=== PATIENT | female | born 1945 | race Caucasian/White ===

== ENCOUNTER → 2024-05-13 | Day surgery (SDC) | payer MEDICARE, BC ==
[~2024-05-13] MED LIST: ALPRAZolam 0.25 MG TAB PO PRN; ALPRAZolam 0.5 MG TAB PO PRN; ATORVASTATIN 80 MG TAB PO ONE; HEPARIN SODIUM,PORCINE (1 ML) 2,500 UNIT in SODIUM CHLORIDE 0.9% 250 ML IRRIGATION PRN; HEPARIN SODIUM,PORCINE 10,000 UNIT in SODIUM CHLORIDE 0.9% 1,000 ML IRRIGATION PRN; NITROGLYCERIN SL TABS 0.4 MG TAB SUBLINGUAL PRN; RX INFO: IV CONTRAST WAS GIVEN 1 EACH MISC MISCELLANE PRN; SODIUM CHLORIDE 0.9% 1,000 ML IV SCH
[2024-05-13] MEDS: IV FLUID CONTINUATION 1,000 ML IV ONE ×2 (08:30)
[2024-05-13] MEDS: SODIUM CHLORIDE 0.9% 1,000 ML in EMPTY BAG 1 BAG IV SCH (08:30)
[2024-05-13 08:50] LABS: Basophils % (A) 0 %; Eosinophils % (A) 0 %; HCT 40.9 % (34.0-46.0); HGB 13.7 gm/dL (11.4-16.0); Lymphocytes # (A) 0.7 k/uL (1.0-4.8); Lymphocytes % (A) 22 %; MCH 33.9 pg (25.0-35.0); MCHC 33.5 g/dL (31.0-37.0); MCV 101.1 fL (80.0-100.0); Mean Platelet Volume 7.2; Monocytes # (A) 0.1 k/uL (0-1.0); Monocytes % (A) 4 %; Neutrophils # (A) 2.2 k/uL (1.3-7.7); Neutrophils % (A) 70 %; Platelet Count 220 k/uL (150-450); RBC 4.05 m/uL (3.80-5.40); RDW 12.8 % (11.5-15.5); WBC 3.1 k/uL (3.8-10.6)
[2024-05-13 09:22] LABS: African American GFR (CKD) 89 (>60 ml/min/1.73 sqM); Anion Gap 9 mmol/L; Blood Urea Nitrogen 18 mg/dL (7-17); Calcium 9.6 mg/dL (8.4-10.2); Carbon Dioxide 29 mmol/L (22-30); Chloride 95 mmol/L (98-107); Glucose 125 mg/dL (74-99); Non-African American GFR(CKD) 77 (>60 ml/min/1.73 sqM); Potassium 3.3 mmol/L (3.5-5.1); Sodium 133 mmol/L (137-145)
[2024-05-13 09:39] VITALS: TEMP 97.1
[2024-05-13] MEDS: HEPARIN SODIUM,PORCINE (1 ML) 2,500 UNIT in SODIUM CHLORIDE 0.9% 250 ML IRRIGATION ONE ×2 (09:55→09:56)
[2024-05-13] MEDS: fentaNYL (PF) 50 MCG/ML 2 ML AMP IVP ONE (09:59)
[2024-05-13] MEDS: BENZOCAINE SPRAY 1 CAN TOPICAL ONE (09:59)
[2024-05-13] MEDS: MIDAZOLAM 2 MG/2 ML VIAL IVP ONE ×2 (09:59→10:00)
[2024-05-13] MEDS: HEPARIN SODIUM 1,000 UN/ML (10ML VL) IVP ONE (10:30)
[2024-05-13] MEDS: IOPAMIDOL-370 100ML BTL INJ ONE (10:48)
--- NOTE | 2024-05-13 11:09 | P.PCN ---
Date of Procedure: 05/13/24 Operative Findings: TRANSESOPHAGEAL ECHOCARDIOGRAM ENROLLMENT SERVICES DEAN: SHYAM GIBBS MD, RPVI INDICATION: Valvular heart disease and patent earl ovale SEDATION: Conscious sedation COMPLICATION: None LEVEL OF SEDATION Moderate with sedation length of 18 minutes PROCEDURE DESCRIPTION: After obtaining an informed consent, the patient was brought to transesophageal echocardiogram room. Pulse oximetry and heart monitors were attached to the patient. The patient throat was sprayed using lidocaine. The patient was turned into left lateral position. After that a bite guard was placed. After an appropriate conscious sedation was initiated, the transesophageal echocardiogram was advanced through a bite guard into the mid esophagus. A 2-D echocardiogram images, color Doppler images, continuous wave images, pulse-wave images, of various cardiac structure were performed. After that the transesophageal echocardiogram probe was advanced into the stomach and fixed to obtain transgastric view was. The probe was brought into the mid esophagus. Inter-atrial septum was interrogated using 2D images, color Doppler images, and then contrast study. After that transesophageal echocardiogram was withdrawn out and upon withdrawing the descending thoracic aorta all the way up to the arch was evaluated. CONCLUSION: 1. Normal LV systolic function with EF between 50 to 55% 2. Severe biatrial enlargement 3. Intact left atrial appendage 4. Patent earl ovale with a purely [id number] shunt was identified 5. Prolapsing anterior mitral leaflet with evidence of moderate to severe mitral regurgitation with PISA radius of 0.6 cm at aliasing velocity of 55 cm/s 6. Torrential tricuspid regurgitation was identified 7. Trileaflet aortic valve with moderate aortic insufficiency
--- NOTE | 2024-05-13 11:13 | P.PCN ---
Date of Procedure: 05/13/24 Operative Findings: CARDIAC CATHETERIZATION PERFORMING PHYSICIAN: Antwan Cardenas MD, RPVI PROCEDURE PERFORMED: 1. Selective right and left coronary angiogram and left heart catheterization 2. Right heart catheterization 3. Ultrasound-guided access of the right radial artery INDICATION: Symptomatic 78-year-old female patient with valvular heart disease known mitral and tricuspid regurgitation and also patent foramen ovale COMPLICATION: None APPROACH: Right radial artery LEVEL OF SEDATION: Moderate with a sedation length of 40 minutes PROCEDURE DESCRIPTION: After obtaining an informed consent, the patient was brought to cardiac mobile lab technician. Local anesthesia was performed using lidocaine subcutaneously. The right radial artery was cannulated using Seldinger technique, the guidewire passed easily, following that we advanced a 5-Slovenian sheath dilator assembly, the wire and dilator were removed and sheath was flushed. The patient came back with a venous sheath was placed in the right arm which was exchanged over an 018 wire into a 6 [place]ian sheath. Following that, 2 mg of verapamil along with 5000 unit heparin were given. Selective right and left coronary angiogram using a 6-[place]ovenian JR4 and JL 3.5 catheters. Following that we did left heart catheterization using 6-Slovenian pigtail c atheter. Right heart catheterization was performed using a 6 Slovenian Maddock catheter. The procedure was completed there was no complication. SELECTIVE CORONARY ANGIOGRAM: The right coronary artery: Large-caliber vessel and a dominant vessel appears to be angiographically normal and distally bifurcates into PDA and PLV branches Left main: Is angiographically normal The left circumflex: Large-caliber vessel nondominant vessel with no evidence of high-grade stenosis The left anterior descending artery: The proximal to mid LAD has mild to moderate disease appears to be in the range of 30% HEMODYNAMICS: The pulmonary capillary wedge pressure was 12 mmHg PA pressures were as follows systolic of 32 and diastolic of 18 and mean of 24 mmHg RV pressures were as follows systolic of 31 and end-diastolic of 8 mmHg Right atrial pressure was 8 mmHg Transpulmonary gradient was 12 mmHg Cardiac output was 4.07 L/min with a cardiac index of 2.72 L/min/m Pulmonary vascular resistance was 2.9 Wood units CONCLUSION: 1. Mild pulmonary hypertension 2. Normal biventricular filling pressures 3. Mild to moderate nonobstructive coronary artery disease POSTPROCEDURE MANAGEMENT: Evaluate the patient for mitral valve repair and tricuspid valve repair
[2024-05-13 19:04] VITALS: BP 138/82; PULSE 60; RESP 16
== END ==
LOC: CATHCVL 07:37
PROVIDERS: ATTEND Internal Medicine Interventional Cardiology
DX: I08.3 Combined rheumatic disorders of mitral, aortic and tricuspid valves (principal); I25.10 Atherosclerotic heart disease of native coronary artery without angina pectoris; I27.20 Pulmonary hypertension, unspecified; I48.0 Paroxysmal atrial fibrillation; Q21.12 Patent foramen ovale; Z88.2 Allergy status to sulfonamides; Z88.0 Allergy status to penicillin; Z88.5 Allergy status to narcotic agent; Z88.8 Allergy status to other drugs, medicaments and biological substances; Z88.6 Allergy status to analgesic agent; Z88.1 Allergy status to other antibiotic agents; Z79.01 Long term (current) use of anticoagulants; Z79.899 Other long term (current) drug therapy
CPT/HCPCS: 93312; 93320; 93325; 93460; 86900; 86901; 86902; 80048; 85025; 86850; 86870; 86880; 99152; 99153; J2250; J1644 ×2; J3010; Q9967

== ENCOUNTER 2024-07-15 08:00 | Inpatient (IN) | payer MEDICARE, BC ==
[2024-07-30] MEDS: METOPROLOL TARTRATE 12.5 MG TAB PO ONE (06:37)
[2024-07-30] MEDS: ATORVASTATIN 10 MG TAB PO ONE (06:37)
[2024-07-30] MEDS: ASPIRIN 81 MG PO ONE (06:37)
[2024-07-30] MEDS: LACTATED RINGERS 1,000 ML IV ONE (06:38)
[2024-07-30] MEDS: LIDOCAINE 1% (10MG/ML) FOR IV START INTRADERMA STA (06:38)
[2024-07-30] MEDS: IV FLUID CONTINUATION 1,000 ML IV ONE (06:40)
[2024-07-30 06:59] LABS: Glucose,Whole Blood 90 mg/dL (70-110)
[2024-07-30] MEDS ORDERED: PROPOFOL 10 MG/ML 20 ML VIAL IV ONE (07:45)
[2024-07-30] MEDS ORDERED: fentaNYL (PF) 50 MCG/ML 50 ML VIAL ONE (07:45)
[2024-07-30] MEDS ORDERED: HEPARIN SODIUM,PORCINE 5,000 UNIT/ML 1 ML VIAL ONE (07:45)
[2024-07-30] MEDS ORDERED: HEPARIN SODIUM,PORCINE 10,000 UNIT/ML 1 ML VIAL ONE (07:45)
[2024-07-30] MEDS ORDERED: ALBUMIN HUMAN 5% (25gm) 500 ML VIAL IVPB ONE (07:45)
[2024-07-30] MEDS ORDERED: CALCIUM CHLORIDE 100 MG/ML 10 ML SYRINGE ONE (07:45)
[2024-07-30] MEDS ORDERED: MIDAZOLAM HCL 10 MG/10 ML VIAL ONE (07:45)
[2024-07-30] MEDS ORDERED: TRANEXAMIC 1,000 MG/100ML-NACL PREMIX BAG ONE (07:45)
[2024-07-30] MEDS ORDERED: VECURONIUM 10 MG VIAL IV ONE (07:45)
[2024-07-30 08:33] LABS: ABG Base Excess 3.6 mmol/L; ABG Glucose Whole Blood 92 mg/dL (75-99); ABG HCO3 27 mmol/L (21-25); ABG Hematocrit 34 % (34.0-46.0); ABG Ionized Calcium 4.6 mg/dL (4.5-5.3); ABG Lactic Acid Whole Blood 0.7 mmol/L (0.5-1.6); ABG Oxygen Saturation >99.4 % (94-97); ABG PCO2 36 mmHg (35-45); ABG PH 7.49 (7.35-7.45); ABG Sodium Whole Blood 140 mmol/L (135-146)
[2024-07-30] MEDS: ceFAZolin 1,000 MG in SODIUM CHLORIDE 0.9% 1,000 ML IRRIGATION ONE (09:18)
[2024-07-30] MEDS: SODIUM CHLORIDE 0.9% 500 ML 500 ML with HEPARIN SODIUM,PORCINE (1 ML) 5,000 UNIT IV ONE (09:18)
[2024-07-30 09:20] LABS: ABG Base Excess 1.6 mmol/L; ABG Glucose Whole Blood 94 mg/dL (75-99); ABG HCO3 26 mmol/L (21-25); ABG Hematocrit 30 % (34.0-46.0); ABG Ionized Calcium 4.4 mg/dL (4.5-5.3); ABG Lactic Acid Whole Blood 0.7 mmol/L (0.5-1.6); ABG Oxygen Saturation 99.4 % (94-97); ABG PCO2 41 mmHg (35-45); ABG PH 7.42 (7.35-7.45); ABG PO2 310 mmHg (83-108); ABG Potassium Whole Blood 3.6 mmol/L (3.4-4.5); ABG Sodium Whole Blood 139 mmol/L (135-146); ABG TCO2 25 mmol/L (19-24)
[2024-07-30 09:48] LABS: ABG Base Excess -0.8 mmol/L; ABG Glucose Whole Blood 98 mg/dL (75-99); ABG HCO3 25 mmol/L (21-25); ABG Ionized Calcium 3.9 mg/dL (4.5-5.3); ABG Lactic Acid Whole Blood 0.8 mmol/L (0.5-1.6); ABG Oxygen Saturation 99.4 % (94-97); ABG PCO2 43 mmHg (35-45); ABG PH 7.37 (7.35-7.45); ABG Potassium Whole Blood 3.6 mmol/L (3.4-4.5); ABG Sodium Whole Blood 135 mmol/L (135-146); ABG TCO2 24 mmol/L (19-24)
[2024-07-30 10:22] LABS: ABG Base Excess -1.6 mmol/L; ABG Glucose Whole Blood 93 mg/dL (75-99); ABG HCO3 27 mmol/L (21-25); ABG Ionized Calcium 4.5 mg/dL (4.5-5.3); ABG Lactic Acid Whole Blood 0.6 mmol/L (0.5-1.6); ABG Oxygen Saturation 99.1 % (94-97); ABG PCO2 66 mmHg (35-45); ABG PH 7.21 (7.35-7.45); ABG PO2 335 mmHg (83-108); ABG Potassium Whole Blood 4.1 mmol/L (3.4-4.5); ABG Sodium Whole Blood 139 mmol/L (135-146); ABG TCO2 26 mmol/L (19-24)
[2024-07-30 11:01] LABS: ABG Base Excess -2.4 mmol/L; ABG Glucose Whole Blood 102 mg/dL (75-99); ABG HCO3 26 mmol/L (21-25); ABG Ionized Calcium 4.4 mg/dL (4.5-5.3); ABG Lactic Acid Whole Blood 0.6 mmol/L (0.5-1.6); ABG Oxygen Saturation 99.2 % (94-97); ABG PCO2 66 mmHg (35-45); ABG PO2 301 mmHg (83-108); ABG Potassium Whole Blood 4.3 mmol/L (3.4-4.5); ABG Sodium Whole Blood 135 mmol/L (135-146); ABG TCO2 26 mmol/L (19-24)
[2024-07-30 11:06] LABS: ABG PO2 >420 mmHg (83-108); ABG Potassium Whole Blood 2.9 mmol/L (3.4-4.5)
[2024-07-30 11:08] LABS: ABG Hematocrit 23 % (34.0-46.0); ABG PO2 >420 mmHg (83-108)
[2024-07-30 11:09] LABS: ABG Hematocrit 23 % (34.0-46.0)
[2024-07-30 11:10] LABS: ABG Hematocrit 23 % (34.0-46.0)
[2024-07-30 11:29] LABS: ABG Base Excess -1.6 mmol/L; ABG Glucose Whole Blood 124 mg/dL (75-99); ABG HCO3 23 mmol/L (21-25); ABG Ionized Calcium 4.1 mg/dL (4.5-5.3); ABG Lactic Acid Whole Blood 1.1 mmol/L (0.5-1.6); ABG Oxygen Saturation >99.4 % (94-97); ABG PCO2 38 mmHg (35-45); ABG PH 7.39 (7.35-7.45); ABG PO2 320 mmHg (83-108); ABG Potassium Whole Blood 4.3 mmol/L (3.4-4.5); ABG Sodium Whole Blood 137 mmol/L (135-146)
[2024-07-30 12:16] LABS: ABG Hematocrit 22 % (34.0-46.0); Allen Test Performed? n
[2024-07-30 12:20] LABS: ABG Base Excess -1.5 mmol/L; ABG Glucose Whole Blood 95 mg/dL (75-99); ABG HCO3 24 mmol/L (21-25); ABG Ionized Calcium 4.1 mg/dL (4.5-5.3); ABG Lactic Acid Whole Blood 1.2 mmol/L (0.5-1.6); ABG Oxygen Saturation >99.4 % (94-97); ABG PCO2 42 mmHg (35-45); ABG PH 7.36 (7.35-7.45); ABG Potassium Whole Blood 3.6 mmol/L (3.4-4.5); ABG Sodium Whole Blood 138 mmol/L (135-146)
[2024-07-30 13:09] LABS: ABG Base Excess -3.8 mmol/L; ABG Glucose Whole Blood 89 mg/dL (75-99); ABG HCO3 22 mmol/L (21-25); ABG Hematocrit 27 % (34.0-46.0); ABG Ionized Calcium 3.7 mg/dL (4.5-5.3); ABG PCO2 43 mmHg (35-45); ABG PH 7.32 (7.35-7.45); ABG PO2 278 mmHg (83-108); ABG Potassium Whole Blood 3.5 mmol/L (3.4-4.5); ABG Sodium Whole Blood 140 mmol/L (135-146); ABG TCO2 21 mmol/L (19-24)
[2024-07-30 13:10] LABS: ABG Hematocrit 24 % (34.0-46.0); ABG PO2 >420 mmHg (83-108)
[2024-07-30] MEDS ORDERED: DEXTROSE 50% SYRINGE 50 ML IVP PRN (13:43)
[2024-07-30] MEDS ORDERED: ARTIFICIAL TEARS-HYPROMELLOSE DROPS 15 ML BTL BOTH EYES PRN (13:43)
[2024-07-30] MEDS ORDERED: DEXMEDETOMIDINE/0.9% NACL(PMX) 400 MCG in EMPTY BAG 1 BAG IV SCH (13:43)
[2024-07-30] MEDS ORDERED: AMIODARONE 450 MG in DEXTROSE 5% IN WATER 250 ML IV PRN (13:43)
[2024-07-30] MEDS ORDERED: IPRATROPIUM-ALBUTEROL 3 ML NEB INHALATION PRN (13:43)
[2024-07-30] MEDS ORDERED: Potassium Replacement Protocol 1 EACH MISC MISCELLANE PRN (13:43)
[2024-07-30] MEDS ORDERED: BENZOCAINE/MENTHOL LOZENG 1 EACH LOZENGE MUCOUS MEM PRN (13:43)
[2024-07-30] MEDS ORDERED: AMIODARONE 360 MG in DEXTROSE 5% IN WATER 200 ML IV PRN (13:43)
[2024-07-30] MEDS ORDERED: CALCIUM GLUCONATE IN NACL 2 GM in SALINE 1 100ML.BAG IVPB PRN (13:43)
[2024-07-30] MEDS ORDERED: DEXTROSE 5% IN WATER 100 ML with AMIODARONE 150 MG IV PRN (13:43)
[2024-07-30] MEDS ORDERED: Magnesium Replacement Protocol 1 EACH MISC MISCELLANE PRN (13:43)
--- NOTE | 2024-07-30 14:01 | P.OP ---
Date of Procedure: 07/30/24 Preoperative Diagnosis: Mitral regurgitation, tricuspid regurgitation, aortic valvular insufficiency, chronic atrial fibrillation, patent foramen ovale Postoperative Diagnosis: Same Procedure(s) Performed: Mitral valve annuloplasty with 28 mm physio 2 ring, tricuspid valve annuloplasty with 28 mm MC 3 band, closure of patent foramen ovale, modified Ayala-Maze procedure with complete left and right sided lesion sets and suture ligation of the base of the left atrial appendage. Implants: Physio 2 mitral ring, MC 3 tricuspid band Anesthesia: GETA Surgeon: Jose Alfredo Bey Stage Setting Painter Apprentice #1: Alfa Olmedo Stage Setting Painter Apprentice #2: Anna Morgan Estimated Blood Loss (ml): 1,000 Pathology: none sent Condition: critical Disposition: ICU Indications for Procedure: 78-year-old female presents with worsening shortness of breath and fatigue. She has noted to have preserved ventricular function. She is noted to have mild aortic valvular insufficiency. She has noted to have moderate mitral regurgitation with multiple jets. She is noted to have severe tricuspid regurgitation. She has longstanding chronic atrial fibrillation with marked biatrial dilatation. She was offered either MitraClip of both the mitral and tr icuspid valves versus surgical repair with Ayala-Maze. She opted for the latter. Operative Findings: HAYLEE findings at the beginning of the case were consistent with the preoperative findings. Aorta was mildly dilated and very friable. Mitral valve demonstrated significant regurgitation without evidence of structural deformity beyond annular enlargement. Tricuspid valve similarly demonstrated no structural abnormality with marked annular dilatation. Completion HAYLEE demonstrated only mild aortic insufficiency with no evidence of mitral regurgitation and no evidence of tricuspid regurgitation. The beginning of the case the patient was in A-fib with a relatively rapid ventricular response in the 80s to 90s. At the completion of the case the patient was in a slow ventricular escape rhythm in the 40s with atrial standstill. AV pacing was initiated. The atria did pace but did not move very much. There did not appear to be any conduction from the atrium to the ventricle and patient did require V pacing. Description of Procedure: Patient was brought to the operating room and placed supine on the operating table. General anesthesia was induced. Right IJ [place]-Patricia catheter and been placed in the preop holding area. HAYLEE probe was placed with findings as noted above. The anterior torso and bilateral lower extremities were sterilely prepped and draped. Right femoral arterial line was placed and secured with 0 silk suture. Midline sternotomy was performed. The left pleural space was opened widely the right pleural space was opened minimally. The pericardium was opened in the midline of the heart was exposed with pericardial sutures. Patient was systemically heparinized. Patient was cannulated for cardiopulmonary bypass with a 6 mm soft flow cannula in the distal ascending aorta, 32 [place] straight cannula through the right atrial appendage into the inferior vena cava and a 28 right angle cannula in the superior vena cava. Antegrade and retrograde cardioplegia lines were placed in standard fashion. Patient was placed on cardiopulmonary bypass and stabilized. Caval tapes were passed. We encircled the right pulmonary veins and ablated the left atrium at the insertion of the right pulmonary veins with 3 parallel rows of RF ablation using the AtriCure clamp. Following the right sided pulmonary vein ablation, we then similarly ablated the left atrium at the entrance to the left pulmonary veins with 3 parallel RF ablations using the RF clamp. The aorta was crossclamped and the heart was arrested with cold crystalloid antegrade cardioplegia followed by retrograde cardioplegia. The interatrial groove was developed and the left atrium entered through the interatrial groove. Patent foramen ovale was identified and ligated with a 4-0 Prolene suture. Left atrium was exposed with the Red retractor. RF ablation lines of the H left atrial floor and roof were performed with 3 parallel lines using the AtriCure clamp. A line extending from here onto the mitral annulus was performed with the AtriCure cryo probe. Epicardial lesion extending from the left atriotomy onto the coronary sinus was also performed with the AtriCure cryo probe clear. Left atrial appendage was oversewn with a 4-0 Prolene suture in 2 layers. Mitral valve was exposed and examined. Findings as noted above. Circumferential rings sutures of 2-0 Tycron were placed around the entire annulus of the mitral valve. The anterior leaflet was sized and a 26 mm physio 2 ring was chosen. Annuloplasty sutures were passed through the sewing ring of the valve ring and it was seated and the sutures tied. The valve was tested and noted to be competent. Left atrium was irrigated and then atrium closed with a single layer closure of 3-0 Prolene suture. Atrium was de-aired prior to tying the suture. Next caval tapes were tightened and the right atrium was opened with a small vertical atriotomy. RF ablation lines were extended from the base of the atriotomy to the superior vena cava and inferior vena cava with 2 parallel lines each. 2 further parallel lines were placed up into the right atrial appendage. The cryoprobe was then used to extend from the top of the atriotomy across the anterior annulus of the tricuspid valve. Next the tricuspid valve was exposed and annuloplasty sutures were placed circumferentially sparing the region of the AV conduction position. 28 MC 3 band was chosen and the valve sutures were passed through the sewing ring of the MC3 band. It was seated and sutures were tied and cut. The valve was tested and noted to be competent. Patient was placed in Trendelenburg and the removed. Right atriotomy was closed with single layer running closure of 4-0 Prolene suture. The heart returned to a spontaneous rhythm. It was of slow ventricular escape rhythm. Atrial and ventricular pacing wires were placed and the patient was paced. Retrograde cardioplegia line was removed and the pursestring suture tied. Inferior vena caval venous cannula was pulled back into the right atrium and the superior vena cava caval cannula was removed and the pursestring suture tied. HAYLEE was used to confirm adequate de-airing and good ventricular and valvular function. Patient was weaned from cardiopulmonary bypass without the use of inotropic support. Patient was decannulated in standard fashion. The aortic cannulation site was reinforced with several sutures. Heparin was reversed with protamine. There was diffuse oozing present and the patient was given platelets and fresh frozen with resultant good hemostasis. Once good hemostasis had been assured throughout, left pleural space was drained with a 32 Slovak chest tube. The mediastinum was drained with 236 Slovak chest tubes. Mediastinum was irrigated with antibiotic solution. Sternum was closed with 6 Mersilene bands. Fascia was closed with 0 Ethibond. Subcutaneous and subcuticular layers were closed with layers of Vicryl suture. Dry sterile dressings were applied and the patient was transferred to the ICU in stable condition on no inotropic support. Patient did receive 1 unit of packed red blood cells following separation from cardiopulmonary bypass for needed volume support with relatively low hematocrit.
[2024-07-30 14:21] LABS: Glucose,Whole Blood 67 mg/dL (70-110)
[2024-07-30 14:35] LABS: Glucose,Whole Blood 108 mg/dL (70-110)
[2024-07-30] MEDS: SODIUM CHLORIDE 0.9% 1,000 ML IV SCH (14:36)
[2024-07-30] MEDS: CLEVIDIPINE BUTYRATE 25 MG in EMPTY BAG 1 BAG IV SCH (14:36)
[2024-07-30] MEDS: IPRATROPIUM-ALBUTEROL 3 ML NEB INHALATION SCH ×2 (14:37→21:32)
[2024-07-30 14:45] LABS: ABG HCO3 25 mmol/L (21-25); ABG Oxygen Saturation >100.0 % (94-97); ABG PCO2 42 mmHg (35-45); ABG PH 7.39 (7.35-7.45); ABG TCO2 26 mmol/L (19-24)
[2024-07-30 14:46] LABS: Ionized Calcium 4.5 mg/dL (4.5-5.3)
[2024-07-30 14:47] LABS: ABG PO2 >420 mmHg (83-108); Allen Test Performed? no
[2024-07-30 14:47] LABS: INR 1.3 (<1.2); Prothrombin Time 13.7 sec (10.0-12.5)
[2024-07-30 14:48] LABS: Basophils % (A) 0 %; Eosinophils % (A) 1 %; HCT 25.3 % (34.0-46.0); HGB 8.6 gm/dL (11.4-16.0); Lymphocytes # (A) 0.8 k/uL (1.0-4.8); Lymphocytes % (A) 18 %; MCH 33.3 pg (25.0-35.0); Monocytes # (A) 0.2 k/uL (0-1.0); Monocytes % (A) 3 %; Neutrophils # (A) 3.5 k/uL (1.3-7.7); Neutrophils % (A) 78 %; RBC 2.58 m/uL (3.80-5.40); RDW 14.1 % (11.5-15.5); WBC 4.6 k/uL (3.8-10.6)
[2024-07-30 15:00] LABS: ALT 15 U/L (4-34); AST 80 U/L (14-36); African American GFR (CKD) >90 (>60 ml/min/1.73 sqM); Albumin 2.9 g/dL (3.5-5.0); Alkaline Phosphatase 41 U/L (38-126); Anion Gap 7 mmol/L; Blood Urea Nitrogen 11 mg/dL (7-17); Calcium 8.8 mg/dL (8.4-10.2); Carbon Dioxide 25 mmol/L (22-30); Chloride 106 mmol/L (98-107); Glucose 91 mg/dL (74-99); Non-African American GFR(CKD) >90 (>60 ml/min/1.73 sqM); Sodium 138 mmol/L (137-145); Total Bilirubin 1.4 mg/dL (0.2-1.3); Total Protein 4.8 g/dL (6.3-8.2)
--- NOTE | 2024-07-30 15:02 | XR ---
EXAMINATION TYPE: XR chest 1V portable DATE OF EXAM: 07/30/2024 2:56 PM COMPARISON: None. CLINICAL INDICATION: Female, 78 years old with history of Post Operative Cardiac Surgery, difficulty breathing TECHNIQUE: XR chest 1V portable view(s) obtained. FINDINGS: The heart size is mildly prominent. Postsurgical cardiac valve changes are evident at the cardial le ads appear to be present. The pulmonary vasculature is normal. Mild linear opacities within the left midlung. Correlate for atelectasis. Mediastinal tube is present. Left-sided chest tube is present. No pneumothorax is evident. Endotrache al tube is present with the tip 3.1 cm above the promise. IMPRESSION: 1. Scattered atelectatic changes left mid lung 2. Multiple lines and catheters discussed above [facility], , 07/30/2024 3:00 PM
[2024-07-30] MEDS: ALBUMIN HUMAN 5% 250 ML in EMPTY BAG 1 BAG IVPB PRN (15:03)
[2024-07-30 15:18] LABS: Glucose,Whole Blood 132 mg/dL (70-110)
[2024-07-30] MEDS: INSULIN REGULAR 100 UNIT in SODIUM CHLORIDE 0.9% 100 ML IV SCH (15:25)
[2024-07-30 15:45] LABS: Platelet Count 70 k/uL (150-450)
[2024-07-30] MEDS: HEPARIN SODIUM,PORCINE 5,000 UNIT/ML 1 ML VIAL SQ SCH (16:01)
[2024-07-30] MEDS: ACETAMINOPHEN IV (For NPO) 1,000 MG in EMPTY BAG 1 BAG IVPB SCH (16:04)
[2024-07-30] MEDS: prednisoLONE ACETATE 1% OPHTH DROPS 5 ML BTL BOTH EYES SCH (16:06)
[2024-07-30 16:11] LABS: Glucose,Whole Blood 134 mg/dL (70-110)
--- NOTE | 2024-07-30 16:52 | P.ANPRN ---
Procedure Note - Anesthesia - Invasive Line Right [place] Patricia Time Out Performed: Yes Date of Procedure: 07/30/24 Time of Procedure: 07:44 Location of Patient: PreOp Preparation: Sterile Prep, Sterile Dressing Central Line Location: Internal Jugular Ultrasound Used: No Purpose - Visualization and Identification of Vasculature: No Image Stored and Saved: No Narrative: Invasive line placement per sterile protocol utilized.
--- NOTE | 2024-07-30 16:52 | P.ANPRN ---
Procedure Note - Anesthesia - Invasive Line Right Central Line Time Out Performed: Yes Date of Procedure: 07/30/24 Time of Procedure: 07:38 Location of Patient: PreOp Preparation: Sterile Prep, Sterile Dressing Central Line Location: Internal Jugular Ultrasound Used: No Purpose - Visualization and Identification of Vasculature: No Image Stored and Saved: No Narrative: Invasive line placement per sterile protocol utilized.
--- NOTE | 2024-07-30 16:59 | P.CNPUL ---
History of Present Illness Consult date: 07/30/24 Chief complaint: Postthoracotomy, cardiac surgery. History of present illness: This is a 78-year-old female patient is being seen in the intensive care unit following cardiac surgery. The patient underwent mitral valve annuloplasty and tricuspid valve annuloplasty and closure of the PFO and modified Ayala-Maze procedure. Following that, the patient was brought in intubated on mechanical ventilator and the patient is currently in the intensive care unit. I saw the patient in the ICU. The patient is on propofol which is running at 20 mcg/k g/min and the patient is calm and comfortable. The patient is on assist-control mode of mechanical ventilation at rate of 12, tidal volume of 400, FiO2 at 100% with a PEEP of 5. Initial blood gas showed a pH of 7.38 with a pCO2 of 42 and pO2 of 429. FiO2 has been dropped down to 50%. The patient is calm and comfortable. Current cardiac rhythm is AV paced at a rate of 80. No pressors for now. The patient received a total of 1 unit of packed RBC, 1 unit of platelets and 2 units of fresh frozen plasma in the operating room. She has 2 mediastinal chest tube and 1 pleural chest tube and the outputs are minimal at this point in time. The chest x-ray that was done postop showed adequate ex pansion of both lungs. Chest tubes are all in place. The patient does not have any Seneca-Patricia catheter. The blood work shows a white cell count of 4.6, hemoglobin 8.6 and a platelet count of 70. The sodium is at 138, potassium is 4, bicarb is 25, elevated BUN is 11 with a creatinine of 0.5. LFTs are normal. The patient has adequate urine output. Hemodynamically stable. The patient is also afebrile. No other significant events since arrival to the intensive care unit. Review of Systems ROS unobtainable: due to endotracheal tube 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 states she passed out 04/30/24 after eye examination and long day of travel - estimates LOC 2 minutes, fatigue, weakness, SOB w/exertion, surgery was rescheduled History of Any Multi-Drug Resistant Organisms: None Reported Past Surgical History: Heart Catheterization, Hysterectomy Additional Past Surgical History / Comment(s): Bilat. corneal transplants, rectocele repair Past Anesthesia/Blood Transfusion Reactions: No Reported Reaction Additional Past Anesthesia/Blood Transfusion Reaction / Comment(s): no hx. of transfusion reactions Smoking Status: Never smoker - Past Family History Father Family Medical History: Coronary Artery Disease (CAD) Additional Family Medical History / Comment(s): CABG 3 times during lifetime, bypass and valve repairs Mother Family Medical History: Hypertension Medications and Allergies Home Medications Medication Instructions Recorded Confirmed Type Apixaban [Eliquis] 2.5 mg PO BID 05/06/24 07/28/24 History Artificial Tears-Hypromellose 2 drops BOTH EYES DIRECTED 05/06/24 07/28/24 History [Artificial Tear Drops] Ascorbic Acid [Vitamin C] 500 mg PO DAILY 05/06/24 07/28/24 History Cholecalciferol [Vitamin D3 (25 25 mcg PO DAILY 05/06/24 07/28/24 History Mcg = 1000 Iu)] Collagen/Biotin/Ascorbic Acid 1 each PO DAILY 05/06/24 07/28/24 History [Collagen 1500 Plus C Capsule] Furosemide [Lasix] 20 mg PO DAILY 05/06/24 07/28/24 History Losartan [Cozaar] 100 mg PO DAILY 05/06/24 07/28/24 History Potassium Chloride ER [K-Dur 10] 10 meq PO DAILY 05/06/24 07/28/24 History Sodium Chloride 5% Ophth Oint 1 dose BOTH EYES BID 05/06/24 07/28/24 History [Ayleen 128] Super 8 Greens 1 dose PO DAILY 05/06/24 07/28/24 History Timolol [Betimol 0.5% Ophth Soln] 1 drop RIGHT EYE HS 05/06/24 07/28/24 History amLODIPine BESYLATE 10 mg PO DAILY 05/06/24 07/28/24 History atenoloL [Tenormin] 25 mg PO BID 05/06/24 07/28/24 History prednisoLONE acetate [Pred Mild] 1 drop BOTH EYES TID 05/06/24 07/28/24 History valACYclovir HCL [Valtrex] 500 mg PO DAILY 05/06/24 07/28/24 History Cetirizine HCl [Zyrtec] 10 mg PO HS 07/14/24 07/28/24 History Famotidine [Pepcid] 40 mg PO DAILY 07/14/24 07/28/24 History diphenhydrAMINE [Benadryl] 25 mg PO BID PRN 07/14/24 07/28/24 History Allergies Allergy/AdvReac Type Severity Reaction Status Date / Time Beef Containing Products Allergy Nausea & Verified 07/30/24 06:16 [Beef] Vomiting codeine Allergy Nausea & Verified 07/30/24 06:16 Vomiting erythromycin base Allergy Rash/Hives Verified 07/30/24 06:16 gluten Allergy GI upset Verified 07/30/24 06:16 hydrocodone [From Vicodin] Allergy Nausea & Verified 07/30/24 06:16 Vomiting ibuprofen Allergy Rash/Hives Verified 07/30/24 06:16 meperidine [From Demerol] Allergy Unknown Verified 07/30/24 06:16 Penicillins Allergy Rash/Hives Verified 07/30/24 06:16 Pork/Porcine Containing Allergy Nausea & Verified 07/30/24 06:16 Products Vomiting [Pork] Sulfa (Sulfonamide Allergy Rash/Hives Verified 07/30/24 06:16 Antibiotics) tramadol [From Ultram] Allergy Rash/Hives Verified 07/30/24 06:16 aspirin AdvReac Unknown Verified 07/30/24 06:16 corn AdvReac doesn't Verified 07/30/24 06:16 eat due to diverticular disease peanut AdvReac doesn't Verified 07/30/24 06:16 eat due to diverticular disease tomato AdvReac doesn't Verified 07/30/24 06:16 eat due to diverticular disease 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 Rash/Hives Uncoded 07/30/24 06:16 Physical Exam Vitals: Vital Signs Temp Pulse Pulse Resp BP BP BP 07/30/24 16:15 80 14 07/30/24 16:09 96 07/30/24 16:00 80 14 07/30/24 15:59 80 07/30/24 15:45 80 14 07/30/24 15:30 80 14 07/30/24 15:15 80 14 07/30/24 15:00 82 14 101/78 07/30/24 14:51 07/30/24 14:45 80 14 07/30/24 14:30 88 14 115/82 07/30/24 14:20 79 14 107/69 07/30/24 14:17 97 F L 79 14 07/30/24 14:14 07/30/24 06:40 97.8 F 76 16 152/85 162/93 Pulse Ox FiO2 07/30/24 16:15 91 L 40 07/30/24 16:09 07/30/24 16:00 96 40 07/30/24 15:59 07/30/24 15:45 95 40 07/30/24 15:30 100 40 07/30/24 15:15 100 40 07/30/24 15:00 100 40 07/30/24 14:51 40 07/30/24 14:45 100 40 07/30/24 14:30 100 100 07/30/24 14:20 100 100 07/30/24 14:17 100 100 07/30/24 14:14 100 07/30/24 06:40 100 Intake and Output 07/30/24 07/30/24 07/30/24 06:59 14:59 22:59 Intake Total 100 1208 379.431 Output Total 660 Balance 100 1208 -280.569 Intake: IV 100 2 12 pressure bag 12 Intake, IV Titration 367.431 Amount Albumin Human 5% 250 ml 250 In Empty Bag 1 bag @ 250 mls/hr IVPB Q1HR PRN Rx#: [id number] Sodium Chloride 0.9% 1, 100 000 ml @ 50 mls/hr IV . Q20H [facility] Rx#:[id number] propofoL 1,000 mg In 17.431 Empty Bag 1 bag @ Titrate IV .Q0M [facility] Rx#: [id number] Blood Product 1206 Ffp 24 Cpd Unit 336 [id number] Ffp 24 Cpd Unit 283 [id number] Platelet Pheresis Pas 277 Psoralen Unit [id number] Rc As-1 Unit 310 [id number] Output: Chest Tube Drainage 185 Chest Tube Mediastinal 170 Pleural Catheter Left 15 Urine 475 Other: Voiding Method Indwelling Catheter Weight 55.6 kg ABP, PAP, CO, CI - Last 8 Hours Arterial Blood Pressure 113/67 Arterial Blood Pressure 111/70 Arterial Blood Pressure 115/73 Arterial Blood Pressure 107/68 Arterial Blood Pressure 108/71 Arterial Blood Pressure 102/69 Arterial Blood Pressure 103/68 Arterial Blood Pressure 100/66 Arterial Blood Pressure 110/68 Arterial Blood Pressure 113/70 The patient appeared well nourished and normally developed. Vital signs as documented. The patient is stable, comfortable on propofol. Orogastric and orotracheal tube are both in place. Head exam is unremarkable. No scleral icterus or corneal arcus noted. Neck is without jugular venous distension, thyromegaly, or carotid bruits. Carotid upstrokes are brisk bilaterally. Lungs are clear to auscultation and percussion. Thoracotomy scar is dry clean and intact in the patient mediastinal chest tube in the left pleural chest tube. No evidence of any air leak and output is minimal at this point in time. Cardiac exam reveals the PMI to be normally sized and situated. Rhythm is regular. First and second heart sounds normal. No murmurs, rubs or gallops. The patient has AV pacing at a rate of 80. Abdominal exam reveals normal bowel sounds, no masses, no organomegaly and no aortic enlargement. Extremities are nonedematous and both femoral and pedal pulses are normal. Examination of the skin revealed no evidence of significant rashes, suspicious appearing nevi or other concerning lesions. Neurologically, the patient is sedated on propofol and the patient is calm and comfortable and synchronous with mechanical ventilator. Results - Laboratory Findings CBC and BMP: 07/30/24 14:25 07/30/24 14:25 ABG ABG pH 7.39 (7.35-7.45) 07/30/24 14:43 ABG pCO2 42 mmHg (35-45) 07/30/24 14:43 ABG pO2 >420 mmHg (83-108) H 07/30/24 14:43 ABG O2 Saturation >100.0 % (94-97) H 07/30/24 14:43 PT/INR, D-dimer PT 13.7 sec (10.0-12.5) H 07/30/24 14:25 INR 1.3 (<1.2) H 07/30/24 14:25 Abnormal lab findings: Abnormal Labs 07/28/24 07/30/24 07/30/24 08:14 08:35 09:23 RBC Hgb Hct Plt Count Lymphocytes # PT INR APTT ABG pH 7.49 H ABG pCO2 ABG pO2 >420 H 310 H ABG HCO3 27 H 26 H ABG Total CO2 25 H ABG O2 Saturation >99.4 H 99.4 H ABG Hematocrit 30 L ABG Potassium 2.9 L* ABG Ionized Calcium 4.4 L ABG Glucose Hemoglobin 11.2 L 9.7 L POC Glucose (mg/dL) Magnesium Total Bilirubin AST Total Protein Albumin Arterial Blood Potassium 2.9 L* Arterial Blood Glucose Crossmatch See Detail Blood Bank Comment Sent to [facility] A Reference Lab Result See [facility] REF Reports A 07/30/24 07/30/24 07/30/24 09:51 10:24 11:03 RBC Hgb Hct Plt Count Lymphocytes # PT INR APTT ABG pH 7.21 L 7.20 L ABG pCO2 66 H 66 H ABG pO2 >420 H 335 H 301 H ABG HCO3 27 H 26 H ABG Total CO2 26 H 26 H ABG O2 Saturation 99.4 H 99.1 H 99.2 H ABG Hematocrit 23 L 23 L 23 L ABG Potassium ABG Ionized Calcium 3.9 L 4.4 L ABG Glucose 102 H Hemoglobin 7.4 L 7.5 L 7.4 L POC Glucose (mg/dL) Magnesium Total Bilirubin AST Total Protein Albumin Arterial Blood Potassium Arterial Blood Glucose 102 H Crossmatch Blood Bank Comment Reference Lab Result 07/30/24 07/30/24 07/30/24 11:31 12:22 13:11 RBC Hgb Hct Plt Count Lymphocytes # PT INR APTT ABG pH 7.32 L ABG pCO2 ABG pO2 320 H >420 H 278 H ABG HCO3 ABG Total CO2 ABG O2 Saturation >99.4 H >99.4 H 99.0 H ABG Hematocrit 22 L 24 L 27 L ABG Potassium ABG Ionized Calcium 4.1 L 4.1 L 3.7 L ABG Glucose 124 H Hemoglobin 7.1 L 7.8 L 8.7 L POC Glucose (mg/dL) Magnesium Total Bilirubin AST Total Protein Albumin Arterial Blood Potassium Arterial Blood Glucose 124 H Crossmatch Blood Bank Comment Reference Lab Result 07/30/24 07/30/24 07/30/24 14:19 14:25 14:25 RBC 2.58 L Hgb 8.6 L Hct 25.3 L Plt Count 70 L Lymphocytes # 0.8 L PT 13.7 H INR 1.3 H APTT 36.0 H ABG pH ABG pCO2 ABG pO2 ABG HCO3 ABG Total CO2 ABG O2 Saturation ABG Hematocrit ABG Potassium ABG Ionized Calcium ABG Glucose Hemoglobin POC Glucose (mg/dL) 67 L Magnesium Total Bilirubin AST Total Protein Albumin Arterial Blood Potassium Arterial Blood Glucose Crossmatch Blood Bank Comment Reference Lab Result 07/30/24 07/30/24 07/30/24 14:25 14:43 15:16 RBC Hgb Hct Plt Count Lymphocytes # PT INR APTT ABG pH ABG pCO2 ABG pO2 >420 H ABG HCO3 ABG Total CO2 26 H ABG O2 Saturation >100.0 H ABG Hematocrit ABG Potassium ABG Ionized Calcium ABG Glucose Hemoglobin 8.8 L POC Glucose (mg/dL) 132 H Magnesium 3.0 H Total Bilirubin 1.4 H AST 80 H Total Protein 4.8 L Albumin 2.9 L Arterial Blood Potassium Arterial Blood Glucose Crossmatch Blood Bank Comment Reference Lab Result 07/30/24 16:10 RBC Hgb Hct Plt Count Lymphocytes # PT INR APTT ABG pH ABG pCO2 ABG pO2 ABG HCO3 ABG Total CO2 ABG O2 Saturation ABG Hematocrit ABG Potassium ABG Ionized Calcium ABG Glucose Hemoglobin POC Glucose (mg/dL) 134 H Magnesium Total Bilirubin AST Total Protein Albumin Arterial Blood Potassium Arterial Blood Glucose Crossmatch Blood Bank Comment Reference Lab Result - Diagnostic Findings Chest x-ray: image reviewed Assessment and Plan Plan: 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 The patient has also undergone closure of PFO and qualifies Ayala-Maze procedure. Patient is AV paced at a rate of 80 Postthoracotomy for cardiac surgery. Patient remains intubated on mechanical ventilator. Chest x-ray was noted and shows routine postop changes. Blood gases were noted and the patient is adequate oxygenation and ventilation. Chest tube output is minimal and the patient has no evidence of any air leak. Postoperative anemia expected outcome of surgery, received a unit of packed RBC in the operating room Postoperative thrombocytopenia, received a unit of platelets in the operating room History of CVA History of atrial fibrillation, currently AV paced at a rate of 80 Sjogren's disease Plan Continue ventilator support Wean FiO2 as tolerated to maintain saturation above 90% Chest x-ray was noted Hemodynamically stable Monitor output from the chest tubes Keep the patient AV paced at a rate of 80 Wean off propofol Check weaning parameters once the patient is ready and anticipate extubation within the next few hours. Will continue to follow This is a critical care evaluation that was done in the ICU and 34 minutes. Time with Patient: Greater than 30
[2024-07-30 17:28] LABS: Glucose,Whole Blood 127 mg/dL (70-110)
[2024-07-30 17:35] LABS: Basophils % (A) 0 %; Eosinophils % (A) 0 %; HCT 25.9 % (34.0-46.0); Lymphocytes % (A) 13 %; MCH 34.5 pg (25.0-35.0); MCHC 34.7 g/dL (31.0-37.0); MCV 99.3 fL (80.0-100.0); Mean Platelet Volume 7.7; Monocytes # (A) 0.4 k/uL (0-1.0); Monocytes % (A) 5 %; Neutrophils # (A) 6.3 k/uL (1.3-7.7); Neutrophils % (A) 81 %; RBC 2.61 m/uL (3.80-5.40); RDW 13.9 % (11.5-15.5); WBC 7.7 k/uL (3.8-10.6)
[2024-07-30 18:06] LABS: Glucose,Whole Blood 121 mg/dL (70-110)
[2024-07-30 18:07] LABS: ABG Base Excess 0.6 mmol/L; ABG HCO3 26 mmol/L (21-25); ABG Oxygen Saturation 98.5 % (94-97); ABG PCO2 42 mmHg (35-45); ABG PH 7.39 (7.35-7.45); ABG PO2 103 mmHg (83-108); ABG TCO2 27 mmol/L (19-24)
[2024-07-30 18:09] LABS: Allen Test Performed? no
[2024-07-30 18:12] LABS: Platelet Count 85 k/uL (150-450)
[2024-07-30] MEDS: ONDANSETRON 4 MG/2 ML VIAL IVP PRN (18:46)
[2024-07-30 19:10] LABS: Glucose,Whole Blood 116 mg/dL (70-110)
[2024-07-30 20:03] LABS: Glucose,Whole Blood 118 mg/dL (70-110)
[2024-07-30 20:20] LABS: Basophils % (A) 0 %; Eosinophils % (A) 0 %; HCT 25.5 % (34.0-46.0); HGB 8.4 gm/dL (11.4-16.0); Lymphocytes # (A) 0.7 k/uL (1.0-4.8); Lymphocytes % (A) 8 %; MCH 32.5 pg (25.0-35.0); MCHC 33.2 g/dL (31.0-37.0); MCV 98.2 fL (80.0-100.0); Mean Platelet Volume 9.6; Monocytes # (A) 0.4 k/uL (0-1.0); Monocytes % (A) 4 %; Neutrophils # (A) 7.4 k/uL (1.3-7.7); Neutrophils % (A) 87 %; RBC 2.59 m/uL (3.80-5.40); RDW 14.4 % (11.5-15.5); WBC 8.5 k/uL (3.8-10.6)
[2024-07-30 20:26] LABS: Platelet Count 85 k/uL (150-450)
[2024-07-30] MEDS: METOCLOPRAMIDE 5 MG/ML 2 ML VIAL IVP PRN (20:34)
[2024-07-30] MEDS: SENNOSIDES-DOCUSATE SODIUM 1 EACH TAB PO SCH (21:59)
[2024-07-30] MEDS: TIMOLOL 0.5% OPHTH DROPS 5 ML BTL RIGHT EYE SCH (22:00)
[2024-07-30] MEDS: SODIUM CHLORIDE 5% OPHTH OINT 3.5 GM TUBE BOTH EYES SCH (22:00)
[2024-07-30 22:12] LABS: Glucose,Whole Blood 129 mg/dL (70-110)
[2024-07-31 00:01] LABS: Glucose,Whole Blood 108 mg/dL (70-110)
[2024-07-31 01:09] LABS: Glucose,Whole Blood 125 mg/dL (70-110)
[2024-07-31 03:14] LABS: Glucose,Whole Blood 120 mg/dL (70-110)
[2024-07-31 05:19] LABS: Basophils % (A) 0 %; Eosinophils % (A) 0 %; HCT 22.7 % (34.0-46.0); HGB 7.8 gm/dL (11.4-16.0); Lymphocytes # (A) 0.8 k/uL (1.0-4.8); Lymphocytes % (A) 9 %; MCH 34.2 pg (25.0-35.0); MCHC 34.3 g/dL (31.0-37.0); MCV 99.9 fL (80.0-100.0); Macrocytosis Slight; Mean Platelet Volume 9.7; Monocytes # (A) 0.4 k/uL (0-1.0); Monocytes % (A) 5 %; Neutrophils # (A) 7.5 k/uL (1.3-7.7); Neutrophils % (A) 86 %; RBC 2.28 m/uL (3.80-5.40); RDW 14.2 % (11.5-15.5); WBC 8.8 k/uL (3.8-10.6)
[2024-07-31 05:24] LABS: Ionized Calcium 4.5 mg/dL (4.5-5.3); Platelet Count 79 k/uL (150-450)
[2024-07-31 05:38] LABS: ALT 14 U/L (4-34); AST 94 U/L (14-36); African American GFR (CKD) 78 (>60 ml/min/1.73 sqM); Albumin 3.7 g/dL (3.5-5.0); Alkaline Phosphatase 48 U/L (38-126); Anion Gap 9 mmol/L; Blood Urea Nitrogen 14 mg/dL (7-17); Calcium 8.5 mg/dL (8.4-10.2); Carbon Dioxide 25 mmol/L (22-30); Chloride 104 mmol/L (98-107); Glucose 111 mg/dL (74-99); Magnesium 2.5 mg/dL (1.6-2.3); Non-African American GFR(CKD) 68 (>60 ml/min/1.73 sqM); Potassium 3.8 mmol/L (3.5-5.1); Sodium 138 mmol/L (137-145); Total Protein 5.7 g/dL (6.3-8.2)
[2024-07-31] MEDS: hydrALAZINE HCL 20 MG/ML 1 ML VIAL IVP PRN (07:07)
--- NOTE | 2024-07-31 07:07 | XR ---
EXAMINATION TYPE: XR chest 1V portable DATE OF EXAM: 07/31/2024 5:01 AM COMPARISON: 07/30/2024 CLINICAL INDICATION: Female, 78 years old with history of Post Operative Cardiac Surgery, TECHNIQUE: XR chest 1V portable view(s) obtained. FINDINGS: The heart size is enlarged. The pulmonary vasculature is prominent. Mild scattered areas of infiltrate are present. Correlate for volume overload and pulmonary edema. Mediastinal tube is present. Left-sided chest tube is present. Cardiomegaly is present IMPRESSION: 1. Clinical correlation recommended for volume overload and pulmonary edema. [facility], , 07/31/2024 7:05 AM
[2024-07-31 07:26] LABS: Glucose,Whole Blood 118 mg/dL (70-110)
[2024-07-31 08:10] LABS: Glucose,Whole Blood 87 mg/dL (70-110)
[2024-07-31] MEDS: ASPIRIN 81 MG PO SCH (08:35)
[2024-07-31] MEDS: METOPROLOL TARTRATE 12.5 MG TAB PO SCH (08:35)
[2024-07-31] MEDS: PANTOPRAZOLE 40 MG/10 ML VIAL IVP SCH (08:35)
[2024-07-31] MEDS: ATORVASTATIN 40 MG TAB PO SCH (08:36)
[2024-07-31] MEDS: CHOLECALCIFEROL 25 MCG (1000 IU) TABLET PO SCH (08:36)
[2024-07-31] MEDS: ASCORBIC ACID 500 MG TAB PO SCH (08:36)
[2024-07-31 08:58] LABS: Glucose,Whole Blood 126 mg/dL (70-110)
[2024-07-31] MEDS ORDERED: MAGNESIUM HYDROXIDE 2,400 MG/30 ML CUP PO PRN (09:00)
[2024-07-31] MEDS ORDERED: bisacodyL 10 MG SUPP RECTAL PRN (09:00)
[2024-07-31 10:16] LABS: Glucose,Whole Blood 130 mg/dL (70-110)
[2024-07-31 10:55] LABS: Glucose,Whole Blood 92 mg/dL (70-110)
[2024-07-31 11:11] LABS: Glucose,Whole Blood 132 mg/dL (70-110)
[2024-07-31] MEDS: LOSARTAN 25 MG TAB PO SCH (11:23)
[2024-07-31 12:17] LABS: Glucose,Whole Blood 130 mg/dL (70-110)
--- NOTE | 2024-07-31 13:49 | P.CRDCN ---
History of Present Illness Consult date: 07/31/24 History of present illness: History of Present Illness: The patient is a 78-year-old female, followed by Dr. Cardenas who had significant mitral and tricuspid regurgitation. She underwent mitral valve repair with size 28 physio 2 ring and tricuspid valve annuloplasty size 28 with closure of patent foramen ovale and modified Ayala-Maze procedure. Patient has history of atrial fibrillation. She is extubated, sitting up in the chair, appears to be weak but denies any chest discomfort except incisional pain. She has no history of CAD by cardiac catheterization. She is on no vasopressors and she has good urinary output. She has a prior history of TIA. Her left ventricular systolic function was preserved in the past. She is paced 100% at this time Medications: Prior to admission amlodipine 10 mg daily, losartan 100 mg daily, Lasix, Zyrtec, Eliquis 2.5 mg twice a day, atenolol 25 mg twice a day Review of Systems: Respiratory: She has dyspnea on exertion and history of pulmonary hypertension GI: No nausea or vomiting . No history of peptic ulcer disease. No recent GI bleed. : No hematuria or dysuria. Nervous System: No seizure. Physical Examination: 78-year-old female, alert oriented, weak,Blood pressure 137/60, Heart rate 80 Head: Normocephalic. Eyes: Sclerae nonicteric. Neck: Good carotid upstroke, no bruit, no jugular venous distention. [place]ricia catheter in place Lungs: Clear to auscultation with mild decreased in the bases. Heart: Regular rate and rhythm, S1-S2, no S3, no rub. Systolic murmur. Abdomen: Soft nontender, positive bowel sounds no organomegaly. Extremities: No edema, intact distal pulses. Labs: Hemoglobin 7.8, BUN 14, creatinine 0.84, potassium 3.8 Impression: 1. Status post mitral and tricuspid valve repair with closure of the left atrial appendage and maze procedure 2. Pulmonary hypertension preoperatively 3. History of hypertension 4. Atrial fibrillation Plan: 1. Continue pacemaker backup at this time, if she has persistent slow ventricular response then I would recommend permanent pacemaker implantation 2. Follow blood pressure and reinitiate ARB as tolerated 3. Incentive spirometry and increase physical activity 4. Follow renal functions 5. Depending on her progress further recommendations will be made, thank you for this consult we will follow with you. 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 pupil dilated, "hole in back of hear t", CVA 03/2015 - no residual effects, liver hemangioma, hiatal hernia, Sjogren's syndrome,-very dry eyes-need to be kept moist, diverticulitis, pt. states she passed out 04/30/24 after eye examination and long day of travel - estimates LOC 2 minutes, fatigue, weakness, SOB w/exertion, surgery was r escheduled History of Any Multi-Drug Resistant Organisms: None Reported Past Surgical History: Heart Catheterization, Hysterectomy Additional Past Surgical History / Comment(s): Bilat. corneal transplants, rectocele repair Past Anesthesia/Blood Transfusion Reactions: No Reported Reaction Additional Past Anesthesia/Blood Transfusion Reaction / Comment(s): no hx. of transfusion reactions Smoking Status: Never smoker - Past Family History Father Family Medical History: Coronary Artery Disease (CAD) Additional Family Medical History / Comment(s): CABG 3 times during lifetime, bypass and valve repairs Mother Family Medical History: Hypertension Medications and Allergies Home Medications Medication Instructions Recorded Confirmed Type Apixaban [Eliquis] 2.5 mg PO BID 05/06/24 07/28/24 History Artificial Tears-Hypromellose 2 drops BOTH EYES DIRECTED 05/06/24 07/28/24 History [Artificial Tear Drops] Ascorbic Acid [Vitamin C] 500 mg PO DAILY 05/06/24 07/28/24 History Cholecalciferol [Vitamin D3 (25 25 mcg PO DAILY 05/06/24 07/28/24 History Mcg = 1000 Iu)] Collagen/Biotin/Ascorbic Acid 1 each PO DAILY 05/06/24 07/28/24 History [Collagen 1500 Plus C Capsule] Furosemide [Lasix] 20 mg PO DAILY 05/06/24 07/28/24 History Losartan [Cozaar] 100 mg PO DAILY 05/06/24 07/28/24 History Potassium Chloride ER [K-Dur 10] 10 meq PO DAILY 05/06/24 07/28/24 History Sodium Chloride 5% Ophth Oint 1 dose BOTH EYES BID 05/06/24 07/28/24 History [Ayleen 128] Super 8 Greens 1 dose PO DAILY 05/06/24 07/28/24 History Timolol [Betimol 0.5% Ophth Soln] 1 drop RIGHT EYE HS 05/06/24 07/28/24 History amLODIPine BESYLATE 10 mg PO DAILY 05/06/24 07/28/24 History atenoloL [Tenormin] 25 mg PO BID 05/06/24 07/28/24 History prednisoLONE acetate [Pred Mild] 1 drop BOTH EYES TID 05/06/24 07/28/24 History valACYclovir HCL [Valtrex] 500 mg PO DAILY 05/06/24 07/28/24 History Cetirizine HCl [Zyrtec] 10 mg PO HS 07/14/24 07/28/24 History Famotidine [Pepcid] 40 mg PO DAILY 07/14/24 07/28/24 History diphenhydrAMINE [Benadryl] 25 mg PO BID PRN 07/14/24 07/28/24 History Allergies Allergy/AdvReac Type Severity Reaction Status Date / Time Beef Containing Products Allergy Nausea & Verified 07/30/24 06:16 [Beef] Vomiting codeine Allergy Nausea & Verified 07/30/24 06:16 Vomiting erythromycin base Allergy Rash/Hives Verified 07/30/24 06:16 gluten Allergy GI upset Verified 07/30/24 06:16 hydrocodone [From Vicodin] Allergy Nausea & Verified 07/30/24 06:16 Vomiting ibuprofen Allergy Rash/Hives Verified 07/30/24 06:16 meperidine [From Demerol] Allergy Unknown Verified 07/30/24 06:16 Penicillins Allergy Rash/Hives Verified 07/30/24 06:16 Pork/Porcine Containing Allergy Nausea & Verified 07/30/24 06:16 Products Vomiting [Pork] Sulfa (Sulfonamide Allergy Rash/Hives Verified 07/30/24 06:16 Antibiotics) tramadol [From Ultram] Allergy Rash/Hives Verified 07/30/24 06:16 aspirin AdvReac Unknown Verified 07/30/24 06:16 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 Rash/Hives Uncoded 07/30/24 06:16 Physical Exam Vitals: Vital Signs Temp Pulse Resp BP Pulse Ox FiO2 07/31/24 11:43 81 07/31/24 11:34 80 07/31/24 11:30 80 17 96 07/31/24 11:00 80 20 135/78 94 L 07/31/24 10:30 80 20 96 07/31/24 10:00 80 19 132/77 97 07/31/24 09:30 80 17 97 07/31/24 09:00 80 8 L 142/85 94 L 07/31/24 08:40 80 07/31/24 08:33 80 97 07/31/24 08:30 80 15 98 07/31/24 08:00 98.1 F 80 12 154/85 96 07/31/24 07:30 73 18 98 07/31/24 07:00 95 18 100 07/31/24 06:30 80 17 98 07/31/24 06:00 80 98 07/31/24 05:30 80 22 96 07/31/24 05:00 79 20 96 07/31/24 04:30 30 H 88 L 07/31/24 04:00 97.8 F 32 H 96 07/31/24 03:30 80 20 95 07/31/24 03:00 86 18 96 07/31/24 02:30 80 18 94 L 07/31/24 02:00 80 20 144/82 96 07/31/24 01:30 80 19 144/82 95 07/31/24 01:00 80 20 144/82 97 07/31/24 00:30 89 19 144/82 98 07/31/24 00:00 98.1 F 83 19 137/84 98 07/30/24 23:30 80 16 107/72 93 L 07/30/24 23:00 80 17 107/72 99 07/30/24 22:30 80 21 107/72 98 07/30/24 22:26 82 15 107/72 97 07/30/24 22:15 80 16 98 07/30/24 22:00 80 16 91 L 07/30/24 21:45 80 13 95 07/30/24 21:34 80 07/30/24 21:30 80 14 98 07/30/24 21:15 80 15 108/77 98 07/30/24 21:00 80 19 108/77 100 07/30/24 20:45 82 19 121/79 100 07/30/24 20:30 80 20 100 07/30/24 20:15 97.8 F 80 20 121/79 100 07/30/24 20:00 80 19 100 07/30/24 19:45 80 13 97 07/30/24 19:30 80 15 100 07/30/24 19:15 82 10 L 100 07/30/24 19:00 80 22 100 07/30/24 18:45 80 18 100 07/30/24 18:30 80 16 100 07/30/24 18:15 80 15 94 L 40 07/30/24 18:00 80 15 96/75 95 40 07/30/24 17:45 80 16 93 L 40 07/30/24 17:30 86 15 81/59 92 L 40 07/30/24 17:15 82 17 101/78 94 L 40 07/30/24 17:00 97.4 F L 80 18 93 L 40 07/30/24 16:45 80 16 96 40 07/30/24 16:30 80 16 93 L 40 07/30/24 16:15 80 14 91 L 40 07/30/24 16:09 96 07/30/24 16:00 80 14 96 40 07/30/24 15:59 80 07/30/24 15:45 80 14 95 40 07/30/24 15:30 80 14 100 40 07/30/24 15:15 80 14 100 40 07/30/24 15:00 82 14 101/78 100 40 07/30/24 14:51 40 07/30/24 14:45 80 14 100 40 07/30/24 14:30 88 14 115/82 100 100 07/30/24 14:20 79 14 107/69 100 100 07/30/24 14:17 97 F L 79 14 100 100 07/30/24 14:14 100 Intake and Output 07/30/24 07/31/24 07/31/24 22:59 06:59 14:59 Intake Total 941.120 782.877 3186.498 Output Total 1595 730 331 Balance -653.880 -259.559 996.498 Intake: IV 268 468 326 ACETAMINOPHEN IV (For NPO 100 ) 1,000 mg In Empty Bag 1 bag @ 400 mls/hr IVPB Q6H [facility] Rx#:[id number] Sodium Chloride 0.9% 1, 120 320 240 000 ml @ 50 mls/hr IV . Q20H [facility] Rx#:[id number] ceFAZolin 2 gm In Sodium 100 50 Chloride 0.9% 50 ml @ 100 mls/hr IVPB Q8HR [facility] Rx# :[id number] pressure bag 48 48 36 Intake, IV Titration 673.120 2.441 1.498 Amount ACETAMINOPHEN IV (For NPO 100 ) 1,000 mg In Empty Bag 1 bag @ 400 mls/hr IVPB Q6H [facility] Rx#:[id number] Albumin Human 5% 250 ml 250 In Empty Bag 1 bag @ 250 mls/hr IVPB Q1HR PRN Rx#: [id number] Insulin Regular 100 unit 5.689 2.441 1.498 In Sodium Chloride 0.9% 100 ml @ Per Protocol IV .Q0M [facility] Rx#:[id number] Sodium Chloride 0.9% 1, 250 000 ml @ 50 mls/hr IV . Q20H [facility] Rx#:[id number] ceFAZolin 2 gm In Sodium 50 Chloride 0.9% 50 ml @ 100 mls/hr IVPB Q8HR [facility] Rx# :[id number] propofoL 1,000 mg In 17.431 Empty Bag 1 bag @ Titrate IV .Q0M [facility] Rx#: [id number] Oral 1000 Output: Chest Tube Drainage 590 490 166 Chest Tube Mediastinal 470 420 150 Pleural Catheter Left 120 70 16 Urine 1005 240 165 Other: Voiding Method Indwelling Catheter Indwelling Catheter Indwelling Catheter Weight 54.7 kg 54.7 kg ABP, PAP, CO, CI - Last 8 Hours Arterial Blood Pressure 137/64 Arterial Blood Pressure 134/62 Arterial Blood Pressure 129/61 Arterial Blood Pressure 129/62 Arterial Blood Pressure 120/54 Arterial Blood Pressure 118/55 Arterial Blood Pressure 132/58 Arterial Blood Pressure 130/58 Arterial Blood Pressure 110/49 Arterial Blood Pressure 145/79 Arterial Blood Pressure 150/72 Arterial Blood Pressure 144/65 Results 07/31/24 05:00 07/31/24 05:00 Cardiac Enzymes 07/30/24 07/31/24 Range/Units 14:25 05:00 AST 80 H 94 H (14-36) U/L Coagulation 07/30/24 Range/Units 14:25 PT 13.7 H (10.0-12.5) sec APTT 36.0 H (22.0-30.0) sec CBC 07/30/24 07/30/24 07/30/24 Range/Units 14:25 17:28 19:58 WBC 4.6 7.7 8.5 (3.8-10.6) k/uL RBC 2.58 L 2.61 L 2.59 L (3.80-5.40) m/uL Hgb 8.6 L 9.0 L 8.4 L (11.4-16.0) gm/dL Hct 25.3 L 25.9 L 25.5 L (34.0-46.0) % Plt Count 70 L 85 L 85 L (150-450) k/uL 07/31/24 Range/Units 05:00 WBC 8.8 (3.8-10.6) k/uL RBC 2.28 L (3.80-5.40) m/uL Hgb 7.8 L (11.4-16.0) gm/dL Hct 22.7 L (34.0-46.0) % Plt Count 79 L (150-450) k/uL Comprehensive Metabolic Panel 07/30/24 07/31/24 Range/Units 14:25 05:00 Sodium 138 138 (137-145) mmol/L Potassium 4.0 3.8 (3.5-5.1) mmol/L Chloride 106 104 (98-107) mmol/L Carbon Dioxide 25 25 (22-30) mmol/L BUN 11 14 (7-17) mg/dL Creatinine 0.56 0.84 (0.52-1.04) mg/dL Glucose 91 111 H (74-99) mg/dL Calcium 8.8 8.5 (8.4-10.2) mg/dL AST 80 H 94 H (14-36) U/L ALT 15 14 (4-34) U/L Alkaline Phosphatase 41 48 (38-126) U/L Total Protein 4.8 L 5.7 L (6.3-8.2) g/dL Albumin 2.9 L 3.7 (3.5-5.0) g/dL Current Medications Generic Name Dose Route Start Last Admin Trade Name Freq PRN Reason Stop Dose Admin Acetaminophen 1,000 mg 07/31/24 00:04 Acetaminophen Tab 500 Mg Tab PO Q6HR PRN Fever And/ Or Mild Pain (1-3) Albuterol/Ipratropium 3 ml 07/30/24 13:43 Ipratropium-Albuterol 3 Ml Neb INHALATION RT-Q2H PRN Shortness Of Breath Or Wheezing Albuterol/Ipratropium 3 ml 07/30/24 20:00 07/31/24 11:32 Ipratropium-Albuterol 3 Ml Neb INHALATION 3 ml RT-QID [facility] Administration Artificial Tears 2 drops 07/30/24 13:43 Artificial Tears-Hypromellose Drops 15 Ml Btl BOTH EYES Q4H PRN DRY EYES Ascorbic Acid 500 mg 07/31/24 09:00 07/31/24 08:36 Ascorbic Acid 500 Mg Tab PO 500 mg DAILY [facility] Administration Aspirin 81 mg 07/31/24 09:00 07/31/24 08:35 Aspirin 81 Mg PO 81 mg DAILY [facility] Administration Atorvastatin Calcium 40 mg 07/31/24 09:00 07/31/24 08:36 Atorvastatin 40 Mg Tab PO 40 mg DAILY [facility] Administration Benzocaine/Menthol 1 each 07/30/24 13:43 Benzocaine/Menthol Lozeng 1 Each Lozenge MUCOUS MEM Q2H PRN Sore Throat Bisacodyl 10 mg 07/31/24 09:00 Bisacodyl 10 Mg Supp RECTAL DAILY PRN Constipation Cholecalciferol 25 mcg 07/31/24 09:00 07/31/24 08:36 Cholecalciferol 25 Mcg (1000 Iu) Tablet PO 25 mcg DAILY [facility] Administration Dextrose/Water 25 ml 07/30/24 13:43 Dextrose 50% Syringe 50 Ml IVP PER PROTOCOL PRN Hypoglycemia Protocol Dextrose/Water 50 ml 07/30/24 13:43 Dextrose 50% Syringe 50 Ml IVP PER PROTOCOL PRN Hypoglycemia Protocol Hydralazine HCl 10 mg 07/30/24 13:43 07/31/24 07:07 Hydralazine Hcl 20 Mg/Ml 1 Ml Vial IVP 10 mg Q1H PRN Administration Blood Pressure - High Albumin Human 250 ml/ IV 250 mls @ 250 mls/hr 07/30/24 13:43 07/31/24 06:45 Solution IVPB 08/01/24 13:42 250 mls/hr Q1HR PRN Administration For Volume Protocol Calcium Gluconate/Sodium 100 mls @ 100 mls/hr 07/30/24 13:43 Chloride 2 gm/ IV Solution IVPB 08/06/24 13:42 ONCE PRN Ionized Calcium less than 4.4 Insulin Human Regular 100 unit 101 mls @ 0 mls/hr 07/30/24 13:43 07/31/24 11:12 / Sodium Chloride IV 0 unit/hr .Q0M [facility] 0 mls/hr Titration Protocol Per Protocol Sodium Chloride 1,000 mls @ 50 mls/hr 07/30/24 13:43 07/31/24 11:24 Saline 0.9% IV 50 mls/hr .Q20H [facility] Administration Loratadine 10 mg 07/31/24 21:00 Loratadine 10 Mg Tab PO HS [facility] Losartan Potassium 25 mg 07/31/24 10:45 07/31/24 11:23 Losartan 25 Mg Tab PO 25 mg DAILY [facility] Administration Magnesium Hydroxide 2,400 mg 07/31/24 09:00 Magnesium Hydroxide 2,400 Mg/30 Ml Cup PO BID PRN Constipation Metoclopramide HCl 10 mg 07/30/24 13:43 07/30/24 20:34 Metoclopramide 5 Mg/Ml 2 Ml Vial IVP 10 mg Q4H PRN Administration Nausea And Vomiting Miscellaneous Information 1 each 07/30/24 13:43 Magnesium Replacement Protocol 1 Each Misc MISCELLANE DAILY PRN Per Protocol Protocol Miscellaneous Information 1 each 07/30/24 13:43 Potassium Replacement Protocol 1 Each Misc MISCELLANE DAILY PRN Per Protocol Protocol Ondansetron HCl 4 mg 07/30/24 13:43 07/30/24 18:46 Ondansetron 4 Mg/2 Ml Vial IVP 4 mg Q6HR PRN Administration Nausea And Vomiting Prednisolone Acetate 1 drops 07/30/24 16:00 07/31/24 08:36 Prednisolone Acetate 1% Ophth Drops 5 Ml Btl BOTH EYES 1 drops TID [facility] Administration Senna/Docusate Sodium 2 each 07/30/24 21:00 07/30/24 21:59 Sennosides-Docusate Sodium 1 Each Tab PO 2 each HS [facility] Administration Sodium Chloride 1 applic 07/30/24 21:00 07/31/24 08:37 Sodium Chloride 5% Ophth Oint 3.5 Gm Tube BOTH EYES 1 applic BID [facility] Administration Sodium Chloride 10 ml 07/30/24 21:00 07/31/24 08:36 Sodium Chloride 0.9% Flush 10 Ml Syringe IV 10 ml BID [facility] Administration Timolol Maleate 1 drops 07/30/24 21:00 07/30/24 22:00 Timolol 0.5% Ophth Drops 5 Ml Btl RIGHT EYE 1 drops HS [facility] Administration Intake and Output 07/30/24 07/31/24 07/31/24 22:59 06:59 14:59 Intake Total 941.120 790.233 9344.498 Output Total 1595 730 331 Balance -653.880 -259.559 996.498 Intake: IV 268 468 326 ACETAMINOPHEN IV (For NPO 100 ) 1,000 mg In Empty Bag 1 bag @ 400 mls/hr IVPB Q6H [facility] Rx#:[id number] Sodium Chloride 0.9% 1, 120 320 240 000 ml @ 50 mls/hr IV . Q20H [facility] Rx#:[id number] ceFAZolin 2 gm In Sodium 100 50 Chloride 0.9% 50 ml @ 100 mls/hr IVPB Q8HR [facility] Rx# :[id number] pressure bag 48 48 36 Intake, IV Titration 673.120 2.441 1.498 Amount ACETAMINOPHEN IV (For NPO 100 ) 1,000 mg In Empty Bag 1 bag @ 400 mls/hr IVPB Q6H [facility] Rx#:[id number] Albumin Human 5% 250 ml 250 In Empty Bag 1 bag @ 250 mls/hr IVPB Q1HR PRN Rx#: [id number] Insulin Regular 100 unit 5.689 2.441 1.498 In Sodium Chloride 0.9% 100 ml @ Per Protocol IV .Q0M [facility] Rx#:[id number] Sodium Chloride 0.9% 1, 250 000 ml @ 50 mls/hr IV . Q20H [facility] Rx#:[id number] ceFAZolin 2 gm In Sodium 50 Chloride 0.9% 50 ml @ 100 mls/hr IVPB Q8HR [facility] Rx# :[id number] propofoL 1,000 mg In 17.431 Empty Bag 1 bag @ Titrate IV .Q0M [facility] Rx#: [id number] Oral 1000 Output: Chest Tube Drainage 590 490 166 Chest Tube Mediastinal 470 420 150 Pleural Catheter Left 120 70 16 Urine 1005 240 165 Other: Voiding Method Indwelling Catheter Indwelling Catheter Indwelling Catheter Weight 54.7 kg 54.7 kg Patient Weight 08/01/24 06:59 Weight 54.7 kg 07/31/24 05:00 07/31/24 05:00
[2024-07-31 13:58] LABS: Glucose,Whole Blood 185 mg/dL (70-110)
[2024-07-31] MEDS: ACETAMINOPHEN TAB 500 MG TAB PO PRN (14:00)
--- NOTE | 2024-07-31 14:17 | P.PN ---
Subjective Progress Note Date: 07/31/24 Principal diagnosis: Moderate mitral regurgitation, severe tricuspid regurgitation, mild aortic valvular insufficiency, chronic atrial fibrillation with marked biatrial dilation, patent foramen ovale. Past medical history significant for hypertension, Rheumatoid Arthritis (RA), Syncope, CVA/TIA in 2015 with no residual deficits, Sjogren's disease, eye disorder, legally blind s/p corneal transplants, lupus, and is a lifetime non-smoker. POD #1 Mitral valve annuloplasty with 26 mm physio 2 ring, tricuspid valve annuloplasty with 26 mm MC 3 band, closure of patent foramen ovale, modified Ayala-Maze procedure with complete left and right sided lesion sets and suture ligation of the base of the left atrial appendage. Postoperative acute blood loss anemia, secondary to cardiopulmonary bypass, hemodilution and her history of anemia. The patient was seen and examined today July 31, 2024 at her bedside in the intensive care unit. She was successfully extubated at 6:18 PM last evening, is currently sitting up to the bedside chair, opens her eyes with verbal stimuli, answers some questions appropriately, although oriented x 1. She is moving all 4 extremities with equal strength bilateral, denies any complaints of pain at this time or shortness of breath. Oxygen saturations are 98% on 2 L nasal cannula and she is achieving 1000 mL on her incentive spirometry with much encouragement. Bedside telemetry is showing a DDD paced rhythm with a heart rate of 80 bpm. Underlying rhythm, patient has a heart rate below 40 bpm showing atrial fibrillation/flutter. Right IJ cordis remains in place with continuous CVP monitoring, current CVP pressure 12 mmHg. Mediastinal and left pleural chest tubes remain in place to low continuous wall suction -20 cm H2O. No airleak is present. Draining thin serosanguineous drainage with mediastinal chest tubes draining 420 mL output in the last 8 hours and 850 mL output in the last 24 hours. Left pleural chest tube drained 70 mL output in the last 8 hours and 180 mL output since surgery. Patient has been afebrile in the last 24 hours. Patient remains hemodynamically stable and is currently on no inotropic or pressor support. Lab results reviewed this morning, hemoglobin 7.8 and platelets are 79. Subcu heparin has been discontinued and an HIT panel has been sent. Chest x-ray results also reviewed. Objective - Vital Signs Vital signs: Vital Signs Temp 97.8 F 07/31/24 04:00 Pulse 80 07/31/24 08:33 Resp 18 07/31/24 07:00 BP 144/82 07/31/24 02:00 Pulse Ox 97 07/31/24 08:33 FiO2 40 07/30/24 18:15 Intake & Output 07/30/24 07/31/24 07/31/24 18:59 06:59 18:59 Intake Total 1849.431 770.130 47.498 Output Total 1100 1225 50 Balance 749.431 -454.870 -2.502 Weight 54.7 kg Intake: IV 26 712 46 ACETAMINOPHEN IV (For NPO 100 ) 1,000 mg In Empty Bag 1 bag @ 400 mls/hr IVPB Q6H SHEIL[facility] Rx#:[id number] Sodium Chloride 0.9% 1, 440 40 000 ml @ 50 mls/hr IV . Q20H SHEILA Rx#:[id number] ceFAZolin 2 gm In Sodium 100 Chloride 0.9% 50 ml @ 100 mls/hr IVPB Q8HR SHEILA Rx# :[id number] pressure bag 24 72 6 Intake, IV Titration 617.431 58.130 1.498 Amount ACETAMINOPHEN IV (For NPO 100 ) 1,000 mg In Empty Bag 1 bag @ 400 mls/hr IVPB Q6H SHEIL[facility] Rx#:[id number] Albumin Human 5% 250 ml 250 In Empty Bag 1 bag @ 250 mls/hr IVPB Q1HR PRN Rx#: [id number] Insulin Regular 100 unit 8.130 1.498 In Sodium Chloride 0.9% 100 ml @ Per Protocol IV .Q0M SHEILA Rx#:[id number] Sodium Chloride 0.9% 1, 200 50 000 ml @ 50 mls/hr IV . Q20H [facility]ILA Rx#:[id number] ceFAZolin 2 gm In Sodium 50 Chloride 0.9% 50 ml @ 100 mls/hr IVPB Q8HR [facility] Rx# :[id number] propofoL 1,000 mg In 17.431 Empty Bag 1 bag @ Titrate IV .Q0M SHEILA Rx#: [id number] Blood Product 1206 Ffp 24 Cpd Unit 336 [id number] Ffp 24 Cpd Unit 283 [id number] Platelet Pheresis Pas 277 Psoralen Unit [id number] Rc As-1 Unit 310 [id number] Output: Chest Tube Drainage 340 740 20 Chest Tube Mediastinal 290 600 10 Pleural Catheter Left 50 140 10 Urine 760 485 30 Other: Voiding Method Indwelling Catheter Indwelling Catheter ABP, PAP, CO, CI - Last Documented Arterial Blood Pressure 145/79 - Exam CONSTITUTIONAL: Sitting up to the bedside chair in the intensive care unit, appears comfortable, cooperative, no apparent acute distress. HEENT: Neck is supple, no JVD, no lymphadenopathy. Right IJ Cordis in place and functioning. RESPIRATORY: Lungs sounds essentially clear throughout, diminished to his bilateral bases. Respirations are symmetrical and nonlabored. Currently on 2 L nasal cannula with oxygen saturations 98%. Able to achieve 1000 mL on her incentive spirometry. Strong cough. CARDIOVASCULAR: Regular rhythm and rate. S1 and S2 present, negative for S3, gallop or murmur. Sternum is stable. Palpable peripheral pulses bilaterally. No calf pain or tenderness noted. Heart hugger in place with patient demonstrating appropriate use. Knee-high ABAD hose and sequential compression devices in place to his bilateral lower extremities. GASTROINTESTINAL: Abdomen soft, nontender, nondistended. Hypoactive bowel sounds present 4 quadrants. Tolerating clear liquid diet. Denies passing flatus. No guarding or rigidity. GENITOURINARY: Finch present draining clear, yellow urine. Urine output 240 mL in the last 8 hours. INTEGUMENTARY: Skin is warm and dry with no evidence of clubbing or cyanosis. Midline sternal incision clean dry and well approximated, covered with dry intact dressing, some scattered ecchymosis. NEUROLOGIC: Cranial nerves II through XII intact. No focal deficits. MUSKULOSKELETAL: Able to move all extremities, strength equal bilaterally, generalized weakness. PSYCHIATRIC: Alert and oriented to person. Flat affect. INVASIVE LINES AND TUBES: Mediastinal/left pleural chest tubes present and connected to low continuous wall suction, no air leaks present. Mediastinal tube with 420 mL of thin serosanguineous drainage overnight, 850 mL output in the last 24 hours. Left pleural chest tube with 70 mL of thin serosanguineous drainage overnight, 180 mL output in the last 24 hours. Atrial and ventricular epicardial pacemaker wires present, connected to generator, DDD backup rate 80 bpm. Right internal jugular Cordis, right radial arterial line present. Current CVP 12 mmHg. - Allied health notes Allied health notes reviewed: nursing - Labs CBC & Chem 7: 07/31/24 05:00 07/31/24 05:00 Labs: Abnormal Lab Results - Last 24 Hours (Table) 07/28/24 07/30/24 07/30/24 Range/Units 08:14 08:35 09:23 RBC (3.80-5.40) m/uL Hgb (11.4-16.0) gm/dL Hct (34.0-46.0) % Plt Count (150-450) k/uL Lymphocytes # (1.0-4.8) k/uL PT (10.0-12.5) sec INR (<1.2) APTT (22.0-30.0) sec ABG pH 7.49 H (7.35-7.45) ABG pCO2 (35-45) mmHg ABG pO2 >420 H 310 H (83-108) mmHg ABG HCO3 27 H 26 H (21-25) mmol/L ABG Total CO2 25 H (19-24) mmol/L ABG O2 Saturation >99.4 H 99.4 H (94-97) % ABG Hematocrit 30 L (34.0-46.0) % ABG Potassium 2.9 L* (3.4-4.5) mmol/L ABG Ionized Calcium 4.4 L (4.5-5.3) mg/dL ABG Glucose (75-99) mg/dL Hemoglobin 11.2 L 9.7 L (11.4-16.0) gm/dL Glucose (74-99) mg/dL POC Glucose (mg/dL) (70-110) mg/dL Magnesium (1.6-2.3) mg/dL Total Bilirubin (0.2-1.3) mg/dL AST (14-36) U/L Total Protein (6.3-8.2) g/dL Albumin (3.5-5.0) g/dL Arterial Blood Potassium 2.9 L* (3.4-4.5) mmol/L Arterial Blood Glucose (75-99) mg/dL Crossmatch See Detail Blood Bank [facility] Result See [facility]K REF Reports A 07/30/24 07/30/24 07/30/24 Range/Units 09:51 10:24 11:03 RBC (3.80-5.40) m/uL Hgb (11.4-16.0) gm/dL Hct (34.0-46.0) % Plt Count (150-450) k/uL Lymphocytes # (1.0-4.8) k/uL PT (10.0-12.5) sec INR (<1.2) APTT (22.0-30.0) sec ABG pH 7.21 L 7.20 L (7.35-7.45) ABG pCO2 66 H 66 H (35-45) mmHg ABG pO2 >420 H 335 H 301 H (83-108) mmHg ABG HCO3 27 H 26 H (21-25) mmol/L ABG Total CO2 26 H 26 H (19-24) mmol/L ABG O2 Saturation 99.4 H 99.1 H 99.2 H (94-97) % ABG Hematocrit 23 L 23 L 23 L (34.0-46.0) % ABG Potassium (3.4-4.5) mmol/L ABG Ionized Calcium 3.9 L 4.4 L (4.5-5.3) mg/dL ABG Glucose 102 H (75-99) mg/dL Hemoglobin 7.4 L 7.5 L 7.4 L (11.4-16.0) gm/dL Glucose (74-99) mg/dL POC Glucose (mg/dL) (70-110) mg/dL Magnesium (1.6-2.3) mg/dL Total Bilirubin (0.2-1.3) mg/dL AST (14-36) U/L Total Protein (6.3-8.2) g/dL Albumin (3.5-5.0) g/dL Arterial Blood Potassium (3.4-4.5) mmol/L Arterial Blood Glucose 102 H (75-99) mg/dL Crossmatch Blood Bank Comment Reference Lab Result 07/30/24 07/30/24 07/30/24 Range/Units 11:31 12:22 13:11 RBC (3.80-5.40) m/uL Hgb (11.4-16.0) gm/dL Hct (34.0-46.0) % Plt Count (150-450) k/uL Lymphocytes # (1.0-4.8) k/uL PT (10.0-12.5) sec INR (<1.2) APTT (22.0-30.0) sec ABG pH 7.32 L (7.35-7.45) ABG pCO2 (35-45) mmHg ABG pO2 320 H >420 H 278 H (83-108) mmHg ABG HCO3 (21-25) mmol/L ABG Total CO2 (19-24) mmol/L ABG O2 Saturation >99.4 H >99.4 H 99.0 H (94-97) % ABG Hematocrit 22 L 24 L 27 L (34.0-46.0) % ABG Potassium (3.4-4.5) mmol/L ABG Ionized Calcium 4.1 L 4.1 L 3.7 L (4.5-5.3) mg/dL ABG Glucose 124 H (75-99) mg/dL Hemoglobin 7.1 L 7.8 L 8.7 L (11.4-16.0) gm/dL Glucose (74-99) mg/dL POC Glucose (mg/dL) (70-110) mg/dL Magnesium (1.6-2.3) mg/dL Total Bilirubin (0.2-1.3) mg/dL AST (14-36) U/L Total Protein (6.3-8.2) g/dL Albumin (3.5-5.0) g/dL Arterial Blood Potassium (3.4-4.5) mmol/L Arterial Blood Glucose 124 H (75-99) mg/dL [facility] Blood Bank Comment Reference Lab Result 07/30/24 07/30/24 07/30/24 Range/Units 14:19 14:25 14:25 RBC 2.58 L (3.80-5.40) m/uL Hgb 8.6 L (11.4-16.0) gm/dL Hct 25.3 L (34.0-46.0) % Plt Count 70 L (150-450) k/uL Lymphocytes # 0.8 L (1.0-4.8) k/uL PT 13.7 H (10.0-12.5) sec INR 1.3 H (<1.2) APTT 36.0 H (22.0-30.0) sec ABG pH (7.35-7.45) ABG pCO2 (35-45) mmHg ABG pO2 (83-108) mmHg ABG HCO3 (21-25) mmol/L ABG Total CO2 (19-24) mmol/L ABG O2 Saturation (94-97) % ABG Hematocrit (34.0-46.0) % ABG Potassium (3.4-4.5) mmol/L ABG Ionized Calcium (4.5-5.3) mg/dL ABG Glucose (75-99) mg/dL Hemoglobin (11.4-16.0) gm/dL Glucose (74-99) mg/dL POC Glucose (mg/dL) 67 L (70-110) mg/dL Magnesium (1.6-2.3) mg/dL Total Bilirubin (0.2-1.3) mg/dL AST (14-36) U/L Total Protein (6.3-8.2) g/dL Albumin (3.5-5.0) g/dL Arterial Blood Potassium (3.4-4.5) mmol/L Arterial Blood Glucose (75-99) mg/dL Cross[facility] Blood Bank Comment Reference Lab Result 07/30/24 07/30/24 07/30/24 Range/Units 14:25 14:43 15:16 RBC (3.80-5.40) m/uL Hgb (11.4-16.0) gm/dL Hct (34.0-46.0) % Plt Count (150-450) k/uL Lymphocytes # (1.0-4.8) k/uL PT (10.0-12.5) sec INR (<1.2) APTT (22.0-30.0) sec ABG pH (7.35-7.45) ABG pCO2 (35-45) mmHg ABG pO2 >420 H (83-108) mmHg ABG HCO3 (21-25) mmol/L ABG Total CO2 26 H (19-24) mmol/L ABG O2 Saturation >100.0 H (94-97) % ABG Hematocrit (34.0-46.0) % ABG Potassium (3.4-4.5) mmol/L ABG Ionized Calcium (4.5-5.3) mg/dL ABG Glucose (75-99) mg/dL Hemoglobin 8.8 L (11.4-16.0) gm/dL Glucose (74-99) mg/dL POC Glucose (mg/dL) 132 H (70-110) mg/dL Magnesium 3.0 H (1.6-2.3) mg/dL Total Bilirubin 1.4 H (0.2-1.3) mg/dL AST 80 H (14-36) U/L Total Protein 4.8 L (6.3-8.2) g/dL Albumin 2.9 L (3.5-5.0) g/dL Arterial Blood Potassium (3.4-4.5) mmol/L Arterial Blood Glucose (75-99) mg/dL Cross[facility] Blood Bank Comment Reference Lab Result 07/30/24 07/30/24 07/30/24 Range/Units 16:10 17:27 17:28 RBC 2.61 L (3.80-5.40) m/uL Hgb 9.0 L (11.4-16.0) gm/dL Hct 25.9 L (34.0-46.0) % Plt Count 85 L (150-450) k/uL Lymphocytes # (1.0-4.8) k/uL PT (10.0-12.5) sec INR (<1.2) APTT (22.0-30.0) sec ABG pH (7.35-7.45) ABG pCO2 (35-45) mmHg ABG pO2 (83-108) mmHg ABG HCO3 (21-25) mmol/L ABG Total CO2 (19-24) mmol/L ABG O2 Saturation (94-97) % ABG Hematocrit (34.0-46.0) % ABG Potassium (3.4-4.5) mmol/L ABG Ionized Calcium (4.5-5.3) mg/dL ABG Glucose (75-99) mg/dL Hemoglobin (11.4-16.0) gm/dL Glucose (74-99) mg/dL POC Glucose (mg/dL) 134 H 127 H (70-110) mg/dL Magnesium (1.6-2.3) mg/dL Total Bilirubin (0.2-1.3) mg/dL AST (14-36) U/L Total Protein (6.3-8.2) g/dL Albumin (3.5-5.0) g/dL Arterial Blood Potassium (3.4-4.5) mmol/L Arterial Blood Glucose (75-99) mg/dL [facility] Comment Reference Lab Result 07/30/24 07/30/24 07/30/24 Range/Units 18:05 18:05 19:08 RBC (3.80-5.40) m/uL Hgb (11.4-16.0) gm/dL Hct (34.0-46.0) % Plt Count (150-450) k/uL Lymphocytes # (1.0-4.8) k/uL PT (10.0-12.5) sec INR (<1.2) APTT (22.0-30.0) sec ABG pH (7.35-7.45) ABG pCO2 (35-45) mmHg ABG pO2 (83-108) mmHg ABG HCO3 26 H (21-25) mmol/L ABG Total CO2 27 H (19-24) mmol/L ABG O2 Saturation 98.5 H (94-97) % ABG Hematocrit (34.0-46.0) % ABG Potassium (3.4-4.5) mmol/L ABG Ionized Calcium (4.5-5.3) mg/dL ABG Glucose (75-99) mg/dL Hemoglobin 8.4 L (11.4-16.0) gm/dL Glucose (74-99) mg/dL POC Glucose (mg/dL) 121 H 116 H (70-110) mg/dL Magnesium (1.6-2.3) mg/dL Total Bilirubin (0.2-1.3) mg/dL AST (14-36) U/L Total Protein (6.3-8.2) g/dL Albumin (3.5-5.0) g/dL Arterial Blood Potassium (3.4-4.5) mmol/L Arterial Blood Glucose (75-99) mg/dL [facility] Comment Reference Lab Result 07/30/24 07/30/24 07/30/24 Range/Units 19:58 20:01 22:10 RBC 2.59 L (3.80-5.40) m/uL Hgb 8.4 L (11.4-16.0) gm/dL Hct 25.5 L (34.0-46.0) % Plt Count 85 L (150-450) k/uL Lymphocytes # 0.7 L (1.0-4.8) k/uL PT (10.0-12.5) sec INR (<1.2) APTT (22.0-30.0) sec ABG pH (7.35-7.45) ABG pCO2 (35-45) mmHg ABG pO2 (83-108) mmHg ABG HCO3 (21-25) mmol/L ABG Total CO2 (19-24) mmol/L ABG O2 Saturation (94-97) % ABG Hematocrit (34.0-46.0) % ABG Potassium (3.4-4.5) mmol/L ABG Ionized Calcium (4.5-5.3) mg/dL ABG Glucose (75-99) mg/dL Hemoglobin (11.4-16.0) gm/dL Glucose (74-99) mg/dL POC Glucose (mg/dL) 118 H 129 H (70-110) mg/dL Magnesium (1.6-2.3) mg/dL Total Bilirubin (0.2-1.3) mg/dL AST (14-36) U/L Total Protein (6.3-8.2) g/dL Albumin (3.5-5.0) g/dL Arterial Blood Potassium (3.4-4.5) mmol/L Arterial Blood Glucose (75-99) mg/dL [facility] Comment Reference Lab Result 07/31/24 07/31/24 07/31/24 Range/Units 01:08 03:09 05:00 RBC 2.28 L (3.80-5.40) m/uL Hgb 7.8 L (11.4-16.0) gm/dL Hct 22.7 L (34.0-46.0) % Plt Count 79 L (150-450) k/uL Lymphocytes # 0.8 L (1.0-4.8) k/uL PT (10.0-12.5) sec INR (<1.2) APTT (22.0-30.0) sec ABG pH (7.35-7.45) ABG pCO2 (35-45) mmHg ABG pO2 (83-108) mmHg ABG HCO3 (21-25) mmol/L ABG Total CO2 (19-24) mmol/L ABG O2 Saturation (94-97) % ABG Hematocrit (34.0-46.0) % ABG Potassium (3.4-4.5) mmol/L ABG Ionized Calcium (4.5-5.3) mg/dL ABG Glucose (75-99) mg/dL Hemoglobin (11.4-16.0) gm/dL Glucose (74-99) mg/dL POC Glucose (mg/dL) 125 H 120 H (70-110) mg/dL Magnesium (1.6-2.3) mg/dL Total Bilirubin (0.2-1.3) mg/dL AST (14-36) U/L Total Protein (6.3-8.2) g/dL Albumin (3.5-5.0) g/dL Arterial Blood Potassium (3.4-4.5) mmol/L Arterial Blood Glucose (75-99) mg/dL [facility] Comment Reference Lab Result 07/31/24 07/31/24 Range/Units 05:00 07:24 RBC (3.80-5.40) m/uL Hgb (11.4-16.0) gm/dL Hct (34.0-46.0) % Plt Count (150-450) k/uL Lymphocytes # (1.0-4.8) k/uL PT (10.0-12.5) sec INR (<1.2) APTT (22.0-30.0) sec ABG pH (7.35-7.45) ABG pCO2 (35-45) mmHg ABG pO2 (83-108) mmHg ABG HCO3 (21-25) mmol/L ABG Total CO2 (19-24) mmol/L ABG O2 Saturation (94-97) % ABG Hematocrit (34.0-46.0) % ABG Potassium (3.4-4.5) mmol/L ABG Ionized Calcium (4.5-5.3) mg/dL ABG Glucose (75-99) mg/dL Hemoglobin (11.4-16.0) gm/dL Glucose 111 H (74-99) mg/dL POC Glucose (mg/dL) 118 H (70-110) mg/dL Magnesium 2.5 H (1.6-2.3) mg/dL Total Bilirubin (0.2-1.3) mg/dL AST 94 H (14-36) U/L Total Protein 5.7 L (6.3-8.2) g/dL Albumin (3.5-5.0) g/dL Arterial Blood Potassium (3.4-4.5) mmol/L Arterial Blood Glucose (75-99) mg/dL [facility] Blood Bank Comment Reference Lab Result - Imaging and Cardiology Chest x-ray: report reviewed, image reviewed Assessment and Plan Assessment: Mitral valve regurgitation, status post mitral valve annuloplasty with a 26 mm physio 2 ring Severe tricuspid valve regurgitation, status post tricuspid valve annuloplasty with a 26 mm MC 3 band Chronic atrial fibrillation, status post modified Ayala-Maze procedure with complete left and right sided lesion sets and suture ligation of the base of the left atrial appendage Patent foramen ovale, closure of patent foramen ovale Postoperative acute blood loss anemia, expected given hemodilution, cardiopulmonary bypass and preoperative history of anemia History of hypertension Rheumatoid arthritis History of syncope History of CVA in 2014 with no residual deficits Sjogren's disease Eye disorder Lupus Lifetime non-smoker Plan: Continue to maximize medical therapy with low-dose aspirin, and statin. Will hold metoprolol tartrate at this time due to her underlying rhythm. Currently paced DDD at 80 bpm. Will discontinue subcu heparin as her platelets are 79 today, HIT panel sent. Will start Arixtra 2.5 mg subcu daily starting tomorrow August 01, 2024. Will start Cozaar 25 mg p.o. daily for afterload reduction, with hold parameters. Wean O2 as tolerated. Encourage incentive spirometry use 10 times every hour while awake. Bronchodilators per pulmonology. Increase activity, ambulate as tolerated. PT/OT/cardiac rehab consulted. Will monitor daily labs and chest x-rays. Electrolyte replacement per protocol. No Lasix today. Continue home medications for timolol, sodium chloride ophthalmic drops and artificial tear. GI/DVT prophylaxis. Will keep right IJ cordis in place with continuous CVP monitoring. We will keep her chest tubes in for at least another 24 hours. Continue to record strict output. Continue Finch catheter, continue to monitor record strict accurate intake and output. Pain control per current medication regimen. Discontinue all narcotics at this time due to her sedated appearance. Insulin management per internal medicine, patient needs tight blood sugar control to prevent infection, patient should stay on continuous IV insulin for 48 hours, then may transition to subcutaneous per protocol. Preoperative hemoglobin A1c 5.9%. More recommendations to follow based on patient's clinical course. Time with Patient: Greater than 30
[2024-07-31 14:57] LABS: Glucose,Whole Blood 130 mg/dL (70-110)
--- NOTE | 2024-07-31 15:07 | P.PN ---
Subjective Progress Note Date: 07/31/24 This is a 78-year-old female patient is being seen in the intensive care unit following cardiac surgery. The patient underwent mitral valve annuloplasty and tricuspid valve annuloplasty and closure of the PFO and modified Ayala-Maze procedure. Following that, the patient was brought in intubated on mechanical ventilator and the patient is currently in the intensive care unit. I saw the patient in the ICU. The patient is on propofol which is running at 20 mcg/kg/min and the patient is calm and comfortable. The patient is on assist- control mode of mechanical ventilation at rate of 12, tidal volume of 400, FiO2 at 100% with a PEEP of 5. Initial blood gas showed a pH of 7.38 with a pCO2 of 42 and pO2 of 429. FiO2 has been dropped down to 50%. The patient is calm and comfortable. Current cardiac rhythm is AV paced at a rate of 80. No pressors for now. The patient received a total of 1 unit of packed RBC, 1 unit of platelets and 2 units of fresh frozen plasma in the operating room. She has 2 mediastinal chest tube and 1 pleural chest tube and the outputs are minimal at this point in time. The chest x-ray that was done postop showed adequate expansion of both lungs. Chest tubes are all in place. The patient does not have any [place]-Patricia catheter. The blood work shows a white cell count of 4.6, hemoglobin 8.6 and a platelet count of 70. The sodium is at 138, potassium is 4, bicarb is 25, elevated BUN is 11 with a creatinine of 0.5. LFTs are normal. The patient has adequate urine output. Hemodynamically stable. The patient is also afebrile. No other significant events since arrival to the intensive care unit. On 07/31/2024, the patient is being seen for a follow-up. The patient is awake and alert. The patient was extubated yesterday without any major difficulties and the patient currently is on 2 L of oxygen by nasal cannula. She is calm and comfortable. She is hemodynamically stable on no pressors. She is using the incentive spirometer. She is pulling approximately thousand on her I-S. She remains on a pacemaker, DDD, at a rate of 80. Underlying rhythm is sinus bradycardia. Chest tubes are still in place. The patient's mediastinal chest tube has produced approximately 850 cc over the past 24 hours. The left pleural chest tube is produced approximately 180 cc over the past 24 hours. Labs were reviewed. Hemoglobin 7.8, platelet count is at 79 and subcu heparin has been discontinued. HIT panel was ordered. Chest x-ray shows cardiomegaly, tubes are in good location. No diuretics were given. She is awake and alert and communicating. No other significant events overnight. Objective - Vital Signs Vital signs: Vital Signs Temp 97.8 F 07/31/24 04:00 Pulse 80 07/31/24 08:40 Resp 18 07/31/24 07:00 BP 144/82 07/31/24 02:00 Pulse Ox 97 07/31/24 08:33 FiO2 40 07/30/24 18:15 Intake & Output 07/30/24 07/31/24 07/31/24 18:59 06:59 18:59 Intake Total 1849.431 770.130 47.498 Output Total 1100 1225 50 Balance 749.431 -454.870 -2.502 Weight 54.7 kg Intake: IV 26 712 46 ACETAMINOPHEN IV (For NPO 100 ) 1,000 mg In Empty Bag 1 bag @ 400 mls/hr IVPB Q6H [facility] Rx#:[id number] Sodium Chloride 0.9% 1, 440 40 000 ml @ 50 mls/hr IV . Q20H [facility] Rx#:[id number] ceFAZolin 2 gm In Sodium 100 Chloride 0.9% 50 ml @ 100 mls/hr IVPB Q8HR [facility] Rx# :[id number] pressure bag 24 72 6 Intake, IV Titration 617.431 58.130 1.498 Amount ACETAMINOPHEN IV (For NPO 100 ) 1,000 mg In Empty Bag 1 bag @ 400 mls/hr IVPB Q6H [facility] Rx#:[id number] Albumin Human 5% 250 ml 250 In Empty Bag 1 bag @ 250 mls/hr IVPB Q1HR PRN Rx#: [id number] Insulin Regular 100 unit 8.130 1.498 In Sodium Chloride 0.9% 100 ml @ Per Protocol IV .Q0M [facility] Rx#:[id number] Sodium Chloride 0.9% 1, 200 50 000 ml @ 50 mls/hr IV . Q20H [facility] Rx#:[id number] ceFAZolin 2 gm In Sodium 50 Chloride 0.9% 50 ml @ 100 mls/hr IVPB Q8HR [facility] Rx# :[id number] propofoL 1,000 mg In 17.431 Empty Bag 1 bag @ Titrate IV .Q0M [facility] Rx#: [id number] Blood Product 1206 Ffp 24 Cpd Unit 336 [id number] Ffp 24 Cpd Unit 283 [id number] Platelet Pheresis Pas 277 Psoralen Unit [id number] Rc As-1 Unit 310 [id number] Output: Chest Tube Drainage 340 740 20 Chest Tube Mediastinal 290 600 10 Pleural Catheter Left 50 140 10 Urine 760 485 30 Other: Voiding Method Indwelling Catheter Indwelling Catheter ABP, PAP, CO, CI - Last Documented Arterial Blood Pressure 145/79 - Exam The patient appeared well nourished and normally developed. Vital signs as documented. The patient is stable, comfortable on 2 L of oxygen by nasal cannula Head exam is unremarkable. No scleral icterus or corneal arcus noted. Neck is without jugular venous distension, thyromegaly, or carotid bruits. Carotid upstrokes are brisk bilaterally. Lungs are clear to auscultation and percussion. Thoracotomy scar is dry clean and intact in the patient mediastinal chest tube in the left pleural chest tube. No evidence of any air leak and output is minimal at this point in time. Cardiac exam reveals the PMI to be normally sized and situated. Rhythm is regular. First and second heart sounds normal. No murmurs, rubs or gallops. The patient has AV pacing at a rate of 80. Abdominal exam reveals normal bowel sounds, no masses, no organomegaly and no aortic enlargement. Extremities are nonedematous and both femoral and pedal pulses are normal. Examination of the skin revealed no evidence of significant rashes, suspicious appearing nevi or other concerning lesions. Neurologically, the patient is awake and alert and the patient does not have any focal neurological deficit. Cranial nerves are essentially intact. - Labs CBC & Chem 7: 07/31/24 05:00 07/31/24 05:00 Labs: Abnormal Lab Results - Last 24 Hours (Table) 07/28/24 07/30/24 07/30/24 Range/Units 08:14 11:31 12:22 RBC (3.80-5.40) m/uL Hgb (11.4-16.0) gm/dL Hct (34.0-46.0) % Plt Count (150-450) k/uL Lymphocytes # (1.0-4.8) k/uL PT (10.0-12.5) sec INR (<1.2) APTT (22.0-30.0) sec ABG pH (7.35-7.45) ABG pO2 320 H >420 H (83-108) mmHg ABG HCO3 (21-25) mmol/L ABG Total CO2 (19-24) mmol/L ABG O2 Saturation >99.4 H >99.4 H (94-97) % ABG Hematocrit 22 L 24 L (34.0-46.0) % ABG Ionized Calcium 4.1 L 4.1 L (4.5-5.3) mg/dL ABG Glucose 124 H (75-99) mg/dL Hemoglobin 7.1 L 7.8 L (11.4-16.0) gm/dL Glucose (74-99) mg/dL POC Glucose (mg/dL) (70-110) mg/dL Magnesium (1.6-2.3) mg/dL Total Bilirubin (0.2-1.3) mg/dL AST (14-36) U/L Total Protein (6.3-8.2) g/dL Albumin (3.5-5.0) g/dL Arterial Blood Glucose 124 H (75-99) mg/dL Crossmatch See Detail Blood Bank Comment Sent to [facility] A Reference Lab Result See [facility]K REF Reports A 07/30/24 07/30/24 07/30/24 Range/Units 13:11 14:19 14:25 RBC 2.58 L (3.80-5.40) m/uL Hgb 8.6 L (11.4-16.0) gm/dL Hct 25.3 L (34.0-46.0) % Plt Count 70 L (150-450) k/uL Lymphocytes # 0.8 L (1.0-4.8) k/uL PT (10.0-12.5) sec INR (<1.2) APTT (22.0-30.0) sec ABG pH 7.32 L (7.35-7.45) ABG pO2 278 H (83-108) mmHg ABG HCO3 (21-25) mmol/L ABG Total CO2 (19-24) mmol/L ABG O2 Saturation 99.0 H (94-97) % ABG Hematocrit 27 L (34.0-46.0) % ABG Ionized Calcium 3.7 L (4.5-5.3) mg/dL ABG Glucose (75-99) mg/dL Hemoglobin 8.7 L (11.4-16.0) gm/dL Glucose (74-99) mg/dL POC Glucose (mg/dL) 67 L (70-110) mg/dL Magnesium (1.6-2.3) mg/dL Total Bilirubin (0.2-1.3) mg/dL AST (14-36) U/L Total Protein (6.3-8.2) g/dL Albumin (3.5-5.0) g/dL Arterial Blood Glucose (75-99) mg/dL Cross[facility] Blood Bank Comment Reference Lab Result 07/30/24 07/30/24 07/30/24 Range/Units 14:25 14:25 14:43 RBC (3.80-5.40) m/uL Hgb (11.4-16.0) gm/dL Hct (34.0-46.0) % Plt Count (150-450) k/uL Lymphocytes # (1.0-4.8) k/uL PT 13.7 H (10.0-12.5) sec INR 1.3 H (<1.2) APTT 36.0 H (22.0-30.0) sec ABG pH (7.35-7.45) ABG pO2 >420 H (83-108) mmHg ABG HCO3 (21-25) mmol/L ABG Total CO2 26 H (19-24) mmol/L ABG O2 Saturation >100.0 H (94-97) % ABG Hematocrit (34.0-46.0) % ABG Ionized Calcium (4.5-5.3) mg/dL ABG Glucose (75-99) mg/dL Hemoglobin 8.8 L (11.4-16.0) gm/dL Glucose (74-99) mg/dL POC Glucose (mg/dL) (70-110) mg/dL Magnesium 3.0 H (1.6-2.3) mg/dL Total Bilirubin 1.4 H (0.2-1.3) mg/dL AST 80 H (14-36) U/L Total Protein 4.8 L (6.3-8.2) g/dL Albumin 2.9 L (3.5-5.0) g/dL Arterial Blood Glucose (75-99) mg/dL [facility] Comment Reference Lab Result 07/30/24 07/30/24 07/30/24 Range/Units 15:16 16:10 17:27 RBC (3.80-5.40) m/uL Hgb (11.4-16.0) gm/dL Hct (34.0-46.0) % Plt Count (150-450) k/uL Lymphocytes # (1.0-4.8) k/uL PT (10.0-12.5) sec INR (<1.2) APTT (22.0-30.0) sec ABG pH (7.35-7.45) ABG pO2 (83-108) mmHg ABG HCO3 (21-25) mmol/L ABG Total CO2 (19-24) mmol/L ABG O2 Saturation (94-97) % ABG Hematocrit (34.0-46.0) % ABG Ionized Calcium (4.5-5.3) mg/dL ABG Glucose (75-99) mg/dL Hemoglobin (11.4-16.0) gm/dL Glucose (74-99) mg/dL POC Glucose (mg/dL) 132 H 134 H 127 H (70-110) mg/dL Magnesium (1.6-2.3) mg/dL Total Bilirubin (0.2-1.3) mg/dL AST (14-36) U/L Total Protein (6.3-8.2) g/dL Albumin (3.5-5.0) g/dL Arterial Blood Glucose (75-99) mg/dL [facility] Comment Reference Lab Result 07/30/24 07/30/24 07/30/24 Range/Units 17:28 18:05 18:05 RBC 2.61 L (3.80-5.40) m/uL Hgb 9.0 L (11.4-16.0) gm/dL Hct 25.9 L (34.0-46.0) % Plt Count 85 L (150-450) k/uL Lymphocytes # (1.0-4.8) k/uL PT (10.0-12.5) sec INR (<1.2) APTT (22.0-30.0) sec ABG pH (7.35-7.45) ABG pO2 (83-108) mmHg ABG HCO3 26 H (21-25) mmol/L ABG Total CO2 27 H (19-24) mmol/L ABG O2 Saturation 98.5 H (94-97) % ABG Hematocrit (34.0-46.0) % ABG Ionized Calcium (4.5-5.3) mg/dL ABG Glucose (75-99) mg/dL Hemoglobin 8.4 L (11.4-16.0) gm/dL Glucose (74-99) mg/dL POC Glucose (mg/dL) 121 H (70-110) mg/dL Magnesium (1.6-2.3) mg/dL Total Bilirubin (0.2-1.3) mg/dL AST (14-36) U/L Total Protein (6.3-8.2) g/dL Albumin (3.5-5.0) g/dL Arterial Blood Glucose (75-99) mg/dL [facility] Comment Reference Lab Result 07/30/24 07/30/24 07/30/24 Range/Units 19:08 19:58 20:01 RBC 2.59 L (3.80-5.40) m/uL Hgb 8.4 L (11.4-16.0) gm/dL Hct 25.5 L (34.0-46.0) % Plt Count 85 L (150-450) k/uL Lymphocytes # 0.7 L (1.0-4.8) k/uL PT (10.0-12.5) sec INR (<1.2) APTT (22.0-30.0) sec ABG pH (7.35-7.45) ABG pO2 (83-108) mmHg ABG HCO3 (21-25) mmol/L ABG Total CO2 (19-24) mmol/L ABG O2 Saturation (94-97) % ABG Hematocrit (34.0-46.0) % ABG Ionized Calcium (4.5-5.3) mg/dL ABG Glucose (75-99) mg/dL Hemoglobin (11.4-16.0) gm/dL Glucose (74-99) mg/dL POC Glucose (mg/dL) 116 H 118 H (70-110) mg/dL Magnesium (1.6-2.3) mg/dL Total Bilirubin (0.2-1.3) mg/dL AST (14-36) U/L Total Protein (6.3-8.2) g/dL Albumin (3.5-5.0) g/dL Arterial Blood Glucose (75-99) mg/dL [facility] Comment Reference Lab Result 07/30/24 07/31/24 07/31/24 Range/Units 22:10 01:08 03:09 RBC (3.80-5.40) m/uL Hgb (11.4-16.0) gm/dL Hct (34.0-46.0) % Plt Count (150-450) k/uL Lymphocytes # (1.0-4.8) k/uL PT (10.0-12.5) sec INR (<1.2) APTT (22.0-30.0) sec ABG pH (7.35-7.45) ABG pO2 (83-108) mmHg ABG HCO3 (21-25) mmol/L ABG Total CO2 (19-24) mmol/L ABG O2 Saturation (94-97) % ABG Hematocrit (34.0-46.0) % ABG Ionized Calcium (4.5-5.3) mg/dL ABG Glucose (75-99) mg/dL Hemoglobin (11.4-16.0) gm/dL Glucose (74-99) mg/dL POC Glucose (mg/dL) 129 H 125 H 120 H (70-110) mg/dL Magnesium (1.6-2.3) mg/dL Total Bilirubin (0.2-1.3) mg/dL AST (14-36) U/L Total Protein (6.3-8.2) g/dL Albumin (3.5-5.0) g/dL Arterial Blood Glucose (75-99) mg/dL [facility] Comment Reference Lab Result 07/31/24 07/31/24 07/31/24 Range/Units 05:00 05:00 07:24 RBC 2.28 L (3.80-5.40) m/uL Hgb 7.8 L (11.4-16.0) gm/dL Hct 22.7 L (34.0-46.0) % Plt Count 79 L (150-450) k/uL Lymphocytes # 0.8 L (1.0-4.8) k/uL PT (10.0-12.5) sec INR (<1.2) APTT (22.0-30.0) sec ABG pH (7.35-7.45) ABG pO2 (83-108) mmHg ABG HCO3 (21-25) mmol/L ABG Total CO2 (19-24) mmol/L ABG O2 Saturation (94-97) % ABG Hematocrit (34.0-46.0) % ABG Ionized Calcium (4.5-5.3) mg/dL ABG Glucose (75-99) mg/dL Hemoglobin (11.4-16.0) gm/dL Glucose 111 H (74-99) mg/dL POC Glucose (mg/dL) 118 H (70-110) mg/dL Magnesium 2.5 H (1.6-2.3) mg/dL Total Bilirubin (0.2-1.3) mg/dL AST 94 H (14-36) U/L Total Protein 5.7 L (6.3-8.2) g/dL Albumin (3.5-5.0) g/dL Arterial Blood Glucose (75-99) mg/dL [facility] Comment Reference Lab Result 07/31/24 07/31/24 07/31/24 Range/Units 08:57 10:15 11:09 RBC (3.80-5.40) m/uL Hgb (11.4-16.0) gm/dL Hct (34.0-46.0) % Plt Count (150-450) k/uL Lymphocytes # (1.0-4.8) k/uL PT (10.0-12.5) sec INR (<1.2) APTT (22.0-30.0) sec ABG pH (7.35-7.45) ABG pO2 (83-108) mmHg ABG HCO3 (21-25) mmol/L ABG Total CO2 (19-24) mmol/L ABG O2 Saturation (94-97) % ABG Hematocrit (34.0-46.0) % ABG Ionized Calcium (4.5-5.3) mg/dL ABG Glucose (75-99) mg/dL Hemoglobin (11.4-16.0) gm/dL Glucose (74-99) mg/dL POC Glucose (mg/dL) 126 H 130 H 132 H (70-110) mg/dL Magnesium (1.6-2.3) mg/dL Total Bilirubin (0.2-1.3) mg/dL AST (14-36) U/L Total Protein (6.3-8.2) g/dL Albumin (3.5-5.0) g/dL Arterial Blood Glucose (75-99) mg/dL [facility] Comment Reference Lab Result Assessment and Plan Plan: Valvular heart disease with mitral and tricuspid regurgitation the patient has undergone mitral valve annuloplasty and tricuspid valve annuloplasty and the patient is currently postop day # 2. The patient has also undergone closure of PFO and qualifies Ayala-Maze procedure. Patient is AV paced at a rate of 80 Postthoracotomy for cardiac surgery. Patient was extubated to 2 L of oxygen by nasal cannula without any major difficulties. Chest tubes are still in place chest x-ray was noted and shows routine postop changes. Postoperative anemia expected outcome of surgery, received a unit of packed RBC in the operating room Postoperative thrombocytopenia, received a unit of platelets in the operating room, currently off subcu heparin. HIT panel to be ordered. History of CVA History of atrial fibrillation, currently AV paced at a rate of 80 Sjogren's disease Plan Continue with incentive spirometer Patient currently on 2 L of oxygen by nasal cannula Chest x-ray was noted Hemodynamically stable Monitor output from the chest tubes is noted and we will keep the chest tube in place for another 24 hours Keep the patient AV paced at a rate of 80 Stop subcu heparin HIT panel Increase mobility Will continue to follow This is a critical care evaluation that was done in the ICU and 34 minutes. Time with Patient: Greater than 30
[2024-07-31 16:02] LABS: Glucose,Whole Blood 146 mg/dL (70-110)
[2024-07-31 16:58] LABS: Glucose,Whole Blood 128 mg/dL (70-110)
--- NOTE | 2024-07-31 17:59 | P.CONS ---
History of Present Illness - Reason for Consult Consult date: 07/31/24 - Chief Complaint medical management - History of Present Illness 78-year-old woman with medical history of hypertension, hyperlipidemia, glaucoma, valvular atrial fibrillation with mitral/tricuspid valve regurgitation who presented for mitral valve repair and tricuspid valve annuloplasty as well as PFO closure and modified Ayala-Maze procedure. Medicine was consulted for medical management. Patient is doing well on postop day 1. She has no new complaints at this time. She is progressing well postoperatively. Patient is afebrile, 137/64, 96% oxygen saturation on 4 L nasal cannula, pulse rate is 80 with AV paced rhythm. CBC shows hemoglobin of 7.8, platelets of 79. Basic metabolic panel is unremarkable. Magnesium is 2.5. Liver function tests show mild elevation of AST of 94, otherwise unremarkable. Patient's blood sugars are well-controlled and was titrated off of her insulin drip. All Systems reviewed and pertinent positives and negatives noted in HPI, all other symptoms are negative Gen: In NAD, non-toxic HEENT: normocephalic, atraumatic, hearing acuity is intant, mucous membranes moist CVS: perfusing all extremities well, no pitting edema, Respiratory: symmetric chest expansion, no accessory muscle use, GI: soft, NTTP, ND, : no suprapubic tenderness, no CVA tenderness MSK/Derm: no rashes, cyanosis Neuro: CN II-XII intact, no motor weakness, Labs and imaging reviewed above Assessment/plan: Hyperglycemia - continue q1h glucose checks and insulin gtt - obtain A1c to determine need for oral hypoglycemics Valvular A Fib s/p mitral/tricuspid valve repair/annuluplasty, POD 1 Thrombocytopenia - management per primary team - currently on aspirin 81mg daily, atorvastatin 40mg daily - RAYMUNDO panel pending Pt is full code DVT PPx on hold pending HIT panel per team 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 states she passed out 04/30/24 after eye examination and long day of travel - estimates LOC 2 minutes, fatigue, weakness, SOB w/exertion, surgery was rescheduled History of Any Multi-Drug Resistant Organisms: None Reported Past Surgical History: Heart Catheterization, Hysterectomy Additional Past Surgical History / Comment(s): Bilat. corneal transplants, rectocele repair Past Anesthesia/Blood Transfusion Reactions: No Reported Reaction Additional Past Anesthesia/Blood Transfusion Reaction / Comm: no hx. of transfusion reactions Smoking Status: Never smoker - Past Family History Father Family Medical History: Coronary Artery Disease (CAD) Additional Family Medical History / Comment(s): CABG 3 times during lifetime, bypass and valve repairs Mother Family Medical History: Hypertension Medications and Allergies Home Medications Medication Instructions Recorded Confirmed Type Apixaban [Eliquis] 2.5 mg PO BID 05/06/24 07/28/24 History Artificial Tears-Hypromellose 2 drops BOTH EYES DIRECTED 05/06/24 07/28/24 History [Artificial Tear Drops] Ascorbic Acid [Vitamin C] 500 mg PO DAILY 05/06/24 07/28/24 History Cholecalciferol [Vitamin D3 (25 25 mcg PO DAILY 05/06/24 07/28/24 History Mcg = 1000 Iu)] Collagen/Biotin/Ascorbic Acid 1 each PO DAILY 05/06/24 07/28/24 History [Collagen 1500 Plus C Capsule] Furosemide [Lasix] 20 mg PO DAILY 05/06/24 07/28/24 History Losartan [Cozaar] 100 mg PO DAILY 05/06/24 07/28/24 History Potassium Chloride ER [K-Dur 10] 10 meq PO DAILY 05/06/24 07/28/24 History Sodium Chloride 5% Ophth Oint 1 dose BOTH EYES BID 05/06/24 07/28/24 History [Ayleen 128] Super 8 Greens 1 dose PO DAILY 05/06/24 07/28/24 History Timolol [Betimol 0.5% Ophth Soln] 1 drop RIGHT EYE HS 05/06/24 07/28/24 History amLODIPine BESYLATE 10 mg PO DAILY 05/06/24 07/28/24 History atenoloL [Tenormin] 25 mg PO BID 05/06/24 07/28/24 History prednisoLONE acetate [Pred Mild] 1 drop BOTH EYES TID 05/06/24 07/28/24 History valACYclovir HCL [Valtrex] 500 mg PO DAILY 05/06/24 07/28/24 History Cetirizine HCl [Zyrtec] 10 mg PO HS 07/14/24 07/28/24 History Famotidine [Pepcid] 40 mg PO DAILY 07/14/24 07/28/24 History diphenhydrAMINE [Benadryl] 25 mg PO BID PRN 07/14/24 07/28/24 History Allergies Allergy/AdvReac Type Severity Reaction Status Date / Time Beef Containing Products Allergy Nausea & Verified 07/30/24 06:16 [Beef] Vomiting codeine Allergy Nausea & Verified 07/30/24 06:16 Vomiting erythromycin base Allergy Rash/Hives Verified 07/30/24 06:16 gluten Allergy GI upset Verified 07/30/24 06:16 hydrocodone [From Vicodin] Allergy Nausea & Verified 07/30/24 06:16 Vomiting ibuprofen Allergy Rash/Hives Verified 07/30/24 06:16 meperidine [From Demerol] Allergy Unknown Verified 07/30/24 06:16 Penicillins Allergy Rash/Hives Verified 07/30/24 06:16 Pork/Porcine Containing Allergy Nausea & Verified 07/30/24 06:16 Products Vomiting [Pork] Sulfa (Sulfonamide Allergy Rash/Hives Verified 07/30/24 06:16 Antibiotics) tramadol [From Ultram] Allergy Rash/Hives Verified 07/30/24 06:16 aspirin AdvReac Unknown Verified 07/30/24 06:16 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 No significant issues noted on an osteopathic structural exam other than those noted in the History and Physical/Consult. Vitals: Vital Signs Temp Pulse Resp BP Pulse Ox FiO2 07/31/24 15:40 80 07/31/24 15:31 80 07/31/24 14:00 80 20 115/66 93 L 07/31/24 13:30 80 20 94 L 07/31/24 13:00 80 12 133/78 92 L 07/31/24 12:30 80 14 92 L 07/31/24 12:00 98.1 F 80 14 137/76 93 L 07/31/24 11:43 80 07/31/24 11:34 80 07/31/24 11:30 80 17 96 07/31/24 11:00 80 20 135/78 94 L 07/31/24 10:30 80 20 96 07/31/24 10:00 80 19 132/77 97 07/31/24 09:30 80 17 97 07/31/24 09:00 80 8 L 142/85 94 L 07/31/24 08:40 80 07/31/24 08:33 80 97 07/31/24 08:30 80 15 98 07/31/24 08:00 98.1 F 80 12 154/85 96 07/31/24 07:30 73 18 98 07/31/24 07:00 95 18 100 07/31/24 06:30 80 17 98 07/31/24 06:00 80 98 07/31/24 05:30 80 22 96 07/31/24 05:00 79 20 96 07/31/24 04:30 30 H 88 L 07/31/24 04:00 97.8 F 32 H 96 07/31/24 03:30 80 20 95 07/31/24 03:00 86 18 96 07/31/24 02:30 80 18 94 L 07/31/24 02:00 80 20 144/82 96 07/31/24 01:30 80 19 144/82 95 07/31/24 01:00 80 20 144/82 97 07/31/24 00:30 89 19 144/82 98 07/31/24 00:00 98.1 F 83 19 137/84 98 07/30/24 23:30 80 16 107/72 93 L 07/30/24 23:00 80 17 107/72 99 07/30/24 22:30 80 21 107/72 98 07/30/24 22:26 82 15 107/72 97 07/30/24 22:15 80 16 98 07/30/24 22:00 80 16 91 L 07/30/24 21:45 80 13 95 07/30/24 21:34 80 02 21:30 80 14 98 07/30/24 21:15 80 15 108/77 98 07/30/24 21:00 80 19 108/77 100 07/30/24 20:45 82 19 121/79 100 07/30/24 20:30 80 20 100 07/30/24 20:15 97.8 F 80 20 121/79 100 07/30/24 20:00 80 19 100 07/30/24 19:45 80 13 97 07/30/24 19:30 80 15 100 07/30/24 19:15 82 10 L 100 07/30/24 19:00 80 22 100 07/30/24 18:45 80 18 100 07/30/24 18:30 80 16 100 07/30/24 18:15 80 15 94 L 40 07/30/24 18:00 80 15 96/75 95 40 07/30/24 17:45 80 16 93 L 40 07/30/24 17:30 86 15 81/59 92 L 40 07/30/24 17:15 82 17 101/78 94 L 40 07/30/24 17:00 97.4 F L 80 18 93 L 40 07/30/24 16:45 80 16 96 40 07/30/24 16:30 80 16 93 L 40 Intake and Output 07/31/24 07/31/24 07/31/24 06:59 14:59 22:59 Intake Total 428.766 9562.498 2.188 Output Total 730 361 Balance -849.959 5304.498 2.188 Intake: IV 468 418 Sodium Chloride 0.9% 1, 320 320 000 ml @ 50 mls/hr IV . Q20H [facility] Rx#:[id number] ceFAZolin 2 gm In Sodium 100 50 Chloride 0.9% 50 ml @ 100 mls/hr IVPB Q8HR [facility] Rx# :[id number] pressure bag 48 48 Intake, IV Titration 2.441 1.498 2.188 Amount Insulin Regular 100 unit 2.441 1.498 2.188 In Sodium Chloride 0.9% 100 ml @ Per Protocol IV .Q0M [facility] Rx#:[id number] Oral 1000 Output: Chest Tube Drainage 490 166 Chest Tube Mediastinal 420 150 Pleural Catheter Left 70 16 Urine 240 195 Other: Voiding Method Indwelling Catheter Indwelling Catheter Weight 54.7 kg 54.7 kg ABP, PAP, CO, CI - Last 8 Hours Arterial Blood Pressure 124/58 Arterial Blood Pressure 119/57 Arterial Blood Pressure 120/55 Arterial Blood Pressure 125/58 Arterial Blood Pressure 133/61 Arterial Blood Pressure 137/64 Arterial Blood Pressure 134/62 Arterial Blood Pressure 129/61 Arterial Blood Pressure 129/62 Arterial Blood Pressure 120/54 Arterial Blood Pressure 118/55 Arterial Blood Pressure 132/58 Results CBC & Chem 7: 07/31/24 05:00 07/31/24 05:00 Labs: Abnormal Lab Results - Last 24 Hours (Table) 07/28/24 07/30/24 07/30/24 Range/Units 08:14 17:27 17:28 RBC 2.61 L (3.80-5.40) m/uL Hgb 9.0 L (11.4-16.0) gm/dL Hct 25.9 L (34.0-46.0) % Plt Count 85 L (150-450) k/uL Lymphocytes # (1.0-4.8) k/uL ABG HCO3 (21-25) mmol/L ABG Total CO2 (19-24) mmol/L ABG O2 Saturation (94-97) % Hemoglobin (11.4-16.0) gm/dL Glucose (74-99) mg/dL POC Glucose (mg/dL) 127 H (70-110) mg/dL Magnesium (1.6-2.3) mg/dL AST (14-36) U/L Total Protein (6.3-8.2) g/dL Crossmatch See Detail 07/30/24 07/30/24 07/30/24 Range/Units 18:05 18:05 19:08 RBC (3.80-5.40) m/uL Hgb (11.4-16.0) gm/dL Hct (34.0-46.0) % Plt Count (150-450) k/uL Lymphocytes # (1.0-4.8) k/uL ABG HCO3 26 H (21-25) mmol/L ABG Total CO2 27 H (19-24) mmol/L ABG O2 Saturation 98.5 H (94-97) % Hemoglobin 8.4 L (11.4-16.0) gm/dL Glucose (74-99) mg/dL POC Glucose (mg/dL) 121 H 116 H (70-110) mg/dL Magnesium (1.6-2.3) mg/dL AST (14-36) U/L Total Protein (6.3-8.2) g/dL Crossmatch 07/30/24 07/30/24 07/30/24 Range/Units 19:58 20:01 22:10 RBC 2.59 L (3.80-5.40) m/uL Hgb 8.4 L (11.4-16.0) gm/dL Hct 25.5 L (34.0-46.0) % Plt Count 85 L (150-450) k/uL Lymphocytes # 0.7 L (1.0-4.8) k/uL ABG HCO3 (21-25) mmol/L ABG Total CO2 (19-24) mmol/L ABG O2 Saturation (94-97) % Hemoglobin (11.4-16.0) gm/dL Glucose (74-99) mg/dL POC Glucose (mg/dL) 118 H 129 H (70-110) mg/dL Magnesium (1.6-2.3) mg/dL AST (14-36) U/L Total Protein (6.3-8.2) g/dL Crossmatch 07/31/24 07/31/24 07/31/24 Range/Units 01:08 03:09 05:00 RBC 2.28 L (3.80-5.40) m/uL Hgb 7.8 L (11.4-16.0) gm/dL Hct 22.7 L (34.0-46.0) % Plt Count 79 L (150-450) k/uL Lymphocytes # 0.8 L (1.0-4.8) k/uL ABG HCO3 (21-25) mmol/L ABG Total CO2 (19-24) mmol/L ABG O2 Saturation (94-97) % Hemoglobin (11.4-16.0) gm/dL Glucose (74-99) mg/dL POC Glucose (mg/dL) 125 H 120 H (70-110) mg/dL Magnesium (1.6-2.3) mg/dL AST (14-36) U/L Total Protein (6.3-8.2) g/dL Crossmatch 07/31/24 07/31/24 07/31/24 Range/Units 05:00 07:24 08:57 RBC (3.80-5.40) m/uL Hgb (11.4-16.0) gm/dL Hct (34.0-46.0) % Plt Count (150-450) k/uL Lymphocytes # (1.0-4.8) k/uL ABG HCO3 (21-25) mmol/L ABG Total CO2 (19-24) mmol/L ABG O2 Saturation (94-97) % Hemoglobin (11.4-16.0) gm/dL Glucose 111 H (74-99) mg/dL POC Glucose (mg/dL) 118 H 126 H (70-110) mg/dL Magnesium 2.5 H (1.6-2.3) mg/dL AST 94 H (14-36) U/L Total Protein 5.7 L (6.3-8.2) g/dL Crossmatch 07/31/24 07/31/24 07/31/24 Range/Units 10:15 11:09 12:16 RBC (3.80-5.40) m/uL Hgb (11.4-16.0) gm/dL Hct (34.0-46.0) % Plt Count (150-450) k/uL Lymphocytes # (1.0-4.8) k/uL ABG HCO3 (21-25) mmol/L ABG Total CO2 (19-24) mmol/L ABG O2 Saturation (94-97) % Hemoglobin (11.4-16.0) gm/dL Glucose (74-99) mg/dL POC Glucose (mg/dL) 130 H 132 H 130 H (70-110) mg/dL Magnesium (1.6-2.3) mg/dL AST (14-36) U/L Total Protein (6.3-8.2) g/dL Crossmatch 07/31/24 07/31/24 07/31/24 Range/Units 13:56 14:55 16:01 RBC (3.80-5.40) m/uL Hgb (11.4-16.0) gm/dL Hct (34.0-46.0) % Plt Count (150-450) k/uL Lymphocytes # (1.0-4.8) k/uL ABG HCO3 (21-25) mmol/L ABG Total CO2 (19-24) mmol/L ABG O2 Saturation (94-97) % Hemoglobin (11.4-16.0) gm/dL Glucose (74-99) mg/dL POC Glucose (mg/dL) 185 H 130 H 146 H (70-110) mg/dL Magnesium (1.6-2.3) mg/dL AST (14-36) U/L Total Protein (6.3-8.2) g/dL Crossmatch
[2024-07-31 18:12] LABS: Glucose,Whole Blood 208 mg/dL (70-110)
[2024-07-31 19:04] LABS: Glucose,Whole Blood 202 mg/dL (70-110)
[2024-07-31 20:04] LABS: Glucose,Whole Blood 167 mg/dL (70-110)
[2024-07-31 21:03] LABS: Glucose,Whole Blood 119 mg/dL (70-110)
[2024-07-31] MEDS: LORATADINE 10 MG TAB PO SCH (21:36)
[2024-07-31 22:05] LABS: Glucose,Whole Blood 106 mg/dL (70-110)
[2024-07-31 22:54] LABS: Glucose,Whole Blood 91 mg/dL (70-110)
[2024-08-01 00:07] LABS: Glucose,Whole Blood 113 mg/dL (70-110)
[2024-08-01 00:54] LABS: Glucose,Whole Blood 106 mg/dL (70-110)
[2024-08-01 03:59] LABS: Glucose,Whole Blood 124 mg/dL (70-110)
[2024-08-01 05:31] LABS: Basophils % (A) 0 %; Eosinophils % (A) 0 %; HCT 22.2 % (34.0-46.0); HGB 7.5 gm/dL (11.4-16.0); Lymphocytes # (A) 1.4 k/uL (1.0-4.8); Lymphocytes % (A) 14 %; MCHC 33.8 g/dL (31.0-37.0); MCV 100.7 fL (80.0-100.0); Macrocytosis Slight; Mean Platelet Volume 8.8; Monocytes # (A) 0.6 k/uL (0-1.0); Monocytes % (A) 6 %; Neutrophils % (A) 79 %; RDW 14.2 % (11.5-15.5); WBC 10.1 k/uL (3.8-10.6)
[2024-08-01 05:35] LABS: Platelet Count 93 k/uL (150-450)
[2024-08-01 06:56] LABS: Ionized Calcium 4.8 mg/dL (4.5-5.3)
[2024-08-01 06:57] LABS: Glucose,Whole Blood 78 mg/dL (70-110)
[2024-08-01] MEDS: PANTOPRAZOLE 40 MG TABLET PO SCH (07:00)
[2024-08-01 07:15] LABS: ALT 13 U/L (4-34); AST 93 U/L (14-36); African American GFR (CKD) 70 (>60 ml/min/1.73 sqM); Albumin 3.6 g/dL (3.5-5.0); Alkaline Phosphatase 44 U/L (38-126); Anion Gap 10 mmol/L; Blood Urea Nitrogen 21 mg/dL (7-17); Calcium 8.5 mg/dL (8.4-10.2); Carbon Dioxide 25 mmol/L (22-30); Chloride 103 mmol/L (98-107); Glucose 111 mg/dL (74-99); Non-African American GFR(CKD) 60 (>60 ml/min/1.73 sqM); Potassium 3.5 mmol/L (3.5-5.1); Sodium 138 mmol/L (137-145); Total Bilirubin 1.1 mg/dL (0.2-1.3); Total Protein 5.7 g/dL (6.3-8.2)
[2024-08-01] MEDS: POTASSIUM CHLORIDE 10 MEQ in WATER FOR INJECTION 1 100ML.BAG IVPB SCH (07:55)
[2024-08-01 08:04] LABS: Glucose,Whole Blood 106 mg/dL (70-110)
[2024-08-01] MEDS: FONDAPARINUX 2.5 MG/0.5 ML SYRINGE SQ SCH (08:30)
--- NOTE | 2024-08-01 08:34 | XR ---
EXAMINATION TYPE: XR chest 1V portable DATE OF EXAM: 08/01/2024 6:10 AM COMPARISON: 07/31/2019 CLINICAL INDICATION: Female, 78 years old with history of Post Operative Cardiac Surgery, TECHNIQUE: XR chest 1V portable view(s) obtained. FINDINGS: The heart size is enlarged. The pulmonary vasculature is normal. No significant interval change in the lung markings. Left-sided chest tube remains present. No pneumo thorax evident. Mediastinal tube is present. Right central venous catheter sheath is present IMPRESSION: 1. Cardiomegaly. 2. Stable appearance from prior exam. 3. Lines and catheters discussed above [facility], , 08/01/2024 8:32 AM
[2024-08-01 08:57] LABS: Glucose,Whole Blood 134 mg/dL (70-110)
--- NOTE | 2024-08-01 10:01 | P.PN ---
Subjective Progress Note Date: 08/01/24 PROGRESS NOTE The patient is a 78-year-old female, followed by Dr. Cardenas who had significant mitral and tricuspid regurgitation. She underwent mitral valve repair with size 28 physio 2 ring and tricuspid valve annuloplasty size 28 with closure of patent foramen ovale and modified Ayala-Maze procedure. Patient has history of atrial fibrillation. She is extubated, sitting up in the chair, appears to be weak but denies any chest discomfort except incisional pain. She has no history of CAD by cardiac catheterization. She is on no vasopressors and she has good urinary output. She has a prior history of TIA. Her left ventricular systolic function was preserved in the past. She is paced 100% at this time August 01 She feels better today, stronger. She continues to be in atrial fibrillation with 100% pacing and slow ventricular response. She is on no vasopressors. She is hemodynamically stable with good urinary output. There is no evidence of ventricular ectopic activity. There is no nausea or vomiting. Medications: Aspirin, furosemide 20 mg IV every 12 hours, fondaparinux, losartan 25 mg daily, PHYSICAL EXAMINATION: Blood pressure 115/60 heart rate 80 LUNGS: Clear to auscultation HEART: Regular rate and rhythm, paced, S1, S2. No S3. Systolic murmur ABDOMEN: Soft, nontender, no organomegaly EXTREMETIES: No edema LAB: Hemoglobin 7.5, BUN 21, creatinine 0.93, potassium 3.5 IMPRESSION: 1. Status post mitral and tricuspid valve repair 2. Atrial fibrillation status post Maze procedure 3. Slow ventricular response requiring pacemaker at this point 4. History of pulmonary hypertension PLAN: 1. Continue present therapy 2. Increase physical activity 3. Follow ventricular response and if she remains bradycardic consider permanent pacemaker next week 4. Depending on the decision about pacemaker the decision will be made about starting anticoagulation 5. Depending on her progress further recommendations will be made Objective - Vital Signs Vital signs: Vital Signs Temp 97.7 F 08/01/24 08:00 Pulse 90 08/01/24 09:15 Resp 30 H 08/01/24 09:00 BP 128/76 08/01/24 08:00 Pulse Ox 95 08/01/24 09:01 FiO2 40 07/30/24 18:15 Intake & Output 07/31/24 08/01/24 08/01/24 18:59 06:59 18:59 Intake Total 2105.686 563.345 431.266 Output Total 501 569 65 Balance 1604.686 -5.655 366.266 Weight 54.7 kg 60.1 kg Intake: IV 602 552 278 Potassium Chloride 10 meq 200 In Water For Injection 1 100ml.bag @ 100 mls/hr IVPB Q1HR [facility] Rx#: [id number] Sodium Chloride 0.9% 1, 480 480 60 000 ml @ 20 mls/hr IV . Q24H [facility] Rx#:[id number] ceFAZolin 2 gm In Sodium 50 Chloride 0.9% 50 ml @ 100 mls/hr IVPB Q8HR [facility] Rx# :[id number] pressure bag 72 72 18 Intake, IV Titration 3.686 11.345 3.266 Amount Insulin Regular 100 unit 3.686 11.345 3.266 In Sodium Chloride 0.9% 100 ml @ Per Protocol IV .Q0M [facility] Rx#:[id number] Oral 1500 150 Output: Chest Tube Drainage 236 344 0 Chest Tube Mediastinal 210 260 0 Pleural Catheter Left 26 84 0 Urine 265 225 65 Other: Voiding Method Indwelling Catheter Indwelling Catheter Indwelling Catheter ABP, PAP, CO, CI - Last Documented Arterial Blood Pressure 115/60 - Labs CBC & Chem 7: 08/01/24 04:35 08/01/24 04:35 Labs: Abnormal Lab Results - Last 24 Hours (Table) 07/28/24 07/31/24 07/31/24 Range/Units 08:14 10:15 11:09 RBC (3.80-5.40) m/uL Hgb (11.4-16.0) gm/dL Hct (34.0-46.0) % MCV (80.0-100.0) fL Plt Count (150-450) k/uL Neutrophils # (1.3-7.7) k/uL BUN (7-17) mg/dL Glucose (74-99) mg/dL POC Glucose (mg/dL) 130 H 132 H (70-110) mg/dL AST (14-36) U/L Total Protein (6.3-8.2) g/dL Crossmatch See Detail [facility] Result See [facility] REF Reports A 07/31/24 07/31/24 07/31/24 Range/Units 12:16 13:56 14:55 RBC (3.80-5.40) m/uL Hgb (11.4-16.0) gm/dL Hct (34.0-46.0) % MCV (80.0-100.0) fL Plt Count (150-450) k/uL Neutrophils # (1.3-7.7) k/uL BUN (7-17) mg/dL Glucose (74-99) mg/dL POC Glucose (mg/dL) 130 H 185 H 130 H (70-110) mg/dL AST (14-36) U/L Total Protein (6.3-8.2) g/dL Crossmatch Blood Bank Comment Reference Lab Result 07/31/24 07/31/24 07/31/24 Range/Units 16:01 16:56 18:11 RBC (3.80-5.40) m/uL Hgb (11.4-16.0) gm/dL Hct (34.0-46.0) % MCV (80.0-100.0) fL Plt Count (150-450) k/uL Neutrophils # (1.3-7.7) k/uL BUN (7-17) mg/dL Glucose (74-99) mg/dL POC Glucose (mg/dL) 146 H 128 H 208 H (70-110) mg/dL AST (14-36) U/L Total Protein (6.3-8.2) g/dL Crossmatch Blood Bank Comment Reference Lab Result 07/31/24 07/31/24 07/31/24 Range/Units 19:03 20:03 21:01 RBC (3.80-5.40) m/uL Hgb (11.4-16.0) gm/dL Hct (34.0-46.0) % MCV (80.0-100.0) fL Plt Count (150-450) k/uL Neutrophils # (1.3-7.7) k/uL BUN (7-17) mg/dL Glucose (74-99) mg/dL POC Glucose (mg/dL) 202 H 167 H 119 H (70-110) mg/dL AST (14-36) U/L Total Protein (6.3-8.2) g/dL Crossmatch Blood Bank Comment Reference Lab Result 02/08/01/24 08/01/24 Range/Units 00:04 03:58 04:35 RBC 2.20 L (3.80-5.40) m/uL Hgb 7.5 L (11.4-16.0) gm/dL Hct 22.2 L (34.0-46.0) % MCV 100.7 H (80.0-100.0) fL Plt Count 93 L (150-450) k/uL Neutrophils # 8.0 H (1.3-7.7) k/uL BUN (7-17) mg/dL Glucose (74-99) mg/dL POC Glucose (mg/dL) 113 H 124 H (70-110) mg/dL AST (14-36) U/L Total Protein (6.3-8.2) g/dL Crossmatch Blood Bank Comment Reference Lab Result 08/01/24 08/01/24 Range/Units 04:35 08:55 RBC (3.80-5.40) m/uL Hgb (11.4-16.0) gm/dL Hct (34.0-46.0) % MCV (80.0-100.0) fL Plt Count (150-450) k/uL Neutrophils # (1.3-7.7) k/uL BUN 21 H (7-17) mg/dL Glucose 111 H (74-99) mg/dL POC Glucose (mg/dL) 134 H (70-110) mg/dL AST 93 H (14-36) U/L Total Protein 5.7 L (6.3-8.2) g/dL Crossmatch Blood Bank Comment Reference Lab Result
--- NOTE | 2024-08-01 10:02 | P.PN ---
Subjective Progress Note Date: 08/01/24 Principal diagnosis: Moderate mitral regurgitation, severe tricuspid regurgitation, mild aortic valvular insufficiency, chronic atrial fibrillation with marked biatrial dilation, patent foramen ovale. 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 POD #2 Mitral valve annuloplasty with 26 mm physio 2 ring, tricuspid valve annuloplasty with 26 mm MC 3 band, closure of patent foramen ovale, modified Ayala-Maze procedure with complete left and right sided lesion sets and suture ligation of the base of the left atrial appendage. Postoperative acute blood loss anemia, secondary to cardiopulmonary bypass, hemodilution and her history of anemia. The patient was seen and examined in follow-up today August 01, 2024 at her bedside in the intensive care unit. She is currently sitting up to the bedside chair, is awake, alert, oriented x 3 and is in no acute apparent distress. Kwaku es any complaints of pain or shortness of breath at this time. Oxygen saturations are 99% on 3 L nasal cannula and she is achieving 750 to 1000 mL on her incentive spirometry with encouragement. Bedside telemetry is showing a DDD paced rhythm heart rate 80, underlying rhythm is showing atrial fibrillation heart rate less than 40 bpm. She reports she has been up ambulating in the intensive care unit hallway with standby assistance from nursing staff and tolerating well. She does complain of some generalized weakness. Right IJ cordis remains in place with continuous CVP monitoring, current CVP pressure 7 mmHg. Lab results today show a hemoglobin of 7.5 and she will be transfused for 1 unit of packed red blood cells followed by Lasix 20 mg IV x 1. Mediastinal and left pleural chest tubes remain in place to low continuous wall suction -20 cm H2O. No airleak is present. Draining thin serosanguineous drainage with mediastinal chest tube draining 190 mL output in the last 8 hours and 500 mL output in the last 24 hours. Left pleural chest tube is draining 40 mL output in the last 8 hours and 100 mL output and the last 24 hours. Her urine output was marginal in the last 8 hours with 165 mL output. Chest x-ray and laboratory results reviewed. Objective - Vital Signs Vital signs: Vital Signs Temp 97.7 F 08/01/24 08:00 Pulse 90 08/01/24 09:15 Resp 30 H 08/01/24 09:00 BP 128/76 08/01/24 08:00 Pulse Ox 95 08/01/24 09:01 FiO2 40 07/30/24 18:15 Intake & Output 07/31/24 08/01/24 08/01/24 18:59 06:59 18:59 Intake Total 2105.686 563.345 431.266 Output Total 501 569 65 Balance 1604.686 -5.655 366.266 Weight 54.7 kg 60.1 kg Intake: IV 602 552 278 Potassium Chloride 10 meq 200 In Water For Injection 1 100ml.bag @ 100 mls/hr IVPB Q1HR [facility] Rx#: [id number] Sodium Chloride 0.9% 1, 480 480 60 000 ml @ 20 mls/hr IV . Q24H [facility] Rx#:[id number] ceFAZolin 2 gm In Sodium 50 Chloride 0.9% 50 ml @ 100 mls/hr IVPB Q8HR [facility] Rx# :[id number] pressure bag 72 72 18 Intake, IV Titration 3.686 11.345 3.266 Amount Insulin Regular 100 unit 3.686 11.345 3.266 In Sodium Chloride 0.9% 100 ml @ Per Protocol IV .Q0M [facility] Rx#:[id number] Oral 1500 150 Output: Chest Tube Drainage 236 344 0 Chest Tube Mediastinal 210 260 0 Pleural Catheter Left 26 84 0 Urine 265 225 65 Other: Voiding Method Indwelling Catheter Indwelling Catheter Indwelling Catheter ABP, PAP, CO, CI - Last Documented Arterial Blood Pressure 115/60 - Exam CONSTITUTIONAL: Sitting up to the bedside chair in the intensive care unit, appears comfortable, cooperative, no apparent acute distress. HEENT: Neck is supple, no JVD, no lymphadenopathy. Right IJ Cordis in place and functioning. RESPIRATORY: Lungs sounds essentially clear throughout, diminished to his bilateral bases, few scattered crackles to her right lower lobe. Respirations are symmetrical and nonlabored. Currently on 3 L nasal cannula with oxygen satu rations 99%. Able to achieve 750-1000 mL on her incentive spirometry. Strong cough. CARDIOVASCULAR: Regular rhythm and rate. S1 and S2 present, negative for S3, gallop or murmur. Sternum is stable. Palpable peripheral pulses bilaterally. No calf pain or tenderness noted. Heart hugger in place with patient demonstrating appropriate use. Knee-high ABAD hose and sequential compression devices in place to her bilateral lower extremities. GASTROINTESTINAL: Abdomen soft, nontender, nondistended. Active bowel sounds present 4 quadrants. Tolerating diet. Passing flatus. No guarding or r igidity. GENITOURINARY: Finch present draining clear, yellow urine. Urine output 165 mL in the last 8 hours. INTEGUMENTARY: Skin is warm and dry with no evidence of clubbing or cyanosis. Midline sternal incision clean dry and well approximated, covered with dry intact dressing, some scattered ecchymosis. NEUROLOGIC: Cranial nerves II through XII intact. No focal deficits. MUSKULOSKELETAL: Able to move all extremities, strength equal bilaterally, generalized weakness. PSYCHIATRIC: Alert and oriented to person, place and time. Flat affect. INVASIVE LINES AND TUBES: Mediastinal/left pleural chest tubes present and connected to low continuous wall suction, no air leaks present. Mediastinal tube with 190 mL of thin serosanguineous drainage overnight, 500 mL output in the last 24 hours. Left pleural chest tube with 40 mL of thin serosanguineous drainage overnight, 100 mL output in the last 24 hours. Atrial and ventricular epicardial pacemaker wires present, connected to generator, DDD backup rate 80 bpm. Right internal jugular Cordis, right radial arterial line present. Cur rent CVP 7 mmHg. - Allied health notes Allied health notes reviewed: nursing - Labs CBC & Chem 7: 08/01/24 04:35 08/01/24 04:35 Labs: Abnormal Lab Results - Last 24 Hours (Table) 07/31/24 07/31/24 07/31/24 Range/Units 10:15 11:09 12:16 RBC (3.80-5.40) m/uL Hgb (11.4-16.0) gm/dL Hct (34.0-46.0) % MCV (80.0-100.0) fL Plt Count (150-450) k/uL Neutrophils # (1.3-7.7) k/uL BUN (7-17) mg/dL Glucose (74-99) mg/dL POC Glucose (mg/dL) 130 H 132 H 130 H (70-110) mg/dL AST (14-36) U/L Total Protein (6.3-8.2) g/dL 07/31/24 07/31/24 07/31/24 Range/Units 13:56 14:55 16:01 RBC (3.80-5.40) m/uL Hgb (11.4-16.0) gm/dL Hct (34.0-46.0) % MCV (80.0-100.0) fL Plt Count (150-450) k/uL Neutrophils # (1.3-7.7) k/uL BUN (7-17) mg/dL Glucose (74-99) mg/dL POC Glucose (mg/dL) 185 H 130 H 146 H (70-110) mg/dL AST (14-36) U/L Total Protein (6.3-8.2) g/dL 07/31/24 07/31/24 07/31/24 Range/Units 16:56 18:11 19:03 RBC (3.80-5.40) m/uL Hgb (11.4-16.0) gm/dL Hct (34.0-46.0) % MCV (80.0-100.0) fL Plt Count (150-450) k/uL Neutrophils # (1.3-7.7) k/uL BUN (7-17) mg/dL Glucose (74-99) mg/dL POC Glucose (mg/dL) 128 H 208 H 202 H (70-110) mg/dL AST (14-36) U/L Total Protein (6.3-8.2) g/dL 07/31/24 07/31/24 08/01/24 Range/Units 20:03 21:01 00:04 RBC (3.80-5.40) m/uL Hgb (11.4-16.0) gm/dL Hct (34.0-46.0) % MCV (80.0-100.0) fL Plt Count (150-450) k/uL Neutrophils # (1.3-7.7) k/uL BUN (7-17) mg/dL Glucose (74-99) mg/dL POC Glucose (mg/dL) 167 H 119 H 113 H (70-110) mg/dL AST (14-36) U/L Total Protein (6.3-8.2) g/dL 02/08/01/24 08/01/24 Range/Units 03:58 04:35 04:35 RBC 2.20 L (3.80-5.40) m/uL Hgb 7.5 L (11.4-16.0) gm/dL Hct 22.2 L (34.0-46.0) % MCV 100.7 H (80.0-100.0) fL Plt Count 93 L (150-450) k/uL Neutrophils # 8.0 H (1.3-7.7) k/uL BUN 21 H (7-17) mg/dL Glucose 111 H (74-99) mg/dL POC Glucose (mg/dL) 124 H (70-110) mg/dL AST 93 H (14-36) U/L Total Protein 5.7 L (6.3-8.2) g/dL 08/01/24 Range/Units 08:55 RBC (3.80-5.40) m/uL Hgb (11.4-16.0) gm/dL Hct (34.0-46.0) % MCV (80.0-100.0) fL Plt Count (150-450) k/uL Neutrophils # (1.3-7.7) k/uL BUN (7-17) mg/dL Glucose (74-99) mg/dL POC Glucose (mg/dL) 134 H (70-110) mg/dL AST (14-36) U/L Total Protein (6.3-8.2) g/dL - Imaging and Cardiology Chest x-ray: report reviewed, image reviewed Assessment and Plan Assessment: Mitral valve regurgitation, status post mitral valve annuloplasty with a 26 mm physio 2 ring Severe tricuspid valve regurgitation, status post tricuspid valve annuloplasty with a 26 mm MC 3 band Chronic atrial fibrillation, status post modified Ayala-Maze procedure with complete left and right sided lesion sets and suture ligation of the base of the left atrial appendage Patent foramen ovale, closure of patent foramen ovale Postoperative acute blood loss anemia, expected given hemodilution, cardiopulmonary bypass and preoperative history of anemia History of hypertension Rheumatoid arthritis History of syncope History of CVA in 2015 with no residual deficits Sjogren's disease Eye disorder Lupus Lifetime non-smoker Plan: Continue to maximize medical therapy with low-dose aspirin, and statin. Continue to hold metoprolol tartrate at this time due to her underlying rhythm. Currently paced DDD at 80 bpm. She may require a permanent pacemaker. Platelets are 93 today, HIT panel sent, results pending. Continue Arixtra 2.5 mg subcu daily. Continue Cozaar 25 mg p.o. daily for afterload reduction, with hold parameters. Wean O2 as tolerated. Encourage incentive spirometry use 10 times every hour while awake. Bronchodilators per pulmonology. Increase activity, ambulate as tolerated. PT/OT/cardiac rehab following. Will monitor daily labs and chest x-rays. Electrolyte replacement per protocol. Continue home medications for timolol, sodium chloride ophthalmic drops and artificial tear. GI/DVT prophylaxis. Remove right IJ cordis once PRBCs has been transfused. Transfuse for 1 unit of packed red blood cells for hemoglobin of 7.5, we will start Lasix 20 mg IV twice daily. We will remove her mediastinal chest tubes and keep her left pleural chest tube in for at least another 24 hours. Continue to record strict output. Continue Finch catheter, continue to monitor record strict accurate intake and output. Pain control per current medication regimen. Continue to hold all narcotics, her mentation has improved today. Insulin management per internal medicine, patient needs tight blood sugar control to prevent infection, patient should stay on continuous IV insulin for 48 hours, then may transition to subcutaneous per protocol. Preoperative hemoglobin A1c 5.9%. More recommendations to follow based on patient's clinical course. Time with Patient: Greater than 30
[2024-08-01] MEDS: guaiFENesin 600 MG TABLET.ER PO SCH (11:08)
[2024-08-01] MEDS: POTASSIUM BICARBONATE/CIT AC 20 MEQ TABLET.EFF PO SCH (11:08)
[2024-08-01 12:08] LABS: Glucose,Whole Blood 151 mg/dL (70-110)
[2024-08-01] MEDS: INSULIN LISPRO (HumaLOG) 100 UNIT/ML 10 mL VL SQ SCH (12:11)
[2024-08-01] MEDS: FUROSEMIDE 10 MG/ML 2 ML VIAL IV SCH (13:11)
--- NOTE | 2024-08-01 13:49 | P.PN ---
Subjective Progress Note Date: 08/01/24 This is a 78-year-old female patient is being seen in the intensive care unit following cardiac surgery. The patient underwent mitral valve annuloplasty and tricuspid valve annuloplasty and closure of the PFO and modified Ayala-Maze procedure. Following that, the patient was brought in intubated on mechanical ventilator and the patient is currently in the intensive care unit. I saw the patient in the ICU. The patient is on propofol which is running at 20 mcg/kg/min and the patient is calm and comfortable. The patient is on assist- control mode of mechanical ventilation at rate of 12, tidal volume of 400, FiO2 at 100% with a PEEP of 5. Initial blood gas showed a pH of 7.38 with a pCO2 of 42 and pO2 of 429. FiO2 has been dropped down to 50%. The patient is calm and comfortable. Current cardiac rhythm is AV paced at a rate of 80. No pressors for now. The patient received a total of 1 unit of packed RBC, 1 unit of platelets and 2 units of fresh frozen plasma in the operating room. She has 2 mediastinal chest tube and 1 pleural chest tube and the outputs are minimal at this point in time. The chest x-ray that was done postop showed adequate expansion of both lungs. Chest tubes are all in place. The patient does not have any [place]-Patricia catheter. The blood work shows a white cell count of 4.6, hemoglobin 8.6 and a platelet count of 70. The sodium is at 138, potassium is 4, bicarb is 25, elevated BUN is 11 with a creatinine of 0.5. LFTs are normal. The patient has adequate urine output. Hemodynamically stable. The patient is also afebrile. No other significant events since arrival to the intensive care unit. On 07/31/2024, the patient is being seen for a follow-up. The patient is awake and alert. The patient was extubated yesterday without any major difficulties and the patient currently is on 2 L of oxygen by nasal cannula. She is calm and comfortable. She is hemodynamically stable on no pressors. She is using the incentive spirometer. She is pulling approximately thousand on her I-S. She remains on a pacemaker, DDD, at a rate of 80. Underlying rhythm is sinus bradycardia. Chest tubes are still in place. The patient's mediastinal chest tube has produced approximately 850 cc over the past 24 hours. The left pleural chest tube is produced approximately 180 cc over the past 24 hours. Labs were reviewed. Hemoglobin 7.8, platelet count is at 79 and subcu heparin has been discontinued. HIT panel was ordered. Chest x-ray shows cardiomegaly, tubes are in good location. No diuretics were given. She is awake and alert and communicating. No other significant events overnight. On 08/01/2024, the patient is being seen for a follow-up. The patient is currently on 3 L of oxygen by nasal cannula and the patient is calm and comfortable. No significant respiratory distress. Chest tubes are still in place. A follow-up chest x-ray showed cardiomegaly with tubes being in stable location. The patient remains in normal sinus rhythm. The white cell close at 10 with a hemoglobin 7.5 and a platelet count of 93. BUN is 21 with a creatinine of 0.9 and sodium levels at 138 and a potassium level is at 3.5. Feeling overall weak and lethargic. He is arousable and able to communicate. Using incentive spirometer. Pulling approximately 8000. The patient remains paced at a rate of 80. Underlying rhythm is atrial fibrillation with a slow rate. She was ordered a unit of packed RBC transfusion by the cardiothoracic team. She will be also given Lasix. Output from the chest tube include a total of 500 mL from mediastinal chest tube and a total of 100 mL from the pleural chest tubes. There is over the past 24 hours. Objective - Vital Signs Vital signs: Vital Signs Temp 97.7 F 08/01/24 08:00 Pulse 90 08/01/24 09:15 Resp 30 H 08/01/24 09:00 BP 128/76 08/01/24 08:00 Pulse Ox 95 08/01/24 09:01 FiO2 40 07/30/24 18:15 Intake & Output 07/31/24 08/01/24 08/01/24 18:59 06:59 18:59 Intake Total 2105.686 563.345 431.266 Output Total 501 569 65 Balance 1604.686 -5.655 366.266 Weight 54.7 kg 60.1 kg Intake: IV 602 552 278 Potassium Chloride 10 meq 200 In Water For Injection 1 100ml.bag @ 100 mls/hr IVPB Q1HR [facility] Rx#: [id number] Sodium Chloride 0.9% 1, 480 480 60 000 ml @ 20 mls/hr IV . Q24H [facility] Rx#:[id number] ceFAZolin 2 gm In Sodium 50 Chloride 0.9% 50 ml @ 100 mls/hr IVPB Q8HR [facility] Rx# :[id number] pressure bag 72 72 18 Intake, IV Titration 3.686 11.345 3.266 Amount Insulin Regular 100 unit 3.686 11.345 3.266 In Sodium Chloride 0.9% 100 ml @ Per Protocol IV .Q0M [facility] Rx#:[id number] Oral 1500 150 Output: Chest Tube Drainage 236 344 0 Chest Tube Mediastinal 210 260 0 Pleural Catheter Left 26 84 0 Urine 265 225 65 Other: Voiding Method Indwelling Catheter Indwelling Catheter Indwelling Catheter ABP, PAP, CO, CI - Last Documented Arterial Blood Pressure 115/60 - Exam CONSTITUTIONAL: Sitting up to the bedside chair in the intensive care unit, appears comfortable, cooperative, no apparent acute distress. HEENT: Neck is supple, no JVD, no lymphadenopathy. Right IJ Cordis in place and functioning. RESPIRATORY: Lungs sounds essentially clear throughout, diminished to his bilateral bases, few scattered crackles to her right lower lobe. Respirations are symmetrical and nonlabored. Currently on 3 L nasal cannula with oxygen saturations 99%. Able to achieve 750-1000 mL on her incentive spirometry. Strong cough. CARDIOVASCULAR: Regular rhythm and rate. S1 and S2 present, negative for S3, gallop or murmur. Sternum is stable. Palpable peripheral pulses bilaterally. No calf pain or tenderness noted. Heart hugger in place with patient demonstrating appropriate use. Knee-high ABAD hose and sequential compression devices in place to her bilateral lower extremities. GASTROINTESTINAL: Abdomen soft, nontender, nondistended. Active bowel sounds present 4 quadrants. Tolerating diet. Passing flatus. No guarding or rigidity. GENITOURINARY: Finch present draining clear, yellow urine. Urine output 165 mL in the last 8 hours. INTEGUMENTARY: Skin is warm and dry with no evidence of clubbing or cyanosis. Midline sternal incision clean dry and well approximated, covered with dry intact dressing, some scattered ecchymosis. NEUROLOGIC: Cranial nerves II through XII intact. No focal deficits. MUSKULOSKELETAL: Able to move all extremities, strength equal bilaterally, generalized weakness. PSYCHIATRIC: Alert and oriented to person, place and time. Flat affect. INVASIVE LINES AND TUBES: Mediastinal/left pleural chest tubes present and connected to low continuous wall suction, no air leaks present. Mediastinal tube with 190 mL of thin serosanguineous drainage overnight, 500 mL output in the last 24 hours. Left pleural chest tube with 40 mL of thin serosanguineous drainage overnight, 100 mL output in the last 24 hours. Atrial and ventricular epicardial pacemaker wires present, connected to generator, DDD backup rate 80 bpm. Right internal jugular Cordis, right radial arterial line present. Current CVP 7 mmHg. - Labs CBC & Chem 7: 08/01/24 04:35 08/01/24 04:35 Labs: Abnormal Lab Results - Last 24 Hours (Table) 07/31/24 07/31/24 07/31/24 Range/Units 10:15 11:09 12:16 RBC (3.80-5.40) m/uL Hgb (11.4-16.0) gm/dL Hct (34.0-46.0) % MCV (80.0-100.0) fL Plt Count (150-450) k/uL Neutrophils # (1.3-7.7) k/uL BUN (7-17) mg/dL Glucose (74-99) mg/dL POC Glucose (mg/dL) 130 H 132 H 130 H (70-110) mg/dL AST (14-36) U/L Total Protein (6.3-8.2) g/dL 07/31/24 07/31/24 07/31/24 Range/Units 13:56 14:55 16:01 RBC (3.80-5.40) m/uL Hgb (11.4-16.0) gm/dL Hct (34.0-46.0) % MCV (80.0-100.0) fL Plt Count (150-450) k/uL Neutrophils # (1.3-7.7) k/uL BUN (7-17) mg/dL Glucose (74-99) mg/dL POC Glucose (mg/dL) 185 H 130 H 146 H (70-110) mg/dL AST (14-36) U/L Total Protein (6.3-8.2) g/dL 07/31/24 07/31/24 07/31/24 Range/Units 16:56 18:11 19:03 RBC (3.80-5.40) m/uL Hgb (11.4-16.0) gm/dL Hct (34.0-46.0) % MCV (80.0-100.0) fL Plt Count (150-450) k/uL Neutrophils # (1.3-7.7) k/uL BUN (7-17) mg/dL Glucose (74-99) mg/dL POC Glucose (mg/dL) 128 H 208 H 202 H (70-110) mg/dL AST (14-36) U/L Total Protein (6.3-8.2) g/dL 07/31/24 07/31/24 08/01/24 Range/Units 20:03 21:01 00:04 RBC (3.80-5.40) m/uL Hgb (11.4-16.0) gm/dL Hct (34.0-46.0) % MCV (80.0-100.0) fL Plt Count (150-450) k/uL Neutrophils # (1.3-7.7) k/uL BUN (7-17) mg/dL Glucose (74-99) mg/dL POC Glucose (mg/dL) 167 H 119 H 113 H (70-110) mg/dL AST (14-36) U/L Total Protein (6.3-8.2) g/dL 08/01/24 08/01/24 08/01/24 Range/Units 03:58 04:35 04:35 RBC 2.20 L (3.80-5.40) m/uL Hgb 7.5 L (11.4-16.0) gm/dL Hct 22.2 L (34.0-46.0) % MCV 100.7 H (80.0-100.0) fL Plt Count 93 L (150-450) k/uL Neutrophils # 8.0 H (1.3-7.7) k/uL BUN 21 H (7-17) mg/dL Glucose 111 H (74-99) mg/dL POC Glucose (mg/dL) 124 H (70-110) mg/dL AST 93 H (14-36) U/L Total Protein 5.7 L (6.3-8.2) g/dL 08/01/24 Range/Units 08:55 RBC (3.80-5.40) m/uL Hgb (11.4-16.0) gm/dL Hct (34.0-46.0) % MCV (80.0-100.0) fL Plt Count (150-450) k/uL Neutrophils # (1.3-7.7) k/uL BUN (7-17) mg/dL Glucose (74-99) mg/dL POC Glucose (mg/dL) 134 H (70-110) mg/dL AST (14-36) U/L Total Protein (6.3-8.2) g/dL Assessment and Plan Plan: Valvular heart disease with mitral and tricuspid regurgitation the patient has undergone mitral valve annuloplasty and tricuspid valve annuloplasty and the patient is currently postop day # 3. The patient has also undergone closure of PFO and qualifies Ayala-Maze procedure. Patient is AV paced at a rate of 80. Underlying rhythm is still bradycardia, slow late atrial fibrillation in the 40s. Postthoracotomy for cardiac surgery. Patient was extubated to 2 L of oxygen by nasal cannula without any major difficulties. Chest tubes are still in place chest x-ray was noted and shows routine postop changes. Output has been noted Postoperative anemia expected outcome of surgery, received a unit of packed RBC in the operating room. The patient's hemoglobin is at 7.5. She will be given another unit of packed RBC. Postoperative thrombocytopenia, received a unit of platelets in the operating room, currently off subcu heparin. The patient is currently on Arixtra. History of CVA History of atrial fibrillation, currently AV paced at a rate of 80 Sjogren's disease Plan Continue with incentive spirometer Patient currently on 2 L of oxygen by nasal cannula Chest x-ray was noted Hemodynamically stable Chest tube management per cardiothoracic team Keep the patient AV paced at a rate of 80 Arixtra 2.5 mg p.o. daily Stop subcu heparin Lasix 20 mg every 12 hours Unit of packed RBC Increase mobility Will continue to follow This is a critical care evaluation that was done in the ICU and 34 minutes. Time with Patient: Greater than 30
--- NOTE | 2024-08-01 14:52 | P.PN ---
Subjective Progress Note Date: 08/01/24 No new complaints today. Doing well on present therapy. HIT panel pending. Pt is on fondaparinux. Gen: In NAD, non-toxic HEENT: normocephalic, atraumatic, hearing acuity is intant, mucous membranes moist CVS: perfusing all extremities well, no pitting edema, Respiratory: symmetric chest expansion, no accessory muscle use, GI: soft, NTTP, ND, : no suprapubic tenderness, no CVA tenderness MSK/Derm: no rashes, cyanosis Neuro: CN II-XII intact, no motor weakness, Hospital Course: 78-year-old woman with medical history of hypertension, hyperlipidemia, glaucoma, valvular atrial fibrillation with mitral/tricuspid valve regurgitation who presented for mitral valve repair and tricuspid valve annuloplasty as well as PFO closure and modified Ayala-Maze procedure. Medicine was consulted for medical management. Patient was afebrile, 137/64, 96% oxygen saturation on 4 L nasal cannula, pulse rate is 80 with AV paced rhythm. CBC shows hemoglobin of 7.8, platelets of 79. Basic metabolic panel is unremarkable. Magnesium is 2.5. Liver function tests show mild elevation of AST of 94, otherwise unremarkable. Patient's blood sugars are well-controlled and was titrated off of her insulin drip. Assessment/plan: Hyperglycemia - ACHS glucose checks and LD-SSI - A1c is 5.7%, no need for medications for DM on discharge Valvular A Fib s/p mitral/tricuspid valve repair/annuluplasty, POD 1 Thrombocytopenia - management per primary team - currently on aspirin 81mg daily, atorvastatin 40mg daily - RAYMUNDO panel pending Pt is full code DVT PPx on hold pending HIT panel per team Objective - Vital Signs Vital signs: Vital Signs Temp 98.0 F 08/01/24 13:10 Pulse 87 08/01/24 14:00 Resp 12 08/01/24 14:00 BP 134/81 08/01/24 13:30 Pulse Ox 95 08/01/24 14:00 FiO2 40 07/30/24 18:15 Intake & Output 07/31/24 08/01/24 08/01/24 18:59 06:59 18:59 Intake Total 2105.686 889.372 3207.266 Output Total 501 569 210 Balance 1604.686 -5.655 1171.266 Weight 54.7 kg 60.1 kg Intake: IV 602 552 458 Potassium Chloride 10 meq 200 In Water For Injection 1 100ml.bag @ 100 mls/hr IVPB Q1HR [facility] Rx#: [id number] Sodium Chloride 0.9% 1, 480 480 210 000 ml @ 20 mls/hr IV . Q24H [facility] Rx#:[id number] ceFAZolin 2 gm In Sodium 50 Chloride 0.9% 50 ml @ 100 mls/hr IVPB Q8HR [facility] Rx# :[id number] pressure bag 72 72 48 Intake, IV Titration 3.686 11.345 3.266 Amount Insulin Regular 100 unit 3.686 11.345 3.266 In Sodium Chloride 0.9% 100 ml @ Per Protocol IV .Q0M [facility] Rx#:[id number] Oral 1500 150 Tube Feeding 150 Blood Product 620 Rc As-1 Unit 310 [id number] Output: Chest Tube Drainage 236 344 50 Chest Tube Mediastinal 210 260 0 Pleural Catheter Left 26 84 50 Urine 265 225 160 Other: Voiding Method Indwelling Catheter Indwelling Catheter Indwelling Catheter ABP, PAP, CO, CI - Last Documented Arterial Blood Pressure 133/63 - Labs CBC & Chem 7: 08/01/24 04:35 08/01/24 04:35 Labs: Abnormal Lab Results - Last 24 Hours (Table) 07/28/24 07/31/24 07/31/24 Range/Units 08:14 14:55 16:01 RBC (3.80-5.40) m/uL Hgb (11.4-16.0) gm/dL Hct (34.0-46.0) % MCV (80.0-100.0) fL Plt Count (150-450) k/uL Neutrophils # (1.3-7.7) k/uL BUN (7-17) mg/dL Glucose (74-99) mg/dL POC Glucose (mg/dL) 130 H 146 H (70-110) mg/dL AST (14-36) U/L Total Protein (6.3-8.2) g/dL Crossmatch See Detail Blood Bank [facility] Result See [facility]K REF Reports A 07/31/24 07/31/24 07/31/24 Range/Units 16:56 18:11 19:03 RBC (3.80-5.40) m/uL Hgb (11.4-16.0) gm/dL Hct (34.0-46.0) % MCV (80.0-100.0) fL Plt Count (150-450) k/uL Neutrophils # (1.3-7.7) k/uL BUN (7-17) mg/dL Glucose (74-99) mg/dL POC Glucose (mg/dL) 128 H 208 H 202 H (70-110) mg/dL AST (14-36) U/L Total Protein (6.3-8.2) g/dL [facility] Comment Reference Lab Result 07/31/24 07/31/24 08/01/24 Range/Units 20:03 21:01 00:04 RBC (3.80-5.40) m/uL Hgb (11.4-16.0) gm/dL Hct (34.0-46.0) % MCV (80.0-100.0) fL Plt Count (150-450) k/uL Neutrophils # (1.3-7.7) k/uL BUN (7-17) mg/dL Glucose (74-99) mg/dL POC Glucose (mg/dL) 167 H 119 H 113 H (70-110) mg/dL AST (14-36) U/L Total Protein (6.3-8.2) g/dL [facility] Comment Reference Lab Result 08/01/24 08/01/24 08/01/24 Range/Units 03:58 04:35 04:35 RBC 2.20 L (3.80-5.40) m/uL Hgb 7.5 L (11.4-16.0) gm/dL Hct 22.2 L (34.0-46.0) % MCV 100.7 H (80.0-100.0) fL Plt Count 93 L (150-450) k/uL Neutrophils # 8.0 H (1.3-7.7) k/uL BUN 21 H (7-17) mg/dL Glucose 111 H (74-99) mg/dL POC Glucose (mg/dL) 124 H (70-110) mg/dL AST 93 H (14-36) U/L Total Protein 5.7 L (6.3-8.2) g/dL [facility] Blood Bank Comment Reference Lab Result 08/01/24 08/01/24 Range/Units 08:55 12:07 RBC (3.80-5.40) m/uL Hgb (11.4-16.0) gm/dL Hct (34.0-46.0) % MCV (80.0-100.0) fL Plt Count (150-450) k/uL Neutrophils # (1.3-7.7) k/uL BUN (7-17) mg/dL Glucose (74-99) mg/dL POC Glucose (mg/dL) 134 H 151 H (70-110) mg/dL AST (14-36) U/L Total Protein (6.3-8.2) g/dL [facility] Blood Bank Comment Reference Lab Result
[2024-08-01 16:14] LABS: Glucose,Whole Blood 96 mg/dL (70-110)
[2024-08-01 16:27] LABS: MCH 32.9 pg (25.0-35.0); MCHC 34.1 g/dL (31.0-37.0); MCV 96.4 fL (80.0-100.0); Platelet Count 102 k/uL (150-450); RDW 15.4 % (11.5-15.5)
[2024-08-01 16:53] LABS: HGB 9.5 gm/dL (11.4-16.0)
[2024-08-01 20:37] LABS: Glucose,Whole Blood 114 mg/dL (70-110)
[2024-08-02 02:38] LABS: Basophils % (A) 0 %; Eosinophils % (A) 0 %; HCT 26.7 % (34.0-46.0); HGB 9.3 gm/dL (11.4-16.0); Lymphocytes % (A) 10 %; MCH 33.5 pg (25.0-35.0); MCHC 34.9 g/dL (31.0-37.0); Mean Platelet Volume 9.1; Monocytes # (A) 0.5 k/uL (0-1.0); Monocytes % (A) 5 %; Neutrophils # (A) 7.8 k/uL (1.3-7.7); Neutrophils % (A) 83 %; Platelet Count 105 k/uL (150-450); RBC 2.78 m/uL (3.80-5.40); RDW 15.7 % (11.5-15.5); WBC 9.4 k/uL (3.8-10.6)
[2024-08-02 02:45] LABS: ALT 12 U/L (4-34); AST 64 U/L (14-36); African American GFR (CKD) >90 (>60 ml/min/1.73 sqM); Albumin 3.1 g/dL (3.5-5.0); Alkaline Phosphatase 50 U/L (38-126); Anion Gap 5 mmol/L; Blood Urea Nitrogen 20 mg/dL (7-17); Calcium 8.4 mg/dL (8.4-10.2); Carbon Dioxide 25 mmol/L (22-30); Chloride 98 mmol/L (98-107); Glucose 118 mg/dL (74-99); Magnesium 1.8 mg/dL (1.6-2.3); Non-African American GFR(CKD) 80 (>60 ml/min/1.73 sqM); Sodium 128 mmol/L (137-145); Total Bilirubin 1.6 mg/dL (0.2-1.3); Total Protein 5.4 g/dL (6.3-8.2)
[2024-08-02] MEDS: MAGNESIUM SULFATE-D5W PMX 1 GM in DEXTROSE/WATER 1 100ML.BAG IVPB ONE (03:47)
[2024-08-02 06:28] LABS: Glucose,Whole Blood 110 mg/dL (70-110)
--- NOTE | 2024-08-02 09:09 | XR ---
EXAMINATION TYPE: XR chest 1V portable DATE OF EXAM: 08/02/2024 3:22 AM COMPARISON: None. CLINICAL INDICATION: Female, 78 years old with history of Postop cardiac surgery, TECHNIQUE: XR chest 1V portable view(s) obtained. FINDINGS: The heart size is enlarged. The pulmonary vasculature is normal. Bibasilar infiltrates and/or small effusions are present. Previous lung infiltrates are improving. Left-sided chest tube is present. No pneumothorax is evident. Epicardial leads remain present. Post c ardiac valve surgery is evident IMPRESSION: 1. Left-sided chest tube remains present. 2. Small bibasilar infiltrates and/or pleural effusions. [facility], , 08/02/2024 9:07 AM
--- NOTE | 2024-08-02 09:24 | P.PN ---
Subjective Progress Note Date: 08/02/24 Principal diagnosis: Moderate mitral regurgitation, severe tricuspid regurgitation, mild aortic valvular insufficiency, chronic atrial fibrillation with marked biatrial dilation, patent foramen ovale. Past medical history significant for hypertension, Rheumatoid Arthritis (RA), Syncope, CVA/TIA in 2015 with no residual deficits, Sjogren's disease, eye disorder, legally blind s/p corneal transplants, lupus, and is a lifetime non-smoker. POD #3 Mitral valve annuloplasty with 26 mm physio 2 ring, tricuspid valve annuloplasty with 26 mm MC 3 band, closure of patent foramen ovale, modified Ayala-Maze procedure with complete left and right sided lesion sets and suture ligation of the base of the left atrial appendage. Postoperative acute blood loss anemia, secondary to cardiopulmonary bypass, hemodilution and her history of anemia. The patient was seen and examined in follow-up today August 02, 2024 at her bedside in the intensive care unit. She is currently sitting up to the bedside chair, is awake, alert, oriented x 3 and is in no acute apparent distress. Kwaku es any complaints of pain or shortness of breath at this time. Oxygen saturations are 95% on 3 L nasal cannula and she is achieving 750 to 1000 mL on her incentive spirometry with encouragement. Bedside telemetry is showing a DDD paced rhythm heart rate 80, underlying rhythm is showing atrial fibrillation heart rate less than 40 bpm. She is tolerating her breakfast, and her night nurse reports that she walked around 10 feet with assistance from nursing staff. The patient is complaining of some generalized weakness. Laboratory and chest x-ray results reviewed. Magnesium 1.8 today which was replaced per protocol. The patient received 1 unit of packed red blood cells yesterday for hemoglobin of 7.8 and her hemoglobin today is 9.3. She is currently receiving Lasix 20 mg IV twice daily. Left pleural chest tube remains in place to low continuous wall suction -20 cm H2O. No airleak is present. Draining thin serosanguineous drainage with 80 mL output in the last 8 hours and 110 mL output in the last 24 hours. Objective - Vital Signs Vital signs: Vital Signs Temp 98.1 F 08/02/24 08:00 Pulse 80 08/02/24 09:00 Resp 31 H 08/02/24 09:00 BP 121/68 08/02/24 09:00 Pulse Ox 95 08/02/24 05:00 FiO2 40 07/30/24 18:15 Intake & Output 08/01/24 08/02/24 08/02/24 18:59 06:59 18:59 Intake Total 1652.266 256 39 Output Total 675 720 250 Balance 977.266 -464 -211 Weight 64 kg Intake: IV 579 156 39 Potassium Chloride 10 meq 200 In Water For Injection 1 100ml.bag @ 100 mls/hr IVPB Q1HR [facility] Rx#: [id number] Sodium Chloride 0.9% 1, 310 120 30 000 ml @ 20 mls/hr IV . Q24H [facility] Rx#:[id number] pressure bag 69 36 9 Intake, IV Titration 3.266 100 Amount Insulin Regular 100 unit 3.266 In Sodium Chloride 0.9% 100 ml @ Per Protocol IV .Q0M [facility] Rx#:[id number] Magnesium Sulfate-D5w Pmx 100 1 gm In Dextrose/Water 1 100ml.bag @ 100 mls/hr IVPB ONCE ONE Rx#: [id number] Oral 150 Tube Feeding 300 Blood Product 620 Rc As-1 Unit 310 [id number] Output: Chest Tube Drainage 50 80 Chest Tube Mediastinal 0 Pleural Catheter Left 50 80 Urine 625 640 250 Other: Voiding Method Indwelling Catheter Indwelling Catheter ABP, PAP, CO, CI - Last Documented Arterial Blood Pressure 112/57 - Exam CONSTITUTIONAL: Sitting up to the bedside chair in the intensive care unit, appears comfortable, cooperative, no apparent acute distress. HEENT: Neck is supple, no JVD, no lymphadenopathy. RESPIRATORY: Lungs sounds essentially clear throughout, diminished to his bilateral bases. Respirations are symmetrical and nonlabored. Currently on 3 L nasal cannula with oxygen saturations 95%. Able to achieve 750-1000 mL on her incentive spirometry. Strong cough. CARDIOVASCULAR: Regular rhythm and rate. S1 and S2 present, negative for S3, gallop or murmur. Sternum is stable. Palpable peripheral pulses bilaterally. No calf pain or tenderness noted. Heart hugger in place with patient demonstrating appropriate use. Knee-high ABAD hose and sequential compression devices in place to her bilateral lower extremities. GASTROINTESTINAL: Abdomen soft, nontender, nondistended. Active bowel sounds present 4 quadrants. Tolerating diet. Passing flatus. No guarding or rigidity. GENITOURINARY: Finch present draining clear, yellow urine. Urine output 440 mL in the last 8 hours. INTEGUMENTARY: Skin is warm and dry with no evidence of clubbing or cyanosis. Midline sternal incision clean dry and well approximated, covered with dry intact dressing, some scattered ecchymosis. NEUROLOGIC: Cranial nerves II through XII intact. No focal deficits. MUSKULOSKELETAL: Able to move all extremities, strength equal bilaterally, generalized weakness. PSYCHIATRIC: Alert and oriented to person, place and time. Flat affect. INVASIVE LINES AND TUBES: Left pleural chest tubes present and connected to low continuous wall suction, no air leaks present. Left pleural chest tube with 80 mL of thin serosanguineous drainage overnight, 110 mL output in the last 24 hours. Atrial and ventricular epicardial pacemaker wires present, connected to generator, DDD backup rate 80 bpm. Right radial arterial line present. - Allied health notes Allied health notes reviewed: nursing - Labs CBC & Chem 7: 08/02/24 02:15 08/02/24 02:15 Labs: Abnormal Lab Results - Last 24 Hours (Table) 07/28/24 08/01/24 08/01/24 Range/Units 08:14 12:07 16:15 WBC 13.0 H (3.8-10.6) k/uL RBC 2.90 L (3.80-5.40) m/uL Hgb 9.5 L D (11.4-16.0) gm/dL Hct 28.0 L (34.0-46.0) % RDW (11.5-15.5) % Plt Count 102 L (150-450) k/uL Neutrophils # (1.3-7.7) k/uL Sodium (137-145) mmol/L BUN (7-17) mg/dL Glucose (74-99) mg/dL POC Glucose (mg/dL) 151 H (70-110) mg/dL Total Bilirubin (0.2-1.3) mg/dL AST (14-36) U/L Total Protein (6.3-8.2) g/dL Albumin (3.5-5.0) g/dL Crossmatch See Detail Blood Bank [facility] Result See BBK REF Reports A 08/01/24 08/02/24 08/02/24 Range/Units 20:35 02:15 02:15 WBC (3.8-10.6) k/uL RBC 2.78 L (3.80-5.40) m/uL Hgb 9.3 L (11.4-16.0) gm/dL Hct 26.7 L (34.0-46.0) % RDW 15.7 H (11.5-15.5) % Plt Count 105 L (150-450) k/uL Neutrophils # 7.8 H (1.3-7.7) k/uL Sodium 128 L (137-145) mmol/L BUN 20 H (7-17) mg/dL Glucose 118 H (74-99) mg/dL POC Glucose (mg/dL) 114 H (70-110) mg/dL Total Bilirubin 1.6 H (0.2-1.3) mg/dL AST 64 H (14-36) U/L Total Protein 5.4 L (6.3-8.2) g/dL Albumin 3.1 L (3.5-5.0) g/dL Crossmatch Blood Bank Comment Reference Lab Result - Imaging and Cardiology Chest x-ray: report reviewed, image reviewed Assessment and Plan Assessment: Mitral valve regurgitation, status post mitral valve annuloplasty with a 26 mm physio 2 ring Severe tricuspid valve regurgitation, status post tricuspid valve annuloplasty with a 26 mm MC 3 band Chronic atrial fibrillation, status post modified Ayala-Maze procedure with complete left and right sided lesion sets and suture ligation of the base of the left atrial appendage Patent foramen ovale, closure of patent foramen ovale Postoperative acute blood loss anemia and thrombocytopenia, expected given hemodilution, cardiopulmonary bypass and preoperative history of anemia History of hypertension Rheumatoid arthritis History of syncope History of CVA in 2014 with no residual deficits Sjogren's disease Eye disorder Lupus Lifetime non-smoker Plan: Continue to maximize medical therapy with low-dose aspirin, and statin. Continue to hold metoprolol tartrate at this time due to her underlying rhythm. Currently paced DDD at 80 bpm. She may require a permanent pacemaker. Platelets are 105 today, HIT panel sent, results pending. Continue Arixtra 2.5 mg subcu daily. Continue Cozaar 25 mg p.o. daily for afterload reduction, with hold parameters. Wean O2 as tolerated. Encourage incentive spirometry use 10 times every hour while awake. Bronchodilators per pulmonology. Increase activity, ambulate as tolerated. PT/OT/cardiac rehab following. Will monitor daily labs and chest x-rays. Electrolyte replacement per protocol. Continue home medications for timolol, sodium chloride ophthalmic drops and artificial tear. GI/DVT prophylaxis. Continue Lasix 20 mg IV twice daily. We will remove her left pleural chest tube. Remove right radial arterial line. Remove Finch catheter, continue to monitor and record strict accurate intake and output. May bladder scan every 6 hours and as needed postvoid residual, if greater than 300 mL PVR may straight cath. Pain control per current medication regimen. Continue to hold all narcotics, her mentation continues to improve. Insulin management per internal medicine, patient needs tight blood sugar control to prevent infection, patient should stay on continuous IV insulin for 48 hours, then may transition to subcutaneous per protocol. Preoperative hemoglobin A1c 5.9%. Keep in the intensive care unit. More recommendations to follow based on patient's clinical course. Time with Patient: Greater than 30
--- NOTE | 2024-08-02 10:10 | P.PN ---
Subjective Progress Note Date: 08/02/24 PROGRESS NOTE The patient is a 78-year-old female, followed by Dr. Cardenas who had significant mitral and tricuspid regurgitation. She underwent mitral valve repair with size 28 physio 2 ring and tricuspid valve annuloplasty size 28 with closure of patent foramen ovale and modified Ayala-Maze procedure. Patient has history of atrial fibrillation. She is extubated, sitting up in the chair, appears to be weak but denies any chest discomfort except incisional pain. She has no history of CAD by cardiac catheterization. She is on no vasopressors and she has good urinary output. She has a prior history of TIA. Her left ventricular systolic function was preserved in the past. She is paced 100% at this time August 01 She feels better today, stronger. She continues to be in atrial fibrillation with 100% pacing and slow ventricular response. She is on no vasopressors. She is hemodynamically stable with good urinary output. There is no evidence of ventricular ectopic activity. There is no nausea or vomiting. August 02: The patient feels stronger today she denies any chest discomfort, dizziness or palpitations. She continues to be in atrial fibrillation with very slow ventricular response requiring temporary pacemaker activity. She is on no vasopressors and hemodynamically stable otherwise. Her urinary output has been good. She is using her incentive spirometry. Medications: Aspirin, furosemide 20 mg IV every 12 hours, fondaparinux, losartan 25 mg daily, losartan 25 mg daily 40 mg daily PHYSICAL EXAMINATION: Blood pressure 120/68 heart rate 80 and paced LUNGS: Clear to auscultation HEART: Regular rate and rhythm, paced, S1, S2. No S3. Systolic murmur at the base ABDOMEN: Soft, nontender, no organomegaly EXTREMETIES: No edema LAB: Hemoglobin 9.3, BUN 20, creatinine 0.74, potassium 4.0 IMPRESSION: 1. Status post mitral and tricuspid valve repair 2. Atrial fibrillation status post Maze procedure 3. Slow ventricular response requiring temporary pacemaker at this point, if she continues to be bradycardic then a permanent pacemaker can be implanted tomorrow. 4. History of pulmonary hypertension PLAN: 1. Continue present therapy 2. Increase physical activity 3. Follow ventricular response and if she remains bradycardic consider permanent pacemaker in a.m. 4. Depending on the decision about pacemaker the decision will be made about starting anticoagulation 5. Depending on her progress further recommendations will be made Objective - Vital Signs Vital signs: Vital Signs Temp 98.1 F 08/02/24 08:00 Pulse 80 08/02/24 10:00 Resp 26 H 08/02/24 10:00 BP 120/68 08/02/24 10:00 Pulse Ox 97 08/02/24 10:00 FiO2 40 07/30/24 18:15 Intake & Output 08/01/24 08/02/24 08/02/24 18:59 06:59 18:59 Intake Total 1652.266 256 39 Output Total 675 720 250 Balance 977.266 -464 -211 Weight 64 kg Intake: IV 579 156 39 Potassium Chloride 10 meq 200 In Water For Injection 1 100ml.bag @ 100 mls/hr IVPB Q1HR [facility] Rx#: [id number] Sodium Chloride 0.9% 1, 310 120 30 000 ml @ 20 mls/hr IV . Q24H [facility] Rx#:[id number] pressure bag 69 36 9 Intake, IV Titration 3.266 100 Amount Insulin Regular 100 unit 3.266 In Sodium Chloride 0.9% 100 ml @ Per Protocol IV .Q0M [facility] Rx#:[id number] Magnesium Sulfate-D5w Pmx 100 1 gm In Dextrose/Water 1 100ml.bag @ 100 mls/hr IVPB ONCE ONE Rx#: [id number] Oral 150 Tube Feeding 300 Blood Product 620 Rc As-1 Unit 310 [id number] Output: Chest Tube Drainage 50 80 Chest Tube Mediastinal 0 Pleural Catheter Left 50 80 Urine 625 640 250 Other: Voiding Method Indwelling Catheter Indwelling Catheter Indwelling Catheter ABP, PAP, CO, CI - Last Documented Arterial Blood Pressure 112/57 - Labs CBC & Chem 7: 08/02/24 02:15 08/02/24 02:15 Labs: Abnormal Lab Results - Last 24 Hours (Table) 07/28/24 08/01/24 08/01/24 Range/Units 08:14 12:07 16:15 WBC 13.0 H (3.8-10.6) k/uL RBC 2.90 L (3.80-5.40) m/uL Hgb 9.5 L D (11.4-16.0) gm/dL Hct 28.0 L (34.0-46.0) % RDW (11.5-15.5) % Plt Count 102 L (150-450) k/uL Neutrophils # (1.3-7.7) k/uL Sodium (137-145) mmol/L BUN (7-17) mg/dL Glucose (74-99) mg/dL POC Glucose (mg/dL) 151 H (70-110) mg/dL Total Bilirubin (0.2-1.3) mg/dL AST (14-36) U/L Total Protein (6.3-8.2) g/dL Albumin (3.5-5.0) g/dL Crossmatch See Detail Blood Bank [facility] Result See [facility]K REF Reports A 08/01/24 08/02/24 08/02/24 Range/Units 20:35 02:15 02:15 WBC (3.8-10.6) k/uL RBC 2.78 L (3.80-5.40) m/uL Hgb 9.3 L (11.4-16.0) gm/dL Hct 26.7 L (34.0-46.0) % RDW 15.7 H (11.5-15.5) % Plt Count 105 L (150-450) k/uL Neutrophils # 7.8 H (1.3-7.7) k/uL Sodium 128 L (137-145) mmol/L BUN 20 H (7-17) mg/dL Glucose 118 H (74-99) mg/dL POC Glucose (mg/dL) 114 H (70-110) mg/dL Total Bilirubin 1.6 H (0.2-1.3) mg/dL AST 64 H (14-36) U/L Total Protein 5.4 L (6.3-8.2) g/dL Albumin 3.1 L (3.5-5.0) g/dL Crossmatch Blood Bank Comment Reference Lab Result
[2024-08-02 11:45] LABS: Glucose,Whole Blood 119 mg/dL (70-110)
--- NOTE | 2024-08-02 13:19 | P.PN ---
Subjective Progress Note Date: 08/02/24 No new complaints today. Doing well on present therapy. HIT panel pending. Pt is on fondaparinux. Gen: In NAD, non-toxic HEENT: normocephalic, atraumatic, hearing acuity is intant, mucous membranes moist CVS: perfusing all extremities well, no pitting edema, Respiratory: symmetric chest expansion, no accessory muscle use, GI: soft, NTTP, ND, : no suprapubic tenderness, no CVA tenderness MSK/Derm: no rashes, cyanosis Neuro: CN II-XII intact, no motor weakness, Hospital Course: 78-year-old woman with medical history of hypertension, hyperlipidemia, glaucoma, valvular atrial fibrillation with mitral/tricuspid valve regurgitation who presented for mitral valve repair and tricuspid valve annuloplasty as well as PFO closure and modified Ayala-Maze procedure. Medicine was consulted for medical management. Patient was afebrile, 137/64, 96% oxygen saturation on 4 L nasal cannula, pulse rate is 80 with AV paced rhythm. CBC shows hemoglobin of 7.8, platelets of 79. Basic metabolic panel is unremarkable. Magnesium is 2.5. Liver function tests show mild elevation of AST of 94, otherwise unremarkable. Patient's blood sugars are well-controlled and was titrated off of her insulin drip. Assessment/plan: Hyperglycemia - ACHS glucose checks and LD-SSI - A1c is 5.7%, no need for medications for DM on discharge Bloating -simethicone added Valvular A Fib s/p mitral/tricuspid valve repair/annuluplasty, POD 1 Thrombocytopenia, improving - management per primary team - currently on aspirin 81mg daily, atorvastatin 40mg daily - RAYMUNDO panel pending Pt is full code DVT PPx with fondaparinux Objective - Vital Signs Vital signs: Vital Signs Temp 98.1 F 08/02/24 08:00 Pulse 88 08/02/24 12:46 Resp 21 08/02/24 12:00 BP 138/77 08/02/24 12:00 Pulse Ox 95 08/02/24 12:32 FiO2 40 07/30/24 18:15 Intake & Output 08/01/24 08/02/24 08/02/24 18:59 06:59 18:59 Intake Total 1652.266 256 406 Output Total 675 720 295 Balance 977.266 -464 111 Weight 64 kg Intake: IV 579 156 46 Potassium Chloride 10 meq 200 In Water For Injection 1 100ml.bag @ 100 mls/hr IVPB Q1HR [facility] Rx#: [id number] Sodium Chloride 0.9% 1, 310 120 40 000 ml @ 20 mls/hr IV . Q24H [facility] Rx#:[id number] pressure bag 69 36 6 Intake, IV Titration 3.266 100 Amount Insulin Regular 100 unit 3.266 In Sodium Chloride 0.9% 100 ml @ Per Protocol IV .Q0M [facility] Rx#:[id number] Magnesium Sulfate-D5w Pmx 100 1 gm In Dextrose/Water 1 100ml.bag @ 100 mls/hr IVPB ONCE ONE Rx#: [id number] Oral 150 360 Tube Feeding 300 Blood Product 620 Rc As-1 Unit 310 [id number] Output: Chest Tube Drainage 50 80 Chest Tube Mediastinal 0 Pleural Catheter Left 50 80 Urine 625 640 295 Other: Voiding Method Indwelling Catheter Indwelling Catheter Indwelling Catheter ABP, PAP, CO, CI - Last Documented Arterial Blood Pressure 112/57 - Labs CBC & Chem 7: 08/02/24 02:15 08/02/24 02:15 Labs: Abnormal Lab Results - Last 24 Hours (Table) 08/01/24 08/01/24 08/02/24 Range/Units 16:15 20:35 02:15 WBC 13.0 H (3.8-10.6) k/uL RBC 2.90 L 2.78 L (3.80-5.40) m/uL Hgb 9.5 L D 9.3 L (11.4-16.0) gm/dL Hct 28.0 L 26.7 L (34.0-46.0) % RDW 15.7 H (11.5-15.5) % Plt Count 102 L 105 L (150-450) k/uL Neutrophils # 7.8 H (1.3-7.7) k/uL Sodium (137-145) mmol/L BUN (7-17) mg/dL Glucose (74-99) mg/dL POC Glucose (mg/dL) 114 H (70-110) mg/dL Total Bilirubin (0.2-1.3) mg/dL AST (14-36) U/L Total Protein (6.3-8.2) g/dL Albumin (3.5-5.0) g/dL 08/02/24 08/02/24 Range/Units 02:15 11:44 WBC (3.8-10.6) k/uL RBC (3.80-5.40) m/uL Hgb (11.4-16.0) gm/dL Hct (34.0-46.0) % RDW (11.5-15.5) % Plt Count (150-450) k/uL Neutrophils # (1.3-7.7) k/uL Sodium 128 L (137-145) mmol/L BUN 20 H (7-17) mg/dL Glucose 118 H (74-99) mg/dL POC Glucose (mg/dL) 119 H (70-110) mg/dL Total Bilirubin 1.6 H (0.2-1.3) mg/dL AST 64 H (14-36) U/L Total Protein 5.4 L (6.3-8.2) g/dL Albumin 3.1 L (3.5-5.0) g/dL
--- NOTE | 2024-08-02 13:24 | P.PN ---
Subjective Progress Note Date: 08/02/24 This is a 78-year-old female patient is being seen in the intensive care unit following cardiac surgery. The patient underwent mitral valve annuloplasty and tricuspid valve annuloplasty and closure of the PFO and modified Ayala-Maze procedure. Following that, the patient was brought in intubated on mechanical ventilator and the patient is currently in the intensive care unit. I saw the patient in the ICU. The patient is on propofol which is running at 20 mcg/kg/min and the patient is calm and comfortable. The patient is on assist- control mode of mechanical ventilation at rate of 12, tidal volume of 400, FiO2 at 100% with a PEEP of 5. Initial blood gas showed a pH of 7.38 with a pCO2 of 42 and pO2 of 429. FiO2 has been dropped down to 50%. The patient is calm and comfortable. Current cardiac rhythm is AV paced at a rate of 80. No pressors for now. The patient received a total of 1 unit of packed RBC, 1 unit of platelets and 2 units of fresh frozen plasma in the operating room. She has 2 mediastinal chest tube and 1 pleural chest tube and the outputs are minimal at this point in time. The chest x-ray that was done postop showed adequate expansion of both lungs. Chest tubes are all in place. The patient does not have any [facility]-Patricia catheter. The blood work shows a white cell count of 4.6, hemoglobin 8.6 and a platelet count of 70. The sodium is at 138, potassium is 4, bicarb is 25, elevated BUN is 11 with a creatinine of 0.5. LFTs are normal. The patient has adequate urine output. Hemodynamically stable. The patient is also afebrile. No other significant events since arrival to the intensive care unit. On 07/31/2024, the patient is being seen for a follow-up. The patient is awake and alert. The patient was extubated yesterday without any major difficulties and the patient currently is on 2 L of oxygen by nasal cannula. She is calm and comfortable. She is hemodynamically stable on no pressors. She is using the incentive spirometer. She is pulling approximately thousand on her I-S. She remains on a pacemaker, DDD, at a rate of 80. Underlying rhythm is sinus bradycardia. Chest tubes are still in place. The patient's mediastinal chest tube has produced approximately 850 cc over the past 24 hours. The left pleural chest tube is produced approximately 180 cc over the past 24 hours. Labs were reviewed. Hemoglobin 7.8, platelet count is at 79 and subcu heparin has been discontinued. HIT panel was ordered. Chest x-ray shows cardiomegaly, tubes are in good location. No diuretics were given. She is awake and alert and communicating. No other significant events overnight. On 08/01/2024, the patient is being seen for a follow-up. The patient is currently on 3 L of oxygen by nasal cannula and the patient is calm and comfortable. No significant respiratory distress. Chest tubes are still in place. A follow-up chest x-ray showed cardiomegaly with tubes being in stable location. The patient remains in normal sinus rhythm. The white cell close at 10 with a hemoglobin 7.5 and a platelet count of 93. BUN is 21 with a creatinine of 0.9 and sodium levels at 138 and a potassium level is at 3.5. Feeling overall weak and lethargic. He is arousable and able to communicate. Using incentive spirometer. Pulling approximately 8000. The patient remains paced at a rate of 80. Underlying rhythm is atrial fibrillation with a slow rate. She was ordered a unit of packed RBC transfusion by the cardiothoracic team. She will be also given Lasix. Output from the chest tube include a total of 500 mL from mediastinal chest tube and a total of 100 mL from the pleural chest tubes. There is over the past 24 hours. On 08/02/2024, the patient is being seen for a follow-up. The patient is doing well. Sitting up in the chair. She remains DDD paced at rate of 80 and the underlying rhythm is bradycardia, sinus/A-fib. The patient remains hemodynamically stable. The patient is diuresing well with IV Lasix. Fluid balance is +513 over the past 24 hours. The patient continues to to be on treated of oxygen by nasal cannula with a pulse ox of 95%. Following approximately 8000 on the incentive spirometer. The patient is able to ambulate. Received a unit of packed RBC yesterday and hemoglobin is currently at 9.3. She remains on Lasix 20 mg IV every 12 hours. Left-sided chest tube still in place. No evidence of any air leak. No pneumothorax. Output has been in the order of 110 cc over the past 24 hours and recommend removing the left- sided chest tube. No other significant events overnight. Objective - Vital Signs Vital signs: Vital Signs Temp 98.1 F 08/02/24 08:00 Pulse 80 08/02/24 09:00 Resp 31 H 08/02/24 09:00 BP 121/68 08/02/24 09:00 Pulse Ox 95 08/02/24 05:00 FiO2 40 07/30/24 18:15 Intake & Output 08/01/24 08/02/24 08/02/24 18:59 06:59 18:59 Intake Total 1652.266 256 39 Output Total 675 720 250 Balance 977.266 -464 -211 Weight 64 kg Intake: IV 579 156 39 Potassium Chloride 10 meq 200 In Water For Injection 1 100ml.bag @ 100 mls/hr IVPB Q1HR [facility] Rx#: [id number] Sodium Chloride 0.9% 1, 310 120 30 000 ml @ 20 mls/hr IV . Q24H [facility] Rx#:[id number] pressure bag 69 36 9 Intake, IV Titration 3.266 100 Amount Insulin Regular 100 unit 3.266 In Sodium Chloride 0.9% 100 ml @ Per Protocol IV .Q0M [facility] Rx#:[id number] Magnesium Sulfate-D5w Pmx 100 1 gm In Dextrose/Water 1 100ml.bag @ 100 mls/hr IVPB ONCE ONE Rx#: [id number] Oral 150 Tube Feeding 300 Blood Product 620 Rc As-1 Unit 310 [id number] Output: Chest Tube Drainage 50 80 Chest Tube Mediastinal 0 Pleural Catheter Left 50 80 Urine 625 640 250 Other: Voiding Method Indwelling Catheter Indwelling Catheter ABP, PAP, CO, CI - Last Documented Arterial Blood Pressure 112/57 - Exam CONSTITUTIONAL: Sitting up to the bedside chair in the intensive care unit, appears comfortable, cooperative, no apparent acute distress. HEENT: Neck is supple, no JVD, no lymphadenopathy. RESPIRATORY: Lungs sounds essentially clear throughout, diminished to his bilateral bases. Respirations are symmetrical and nonlabored. Currently on 3 L nasal cannula with oxygen saturations 95%. Able to achieve 750-1000 mL on her incentive spirometry. Strong cough. CARDIOVASCULAR: Regular rhythm and rate. S1 and S2 present, negative for S3, gallop or murmur. Sternum is stable. Palpable peripheral pulses bilaterally. No calf pain or tenderness noted. Heart hugger in place with patient demonstrating appropriate use. Knee-high ABAD hose and sequential compression devices in place to her bilateral lower extremities. GASTROINTESTINAL: Abdomen soft, nontender, nondistended. Active bowel sounds present 4 quadrants. Tolerating diet. Passing flatus. No guarding or rigidity. GENITOURINARY: Finch present draining clear, yellow urine. Urine output 440 mL in the last 8 hours. INTEGUMENTARY: Skin is warm and dry with no evidence of clubbing or cyanosis. Midline sternal incision clean dry and well approximated, covered with dry intact dressing, some scattered ecchymosis. NEUROLOGIC: Cranial nerves II through XII intact. No focal deficits. MUSKULOSKELETAL: Able to move all extremities, strength equal bilaterally, generalized weakness. PSYCHIATRIC: Alert and oriented to person, place and time. Flat affect. INVASIVE LINES AND TUBES: Left pleural chest tubes present and connected to low continuous wall suction, no air leaks present. Left pleural chest tube with 80 mL of thin serosanguineous drainage overnight, 110 mL output in the last 24 hours. Atrial and ventricular epicardial pacemaker wires present, connected to generator, DDD backup rate 80 bpm. Right radial arterial line present. - Labs CBC & Chem 7: 08/02/24 02:15 08/02/24 02:15 Labs: Abnormal Lab Results - Last 24 Hours (Table) 07/28/24 08/01/24 08/01/24 Range/Units 08:14 12:07 16:15 WBC 13.0 H (3.8-10.6) k/uL RBC 2.90 L (3.80-5.40) m/uL Hgb 9.5 L D (11.4-16.0) gm/dL Hct 28.0 L (34.0-46.0) % RDW (11.5-15.5) % Plt Count 102 L (150-450) k/uL Neutrophils # (1.3-7.7) k/uL Sodium (137-145) mmol/L BUN (7-17) mg/dL Glucose (74-99) mg/dL POC Glucose (mg/dL) 151 H (70-110) mg/dL Total Bilirubin (0.2-1.3) mg/dL AST (14-36) U/L Total Protein (6.3-8.2) g/dL Albumin (3.5-5.0) g/dL Crossmatch See Detail Blood Bank Comment Sent to [facility] A Reference Lab Result See [facility] REF Reports A 08/01/24 08/02/24 08/02/24 Range/Units 20:35 02:15 02:15 WBC (3.8-10.6) k/uL RBC 2.78 L (3.80-5.40) m/uL Hgb 9.3 L (11.4-16.0) gm/dL Hct 26.7 L (34.0-46.0) % RDW 15.7 H (11.5-15.5) % Plt Count 105 L (150-450) k/uL Neutrophils # 7.8 H (1.3-7.7) k/uL Sodium 128 L (137-145) mmol/L BUN 20 H (7-17) mg/dL Glucose 118 H (74-99) mg/dL POC Glucose (mg/dL) 114 H (70-110) mg/dL Total Bilirubin 1.6 H (0.2-1.3) mg/dL AST 64 H (14-36) U/L Total Protein 5.4 L (6.3-8.2) g/dL Albumin 3.1 L (3.5-5.0) g/dL Crossmatch Blood Bank Comment Reference Lab Result Assessment and Plan Plan: 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 The patient has also undergone closure of PFO and qualifies Ayala-Maze procedure. Patient is AV paced at a rate of 80. Underlying rhythm is still bradycardia, slow late atrial fibrillation in the 40s. Postthoracotomy for cardiac surgery. Patient was extubated to 2 L of oxygen by nasal cannula without any major difficulties. Left-sided chest tube still in place chest x-ray was noted and shows routine postop changes. Output has been noted and output is minimal at this point Postoperative anemia expected outcome of surgery, received a unit of packed RBC in the operating room. Hemoglobin stable at 9.5 Postoperative thrombocytopenia, received a unit of platelets in the operating room, currently off subcu heparin. The patient is currently on Arixtra. History of CVA History of atrial fibrillation, currently AV paced at a rate of 80 Sjogren's disease Plan Continue with incentive spirometer Patient currently on 2 L of oxygen by nasal cannula Chest x-ray was noted Hemodynamically stable Remove the left-sided chest tube Keep the patient AV paced at a rate of 80, she would likely need a permanent pacemaker Arixtra 2.5 mg p.o. daily Monitor platelet count Lasix 20 mg every 12 hours Unit of packed RBC was given yesterday Increase mobility Will continue to follow This is a critical care evaluation that was done in the ICU and 34 minutes. Time with Patient: Greater than 30
[2024-08-02] MEDS: FUROSEMIDE 10 MG/ML 2 ML VIAL IV SCH (16:25)
[2024-08-02 16:59] LABS: Glucose,Whole Blood 116 mg/dL (70-110)
[2024-08-02 20:05] LABS: Glucose,Whole Blood 142 mg/dL (70-110)
[2024-08-03 04:49] LABS: HCT 29.8 % (34.0-46.0); HGB 9.7 gm/dL (11.4-16.0); MCH 32.2 pg (25.0-35.0); MCHC 32.4 g/dL (31.0-37.0); MCV 99.3 fL (80.0-100.0); Macrocytosis Slight; Mean Platelet Volume 7.9; Platelet Count 146 k/uL (150-450); RDW 15.3 % (11.5-15.5); WBC 8.5 k/uL (3.8-10.6)
[2024-08-03 05:02] LABS: ALT 12 U/L (4-34); AST 55 U/L (14-36); African American GFR (CKD) >90 (>60 ml/min/1.73 sqM); Albumin 3.1 g/dL (3.5-5.0); Alkaline Phosphatase 58 U/L (38-126); Anion Gap 8 mmol/L; Blood Urea Nitrogen 21 mg/dL (7-17); Calcium 8.3 mg/dL (8.4-10.2); Carbon Dioxide 24 mmol/L (22-30); Chloride 95 mmol/L (98-107); Glucose 92 mg/dL (74-99); Magnesium 1.9 mg/dL (1.6-2.3); Non-African American GFR(CKD) 83 (>60 ml/min/1.73 sqM); Sodium 127 mmol/L (137-145); Total Bilirubin 1.7 mg/dL (0.2-1.3); Total Protein 5.5 g/dL (6.3-8.2)
--- NOTE | 2024-08-03 06:32 | XR ---
EXAMINATION TYPE: XR chest 2V DATE OF EXAM: 08/03/2024 6:19 AM COMPARISON: Chest x-ray from one day earlier and older studies CLINICAL INDICATION: Female, 78 years old with history of Postoperative cardiac surgery, TECHNIQUE: Frontal and lateral views of the chest are obtained. FINDINGS: Interval removal of left-sided chest tube. No pneumothorax is seen. Persistent cardiomegal y with ectatic thoracic aorta. Persistent small right greater than left pleural effusions and associa marielos bibasilar opacity favoring compressive atelectasis. The osseous structures are intact. IMPRESSION: Interval removal of left-sided chest tube without pneumothorax. Stable cardiomegaly with small right greater than left pleural effusions and bibasilar opacities favoring compressive atelecta sis. [facility], , 08/03/2024 6:30 AM
[2024-08-03] MEDS: MAGNESIUM SULFATE-D5W PMX 1 GM in DEXTROSE/WATER 1 100ML.BAG IVPB ONE (07:07)
[2024-08-03 07:14] LABS: Glucose,Whole Blood 74 mg/dL (70-110)
[2024-08-03 07:14] LABS: Glucose,Whole Blood 40 mg/dL (70-110)
--- NOTE | 2024-08-03 08:03 | P.PN ---
Subjective Progress Note Date: 08/03/24 Principal diagnosis: Moderate mitral regurgitation, severe tricuspid regurgitation, mild aortic valvular insufficiency, chronic atrial fibrillation with marked biatrial dilation, patent foramen ovale. Past medical history significant for hypertension, Rheumatoid Arthritis (RA), Syncope, CVA/TIA in 2015 with no residual deficits, Sjogren's disease, eye disorder, legally blind s/p corneal transplants, lupus, and is a lifetime non-smoker. POD #4 Mitral valve annuloplasty with 26 mm physio 2 ring, tricuspid valve annuloplasty with 26 mm MC 3 band, closure of patent foramen ovale, modified Ayala-Maze procedure with complete left and right sided lesion sets and suture ligation of the base of the left atrial appendage. Postoperative acute blood loss anemia, secondary to cardiopulmonary bypass, hemodilution and her history of anemia. The patient was seen and examined in follow-up today August 03, 2024 at her bedside in the intensive care unit. She is currently sitting up to the bedside chair, is awake, alert, oriented x 3 and is in no acute apparent distress. Kwaku es any complaints of pain or shortness of breath at this time, although is reporting she feels tired today as she states she took several walks yesterday and tolerated well. She is sitting up to the chair eating her breakfast. Oxygen saturations are 99% on 2 L nasal cannula and she is achieving 1000 mL on her incentive spirometry. Bedside telemetry showing DDD paced rhythm heart rate 80, underlying rhythm is showing atrial fibrillation heart rate less than 50. She remains hemodynamically stable and is currently on no inotropic or pressor support. Laboratory and chest x-ray results were reviewed. The patient's night nurse is reporting the patient is having some urine retention requiring straight catheterization with 500 mL of urine drained. Objective - Vital Signs Vital signs: Vital Signs Temp 98.1 F 08/03/24 04:00 Pulse 78 08/03/24 07:00 Resp 20 08/03/24 07:00 BP 130/74 08/03/24 07:00 Pulse Ox 97 08/03/24 07:00 FiO2 40 07/30/24 18:15 Intake & Output 08/02/24 08/03/24 08/03/24 18:59 06:59 18:59 Intake Total 946 0 Output Total 295 500 Balance 651 -500 Weight 64.5 kg Intake: IV 46 Sodium Chloride 0.9% 1, 40 000 ml @ 20 mls/hr IV . Q24H [facility] Rx#:[id number] pressure bag 6 Oral 900 0 Output: Urine 295 500 Other: Voiding Method Indwelling Catheter # Voids 0 0 # Bowel Movements 1 1 ABP, PAP, CO, CI - Last Documented Arterial Blood Pressure 112/57 - Exam CONSTITUTIONAL: Sitting up to the bedside chair in the intensive care unit, appears comfortable, cooperative, no apparent acute distress. HEENT: Neck is supple, no JVD, no lymphadenopathy. RESPIRATORY: Lungs sounds essentially clear throughout, diminished to her right lower lobe. Respirations are symmetrical and nonlabored. Currently on 2 L nasal cannula with oxygen saturations 99%. Able to achieve 1000 mL on her incentive spirometry. Strong cough. CARDIOVASCULAR: Regular rhythm and rate. S1 and S2 present, negative for S3, gallop or murmur. Sternum is stable. Palpable peripheral pulses bilaterally. No calf pain or tenderness noted. Heart hugger in place with patient demonstrating appropriate use. Knee-high ABAD hose and sequential compression devices in place to her bilateral lower extremities. GASTROINTESTINAL: Abdomen soft, nontender, nondistended. Active bowel sounds present 4 quadrants. Tolerating diet. Passing flatus. No guarding or rigidity. Bowel movement this morning. GENITOURINARY: Urine retention requiring straight cath. Urine output 500 mL in the last 8 hours. INTEGUMENTARY: Skin is warm and dry with no evidence of clubbing or cyanosis. Midline sternal incision clean dry and well approximated, covered with dry intact dressing, some scattered ecchymosis. NEUROLOGIC: Cranial nerves II through XII intact. No focal deficits. MUSKULOSKELETAL: Able to move all extremities, strength equal bilaterally, generalized weakness. PSYCHIATRIC: Alert and oriented to person, place and time. Flat affect. INVASIVE LINES AND TUBES: Atrial and ventricular epicardial pacemaker wires present, connected to generator, DDD backup rate 80 bpm. - Allied health notes Allied health notes reviewed: nursing - Labs CBC & Chem 7: 08/03/24 04:31 08/03/24 04:31 Labs: Abnormal Lab Results - Last 24 Hours (Table) 08/02/24 08/02/24 08/02/24 Range/Units 11:44 16:57 20:03 RBC (3.80-5.40) m/uL Hgb (11.4-16.0) gm/dL Hct (34.0-46.0) % Plt Count (150-450) k/uL Sodium (137-145) mmol/L Chloride (98-107) mmol/L BUN (7-17) mg/dL POC Glucose (mg/dL) 119 H 116 H 142 H (70-110) mg/dL Calcium (8.4-10.2) mg/dL Total Bilirubin (0.2-1.3) mg/dL AST (14-36) U/L Total Protein (6.3-8.2) g/dL Albumin (3.5-5.0) g/dL 08/03/24 08/03/24 Range/Units 04:31 04:31 RBC 3.00 L (3.80-5.40) m/uL Hgb 9.7 L (11.4-16.0) gm/dL Hct 29.8 L (34.0-46.0) % Plt Count 146 L (150-450) k/uL Sodium 127 L (137-145) mmol/L Chloride 95 L (98-107) mmol/L BUN 21 H (7-17) mg/dL POC Glucose (mg/dL) (70-110) mg/dL Calcium 8.3 L (8.4-10.2) mg/dL Total Bilirubin 1.7 H (0.2-1.3) mg/dL AST 55 H (14-36) U/L Total Protein 5.5 L (6.3-8.2) g/dL Albumin 3.1 L (3.5-5.0) g/dL - Imaging and Cardiology Chest x-ray: report reviewed, image reviewed Assessment and Plan Assessment: Mitral valve regurgitation, status post mitral valve annuloplasty with a 26 mm physio 2 ring Severe tricuspid valve regurgitation, status post tricuspid valve annuloplasty with a 26 mm MC 3 band Chronic atrial fibrillation, status post modified Ayala-Maze procedure with c omplete left and right sided lesion sets and suture ligation of the base of the left atrial appendage Patent foramen ovale, closure of patent foramen ovale Postoperative acute blood loss anemia and thrombocytopenia, expected given hemodilution, cardiopulmonary bypass and preoperative history of anemia History of hypertension Rheumatoid arthritis History of syncope History of CVA in 2014 with no residual deficits Sjogren's disease Eye disorder Lupus Lifetime non-smoker Plan: Continue to maximize medical therapy with low-dose aspirin, and statin. Continue to hold metoprolol tartrate at this time due to her underlying rhythm. Currently paced DDD at 80 bpm. She may require a permanent pacemaker. Platelets are 146 today, HIT panel sent, results pending. Continue Arixtra 2.5 mg subcu daily. Continue Cozaar 25 mg p.o. daily for afterload reduction, with hold parameters. Wean O2 as tolerated. Encourage incentive spirometry use 10 times every hour while awake. Bronchodilators per pulmonology. Increase activity, ambulate as tolerated. PT/OT/cardiac rehab following. Will monitor daily labs and chest x-rays. Electrolyte replacement per protocol. Continue home medications for timolol, sodium chloride ophthalmic drops and artificial tear. GI/DVT prophylaxis. Continue Lasix 20 mg IV twice daily. Continue to monitor and record strict accurate intake and output. May bladder scan every 6 hours and as needed postvoid residual, if greater than 300 mL PVR may straight cath. Pain control per current medication regimen. Insulin management per internal medicine, patient needs tight blood sugar control to prevent infection. Preoperative hemoglobin A1c 5.9%. Keep in the intensive care unit, as the patient is pacemaker dependent. More recommendations to follow based on patient's clinical course. Time with Patient: Greater than 30
[2024-08-03 11:01] LABS: Glucose,Whole Blood 49 mg/dL (70-110)
[2024-08-03 11:01] LABS: Glucose,Whole Blood 45 mg/dL (70-110)
[2024-08-03 11:30] LABS: Glucose,Whole Blood 84 mg/dL (70-110)
--- NOTE | 2024-08-03 11:56 | P.PN ---
Subjective Progress Note Date: 08/03/24 No new complaints today. Doing well on present therapy. HIT panel pending. Pt is on fondaparinux. Gen: In NAD, non-toxic HEENT: normocephalic, atraumatic, hearing acuity is intant, mucous membranes moist CVS: perfusing all extremities well, no pitting edema, Respiratory: symmetric chest expansion, no accessory muscle use, GI: soft, NTTP, ND, : no suprapubic tenderness, no CVA tenderness MSK/Derm: no rashes, cyanosis Neuro: CN II-XII intact, no motor weakness, Hospital Course: 78-year-old woman with medical history of hypertension, hyperlipidemia, glaucoma, valvular atrial fibrillation with mitral/tricuspid valve regurgitation who presented for mitral valve repair and tricuspid valve annuloplasty as well as PFO closure and modified Ayala-Maze procedure. Medicine was consulted for medical management. Patient was afebrile, 137/64, 96% oxygen saturation on 4 L nasal cannula, pulse rate is 80 with AV paced rhythm. CBC shows hemoglobin of 7.8, platelets of 79. Basic metabolic panel is unremarkable. Magnesium is 2.5. Liver function tests show mild elevation of AST of 94, otherwise unremarkable. Patient's blood sugars are well-controlled and was titrated off of her insulin drip. Assessment/plan: Hyperglycemia - ACHS glucose checks and LD-SSI - have not been given due to episodes of hypoglycemia -encourage oral intake -D50 PRN for hypoglycemia - A1c is 5.7%, no need for medications for DM on discharge Bloating -simethicone added Valvular A Fib s/p mitral/tricuspid valve repair/annuluplasty, POD 1 Thrombocytopenia, improving - management per primary team - currently on aspirin 81mg daily, atorvastatin 40mg daily - RAYMUNDO panel pending Pt is full code DVT PPx with fondaparinux Objective - Vital Signs Vital signs: Vital Signs Temp 98.7 F 08/03/24 08:00 Pulse 80 08/03/24 09:00 Resp 20 08/03/24 09:00 BP 139/88 08/03/24 09:00 Pulse Ox 98 08/03/24 09:00 FiO2 40 07/30/24 18:15 Intake & Output 08/02/24 08/03/24 08/03/24 18:59 06:59 18:59 Intake Total 946 0 480 Output Total 295 500 Balance 651 -500 480 Weight 64.5 kg Intake: IV 46 Sodium Chloride 0.9% 1, 40 000 ml @ 20 mls/hr IV . Q24H [facility] Rx#:[id number] pressure bag 6 Oral 900 0 480 Output: Urine 295 500 Other: Voiding Method Indwelling Catheter # Voids 0 0 # Bowel Movements 1 1 ABP, PAP, CO, CI - Last Documented Arterial Blood Pressure 112/57 - Labs CBC & Chem 7: 08/03/24 04:31 08/03/24 04:31 Labs: Abnormal Lab Results - Last 24 Hours (Table) 08/02/24 08/02/24 08/03/24 Range/Units 16:57 20:03 04:31 RBC (3.80-5.40) m/uL Hgb (11.4-16.0) gm/dL Hct (34.0-46.0) % Plt Count (150-450) k/uL Sodium 127 L (137-145) mmol/L Chloride 95 L (98-107) mmol/L BUN 21 H (7-17) mg/dL POC Glucose (mg/dL) 116 H 142 H (70-110) mg/dL Calcium 8.3 L (8.4-10.2) mg/dL Total Bilirubin 1.7 H (0.2-1.3) mg/dL AST 55 H (14-36) U/L Total Protein 5.5 L (6.3-8.2) g/dL Albumin 3.1 L (3.5-5.0) g/dL 08/03/24 08/03/24 08/03/24 Range/Units 04:31 07:11 10:58 RBC 3.00 L (3.80-5.40) m/uL Hgb 9.7 L (11.4-16.0) gm/dL Hct 29.8 L (34.0-46.0) % Plt Count 146 L (150-450) k/uL Sodium (137-145) mmol/L Chloride (98-107) mmol/L BUN (7-17) mg/dL POC Glucose (mg/dL) 40 L* 49 L* (70-110) mg/dL Calcium (8.4-10.2) mg/dL Total Bilirubin (0.2-1.3) mg/dL AST (14-36) U/L Total Protein (6.3-8.2) g/dL Albumin (3.5-5.0) g/dL 08/03/24 Range/Units 11:00 RBC (3.80-5.40) m/uL Hgb (11.4-16.0) gm/dL Hct (34.0-46.0) % Plt Count (150-450) k/uL Sodium (137-145) mmol/L Chloride (98-107) mmol/L BUN (7-17) mg/dL POC Glucose (mg/dL) 45 L* (70-110) mg/dL Calcium (8.4-10.2) mg/dL Total Bilirubin (0.2-1.3) mg/dL AST (14-36) U/L Total Protein (6.3-8.2) g/dL Albumin (3.5-5.0) g/dL
[2024-08-03 13:29] LABS: Glucose,Whole Blood 54 mg/dL (70-110)
[2024-08-03 13:29] LABS: Glucose,Whole Blood 80 mg/dL (70-110)
[2024-08-03 13:47] LABS: Glucose,Whole Blood 129 mg/dL (70-110)
[2024-08-03 14:10] VITALS: BMI 26.9
--- NOTE | 2024-08-03 15:06 | P.PN ---
Subjective Progress Note Date: 08/03/24 Principal diagnosis: POD #4 Mitral valve annuloplasty with 26 mm physio 2 ring, tricuspid valve annuloplasty with 26 mm MC 3 band, closure of patent foramen ovale, modified Ayala-Maze procedure with complete left and right sided lesion sets and suture ligation of the base of the left atrial appendage. This is a 78-year-old female patient is being seen in the intensive care unit following cardiac surgery. The patient underwent mitral valve annuloplasty and tricuspid valve annuloplasty and closure of the PFO and modified Ayala-Maze procedure. Following that, the patient was brought in intubated on mechanical ventilator and the patient is currently in the intensive care unit. I saw the patient in the ICU. The patient is on propofol which is running at 20 mcg/kg/min and the patient is calm and comfortable. The patient is on assist- control mode of mechanical ventilation at rate of 12, tidal volume of 400, FiO2 at 100% with a PEEP of 5. Initial blood gas showed a pH of 7.38 with a pCO2 of 42 and pO2 of 429. FiO2 has been dropped down to 50%. The patient is calm and comfortable. Current cardiac rhythm is AV paced at a rate of 80. No pressors for now. The patient received a total of 1 unit of packed RBC, 1 unit of platelets and 2 units of fresh frozen plasma in the operating room. She has 2 mediastinal chest tube and 1 pleural chest tube and the outputs are minimal at this point in time. The chest x-ray that was done postop showed adequate expansion of both lungs. Chest tubes are all in place. The patient does not have any [place] catheter. The blood work shows a white cell count of 4.6, hemoglobin 8.6 and a platelet count of 70. The sodium is at 138, potassium is 4, bicarb is 25, elevated BUN is 11 with a creatinine of 0.5. LFTs are normal. The patient has adequate urine output. Hemodynamically stable. The patient is also afebrile. No other significant events since arrival to the intensive care unit. On 07/31/2024, the patient is being seen for a follow-up. The patient is awake and alert. The patient was extubated yesterday without any major difficulties and the patient currently is on 2 L of oxygen by nasal cannula. She is calm and comfortable. She is hemodynamically stable on no pressors. She is using the incentive spirometer. She is pulling approximately thousand on her I-S. She remains on a pacemaker, DDD, at a rate of 80. Underlying rhythm is sinus bradycardia. Chest tubes are still in place. The patient's mediastinal chest tube has produced approximately 850 cc over the past 24 hours. The left pleural chest tube is produced approximately 180 cc over the past 24 hours. Labs were reviewed. Hemoglobin 7.8, platelet count is at 79 and subcu heparin has been discontinued. HIT panel was ordered. Chest x-ray shows cardiomegaly, tubes are in good location. No diuretics were given. She is awake and alert and communicating. No other significant events overnight. On 08/01/2024, the patient is being seen for a follow-up. The patient is currently on 3 L of oxygen by nasal cannula and the patient is calm and comfortable. No significant respiratory distress. Chest tubes are still in place. A follow-up chest x-ray showed cardiomegaly with tubes being in stable location. The patient remains in normal sinus rhythm. The white cell close at 10 with a hemoglobin 7.5 and a platelet count of 93. BUN is 21 with a creatinine of 0.9 and sodium levels at 138 and a potassium level is at 3.5. Fee ling overall weak and lethargic. He is arousable and able to communicate. Using incentive spirometer. Pulling approximately 8000. The patient remains paced at a rate of 80. Underlying rhythm is atrial fibrillation with a slow rate. She was ordered a unit of packed RBC transfusion by the cardiothoracic team. She will be also given Lasix. Output from the chest tube include a total of 500 mL from mediastinal chest tube and a total of 100 mL from the pleural chest tubes. There is over the past 24 hours. On 08/02/2024, the patient is being seen for a follow-up. The patient is doing well. Sitting up in the chair. She remains DDD paced at rate of 80 and the underlying rhythm is bradycardia, sinus/A-fib. The patient remains hemodynamically stable. The patient is diuresing well with IV Lasix. Fluid balance is +513 over the past 24 hours. The patient continues to to be on treated of oxygen by nasal cannula with a pulse ox of 95%. Following approximately 8000 on the incentive spirometer. The patient is able to ambulate. Received a unit of packed RBC yesterday and hemoglobin is currently at 9.3. She remains on Lasix 20 mg IV every 12 hours. Left-sided chest tube still in place. No evidence of any air leak. No pneumothorax. Output has been in the order of 110 cc over the past 24 hours and recommend removing the left- sided chest tube. No other significant events overnight. Seen today on 08/03/2024, patient remains in the ICU as an overflow. Patient is presently on room air, sitting at the bedside recliner, does not seem to be in any form of distress. Patient is compliant with her incentive spirometry achieving over 750 mL and at x 1000 mL. Patient continues to have DDD paced rhythm heart rate 80 underlying rhythm is showing atrial fibrillation with a rate less than 50. She is hemodynamically stable, she is not requiring any inotropes or any pressors. Cardiothoracic surgery have cleared the patient to be transferred out of the ICU and I will do the same patient is obviously now overflow in the ICU. WBC is 8.5 hemoglobin is 9.7, sodium is a bit low at 127 BUN is 21 creatinine 0.7 chest x-ray is showing evidence of small right-sided pleural effusion and atelectasis patient did receive Lasix today with good response. Objective - Vital Signs Vital signs: Vital Signs Temp 98.7 F 08/03/24 08:00 Pulse 80 08/03/24 14:00 Resp 19 08/03/24 14:00 BP 105/66 08/03/24 14:00 Pulse Ox 96 08/03/24 14:00 FiO2 40 07/30/24 18:15 Intake & Output 08/02/24 08/03/24 08/03/24 18:59 06:59 18:59 Intake Total 946 0 838 Output Total 295 500 200 Balance 651 -500 638 Weight 64.5 kg 64.5 kg Intake: IV 46 Sodium Chloride 0.9% 1, 40 000 ml @ 20 mls/hr IV . Q24H [facility] Rx#:[id number] pressure bag 6 Oral 900 0 838 Output: Urine 295 500 200 Other: Voiding Method Indwelling Catheter # Voids 0 1 # Bowel Movements 1 1 ABP, PAP, CO, CI - Last Documented Arterial Blood Pressure 112/57 - Exam CONSTITUTIONAL: Revealed a 78-year-old female in no distress HEENT: Neck is supple, no JVD, no lymphadenopathy. RESPIRATORY: Slightly diminished breath sounds at the right base otherwise unremarkable CARDIOVASCULAR: Regular rhythm and rate. S1 and S2 present, negative for S3, gallop or murmur. Sternum is stable. GASTROINTESTINAL: Soft nontender no rebound no guarding INTEGUMENTARY: Skin is warm and dry NEUROLOGIC: Alert oriented x 3 no gross focal deficit MUSKULOSKELETAL: No deformities and no limitation range of motion PSYCHIATRIC: Normal mood affect and no mental status examination INVASIVE LINES AND TUBES: Atrial and ventricular epicardial pacemaker wires p resent - Labs CBC & Chem 7: 08/03/24 04:31 08/03/24 04:31 Labs: Abnormal Lab Results - Last 24 Hours (Table) 07/31/24 08/02/24 08/02/24 Range/Units 05:09 16:57 20:03 RBC (3.80-5.40) m/uL Hgb (11.4-16.0) gm/dL Hct (34.0-46.0) % Plt Count (150-450) k/uL Sodium (137-145) mmol/L Chloride (98-107) mmol/L BUN (7-17) mg/dL POC Glucose (mg/dL) 129 H 116 H 142 H (70-110) mg/dL Calcium (8.4-10.2) mg/dL Total Bilirubin (0.2-1.3) mg/dL AST (14-36) U/L Total Protein (6.3-8.2) g/dL Albumin (3.5-5.0) g/dL 08/03/24 08/03/24 08/03/24 Range/Units 04:31 04:31 07:11 RBC 3.00 L (3.80-5.40) m/uL Hgb 9.7 L (11.4-16.0) gm/dL Hct 29.8 L (34.0-46.0) % Plt Count 146 L (150-450) k/uL Sodium 127 L (137-145) mmol/L Chloride 95 L (98-107) mmol/L BUN 21 H (7-17) mg/dL POC Glucose (mg/dL) 40 L* (70-110) mg/dL Calcium 8.3 L (8.4-10.2) mg/dL Total Bilirubin 1.7 H (0.2-1.3) mg/dL AST 55 H (14-36) U/L Total Protein 5.5 L (6.3-8.2) g/dL Albumin 3.1 L (3.5-5.0) g/dL 08/03/24 08/03/24 08/03/24 Range/Units 10:58 11:00 13:27 RBC (3.80-5.40) m/uL Hgb (11.4-16.0) gm/dL Hct (34.0-46.0) % Plt Count (150-450) k/uL Sodium (137-145) mmol/L Chloride (98-107) mmol/L BUN (7-17) mg/dL POC Glucose (mg/dL) 49 L* 45 L* 54 L (70-110) mg/dL Calcium (8.4-10.2) mg/dL Total Bilirubin (0.2-1.3) mg/dL AST (14-36) U/L Total Protein (6.3-8.2) g/dL Albumin (3.5-5.0) g/dL Assessment and Plan Assessment: Impression: Mitral valve regurgitation, status post mitral valve annuloplasty with a 26 mm physio 2 ring Severe tricuspid valve regurgitation, status post tricuspid valve annuloplasty with a 26 mm MC 3 band Chronic atrial fibrillation, status post modified Ayala-Maze procedure with complete left and right sided lesion sets and suture ligation of the base of the left atrial appendage Patent foramen ovale, closure of patent foramen ovale History of hypertension Rheumatoid arthritis History of syncope History of CVA in 2014 with no residual deficits Sjogren's disease Eye disorder Lupus Lifetime non-smoker Recommendation: Continue present supportive care measures Maximize medical therapy including statins and aspirin Continue close control of blood pressure and continue blood pressure meds Continue GI DVT prophylaxis Continue Lasix We will keep an eye on her right side pleural effusion may or may not require thoracentesis Continue incentive spirometry Ambulate and will continue to follow Patient could be transferred out of the ICU if cleared by cardiothoracic surgery, patient to go to 3 S./cardiac floor with telemetry Time with Patient: Less than 30
[2024-08-03 16:56] LABS: Glucose,Whole Blood 101 mg/dL (70-110)
--- NOTE | 2024-08-03 17:06 | P.PN ---
Subjective PROGRESS NOTE The patient is a 78-year-old female, followed by Dr. Cardenas who had significant mitral and tricuspid regurgitation. She underwent mitral valve repair with size 28 physio 2 ring and tricuspid valve annuloplasty size 28 with closure of patent foramen ovale and modified Ayala-Maze procedure. Patient has history of atrial fibrillation. She is extubated, sitting up in the chair, appears to be weak but denies any chest discomfort except incisional pain. She has no history of CAD by cardiac catheterization. She is on no vasopressors and she has good urinary output. She has a prior history of TIA. Her left ventricular systolic function was preserved in the past. She is paced 100% at this time August 01 She feels better today, stronger. She continues to be in atrial fibrillation with 100% pacing and slow ventricular response. She is on no vasopressors. She is hemodynamically stable with good urinary output. There is no evidence of ventricular ectopic activity. There is no nausea or vomiting. August 02: The patient feels stronger today she denies any chest discomfort, dizziness or palpitations. She continues to be in atrial fibrillation with very slow ventricular response requiring temporary pacemaker activity. She is on no vasopressors and hemodynamically stable otherwise. Her urinary output has been good. She is using her incentive spirometry. 08/03 patient seen and examined. Patient admits to pain all over. Denies any chest pain or pressure. No significant shortness breath. She has still dependent on her pacemaker with heart rates in the 40s and her pacemaker is weaned. She did state she does not want general anesthesia. Medications: Aspirin, furosemide 20 mg IV every 12 hours, fondaparinux, losartan 25 mg daily, losartan 25 mg daily 40 mg daily PHYSICAL EXAMINATION: Blood pressure 120/68 heart rate 80 and paced LUNGS: Clear to auscultation HEART: Regular rate and rhythm, paced, S1, S2. No S3. Systolic murmur at the base ABDOMEN: Soft, nontender, no organomegaly EXTREMETIES: No edema IMPRESSION: 1. Status post mitral and tricuspid valve repair 2. Atrial fibrillation status post Maze procedure 3. Slow ventricular response requiring temporary pacemaker at this point, if she continues to be bradycardic then a permanent pacemaker can be implanted tomorrow. 4. History of pulmonary hypertension 5. Sick sinus syndrome, currently dependent on pacemaker PLAN: patient remains bradycardic despite holding any AV debora blocking agents and is currently dependent on the pacemaker. No reversible causes of permanent pacemaker. Discussed risks and benefits of procedure and patient is agreeable to permanent pacemaker placement. Patient persistent A. fib with possibility of rhythm control and therefore dual chamber pacemaker. Address anticoagulation needs after pacemaker. Objective - Vital Signs Vital signs: Vital Signs Temp 98.7 F 08/03/24 08:00 Pulse 80 08/03/24 14:00 Resp 19 08/03/24 14:00 BP 105/66 08/03/24 14:00 Pulse Ox 96 08/03/24 14:00 FiO2 40 07/30/24 18:15 Intake & Output 08/02/24 08/03/24 08/03/24 18:59 06:59 18:59 Intake Total 946 0 838 Output Total 295 500 200 Balance 651 -500 638 Weight 64.5 kg 64.5 kg Intake: IV 46 Sodium Chloride 0.9% 1, 40 000 ml @ 20 mls/hr IV . Q24H [facility] Rx#:[id number] pressure bag 6 Oral 900 0 838 Output: Urine 295 500 200 Other: Voiding Method Indwelling Catheter # Voids 0 1 # Bowel Movements 1 1 ABP, PAP, CO, CI - Last Documented Arterial Blood Pressure 112/57 - Labs CBC & Chem 7: 08/03/24 04:31 08/03/24 04:31 Labs: Abnormal Lab Results - Last 24 Hours (Table) 07/31/24 08/02/24 08/03/24 Range/Units 05:09 20:03 04:31 RBC (3.80-5.40) m/uL Hgb (11.4-16.0) gm/dL Hct (34.0-46.0) % Plt Count (150-450) k/uL Sodium 127 L (137-145) mmol/L Chloride 95 L (98-107) mmol/L BUN 21 H (7-17) mg/dL POC Glucose (mg/dL) 129 H 142 H (70-110) mg/dL Calcium 8.3 L (8.4-10.2) mg/dL Total Bilirubin 1.7 H (0.2-1.3) mg/dL AST 55 H (14-36) U/L Total Protein 5.5 L (6.3-8.2) g/dL Albumin 3.1 L (3.5-5.0) g/dL 08/03/24 08/03/24 08/03/24 Range/Units 04:31 07:11 10:58 RBC 3.00 L (3.80-5.40) m/uL Hgb 9.7 L (11.4-16.0) gm/dL Hct 29.8 L (34.0-46.0) % Plt Count 146 L (150-450) k/uL Sodium (137-145) mmol/L Chloride (98-107) mmol/L BUN (7-17) mg/dL POC Glucose (mg/dL) 40 L* 49 L* (70-110) mg/dL Calcium (8.4-10.2) mg/dL Total Bilirubin (0.2-1.3) mg/dL AST (14-36) U/L Total Protein (6.3-8.2) g/dL Albumin (3.5-5.0) g/dL 08/03/24 08/03/24 Range/Units 11:00 13:27 RBC (3.80-5.40) m/uL Hgb (11.4-16.0) gm/dL Hct (34.0-46.0) % Plt Count (150-450) k/uL Sodium (137-145) mmol/L Chloride (98-107) mmol/L BUN (7-17) mg/dL POC Glucose (mg/dL) 45 L* 54 L (70-110) mg/dL Calcium (8.4-10.2) mg/dL Total Bilirubin (0.2-1.3) mg/dL AST (14-36) U/L Total Protein (6.3-8.2) g/dL Albumin (3.5-5.0) g/dL
[2024-08-03 20:06] LABS: Glucose,Whole Blood 87 mg/dL (70-110)
[2024-08-03 23:40] LABS: Glucose,Whole Blood 101 mg/dL (70-110)
--- NOTE | 2024-08-04 06:16 | XR ---
EXAMINATION TYPE: XR chest 1V portable DATE OF EXAM: 08/04/2024 CLINICAL HISTORY: Difficulty breathing progress study. Postoperative cardiac surgery. TECHNIQUE: Single AP portable upright view of the chest is obtained. COMPARISON: Chest x-ray from one day earlier and older studies. FINDINGS: Persistent cardiomegaly with ectatic thoracic aorta and central vascular congestion.. Persi stent persistent 2 level cardiac valve surgical change. Small 2 moderate sized right greater than lef t pleural effusions and associated bibasilar opacity favoring compressive atelectasis. The osseous st ructures are intact. IMPRESSION: Stable cardiomegaly with Central vascular congestion and small to moderate-size right gre ater than left pleural effusions and bibasilar opacities favoring compressive atelectasis. [facility], , 08/04/2024 6:13 AM
[2024-08-04 06:18] LABS: HGB 9.7 gm/dL (11.4-16.0); MCH 32.2 pg (25.0-35.0); MCHC 32.2 g/dL (31.0-37.0); MCV 99.8 fL (80.0-100.0); Macrocytosis Slight; Mean Platelet Volume 7.7; Platelet Count 196 k/uL (150-450); RDW 15.2 % (11.5-15.5)
[2024-08-04 06:21] LABS: Glucose,Whole Blood 47 mg/dL (70-110)
[2024-08-04 06:21] LABS: Glucose,Whole Blood 79 mg/dL (70-110)
[2024-08-04 06:33] LABS: ALT 13 U/L (4-34); AST 46 U/L (14-36); African American GFR (CKD) 87 (>60 ml/min/1.73 sqM); Alkaline Phosphatase 80 U/L (38-126); Anion Gap 5 mmol/L; Blood Urea Nitrogen 24 mg/dL (7-17); Calcium 8.3 mg/dL (8.4-10.2); Carbon Dioxide 27 mmol/L (22-30); Chloride 95 mmol/L (98-107); Glucose 84 mg/dL (74-99); Non-African American GFR(CKD) 75 (>60 ml/min/1.73 sqM); Potassium 4.4 mmol/L (3.5-5.1); Sodium 127 mmol/L (137-145); Total Bilirubin 1.4 mg/dL (0.2-1.3); Total Protein 5.7 g/dL (6.3-8.2)
--- NOTE | 2024-08-04 09:50 | P.PN ---
Subjective Progress Note Date: 08/04/24 Principal diagnosis: Moderate mitral regurgitation, severe tricuspid regurgitation, mild aortic valvular insufficiency, chronic atrial fibrillation with marked biatrial dilation, patent foramen ovale. Past medical history significant for hypertension, Rheumatoid Arthritis (RA), Syncope, CVA/TIA in 2015 with no residual deficits, Sjogren's disease, eye disorder, legally blind s/p corneal transplants, lupus, and is a lifetime non-smoker. POD #5 Mitral valve annuloplasty with 26 mm physio 2 ring, tricuspid valve annuloplasty with 26 mm MC 3 band, closure of patent foramen ovale, modified Ayala-Maze procedure with complete left and right sided lesion sets and suture ligation of the base of the left atrial appendage. Postoperative acute blood loss anemia, secondary to cardiopulmonary bypass, hemodilution and her history of anemia. The patient was seen and examined in follow-up today August 04, 2024 at her bedside in the intensive care unit. She is currently sitting up to bedside chair, is awake, alert, oriented x 3 and is in no acute apparent distress. She denies any complaints of shortness of breath, although is complaining of some pain to her bottom due to sitting up. Oxygen saturations are 98% on room air and she is achieving 1000 mL on her incentive spirometry with encouragement. Bedside telemetry continues to show a DDD paced rhythm with a heart rate of 80 bpm. Underlying rhythm continues to show a slow ventricular response, atrial fibrillation with a heart rate below 50 bpm. She is scheduled for a permanent pacemaker placement today by Dr. Traylor. The patient reports she has been up ambulating in the intensive care unit hallway with standby assistance from nursing and therapy staff and tolerating well, although is complaining of some continued generalized weakness. Laboratory and chest x-ray results were reviewed. She denies any further complaints of urine retention. Objective - Vital Signs Vital signs: Vital Signs Temp 98.1 F 08/04/24 08:00 Pulse 80 08/04/24 09:11 Resp 10 L 08/04/24 08:00 BP 134/82 08/04/24 08:00 Pulse Ox 92 L 08/04/24 09:13 FiO2 40 07/30/24 18:15 Intake & Output 08/03/24 08/04/24 08/04/24 18:59 06:59 18:59 Intake Total 1078 250 Output Total 635 250 0 Balance 443 0 0 Weight 64.5 kg 86.6 kg Intake: Oral 1078 250 Output: Urine 500 250 0 Post Void Residual 135 Other: Voiding Method Indwelling Catheter Indwelling Catheter # Voids 0 0 # Bowel Movements 1 ABP, PAP, CO, CI - Last Documented Arterial Blood Pressure 112/57 - Exam CONSTITUTIONAL: Sitting up to the bedside chair in the intensive care unit, appears comfortable, cooperative, no apparent acute distress. HEENT: Neck is supple, no JVD, no lymphadenopathy. RESPIRATORY: Lungs sounds essentially clear throughout, diminished to her right lower lobe. Respirations are symmetrical and nonlabored. Currently on room air with oxygen saturations 98%. Able to achieve 1000 mL on her incentive spirometry. Strong cough. CARDIOVASCULAR: Regular rhythm and rate. S1 and S2 present, negative for S3, gallop or murmur. Sternum is stable. Palpable peripheral pulses bilaterally. No calf pain or tenderness noted. Heart hugger in place with patient demonstrating appropriate use. Knee-high ABAD hose and sequential compression devices in place to her bilateral lower extremities. GASTROINTESTINAL: Abdomen soft, nontender, nondistended. Active bowel sounds present 4 quadrants. Tolerating diet. Passing flatus. No guarding or rigidity. Bowel movement this morning. GENITOURINARY: Continues to void. Urine output 250 mL in the last 8 hours. INTEGUMENTARY: Skin is warm and dry with no evidence of clubbing or cyanosis. Midline sternal incision clean dry and well approximated, covered with dry intact dressing, some scattered ecchymosis. NEUROLOGIC: Cranial nerves II through XII intact. No focal deficits. MUSKULOSKELETAL: Able to move all extremities, strength equal bilaterally, generalized weakness. PSYCHIATRIC: Alert and oriented to person, place and time. Flat affect. INVASIVE LINES AND TUBES: Atrial and ventricular epicardial pacemaker wires present, connected to generator, DDD backup rate 80 bpm. - Allied health notes Allied health notes reviewed: nursing - Labs CBC & Chem 7: 08/04/24 05:36 08/04/24 05:36 Labs: Abnormal Lab Results - Last 24 Hours (Table) 07/31/24 08/03/24 08/03/24 Range/Units 05:09 10:58 11:00 RBC (3.80-5.40) m/uL Hgb (11.4-16.0) gm/dL Hct (34.0-46.0) % Sodium (137-145) mmol/L Chloride (98-107) mmol/L BUN (7-17) mg/dL POC Glucose (mg/dL) 129 H 49 L* 45 L* (70-110) mg/dL Calcium (8.4-10.2) mg/dL Total Bilirubin (0.2-1.3) mg/dL AST (14-36) U/L Total Protein (6.3-8.2) g/dL Albumin (3.5-5.0) g/dL 08/03/24 08/04/24 08/04/24 Range/Units 13:27 05:36 05:36 RBC 3.00 L (3.80-5.40) m/uL Hgb 9.7 L (11.4-16.0) gm/dL Hct 30.0 L (34.0-46.0) % Sodium 127 L (137-145) mmol/L Chloride 95 L (98-107) mmol/L BUN 24 H (7-17) mg/dL POC Glucose (mg/dL) 54 L (70-110) mg/dL Calcium 8.3 L (8.4-10.2) mg/dL Total Bilirubin 1.4 H (0.2-1.3) mg/dL AST 46 H (14-36) U/L Total Protein 5.7 L (6.3-8.2) g/dL Albumin 3.0 L (3.5-5.0) g/dL 08/04/24 Range/Units 06:17 RBC (3.80-5.40) m/uL Hgb (11.4-16.0) gm/dL Hct (34.0-46.0) % Sodium (137-145) mmol/L Chloride (98-107) mmol/L BUN (7-17) mg/dL POC Glucose (mg/dL) 47 L* (70-110) mg/dL Calcium (8.4-10.2) mg/dL Total Bilirubin (0.2-1.3) mg/dL AST (14-36) U/L Total Protein (6.3-8.2) g/dL Albumin (3.5-5.0) g/dL - Imaging and Cardiology Chest x-ray: report reviewed, image reviewed Assessment and Plan Assessment: Mitral valve regurgitation, status post mitral valve annuloplasty with a 26 mm physio 2 ring Severe tricuspid valve regurgitation, status post tricuspid valve annuloplasty with a 26 mm MC 3 band Chronic atrial fibrillation, status post modified Ayala-Maze procedure with complete left and right sided lesion sets and suture ligation of the base of the left atrial appendage Patent foramen ovale, closure of patent foramen ovale Postoperative acute blood loss anemia and thrombocytopenia, expected given hemodilution, cardiopulmonary bypass and preoperative history of anemia Slow ventricular response requiring temporary pacemaker, scheduled for permanent pacemaker placement today August 04, 2024 History of hypertension Rheumatoid arthritis History of syncope History of CVA in 2014 with no residual deficits Sjogren's disease Eye disorder Lupus Lifetime non-smoker Plan: Continue to maximize medical therapy with low-dose aspirin, and statin. Continue to hold metoprolol tartrate at this time due to her underlying rhythm. Currently paced DDD at 80 bpm. She is scheduled for permanent pacemaker placement today to be performed by Dr. Traylor. Platelets are 196 today, HIT panel negative, results pending. Continue Arixtra 2.5 mg subcu daily. Continue Cozaar 25 mg p.o. daily for afterload reduction, with hold parameters. Wean O2 as tolerated. Encourage incentive spirometry use 10 times every hour while awake. Bronchodilators per pulmonology. Increase activity, ambulate as tolerated. PT/OT/cardiac rehab following. Will monitor daily labs and chest x-rays. Electrolyte replacement per protocol. Continue home medications for timolol, sodium chloride ophthalmic drops and artificial tear. GI/DVT prophylaxis. Continue Lasix 20 mg IV twice daily. Continue to monitor and record strict accurate intake and output. May bladder scan every 6 hours and as needed postvoid residual, if greater than 300 mL PVR may straight cath. Pain control per current medication regimen. Insulin management per internal medicine, patient needs tight blood sugar control to prevent infection. Preoperative hemoglobin A1c 5.9%. Keep in the intensive care unit, as the patient is pacemaker dependent. More recommendations to follow based on patient's clinical course. Time with Patient: Greater than 30
--- NOTE | 2024-08-04 10:24 | P.PN ---
Subjective Progress Note Date: 08/04/24 No new complaints today. Doing well on present therapy. HIT panel pending. Pt is on fondaparinux. Gen: In NAD, non-toxic HEENT: normocephalic, atraumatic, hearing acuity is intant, mucous membranes moist CVS: perfusing all extremities well, no pitting edema, Respiratory: symmetric chest expansion, no accessory muscle use, GI: soft, NTTP, ND, : no suprapubic tenderness, no CVA tenderness MSK/Derm: no rashes, cyanosis Neuro: CN II-XII intact, no motor weakness, Hospital Course: 78-year-old woman with medical history of hypertension, hyperlipidemia, glaucoma, valvular atrial fibrillation with mitral/tricuspid valve regurgitation who presented for mitral valve repair and tricuspid valve annuloplasty as well as PFO closure and modified Ayala-Maze procedure. Medicine was consulted for medical management. Patient was afebrile, 137/64, 96% oxygen saturation on 4 L nasal cannula, pulse rate is 80 with AV paced rhythm. CBC shows hemoglobin of 7.8, platelets of 79. Basic metabolic panel is unremarkable. Magnesium is 2.5. Liver function tests show mild elevation of AST of 94, otherwise unremarkable. Patient's blood sugars are well-controlled and was titrated off of her insulin drip. Assessment/plan: Hyperglycemia - ACHS glucose checks and LD-SSI - have not been given due to episodes of hypoglycemia -encourage oral intake -D50 PRN for hypoglycemia - A1c is 5.7%, no need for medications for DM on discharge Bloating -simethicone added Valvular A Fib s/p mitral/tricuspid valve repair/annuluplasty, POD 1 Ongoing AV block Thrombocytopenia, improving - management per primary team and cardiology - plan for PPM today - currently on aspirin 81mg daily, atorvastatin 40mg daily - RAYMUNDO panel negative Pt is full code DVT PPx with fondaparinux Objective - Vital Signs Vital signs: Vital Signs Temp 98.1 F 08/04/24 08:00 Pulse 79 08/04/24 09:21 Resp 10 L 08/04/24 08:00 BP 134/82 08/04/24 08:00 Pulse Ox 92 L 08/04/24 09:13 FiO2 40 07/30/24 18:15 Intake & Output 08/03/24 08/04/24 08/04/24 18:59 06:59 18:59 Intake Total 1078 250 Output Total 635 250 0 Balance 443 0 0 Weight 64.5 kg 86.6 kg Intake: Oral 1078 250 Output: Urine 500 250 0 Post Void Residual 135 Other: Voiding Method Indwelling Catheter Indwelling Catheter # Voids 0 0 # Bowel Movements 1 ABP, PAP, CO, CI - Last Documented Arterial Blood Pressure 112/57 - Labs CBC & Chem 7: 08/04/24 05:36 08/04/24 05:36 Labs: Abnormal Lab Results - Last 24 Hours (Table) 07/31/24 08/03/24 08/03/24 Range/Units 05:09 10:58 11:00 RBC (3.80-5.40) m/uL Hgb (11.4-16.0) gm/dL Hct (34.0-46.0) % Sodium (137-145) mmol/L Chloride (98-107) mmol/L BUN (7-17) mg/dL POC Glucose (mg/dL) 129 H 49 L* 45 L* (70-110) mg/dL Calcium (8.4-10.2) mg/dL Total Bilirubin (0.2-1.3) mg/dL AST (14-36) U/L Total Protein (6.3-8.2) g/dL Albumin (3.5-5.0) g/dL 08/03/24 08/04/24 08/04/24 Range/Units 13:27 05:36 05:36 RBC 3.00 L (3.80-5.40) m/uL Hgb 9.7 L (11.4-16.0) gm/dL Hct 30.0 L (34.0-46.0) % Sodium 127 L (137-145) mmol/L Chloride 95 L (98-107) mmol/L BUN 24 H (7-17) mg/dL POC Glucose (mg/dL) 54 L (70-110) mg/dL Calcium 8.3 L (8.4-10.2) mg/dL Total Bilirubin 1.4 H (0.2-1.3) mg/dL AST 46 H (14-36) U/L Total Protein 5.7 L (6.3-8.2) g/dL Albumin 3.0 L (3.5-5.0) g/dL 08/04/24 Range/Units 06:17 RBC (3.80-5.40) m/uL Hgb (11.4-16.0) gm/dL Hct (34.0-46.0) % Sodium (137-145) mmol/L Chloride (98-107) mmol/L BUN (7-17) mg/dL POC Glucose (mg/dL) 47 L* (70-110) mg/dL Calcium (8.4-10.2) mg/dL Total Bilirubin (0.2-1.3) mg/dL AST (14-36) U/L Total Protein (6.3-8.2) g/dL Albumin (3.5-5.0) g/dL
[2024-08-04 11:20] LABS: Glucose,Whole Blood 58 mg/dL (70-110)
[2024-08-04] MEDS: DEXTROSE 50% SYRINGE 50 ML IVP PRN (11:49)
[2024-08-04] MEDS: SODIUM CHLORIDE 0.9% 1,000 ML IV SCH (11:49)
[2024-08-04 12:36] LABS: Glucose,Whole Blood 81 mg/dL (70-110)
[2024-08-04] MEDS: IV FLUID CONTINUATION 950 ML IV ONE (13:45)
[2024-08-04] MEDS: fentaNYL (PF) 50 MCG/ML 2 ML AMP IVP ONE (13:49)
[2024-08-04] MEDS: MIDAZOLAM 2 MG/2 ML VIAL IVP ONE (13:49)
[2024-08-04] MEDS: CLINDAMYCIN 900 MG in DEXTROSE 5% IN WATER 50 ML IVPB PRN (13:53)
[2024-08-04] MEDS: LIDOCAINE 1% INJ 10MG/ML (20 ML MDV) SQ ONE (13:59)
--- NOTE | 2024-08-04 14:14 | P.PN ---
Subjective Progress Note Date: 08/04/24 Principal diagnosis: POD #5 Mitral valve annuloplasty with 26 mm physio 2 ring, tricuspid valve annuloplasty with 26 mm MC 3 band, closure of patent foramen ovale, modified Ayala-Maze procedure with complete left and right sided lesion sets and suture ligation of the base of the left atrial appendage. This is a 78-year-old female patient is being seen in the intensive care unit following cardiac surgery. The patient underwent mitral valve annuloplasty and tricuspid valve annuloplasty and closure of the PFO and modified Ayala-Maze procedure. Following that, the patient was brought in intubated on mechanical ventilator and the patient is currently in the intensive care unit. I saw the patient in the ICU. The patient is on propofol which is running at 20 mcg/kg/min and the patient is calm and comfortable. The patient is on assist- control mode of mechanical ventilation at rate of 12, tidal volume of 400, FiO2 at 100% with a PEEP of 5. Initial blood gas showed a pH of 7.38 with a pCO2 of 42 and pO2 of 429. FiO2 has been dropped down to 50%. The patient is calm and comfortable. Current cardiac rhythm is AV paced at a rate of 80. No pressors for now. The patient received a total of 1 unit of packed RBC, 1 unit of platelets and 2 units of fresh frozen plasma in the operating room. She has 2 mediastinal chest tube and 1 pleural chest tube and the outputs are minimal at this point in time. The chest x-ray that was done postop showed adequate expansion of both lungs. Chest tubes are all in place. The patient does not have any [place]Pat[place] catheter. The blood work shows a white cell count of 4.6, hemoglobin 8.6 and a platelet count of 70. The sodium is at 138, potassium is 4, bicarb is 25, elevated BUN is 11 with a creatinine of 0.5. LFTs are normal. The patient has adequate urine output. Hemodynamically stable. The patient is also afebrile. No other significant events since arrival to the intensive care unit. On 07/31/2024, the patient is being seen for a follow-up. The patient is awake and alert. The patient was extubated yesterday without any major difficulties and the patient currently is on 2 L of oxygen by nasal cannula. She is calm and comfortable. She is hemodynamically stable on no pressors. She is using the incentive spirometer. She is pulling approximately thousand on her I-S. She remains on a pacemaker, DDD, at a rate of 80. Underlying rhythm is sinus bradycardia. Chest tubes are still in place. The patient's mediastinal chest tube has produced approximately 850 cc over the past 24 hours. The left pleural chest tube is produced approximately 180 cc over the past 24 hours. Labs were reviewed. Hemoglobin 7.8, platelet count is at 79 and subcu heparin has been discontinued. HIT panel was ordered. Chest x-ray shows cardiomegaly, tubes are in good location. No diuretics were given. She is awake and alert and communicating. No other significant events overnight. On 08/01/2024, the patient is being seen for a follow-up. The patient is currently on 3 L of oxygen by nasal cannula and the patient is calm and comfortable. No significant respiratory distress. Chest tubes are still in place. A follow-up chest x-ray showed cardiomegaly with tubes being in stable location. The patient remains in normal sinus rhythm. The white cell close at 10 with a hemoglobin 7.5 and a platelet count of 93. BUN is 21 with a creatinine of 0.9 and sodium levels at 138 and a potassium level is at 3.5. Fee ling overall weak and lethargic. He is arousable and able to communicate. Using incentive spirometer. Pulling approximately 8000. The patient remains paced at a rate of 80. Underlying rhythm is atrial fibrillation with a slow rate. She was ordered a unit of packed RBC transfusion by the cardiothoracic team. She will be also given Lasix. Output from the chest tube include a total of 500 mL from mediastinal chest tube and a total of 100 mL from the pleural chest tubes. There is over the past 24 hours. On 08/02/2024, the patient is being seen for a follow-up. The patient is doing well. Sitting up in the chair. She remains DDD paced at rate of 80 and the underlying rhythm is bradycardia, sinus/A-fib. The patient remains hemodynamically stable. The patient is diuresing well with IV Lasix. Fluid balance is +513 over the past 24 hours. The patient continues to to be on treated of oxygen by nasal cannula with a pulse ox of 95%. Following approximately 8000 on the incentive spirometer. The patient is able to ambulate. Received a unit of packed RBC yesterday and hemoglobin is currently at 9.3. She remains on Lasix 20 mg IV every 12 hours. Left-sided chest tube still in place. No evidence of any air leak. No pneumothorax. Output has been in the order of 110 cc over the past 24 hours and recommend removing the left- sided chest tube. No other significant events overnight. Seen today on 08/03/2024, patient remains in the ICU as an overflow. Patient is presently on room air, sitting at the bedside recliner, does not seem to be in any form of distress. Patient is compliant with her incentive spirometry achieving over 750 mL and at x 1000 mL. Patient continues to have DDD paced rhythm heart rate 80 underlying rhythm is showing atrial fibrillation with a rate less than 50. She is hemodynamically stable, she is not requiring any inotropes or any pressors. Cardiothoracic surgery have cleared the patient to be transferred out of the ICU and I will do the same patient is obviously now overflow in the ICU. WBC is 8.5 hemoglobin is 9.7, sodium is a bit low at 127 BUN is 21 creatinine 0.7 chest x-ray is showing evidence of small right-sided pleural effusion and atelectasis patient did receive Lasix today with good response. Seen today on 08/04/2024, patient remains in the ICU as an overflow, on 2 L nasal cannula, not in any distress, chest x-ray continues to show small right-sided pleural effusion and atelectasis remains on Lasix 20 mg twice daily doing well with incentive spirometry, patient is fully paced, may require a permanent pacemaker implantation today by cardiology. Labs were all reviewed, sodium remains low at 127, CBC is relatively normal. Renal profile is normal. Objective - Vital Signs Vital signs: Vital Signs Temp 98.3 F 08/04/24 12:00 Pulse 80 08/04/24 12:00 Resp 12 08/04/24 12:00 BP 134/82 08/04/24 12:00 Pulse Ox 98 08/04/24 12:00 FiO2 40 07/30/24 18:15 Intake & Output 08/03/24 08/04/24 08/04/24 18:59 06:59 18:59 Intake Total 1078 250 50 Output Total 635 250 250 Balance 443 0 -200 Weight 64.5 kg 86.6 kg Intake: IV 50 Oral 1078 250 Output: Urine 500 250 250 Post Void Residual 135 Other: Voiding Method Indwelling Catheter Indwelling Catheter Indwelling Catheter # Voids 0 0 0 # Bowel Movements 1 ABP, PAP, CO, CI - Last Documented Arterial Blood Pressure 112/57 - Exam CONSTITUTIONAL: Revealed a 78-year-old female in no distress, on 2 L nasal cannula HEENT: Neck is supple, no JVD, no lymphadenopathy. RESPIRATORY: Good breath sound bilaterally diminished at the right base CARDIOVASCULAR: Regular rhythm and rate. S1 and S2 present, negative for S3, gallop or murmur. GASTROINTESTINAL: Soft nontender no rebound no guarding INTEGUMENTARY: Skin is warm and dry NEUROLOGIC: Alert oriented x 3 no gross focal deficit MUSKULOSKELETAL: No deformities and no limitation range of motion PSYCHIATRIC: Normal mood affect and no mental status examination - Labs CBC & Chem 7: 08/04/24 05:36 08/04/24 05:36 Labs: Abnormal Lab Results - Last 24 Hours (Table) 08/04/24 08/04/24 08/04/24 Range/Units 05:36 05:36 06:17 RBC 3.00 L (3.80-5.40) m/uL Hgb 9.7 L (11.4-16.0) gm/dL Hct 30.0 L (34.0-46.0) % Sodium 127 L (137-145) mmol/L Chloride 95 L (98-107) mmol/L BUN 24 H (7-17) mg/dL POC Glucose (mg/dL) 47 L* (70-110) mg/dL Calcium 8.3 L (8.4-10.2) mg/dL Total Bilirubin 1.4 H (0.2-1.3) mg/dL AST 46 H (14-36) U/L Total Protein 5.7 L (6.3-8.2) g/dL Albumin 3.0 L (3.5-5.0) g/dL 08/04/24 Range/Units 11:19 RBC (3.80-5.40) m/uL Hgb (11.4-16.0) gm/dL Hct (34.0-46.0) % Sodium (137-145) mmol/L Chloride (98-107) mmol/L BUN (7-17) mg/dL POC Glucose (mg/dL) 58 L (70-110) mg/dL Calcium (8.4-10.2) mg/dL Total Bilirubin (0.2-1.3) mg/dL AST (14-36) U/L Total Protein (6.3-8.2) g/dL Albumin (3.5-5.0) g/dL Assessment and Plan Assessment: Impression: Postoperative day #5 Mitral valve regurgitation, status post mitral valve annuloplasty with a 26 mm physio 2 ring Severe tricuspid valve regurgitation, status post tricuspid valve annuloplasty with a 26 mm MC 3 band Chronic atrial fibrillation, status post modified Ayala-Maze procedure with complete left and right sided lesion sets and suture ligation of the base of the left atrial appendage Patent foramen ovale, closure of patent foramen ovale History of hypertension Rheumatoid arthritis History of syncope History of CVA in 2014 with no residual deficits Sjogren's disease Eye disorder Lupus Lifetime non-smoker Recommendation: Continue present supportive care measures Maximize medical therapy including statins and aspirin Continue Lasix/gentle diuresis Continue GI DVT prophylaxis Continue to monitor right-sided pleural effusion Continue incentive spirometry Cardiology is planning permanent pacemaker implantation likely today Ambulate and will continue to follow Time with Patient: Less than 30
[2024-08-04] MEDS: CLINDAMYCIN 600 MG in SODIUM CHLORIDE 0.9% 250 ML IRRIGATION PRN (14:55)
--- NOTE | 2024-08-04 15:17 | P.PCN ---
Description of Procedure: CARDIOLOGY PROCEDURE NOTE Puppet Developer: Dr. Kristian Traylor Procedure performed: Insertion dual chamber permanent pacemaker Site: Left subclavian Indications: Sick Sinus Syndrome, symptomatic bradycardia Complications: None Blood Loss: Minimal Description of Procedure: After the risks, benefits, and alternatives of the above-mentioned procedure was explained in detail with the patient, informed consent was obtained. The patient was taken to the cardiac catheterization suite where the left subclavian area was sterily prepped and draped in the usual fashion. One percent lidocaine was used to anesthetize the left subclavian area. A 1.5 inch incision was made utilizing a #15 blade in the left subclavian site. Hemostasis was made complete. Electrocautery along with digital blunt dissection was utilized to dissect to the level of the pectoralis muscle fascia and create a pocket large enough to accommodate the generator. A thin walled micro puncuture needle was used to cannulate the left subclavian vein. A guide-wire was inserted through the needle into the vascular lumen under fluoroscopic guidance. The needle was removed. Another thin walled micr puncture needle was used to again cannulate the left subclavian vein. A guide-wire was inserted through the needle into the vascular lumen under fluoroscopic guidance. The needle was removed and both guide-wires were attached to the field. A venous sheath and dilator were advanced over the guidewire into the vascular lumen under fluoroscopic guidance. The dilator and guidewire were then removed. A right ventricular bipolar lead was inserted into the sheath and advanced under fluoroscopic guidance into the right ventricle under fluoroscopic guidance. Adequate sensing and pacing thresholds were achieved and the lead was screwed into place in the RV septum. The sheath was then torn away. The lead collar was advanced and anchored into place utilizing #0 silk suture. Next, another venous sheath and dilator were advanced under fluoroscopic guidance into the vascular lumen over the guidewire. After removal of the dilator and guidewire, a right atrial bipolar lead was inserted into this sheath and advanced under fluoroscopic guidance into the right atrium. The lead was positioned into the right atrial appendage. Adequate sensing and pacing thresholds were then achieved with patient being in Afib at the time and the lead was screwed into place. The sheath was then torn away. The lead collar was advanced and anchored into place utilizing #0 silk suture. The leads were then inserted into the appropriate position into the generator. They were then secured with the setscrew provided. The leads and generator were inserted into the pocket with the leads posterior. The subcutaneous tissue was approximated utilizing #2.0 and 3.0 vicryl in an interrupted stitch fashion. The dermal layer was approximated utilizing #4.0 vicryl. The area was cleansed with sterile saline and dried. A sterile 4x4 dressing was applied and the patient was transferred to the post catheterization holding area in stable and satisfactory condition. The patient tolerated the procedure well. Generator Data Cardiovascular Surgical Tech: [employer] Brand: [id number] [place] XT DR MRI Model #: [id number] Serial#: [id number] Right Atrial Bipolar Lead Data: Type: Active fixation lead Cardiovascular Surgical Tech: [employer] Model#: 5076-45 Serial Number: [id number] Right Ventricular Bipolar Lead Data: Type: Active fixation lead Cardiovascular Surgical Tech: [employer] Model #: 5076-52 Serial #: [id number] Stimulation Thresholds: Right atrial bipolar lead pacing and sensing thresholds Voltage: Afib Impedance: 527 ohms P-wave sensin.5 mV Right Ventricular bipolar lead pacing and sensing thresholds Pulse Width: 0.4ms Voltage: 0.5 volts Impedance: 589 ohms R-wave sensin.0 mV Parameter Setting: Pacing mode is DDDR Lower rate 60 bpm Upper rate 130 bpm Impressions: 1. Successful implantation of a dual chamber permanent pacemaker in the left pectoral site. Plan: 1. Routine post procedure care will be instituted as well as outpatient follow- up surveillance.
--- NOTE | 2024-08-04 15:19 | P.PN ---
Subjective PROGRESS NOTE The patient is a 78-year-old female, followed by Dr. Cardenas who had significant mitral and tricuspid regurgitation. She underwent mitral valve repair with size 28 physio 2 ring and tricuspid valve annuloplasty size 28 with closure of patent foramen ovale and modified Ayala-Maze procedure. Patient has history of atrial fibrillation. She is extubated, sitting up in the chair, appears to be weak but denies any chest discomfort except incisional pain. She has no history of CAD by cardiac catheterization. She is on no vasopressors and she has good urinary output. She has a prior history of TIA. Her left ventricular systolic function was preserved in the past. She is paced 100% at this time August 01 She feels better today, stronger. She continues to be in atrial fibrillation with 100% pacing and slow ventricular response. She is on no vasopressors. She is hemodynamically stable with good urinary output. There is no evidence of ventricular ectopic activity. There is no nausea or vomiting. August 02: The patient feels stronger today she denies any chest discomfort, dizziness or palpitations. She continues to be in atrial fibrillation with very slow ventricular response requiring temporary pacemaker activity. She is on no vasopressors and hemodynamically stable otherwise. Her urinary output has been good. She is using her incentive spirometry. 08/03 patient seen and examined. Patient admits to pain all over. Denies any chest pain or pressure. No significant shortness breath. She has still dependent on her pacemaker with heart rates in the 40s and her pacemaker is weaned. She did state she does not want general anesthesia. 08/04 Patient seen and examined. Patient still admits to generalized pain and weakness however no specific chest pain or pressure. No significant shortness of breath. Remains dependent on the pacemaker with heart rates in the 40s and below 50s when pacemaker stopped. Scheduled for pacemaker today. PHYSICAL EXAMINATION: Vitals reviewed LUNGS: Clear to auscultation HEART: Regular rate and rhythm, paced, S1, S2. No S3. Systolic murmur at the base ABDOMEN: Soft, nontender, no organomegaly EXTREMETIES: No edema IMPRESSION: 1. Status post mitral and tricuspid valve repair 2. Atrial fibrillation status post Maze procedure 3. Slow ventricular response requiring temporary pacemaker at this point, if she continues to be bradycardic then a permanent pacemaker can be implanted tomorrow. 4. History of pulmonary hypertension 5. Sick sinus syndrome, currently dependent on pacemaker PLAN: patient remains bradycardic despite holding any AV debora blocking agents and is currently dependent on the pacemaker. No reversible causes of permanent pacemaker and patient scheduled for pacemaker today Restart anticoagulation after pacemaker Objective - Vital Signs Vital signs: Vital Signs Temp 98.3 F 08/04/24 12:00 Pulse 80 08/04/24 12:00 Resp 12 08/04/24 12:00 BP 134/82 08/04/24 12:00 Pulse Ox 98 08/04/24 12:00 FiO2 40 07/30/24 18:15 Intake & Output 08/03/24 08/04/24 08/04/24 18:59 06:59 18:59 Intake Total 1078 250 305 Output Total 635 250 250 Balance 443 0 55 Weight 64.5 kg 86.6 kg Intake: IV 305 Oral 1078 250 Output: Urine 500 250 250 Post Void Residual 135 Other: Voiding Method Indwelling Catheter Indwelling Catheter Indwelling Catheter # Voids 0 0 0 # Bowel Movements 1 ABP, PAP, CO, CI - Last Documented Arterial Blood Pressure 112/57 - Labs CBC & Chem 7: 08/04/24 05:36 08/04/24 05:36 Labs: Abnormal Lab Results - Last 24 Hours (Table) 08/04/24 08/04/24 08/04/24 Range/Units 05:36 05:36 06:17 RBC 3.00 L (3.80-5.40) m/uL Hgb 9.7 L (11.4-16.0) gm/dL Hct 30.0 L (34.0-46.0) % Sodium 127 L (137-145) mmol/L Chloride 95 L (98-107) mmol/L BUN 24 H (7-17) mg/dL POC Glucose (mg/dL) 47 L* (70-110) mg/dL Calcium 8.3 L (8.4-10.2) mg/dL Total Bilirubin 1.4 H (0.2-1.3) mg/dL AST 46 H (14-36) U/L Total Protein 5.7 L (6.3-8.2) g/dL Albumin 3.0 L (3.5-5.0) g/dL 08/04/24 Range/Units 11:19 RBC (3.80-5.40) m/uL Hgb (11.4-16.0) gm/dL Hct (34.0-46.0) % Sodium (137-145) mmol/L Chloride (98-107) mmol/L BUN (7-17) mg/dL POC Glucose (mg/dL) 58 L (70-110) mg/dL Calcium (8.4-10.2) mg/dL Total Bilirubin (0.2-1.3) mg/dL AST (14-36) U/L Total Protein (6.3-8.2) g/dL Albumin (3.5-5.0) g/dL
[2024-08-04 15:54] LABS: Glucose,Whole Blood 57 mg/dL (70-110)
[2024-08-04 16:39] LABS: Glucose,Whole Blood 78 mg/dL (70-110)
--- NOTE | 2024-08-04 17:10 | XR ---
EXAMINATION TYPE: XR chest 1V portable DATE OF EXAM: 08/04/2024 4:54 PM COMPARISON: Chest radiographs from TECHNIQUE: XR chest 1V portable Portable AP radiograph of the chest. CLINICAL INDICATION:Female, 78 years old with history of Lead placement check; FINDINGS: Lungs/Pleura: No pneumothorax or focal consolidation. Small bilateral pleural effusions with associat ed atelectasis, right greater than left. Pulmonary vascularity: Similar central vascular congestion. Heart/mediastinum: Cardiomediastinal silhouette is enlarged and stable. Ectatic thoracic aorta. Mult ilevel cardiac valvular change redemonstrated. Epicardial leads and a straight. Two lead cardiac cond uction device overlying the left hemithorax with lead tips projecting over the right ventricle and ri ght atrium. Musculoskeletal: No acute osseous pathology. IMPRESSION: 1. Interval placement of two lead cardiac conduction device overlying the left hemithorax with lead tips projecting over the right ventricle and right atrium. 2. Similar cardiomegaly with central vascular congestion and small bilateral pleural effusions with right greater than left. [facility], , 08/04/2024 5:08 PM
[2024-08-04] MEDS: CLINDAMYCIN 900 MG in DEXTROSE 5% IN WATER 50 ML IVPB SCH (20:02)
[2024-08-04 20:05] LABS: Glucose,Whole Blood 118 mg/dL (70-110)
[2024-08-05 06:04] LABS: Basophils % (A) 0 %; Eosinophils # (A) 0.1 k/uL (0-0.7); Eosinophils % (A) 2 %; HCT 25.3 % (34.0-46.0); HGB 8.4 gm/dL (11.4-16.0); Hypochromasia Slight; Lymphocytes # (A) 1.3 k/uL (1.0-4.8); Lymphocytes % (A) 15 %; MCH 33.5 pg (25.0-35.0); MCHC 33.3 g/dL (31.0-37.0); MCV 100.4 fL (80.0-100.0); Macrocytosis Slight; Mean Platelet Volume 7.5; Monocytes % (A) 12 %; Neutrophils # (A) 5.6 k/uL (1.3-7.7); Neutrophils % (A) 67 %; Platelet Count 231 k/uL (150-450); RBC 2.52 m/uL (3.80-5.40); RDW 14.5 % (11.5-15.5); WBC 8.4 k/uL (3.8-10.6)
[2024-08-05 06:09] LABS: African American GFR (CKD) 58 (>60 ml/min/1.73 sqM); Anion Gap 7 mmol/L; Blood Urea Nitrogen 28 mg/dL (7-17); Calcium 8.1 mg/dL (8.4-10.2); Carbon Dioxide 26 mmol/L (22-30); Chloride 93 mmol/L (98-107); Glucose 94 mg/dL (74-99); Magnesium 1.8 mg/dL (1.6-2.3); Non-African American GFR(CKD) 50 (>60 ml/min/1.73 sqM); Potassium 4.5 mmol/L (3.5-5.1); Sodium 126 mmol/L (137-145)
[2024-08-05 06:09] LABS: Glucose,Whole Blood 105 mg/dL (70-110)
--- NOTE | 2024-08-05 06:47 | XR ---
EXAMINATION TYPE: XR chest 2V DATE OF EXAM: 08/05/2024 6:22 AM COMPARISON: Chest x-ray from yesterday CLINICAL INDICATION: Female, 78 years old with history of post op CABG, TECHNIQUE: Frontal and lateral views of the chest are obtained. FINDINGS: Persistent cardiomegaly with ectatic and atherosclerotic thoracic aorta and central vascula r congestion.. Persistent dual-lead pacemaker. Persistent 2 level cardiac valve surgical change. Smal l to moderate sized right greater than left pleural effusions and associated bibasilar opacity are re demonstrated. The osseous structures are intact. IMPRESSION: Stable cardiomegaly with Central vascular congestion and small to moderate-size right gre ater than left pleural effusions and bibasilar opacities favoring compressive atelectasis. [facility], , 08/05/2024 6:44 AM
--- NOTE | 2024-08-05 07:45 | P.PN ---
Subjective Progress Note Date: 08/05/24 Principal diagnosis: Moderate mitral regurgitation, severe tricuspid regurgitation, mild aortic valvular insufficiency, chronic atrial fibrillation with marked biatrial dilation, patent foramen ovale. Previous medical history of hypertension, rheumatoid arthritis, syncope, CVA in 2014 with no residual deficits, TIA in 2006, Sjogren's disease, lupus, anemia, legally blind s/p corneal transplants, lifelong non-smoker, family history of premature coronary artery disease with fa ther having open heart in his 40s POD #6 Mitral valve annuloplasty with 26 mm physio 2 ring, tricuspid valve annuloplasty with 26 mm MC 3 band, closure of patent foramen ovale, modified Ayala-Maze procedure with complete left and right sided lesion sets and suture ligation of the base of the left atrial appendage. Postoperative acute blood loss anemia, expected secondary to cardiopulmonary bypass, hemodilution and history of anemia. Sick sinus syndrome, symptomatic bradycardia POD #1 insertion of Medtronic dual-chamber permanent pacemaker by Dr. Traylor The patient was seen and examined this morning sitting up in recliner in the intensive care unit in no acute distress. She does complain of some pain at her pacemaker insertion site, denies shortness of breath. Appears to be in atrial flutter with heart rate 59, currently on room air with oxygen saturation in the mid 90s, hemodynamically stable. Ventricular epicardial pacemaker wires remain, grounded, all other lines and tubes have been discontinued. Patient has ambulated with assistance. Labs, chest x-ray reviewed. No other new concerns. Objective - Vital Signs Vital signs: Vital Signs Temp 98.2 F 08/05/24 04:00 Pulse 60 08/05/24 07:00 Resp 21 08/05/24 07:00 BP 105/60 08/05/24 07:00 Pulse Ox 100 08/05/24 07:00 FiO2 40 07/30/24 18:15 Intake & Output 08/04/24 08/05/24 08/05/24 18:59 06:59 18:59 Intake Total 545 940 50 Output Total 340 300 0 Balance 205 640 50 Weight 60.6 kg Intake: IV 305 Intake, IV Titration 600 50 Amount Clindamycin 900 mg In 50 Dextrose 5% in Water 50 ml @ 50 mls/hr IVPB ONCE PRN Rx#:[id number] Sodium Chloride 0.9% 1, 550 50 000 ml @ 50 mls/hr IV . Q20H [facility] Rx#:[id number] Oral 240 340 Output: Urine 340 300 0 Other: Voiding Method Bedpan Toilet # Voids 0 1 0 ABP, PAP, CO, CI - Last Documented Arterial Blood Pressure 112/57 - Exam CONSTITUTIONAL: Appears comfortable, cooperative, no acute distress RESPIRATORY: Lungs sounds diminished in the bases bilaterally. Respirations even, nonlabored. Currently on room air with oxygen saturation 96%. Able to achieve 1000 mL on incentive spirometry. Strong cough. CARDIOVASCULAR: S1, S2 present. Regular rate and rhythm, slow a flutter on telemetry. Sternum stable. Palpable peripheral pulses bilaterally. Lateral lower extremity edema present. No calf pain or tenderness noted. Heart hugger in place with patient demonstrating appropriate use. Antiembolism stockings, SCDs present. GASTROINTESTINAL: Abdomen soft, nontender, nondistended. Active bowel sounds present 4 quadrants. Tolerating diet. Positive bowel movement 08/03 GENITOURINARY: Continues to void INTEGUMENTARY: Skin is warm and dry with evidence of good perfusion. Anterior chest incision well approximated and covered with dry intact dressing. Left anterior chest pacemaker site covered with dry intact dressing NEUROLOGIC: Cranial nerves II through XII intact MUSKULOSKELETAL: Able to move all extremities, strength equal bilaterally, gait normal PSYCHIATRIC: Alert and oriented to person place and time, appropriate affect, intact judgment and insight INVASIVE LINES AND TUBES: 2 sets of Ventricular epicardial pacemaker wires present, grounded - Allied health notes Allied health notes reviewed: nursing - Labs CBC & Chem 7: 08/05/24 05:25 08/05/24 05:25 Labs: Abnormal Lab Results - Last 24 Hours (Table) 08/04/24 08/04/24 08/04/24 Range/Units 11:19 15:53 20:03 RBC (3.80-5.40) m/uL Hgb (11.4-16.0) gm/dL Hct (34.0-46.0) % MCV (80.0-100.0) fL Sodium (137-145) mmol/L Chloride (98-107) mmol/L BUN (7-17) mg/dL Creatinine (0.52-1.04) mg/dL POC Glucose (mg/dL) 58 L 57 L 118 H (70-110) mg/dL Calcium (8.4-10.2) mg/dL 08/05/24 08/05/24 Range/Units 05:25 05:25 RBC 2.52 L (3.80-5.40) m/uL Hgb 8.4 L (11.4-16.0) gm/dL Hct 25.3 L (34.0-46.0) % MCV 100.4 H (80.0-100.0) fL Sodium 126 L (137-145) mmol/L Chloride 93 L (98-107) mmol/L BUN 28 H (7-17) mg/dL Creatinine 1.08 H (0.52-1.04) mg/dL POC Glucose (mg/dL) (70-110) mg/dL Calcium 8.1 L (8.4-10.2) mg/dL - Imaging and Cardiology Chest x-ray: report reviewed, image reviewed Assessment and Plan Assessment: Moderate mitral regurgitation, status post mitral valve repair Severe tricuspid regurgitation, status post tricuspid valve repair Mild aortic valvular insufficiency Chronic atrial fibrillation with marked biatrial dilation, status post modified Ayala-Maze and suture ligation of the left atrial appendage Patent foramen ovale, status post closure Postoperative acute blood loss anemia, expected Sick sinus syndrome, symptomatic bradycardia, status post insertion of Medtronic dual-chamber permanent pacemaker by Dr. Traylor History of hypertension Rheumatoid arthritis Syncope CVA in 2014 with no residual deficits, TIA in 2006 Sjogren's disease Lupus Anemia Legally blind s/p corneal transplants Lifelong non-smoker Family history of premature coronary artery disease with father having open heart in his 40s Plan: Continue to maximize medical therapy with low-dose aspirin and statin. Will res tart low-dose beta-sharita with hold parameters Continue Cozaar for afterload reduction with hold parameters, decreased to 12.5 mg today Encourage incentive spirometry use 10 times every hour while awake. Bronchodilators per pulmonology. Increase activity, ambulate as tolerated. PT/OT/cardiac rehab following. Will monitor daily labs and chest x-rays. Electrolyte replacement per protocol. Continue IV Lasix twice daily with supplemental potassium Continue home eyedrops GI/DVT prophylaxis Continue to monitor and record strict accurate intake and output. May bladder scan every 6 hours and as needed postvoid residual, if greater than 300 mL PVR may straight cath. Pain control per current medication regimen. Insulin management per internal medicine, patient needs tight blood sugar contr ol to prevent infection. Preoperative hemoglobin A1c 5.9%. Will discontinue epicardial pacemaker wires after permanent pacemaker has been interrogated Will place transfer orders for 3 S. cardiac stepdown unit, may transfer when bed available Discharge planning in progress, anticipate discharge to inpatient rehab if accepted, if not will discharge to home with home care More recommendations to follow based on patient's clinical course
--- NOTE | 2024-08-05 09:40 | US ---
EXAMINATION TYPE: US chest DATE OF EXAM: 08/05/2024 COMPARISON: XR(08/05/2024) CLINICAL INDICATION: Female, 78 years old with history of Markings for thoracentesis by pulmonary sta ff; pleural effusions. TECHNIQUE: Grayscale imaging of the chest. Targeted ultrasound of the posterior lower FINDINGS: EXAM MEASUREMENTS: Right Pleural Effusion pocket size: Lung flapping within small pocket of fluid, not enough to safely drain Left Pleural Effusion pocket size: not enough fluid to safely drain Pulmonologists are able to review the images in the patient?s EMR. Small amount of bilateral pleural effusions on images obtained with lung atelectasis correlate with x -ray IMPRESSIONS: As above. [facility], , 08/05/2024 9:37 AM
[2024-08-05 11:01] LABS: Glucose,Whole Blood 94 mg/dL (70-110)
[2024-08-05] MEDS: APIXABAN 2.5 MG TABLET PO SCH (11:36)
[2024-08-05] MEDS: METOPROLOL TARTRATE 12.5 MG TAB PO SCH (11:36)
[2024-08-05] MEDS: FUROSEMIDE 10 MG/ML 2 ML VIAL IV ONE (11:36)
[2024-08-05] MEDS: LOSARTAN 25 MG TAB PO SCH (11:42)
--- NOTE | 2024-08-05 12:04 | P.CONS ---
History of Present Illness - Reason for Consult Consult date: 08/05/24 Rehab recommendations - Chief Complaint Cardiac Debility - History of Present Illness Ms. Rica Estrella is a 78-year-old female who lives with her spouse in a SS home with 3 steps to enter in [place]. Patient was independent prior to admission, is able to assist. She does have a daughter. Patient presented to the hospital on 07/30/24, known history of Moderate mitral regurgitation, severe tricuspid regurgitation, mild aortic valvular insufficiency, chronic atrial fibrillation with marked biatrial dilation, patent foramen ovale. Previous medical history of hypertension, rheumatoid arthritis, syncope, CVA in 2014 with no residual deficits, TIA in 2006, Sjogren's disease, lupus, anemia, legally blind s/p corneal transplants, lifelong non-smoker, family history of premature coronary artery disease with father having open heart in his 40s. On 07/30/24 patient underwent Mitral valve annuloplasty with 26 mm physio 2 ring, tricuspid valve annuloplasty with 26 mm MC 3 band, closure of patent foramen ovale, modified Ayala-Maze procedure with ligation of the base of the left atrial appendage. Postoperative she had acute blood loss anemia, expected secondary to cardiopulmonary bypass, hemodilution and history of anemia. She had symptomatic bradycardia, Sick sinus syndrome. On 08/04/24 PMR attempted to see patient but she was off the floor for a Medtronic dual-chamber permanent pacemaker insertion by Dr. Traylor. Patient is pending therapy re-evaluation. On 07/31/24 she was total assist with therapies and not ambulating. Today, 08/04/24, notes can be SOB with activity, has incisional chest pain, pain with sitting. She is legally blind. Denies PALOMINO, SOB at rest, CP o/w. Last BM am. She'd like to go back to [place] area if able, but notes no inpatient type therapies. Review of Systems ROS reviewed, documented above in HPI. 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 states she passed out 04/30/24 after eye examination and long day of travel - estimates LOC 2 minutes, fatigue, weakness, SOB w/exertion, surgery was rescheduled History of Any Multi-Drug Resistant Organisms: None Reported Past Surgical History: Heart Catheterization, Hysterectomy Additional Past Surgical History / Comment(s): Bilat. corneal transplants, rectocele repair Past Anesthesia/Blood Transfusion Reactions: No Reported Reaction Additional Past Anesthesia/Blood Transfusion Reaction / Comm: no hx. of transfusion reactions Smoking Status: Never smoker - Past Family History Father Family Medical History: Coronary Artery Disease (CAD) Additional Family Medical History / Comment(s): CABG 3 times during lifetime, bypass and valve repairs Mother Family Medical History: Hypertension Medications and Allergies Home Medications Medication Instructions Recorded Confirmed Type Apixaban [Eliquis] 2.5 mg PO BID 05/06/24 07/28/24 History Artificial Tears-Hypromellose 2 drops BOTH EYES DIRECTED 05/06/24 07/28/24 History [Artificial Tear Drops] Ascorbic Acid [Vitamin C] 500 mg PO DAILY 05/06/24 07/28/24 History Cholecalciferol [Vitamin D3 (25 25 mcg PO DAILY 05/06/24 07/28/24 History Mcg = 1000 Iu)] Collagen/Biotin/Ascorbic Acid 1 each PO DAILY 05/06/24 07/28/24 History [Collagen 1500 Plus C Capsule] Furosemide [Lasix] 20 mg PO DAILY 05/06/24 07/28/24 History Losartan [Cozaar] 100 mg PO DAILY 05/06/24 07/28/24 History Potassium Chloride ER [K-Dur 10] 10 meq PO DAILY 05/06/24 07/28/24 History Sodium Chloride 5% Ophth Oint 1 dose BOTH EYES BID 05/06/24 07/28/24 History [Ayleen 128] Super 8 Greens 1 dose PO DAILY 05/06/24 07/28/24 History Timolol [Betimol 0.5% Ophth Soln] 1 drop RIGHT EYE HS 05/06/24 07/28/24 History amLODIPine BESYLATE 10 mg PO DAILY 05/06/24 07/28/24 History atenoloL [Tenormin] 25 mg PO BID 05/06/24 07/28/24 History prednisoLONE acetate [Pred Mild] 1 drop BOTH EYES TID 05/06/24 07/28/24 History valACYclovir HCL [Valtrex] 500 mg PO DAILY 05/06/24 07/28/24 History Cetirizine HCl [Zyrtec] 10 mg PO HS 07/14/24 07/28/24 History Famotidine [Pepcid] 40 mg PO DAILY 07/14/24 07/28/24 History diphenhydrAMINE [Benadryl] 25 mg PO BID PRN 07/14/24 07/28/24 History Allergies Allergy/AdvReac Type Severity Reaction Status Date / Time Beef Containing Products Allergy Nausea & Verified 07/30/24 06:16 [Beef] Vomiting codeine Allergy Nausea & Verified 07/30/24 06:16 Vomiting erythromycin base Allergy Rash/Hives Verified 07/30/24 06:16 gluten Allergy GI upset Verified 07/30/24 06:16 hydrocodone [From Vicodin] Allergy Nausea & Verified 07/30/24 06:16 Vomiting ibuprofen Allergy Rash/Hives Verified 07/30/24 06:16 meperidine [From Demerol] Allergy Unknown Verified 07/30/24 06:16 Penicillins Allergy Rash/Hives Verified 07/30/24 06:16 Pork/Porcine Containing Allergy Nausea & Verified 07/30/24 06:16 Products Vomiting [Pork] Sulfa (Sulfonamide Allergy Rash/Hives Verified 07/30/24 06:16 Antibiotics) tramadol [From Ultram] Allergy Rash/Hives Verified 07/30/24 06:16 aspirin AdvReac Unknown Verified 07/30/24 06:16 hand reclamation kettle tender Allergy Rash/Hives Uncoded 07/30/24 06:16 Physical Exam Vitals: Vital Signs Temp Pulse Resp BP Pulse Ox 08/04/24 12:00 98.3 F 80 12 134/82 98 08/04/24 11:58 82 08/04/24 11:48 80 08/04/24 11:00 120 H 16 134/82 98 08/04/24 10:00 78 17 134/82 96 08/04/24 09:21 79 08/04/24 09:13 92 L 08/04/24 09:11 80 02/25/25 09:00 80 6 L 134/82 90 L 08/04/24 08:00 98.1 F 92 10 L 134/82 97 08/04/24 07:00 80 18 134/82 98 08/04/24 06:00 105 H 24 134/82 98 08/04/24 05:00 80 25 H 135/73 98 08/04/24 04:00 97.8 F 81 19 104/83 98 08/04/24 03:00 80 22 125/77 96 08/04/24 02:00 83 22 129/79 97 08/04/24 00:00 80 18 157/80 95 08/03/24 23:11 84 21 157/80 99 08/03/24 23:00 79 23 157/80 95 08/03/24 22:00 78 18 138/94 98 08/03/24 21:00 80 15 120/84 98 08/03/24 20:00 98.0 F 82 24 127/74 98 08/03/24 19:00 80 16 114/70 97 08/03/24 18:00 80 19 125/76 97 08/03/24 17:00 80 25 H 110/72 97 08/03/24 16:00 98.4 F 82 17 124/68 96 08/03/24 15:00 80 17 125/75 98 08/03/24 14:00 80 19 105/66 96 Intake and Output 08/03/24 08/04/24 08/04/24 22:59 06:59 14:59 Intake Total 490 Output Total 435 250 250 Balance 55 -250 -250 Intake: Oral 490 Output: Urine 300 250 250 Post Void Residual 135 Other: Voiding Method Indwelling Catheter Indwelling Catheter Indwelling Catheter # Voids 0 0 0 # Bowel Movements 1 Weight 86.6 kg General: Well-developed, well-nourished, female, in no acute distress HEENT: NC/AT, external ears intact, hearing intact to conversational speech, neck supple Cardiovascular: B/L calves are supple, nontender, no cords, no cardiac distress; regular rate Respiratory: Even and unlabored breathing on RA Abdomen: Soft, nontender, nondistended Musculoskeletal: ROM WFL EXCEPT: shoulders not tested secondary to cardiac/pacemaker precautions. MMT 4/5 bilateral new business clerk, EE/EF, HF; 5/5 bilateral KE/DF Skin: Skin intact where visible to head, neck, and bilateral upper and lower extremities; incisions with dressing in place Neurological: Alert and oriented x 4. CN II-XII: Grossly intact except decreased vision. Speech is clear, fluent Coordination: finger to nose and heel to smyth intact. Sensation: Light touch intact bilateral UE/LE Psychiatric: Mood calm, affect appropriate, cooperative. Results CBC & Chem 7: 08/05/24 05:25 08/05/24 05:25 Labs: Abnormal Lab Results - Last 24 Hours (Table) 07/31/24 08/03/24 08/04/24 Range/Units 05:09 13:27 05:36 RBC (3.80-5.40) m/uL Hgb (11.4-16.0) gm/dL Hct (34.0-46.0) % Sodium 127 L (137-145) mmol/L Chloride 95 L (98-107) mmol/L BUN 24 H (7-17) mg/dL POC Glucose (mg/dL) 129 H 54 L (70-110) mg/dL Calcium 8.3 L (8.4-10.2) mg/dL Total Bilirubin 1.4 H (0.2-1.3) mg/dL AST 46 H (14-36) U/L Total Protein 5.7 L (6.3-8.2) g/dL Albumin 3.0 L (3.5-5.0) g/dL 08/04/24 08/04/24 08/04/24 Range/Units 05:36 06:17 11:19 RBC 3.00 L (3.80-5.40) m/uL Hgb 9.7 L (11.4-16.0) gm/dL Hct 30.0 L (34.0-46.0) % Sodium (137-145) mmol/L Chloride (98-107) mmol/L BUN (7-17) mg/dL POC Glucose (mg/dL) 47 L* 58 L (70-110) mg/dL Calcium (8.4-10.2) mg/dL Total Bilirubin (0.2-1.3) mg/dL AST (14-36) U/L Total Protein (6.3-8.2) g/dL Albumin (3.5-5.0) g/dL Assessment and Plan Assessment: #Cardiopulmonary debility secondary to Mitral valve regurgitation, status post mitral valve annuloplasty, status post tricuspid valve annuloplasty, ligation of the base of the left atrial appendage #Patent foramen ovale, closure of patent foramen ovale #Impaired gait and ADLs secondary to above #Postoperative acute blood loss anemia and thrombocytopenia, expected given hemodilution, cardiopulmonary bypass and preoperative history of anemia #Slow ventricular response s/p permanent pacemaker placement -pacemaker precautions # Pain Management -Tylenol prn #DVT proph -Arixtra #Comorbidities: History of hypertension, Rheumatoid arthritis, History of syncope, History of CVA in 2014 with no residual deficits, Sjogren's disease, Eye disorder, Lupus #Your medical dx and mgt Discharge recommendation: Patient is pending new therapy evaluations, she was previously needing total assist. She would likely benefit from IPR services, has good support and motivated. Anticipate recommending IPR for continued rehab (pending new therapy evaluations) Consult prepared by Drea Novak PA-C, patient seen and examined by Dr. Crandall nherr Thank you for this consultation.
--- NOTE | 2024-08-05 14:20 | P.PN ---
Subjective Progress Note Date: 08/05/24 No new complaints today. Gen: In NAD, non-toxic HEENT: normocephalic, atraumatic, hearing acuity is intant, mucous membranes moist CVS: perfusing all extremities well, no pitting edema, Respiratory: symmetric chest expansion, no accessory muscle use, GI: soft, NTTP, ND, : no suprapubic tenderness, no CVA tenderness MSK/Derm: no rashes, cyanosis Neuro: CN II-XII intact, no motor weakness, Hospital Course: 78-year-old woman with medical history of hypertension, hyperlipidemia, glauc yolande, valvular atrial fibrillation with mitral/tricuspid valve regurgitation who presented for mitral valve repair and tricuspid valve annuloplasty as well as PFO closure and modified Ayala-Maze procedure. Medicine was consulted for medical management. Patient was afebrile, 137/64, 96% oxygen saturation on 4 L nasal cannula, pulse rate is 80 with AV paced rhythm. CBC shows hemoglobin of 7.8, platelets of 79. Basic metabolic panel is unremarkable. Magnesium is 2.5. Liver function tests show mild elevation of AST of 94, otherwise unremarkable. Patient's blood sugars are well-controlled and was titrated off of her insulin drip. Assessment/plan: Hyperglycemia - ACHS glucose checks and LD-SSI - have not been given due to episodes of hypoglycemia -encourage oral intake -D50 PRN for hypoglycemia - A1c is 5.7%, no need for medications for DM on discharge Hyponatremia -Likely secondary to SIADH in the settings of recent surgery -Monitor BMP, continued on Lasix 20 mg IV twice daily, additional Lasix 20 given today -Agree with fluid restriction 1500 cc Bloating -simethicone added Valvular A Fib s/p mitral/tricuspid valve repair/annuluplasty, POD 1 Ongoing AV block Thrombocytopenia, improving - management per primary team and cardiology - currently on aspirin 81mg daily, atorvastatin 40mg daily - RAYMUNDO panel negative -RPR following, pending therapy reevaluation -Transfer [facility] pending bed availability Pt is full code DVT PPx with fondaparinux Objective - Vital Signs Vital signs: Vital Signs Temp 98.5 F 08/05/24 11:00 Pulse 59 L 08/05/24 13:00 Resp 21 08/05/24 13:00 BP 119/63 08/05/24 13:00 Pulse Ox 98 08/05/24 13:00 FiO2 40 07/30/24 18:15 Intake & Output 08/04/24 08/05/24 08/05/24 18:59 06:59 18:59 Intake Total 545 940 436 Output Total 340 300 200 Balance 205 640 236 Weight 60.6 kg Intake: IV 305 Intake, IV Titration 600 50 Amount Clindamycin 900 mg In 50 Dextrose 5% in Water 50 ml @ 50 mls/hr IVPB ONCE PRN Rx#:[id number] Sodium Chloride 0.9% 1, 550 50 000 ml @ 50 mls/hr IV . Q20H [facility] Rx#:[id number] Oral 240 340 386 Output: Urine 340 300 200 Other: Voiding Method Bedpan Toilet Toilet # Voids 0 1 0 # Bowel Movements 1 ABP, PAP, CO, CI - Last Documented Arterial Blood Pressure 112/57 - Labs CBC & Chem 7: 08/05/24 05:25 08/05/24 05:25 Labs: Abnormal Lab Results - Last 24 Hours (Table) 08/04/24 08/04/24 08/05/24 Range/Units 15:53 20:03 05:25 RBC 2.52 L (3.80-5.40) m/uL Hgb 8.4 L (11.4-16.0) gm/dL Hct 25.3 L (34.0-46.0) % MCV 100.4 H (80.0-100.0) fL Sodium (137-145) mmol/L Chloride (98-107) mmol/L BUN (7-17) mg/dL Creatinine (0.52-1.04) mg/dL POC Glucose (mg/dL) 57 L 118 H (70-110) mg/dL Calcium (8.4-10.2) mg/dL 08/05/24 Range/Units 05:25 RBC (3.80-5.40) m/uL Hgb (11.4-16.0) gm/dL Hct (34.0-46.0) % MCV (80.0-100.0) fL Sodium 126 L (137-145) mmol/L Chloride 93 L (98-107) mmol/L BUN 28 H (7-17) mg/dL Creatinine 1.08 H (0.52-1.04) mg/dL POC Glucose (mg/dL) (70-110) mg/dL Calcium 8.1 L (8.4-10.2) mg/dL
--- NOTE | 2024-08-05 15:27 | P.PN ---
Subjective PROGRESS NOTE The patient is a 78-year-old female, followed by Dr. Cardenas who had significant mitral and tricuspid regurgitation. She underwent mitral valve repair with size 28 physio 2 ring and tricuspid valve annuloplasty size 28 with closure of patent foramen ovale and modified Ayala-Maze procedure. Patient has history of atrial fibrillation. She is extubated, sitting up in the chair, appears to be weak but denies any chest discomfort except incisional pain. She has no history of CAD by cardiac catheterization. She is on no vasopressors and she has good urinary output. She has a prior history of TIA. Her left ventricular systolic function was preserved in the past. She is paced 100% at this time August 01 She feels better today, stronger. She continues to be in atrial fibrillation with 100% pacing and slow ventricular response. She is on no vasopressors. She is hemodynamically stable with good urinary output. There is no evidence of ventricular ectopic activity. There is no nausea or vomiting. August 02: The patient feels stronger today she denies any chest discomfort, dizziness or palpitations. She continues to be in atrial fibrillation with very slow ventricular response requiring temporary pacemaker activity. She is on no vasopressors and hemodynamically stable otherwise. Her urinary output has been good. She is using her incentive spirometry. 08/03 patient seen and examined. Patient admits to pain all over. Denies any chest pain or pressure. No significant shortness breath. She has still dependent on her pacemaker with heart rates in the 40s and her pacemaker is weaned. She did state she does not want general anesthesia. 08/04 Patient seen and examined. Patient still admits to generalized pain and weakness however no specific chest pain or pressure. No significant shortness of breath. Remains dependent on the pacemaker with heart rates in the 40s and below 50s when pacemaker stopped. Scheduled for pacemaker today. 08/05 Patient seen and examined. Patient underwent permanent pacemaker placement yesterday from the left subclavian approach. She denies any chest pain or pressure. She did have some shortness of breath. She did have some urinary retention and a Finch catheter was placed however has had minimal urine output despite IV Lasix. She admits she has not been eating or drinking much and is on a fluid restriction. PHYSICAL EXAMINATION: Vitals reviewed LUNGS: Clear to auscultation HEART: Regular rate and rhythm, paced, S1, S2. No S3. Systolic murmur at the base ABDOMEN: Soft, nontender, no organomegaly EXTREMETIES: No edema IMPRESSION: 1. Status post mitral and tricuspid valve repair 2. Atrial fibrillation status post Maze procedure 3. Slow ventricular response requiring temporary pacemaker at this point, if she continues to be bradycardic then a permanent pacemaker can be implanted tomorrow. 4. History of pulmonary hypertension 5. Sick sinus syndrome, s/p dual chamber permanent pacemaker 6. Hyponatremia 7. Dyspnea PLAN: Patient with some dyspnea of unclear etiology which she states may be mildly worse yesterday. Suspect mainly related to still recovering. Continue Lasix and monitor response however patient has not been eating or drinking much and may actually need some IV fluids. Worsening hyponatremia. Consider nephrology evaluation if continues to worsen. Chest x-ray showing readout of bilateral effusions however a component of atelectasis and chest ultrasound not showing enough effusion to drain. Continue with incentive spirometry. Further recommendations to follow. Objective - Vital Signs Vital signs: Vital Signs Temp 98.5 F 08/05/24 11:00 Pulse 59 L 08/05/24 15:08 Resp 26 H 08/05/24 15:08 BP 109/58 08/05/24 15:08 Pulse Ox 98 08/05/24 15:08 FiO2 40 07/30/24 18:15 Intake & Output 08/04/24 08/05/24 08/05/24 18:59 06:59 18:59 Intake Total 267 494 5299 Output Total 340 300 300 Balance 205 640 726 Weight 60.6 kg Intake: IV 305 Intake, IV Titration 600 50 Amount Clindamycin 900 mg In 50 Dextrose 5% in Water 50 ml @ 50 mls/hr IVPB ONCE PRN Rx#:[id number] Sodium Chloride 0.9% 1, 550 50 000 ml @ 50 mls/hr IV . Q20H SHEILA Rx#:[id number] Oral 240 340 976 Output: Urine 340 300 300 Other: Voiding Method Bedpan Toilet Toilet # Voids 0 1 0 # Bowel Movements 1 ABP, PAP, CO, CI - Last Documented Arterial Blood Pressure 112/57 - Labs CBC & Chem 7: 08/05/24 05:25 08/05/24 05:25 Labs: Abnormal Lab Results - Last 24 Hours (Table) 08/04/24 08/04/24 08/05/24 Range/Units 15:53 20:03 05:25 RBC 2.52 L (3.80-5.40) m/uL Hgb 8.4 L (11.4-16.0) gm/dL Hct 25.3 L (34.0-46.0) % MCV 100.4 H (80.0-100.0) fL Sodium (137-145) mmol/L Chloride (98-107) mmol/L BUN (7-17) mg/dL Creatinine (0.52-1.04) mg/dL POC Glucose (mg/dL) 57 L 118 H (70-110) mg/dL Calcium (8.4-10.2) mg/dL 08/05/24 Range/Units 05:25 RBC (3.80-5.40) m/uL Hgb (11.4-16.0) gm/dL Hct (34.0-46.0) % MCV (80.0-100.0) fL Sodium 126 L (137-145) mmol/L Chloride 93 L (98-107) mmol/L BUN 28 H (7-17) mg/dL Creatinine 1.08 H (0.52-1.04) mg/dL POC Glucose (mg/dL) (70-110) mg/dL Calcium 8.1 L (8.4-10.2) mg/dL
[2024-08-05 15:47] LABS: Glucose,Whole Blood 120 mg/dL (70-110)
--- NOTE | 2024-08-05 15:48 | P.PN ---
Subjective Progress Note Date: 08/05/24 Principal diagnosis: POD #6 mitral valve annuloplasty with 26 mm physio 2 ring, tricuspid valve annuloplasty with 26 mm MC 3 band, closure of patent foramen ovale, modified Ayala-Maze procedure with complete left and right sided lesion sets and suture ligation of the base of the left atrial appendage. This is a 78-year-old female patient is being seen in the intensive care unit following cardiac surgery. The patient underwent mitral valve annuloplasty and tricuspid valve annuloplasty and closure of the PFO and modified Ayala-Maze procedure. Following that, the patient was brought in intubated on mechanical ventilator and the patient is currently in the intensive care unit. I saw the patient in the ICU. The patient is on propofol which is running at 20 mcg/kg/min and the patient is calm and comfortable. The patient is on assist- control mode of mechanical ventilation at rate of 12, tidal volume of 400, FiO2 at 100% with a PEEP of 5. Initial blood gas showed a pH of 7.38 with a pCO2 of 42 and pO2 of 429. FiO2 has been dropped down to 50%. The patient is calm and comfortable. Current cardiac rhythm is AV paced at a rate of 80. No pressors for now. The patient received a total of 1 unit of packed RBC, 1 unit of platelets and 2 units of fresh frozen plasma in the operating room. She has 2 mediastinal chest tube and 1 pleural chest tube and the outputs are minimal at this point in time. The chest x-ray that was done postop showed adequate expansion of both lungs. Chest tubes are all in place. The patient does not have any [place] catheter. The blood work shows a white cell count of 4.6, hemoglobin 8.6 and a platelet count of 70. The sodium is at 138, potassium is 4, bicarb is 25, elevated BUN is 11 with a creatinine of 0.5. LFTs are normal. The patient has adequate urine output. Hemodynamically stable. The patient is also afebrile. No other significant events since arrival to the intensive care unit. On 07/31/2024, the patient is being seen for a follow-up. The patient is awake and alert. The patient was extubated yesterday without any major difficulties and the patient currently is on 2 L of oxygen by nasal cannula. She is calm and comfortable. She is hemodynamically stable on no pressors. She is using the incentive spirometer. She is pulling approximately thousand on her I-S. She remains on a pacemaker, DDD, at a rate of 80. Underlying rhythm is sinus bradycardia. Chest tubes are still in place. The patient's mediastinal chest tube has produced approximately 850 cc over the past 24 hours. The left pleural chest tube is produced approximately 180 cc over the past 24 hours. Labs were reviewed. Hemoglobin 7.8, platelet count is at 79 and subcu heparin has been discontinued. HIT panel was ordered. Chest x-ray shows cardiomegaly, tubes are in good location. No diuretics were given. She is awake and alert and communicating. No other significant events overnight. On 08/01/2024, the patient is being seen for a follow-up. The patient is currently on 3 L of oxygen by nasal cannula and the patient is calm and comfortable. No significant respiratory distress. Chest tubes are still in place. A follow-up chest x-ray showed cardiomegaly with tubes being in stable location. The patient remains in normal sinus rhythm. The white cell close at 10 with a hemoglobin 7.5 and a platelet count of 93. BUN is 21 with a creatinine of 0.9 and sodium levels at 138 and a potassium level is at 3.5. Fee ling overall weak and lethargic. He is arousable and able to communicate. Using incentive spirometer. Pulling approximately 8000. The patient remains paced at a rate of 80. Underlying rhythm is atrial fibrillation with a slow rate. She was ordered a unit of packed RBC transfusion by the cardiothoracic team. She will be also given Lasix. Output from the chest tube include a total of 500 mL from mediastinal chest tube and a total of 100 mL from the pleural chest tubes. There is over the past 24 hours. On 08/02/2024, the patient is being seen for a follow-up. The patient is doing well. Sitting up in the chair. She remains DDD paced at rate of 80 and the underlying rhythm is bradycardia, sinus/A-fib. The patient remains hemodynamically stable. The patient is diuresing well with IV Lasix. Fluid balance is +513 over the past 24 hours. The patient continues to to be on treated of oxygen by nasal cannula with a pulse ox of 95%. Following approximately 8000 on the incentive spirometer. The patient is able to ambulate. Received a unit of packed RBC yesterday and hemoglobin is currently at 9.3. She remains on Lasix 20 mg IV every 12 hours. Left-sided chest tube still in place. No evidence of any air leak. No pneumothorax. Output has been in the order of 110 cc over the past 24 hours and recommend removing the left- sided chest tube. No other significant events overnight. Seen today on 08/03/2024, patient remains in the ICU as an overflow. Patient is presently on room air, sitting at the bedside recliner, does not seem to be in any form of distress. Patient is compliant with her incentive spirometry achieving over 750 mL and at x 1000 mL. Patient continues to have DDD paced rhythm heart rate 80 underlying rhythm is showing atrial fibrillation with a rate less than 50. She is hemodynamically stable, she is not requiring any inotropes or any pressors. Cardiothoracic surgery have cleared the patient to be transferred out of the ICU and I will do the same patient is obviously now overflow in the ICU. WBC is 8.5 hemoglobin is 9.7, sodium is a bit low at 127 BUN is 21 creatinine 0.7 chest x-ray is showing evidence of small right-sided pleural effusion and atelectasis patient did receive Lasix today with good response. Seen today on 08/04/2024, patient remains in the ICU as an overflow, on 2 L nasal cannula, not in any distress, chest x-ray continues to show small right-sided pleural effusion and atelectasis remains on Lasix 20 mg twice daily doing well with incentive spirometry, patient is fully paced, may require a permanent pacemaker implantation today by cardiology. Labs were all reviewed, sodium remains low at 127, CBC is relatively normal. Renal profile is normal. Patient was seen today on 08/05/2024, in the ICU as an overflow, but the patient is doing great. Sitting at the bedside recliner, does not seem to be in any distress, ultrasound of the chest was reviewed, not much pleural effusion to consider safe thoracentesis. And marking was not even placed. Patient is relatively asymptomatic, she is on room air, not in any distress. Already ambulating in the hallway with assistance. Chest x-ray showed mostly minimal basilar atelectasis. WBC count is 8.4 hemoglobin 8.4 sodium is drifting down to 126 potassium 4.5 her hyponatremia is most likely related to diuresis. Patient is on Lasix 20 mg twice daily. Objective - Vital Signs Vital signs: Vital Signs Temp 98.2 F 08/05/24 15:00 Pulse 59 L 08/05/24 15:08 Resp 26 H 08/05/24 15:08 BP 109/58 08/05/24 15:08 Pulse Ox 98 08/05/24 15:08 FiO2 40 07/30/24 18:15 Intake & Output 08/04/24 08/05/24 08/05/24 18:59 06:59 18:59 Intake Total 238 399 9462 Output Total 340 300 300 Balance 205 640 746 Weight 60.6 kg Intake: IV 305 20 Invasive Line 6 20 Intake, IV Titration 600 50 Amount Clindamycin 900 mg In 50 Dextrose 5% in Water 50 ml @ 50 mls/hr IVPB ONCE PRN Rx#:[id number] Sodium Chloride 0.9% 1, 550 50 000 ml @ 50 mls/hr IV . Q20H SHEILA Rx#:[id number] Oral 240 340 976 Output: Urine 340 300 300 Other: Voiding Method Bedpan Toilet Toilet # Voids 0 1 0 # Bowel Movements 1 ABP, PAP, CO, CI - Last Documented Arterial Blood Pressure 112/57 - Exam CONSTITUTIONAL: Revealed a 78-year-old female in no distress, on room air HEENT: Neck is supple, no JVD, no lymphadenopathy. RESPIRATORY: Good breath sound bilaterally diminished at the right base CARDIOVASCULAR: Regular rhythm and rate. S1 and S2 present, negative for S3, gallop or murmur. GASTROINTESTINAL: Soft nontender no rebound no guarding INTEGUMENTARY: Skin is warm and dry NEUROLOGIC: Alert oriented x 3 no gross focal deficit MUSKULOSKELETAL: No deformities and no limitation range of motion PSYCHIATRIC: Normal mood affect and no mental status examination - Labs CBC & Chem 7: 08/05/24 05:25 08/05/24 05:25 Labs: Abnormal Lab Results - Last 24 Hours (Table) 08/04/24 08/04/24 08/05/24 Range/Units 15:53 20:03 05:25 RBC 2.52 L (3.80-5.40) m/uL Hgb 8.4 L (11.4-16.0) gm/dL Hct 25.3 L (34.0-46.0) % MCV 100.4 H (80.0-100.0) fL Sodium (137-145) mmol/L Chloride (98-107) mmol/L BUN (7-17) mg/dL Creatinine (0.52-1.04) mg/dL POC Glucose (mg/dL) 57 L 118 H (70-110) mg/dL Calcium (8.4-10.2) mg/dL 08/05/24 Range/Units 05:25 RBC (3.80-5.40) m/uL Hgb (11.4-16.0) gm/dL Hct (34.0-46.0) % MCV (80.0-100.0) fL Sodium 126 L (137-145) mmol/L Chloride 93 L (98-107) mmol/L BUN 28 H (7-17) mg/dL Creatinine 1.08 H (0.52-1.04) mg/dL POC Glucose (mg/dL) (70-110) mg/dL Calcium 8.1 L (8.4-10.2) mg/dL Assessment and Plan Assessment: Impression: Postoperative day #6 Mitral valve regurgitation, status post mitral valve annuloplasty with a 26 mm physio 2 ring Severe tricuspid valve regurgitation, status post tricuspid valve annuloplasty with a 26 mm MC 3 band Chronic atrial fibrillation, status post modified Ayala-Maze procedure with complete left and right sided lesion sets and suture ligation of the base of the left atrial appendage Patent foramen ovale, closure of patent foramen ovale History of hypertension Rheumatoid arthritis History of syncope History of CVA in 2014 with no residual deficits Sjogren's disease Eye disorder Lupus Lifetime non-smoker Hypovolemic hyponatremia most likely secondary to diuretics Status post insertion of dual-chamber permanent pacemaker on 08/04/2024 for what seems to be a sick sinus syndrome and symptomatic bradycardia Recommendation: Continue present supportive care measures Maximize medical therapy Consider holding Lasix Continue GI DVT prophylaxis Ultrasound of the chest was reviewed, not enough fluid to consider thoracentesis Continue incentive spirometry Ambulate and will continue to follow Time with Patient: Less than 30
[2024-08-05 20:18] LABS: Glucose,Whole Blood 130 mg/dL (70-110)
--- NOTE | 2024-08-06 06:41 | XR ---
EXAMINATION TYPE: XR chest 2V DATE OF EXAM: 08/06/2024 6:30 AM COMPARISON: Chest x-ray from one day earlier CLINICAL INDICATION: Female, 78 years old with history of post cardiac surgery, TECHNIQUE: Frontal and lateral views of the chest are obtained. FINDINGS: Persistent cardiomegaly with ectatic and atherosclerotic thoracic aorta and central vascula r congestion. Persistent dual-lead pacemaker. Persistent 2 level cardiac valve surgical change. Small bilateral pleural effusions and associated bibasilar opacity are redemonstrated. The osseous st ructures are intact. IMPRESSION: Stable cardiomegaly with Central vascular congestion and small sized bilateral pleural ef fusions and bibasilar opacities favoring compressive atelectasis. No significant change from one day earlier. [facility], , 08/06/2024 6:39 AM
[2024-08-06 06:46] LABS: Glucose,Whole Blood 113 mg/dL (70-110)
[2024-08-06 08:42] LABS: African American GFR (CKD) 70 (>60 ml/min/1.73 sqM); Anion Gap 11 mmol/L; Blood Urea Nitrogen 32 mg/dL (7-17); Calcium 8.1 mg/dL (8.4-10.2); Carbon Dioxide 22 mmol/L (22-30); Chloride 93 mmol/L (98-107); Glucose 119 mg/dL (74-99); Non-African American GFR(CKD) 61 (>60 ml/min/1.73 sqM); Sodium 126 mmol/L (137-145)
[2024-08-06 08:44] LABS: Magnesium 1.7 mg/dL (1.6-2.3); Potassium 5.6 mmol/L (3.5-5.1)
[2024-08-06] MEDS: valACYclovir HCL 500 MG TAB PO SCH (09:40)
[2024-08-06 09:54] LABS: HCT 27.3 % (34.0-46.0); HGB 8.5 gm/dL (11.4-16.0); Hypochromasia Slight; MCH 31.2 pg (25.0-35.0); MCHC 31.3 g/dL (31.0-37.0); MCV 99.8 fL (80.0-100.0); Macrocytosis Slight; Mean Platelet Volume 7.8; Platelet Count 294 k/uL (150-450); RBC 2.73 m/uL (3.80-5.40); RDW 14.6 % (11.5-15.5); WBC 13.8 k/uL (3.8-10.6)
--- NOTE | 2024-08-06 10:09 | P.PN ---
Subjective Progress Note Date: 08/06/24 Principal diagnosis: Moderate mitral regurgitation, severe tricuspid regurgitation, mild aortic valvular insufficiency, chronic atrial fibrillation with marked biatrial dilation, patent foramen ovale. Previous medical history of hypertension, rheumatoid arthritis, syncope, CVA in 2014 with no residual deficits, TIA in 2006, Sjogren's disease, lupus, anemia, legally blind s/p corneal transplants, lifelong non-smoker, family history of premature coronary artery disease with fa ther having open heart in his 40s POD #7 Mitral valve annuloplasty with 26 mm physio 2 ring, tricuspid valve annuloplasty with 26 mm MC 3 band, closure of patent foramen ovale, modified Ayala-Maze procedure with complete left and right sided lesion sets and suture ligation of the base of the left atrial appendage. Postoperative acute blood loss anemia, expected secondary to cardiopulmonary bypass, hemodilution and history of anemia. Sick sinus syndrome, symptomatic bradycardia POD #2 insertion of Medtronic dual-chamber permanent pacemaker by Dr. Traylor The patient was seen and examined this morning sitting up in recliner on the cardiac stepdown unit in no acute distress. She does complain of some pain at her pacemaker insertion site, denies shortness of breath. Currently ventricular paced on telemetry, remains on room air with oxygen saturation in the mid 90s, hemodynamically stable. Patient has ambulated with assistance, had first postoperative shower this morning. Labs, chest x-ray reviewed. No other new concerns. Objective - Vital Signs Vital signs: Vital Signs Temp 98.3 F 08/06/24 09:30 Pulse 60 08/06/24 09:30 Resp 18 08/06/24 09:30 BP 133/75 08/06/24 09:30 Pulse Ox 97 08/06/24 09:30 FiO2 40 07/30/24 18:15 Intake & Output 08/05/24 08/06/24 08/06/24 18:59 06:59 18:59 Intake Total 1384 250 10 Output Total 500 400 Balance 884 -150 10 Weight 64.7 kg Intake: IV 20 10 10 Invasive Line 6 20 10 10 Intake, IV Titration 50 Amount Sodium Chloride 0.9% 1, 50 000 ml @ 50 mls/hr IV . Q20H SHEILA Rx#:[id number] Oral 1314 240 Output: Urine 500 400 Other: Voiding Method Toilet Toilet # Voids 0 1 # Bowel Movements 1 1 ABP, PAP, CO, CI - Last Documented Arterial Blood Pressure 112/57 - Exam CONSTITUTIONAL: Appears comfortable, cooperative, no acute distress RESPIRATORY: Lungs sounds diminished in the bases bilaterally. Respirations even, nonlabored. Currently on room air with oxygen saturation 96%. Able to achieve 1000 mL on incentive spirometry. Strong cough. CARDIOVASCULAR: S1, S2 present. Regular rate and rhythm, V-paced on telemetry. Sternum stable. Palpable peripheral pulses bilaterally. Bilateral lower extremity edema present. No calf pain or tenderness noted. Heart hugger in place with patient demonstrating appropriate use. Antiembolism stockings, SCDs present. GASTROINTESTINAL: Abdomen soft, nontender, nondistended. Active bowel sounds present 4 quadrants. Tolerating diet. Positive bowel movement 08/06 GENITOURINARY: Continues to void, 900 mL in the last 24 hours INTEGUMENTARY: Skin is warm and dry with evidence of good perfusion. Anterior chest incision well approximated and covered with dry intact dressing. Left anterior chest pacemaker site covered with dry intact dressing NEUROLOGIC: Cranial nerves II through XII intact MUSKULOSKELETAL: Able to move all extremities, strength equal bilaterally, gait normal PSYCHIATRIC: Alert and oriented to person place and time, appropriate affect, intact judgment and insight - Allied health notes Allied health notes reviewed: nursing - Labs CBC & Chem 7: 08/06/24 09:19 08/06/24 08:17 Labs: Abnormal Lab Results - Last 24 Hours (Table) 08/05/24 08/05/24 08/06/24 Range/Units 15:44 20:16 06:44 WBC (3.8-10.6) k/uL RBC (3.80-5.40) m/uL Hgb (11.4-16.0) gm/dL Hct (34.0-46.0) % Sodium (137-145) mmol/L Potassium (3.5-5.1) mmol/L Chloride (98-107) mmol/L BUN (7-17) mg/dL Glucose (74-99) mg/dL POC Glucose (mg/dL) 120 H 130 H 113 H (70-110) mg/dL Calcium (8.4-10.2) mg/dL 08/06/24 08/06/24 Range/Units 08:17 09:19 WBC 13.8 H (3.8-10.6) k/uL RBC 2.73 L (3.80-5.40) m/uL Hgb 8.5 L (11.4-16.0) gm/dL Hct 27.3 L (34.0-46.0) % Sodium 126 L (137-145) mmol/L Potassium 5.6 H (3.5-5.1) mmol/L Chloride 93 L (98-107) mmol/L BUN 32 H (7-17) mg/dL Glucose 119 H (74-99) mg/dL POC Glucose (mg/dL) (70-110) mg/dL Calcium 8.1 L (8.4-10.2) mg/dL - Imaging and Cardiology Chest x-ray: report reviewed, image reviewed Assessment and Plan Assessment: Moderate mitral regurgitation, status post mitral valve repair Severe tricuspid regurgitation, status post tricuspid valve repair Mild aortic valvular insufficiency Chronic atrial fibrillation with marked biatrial dilation, status post modified Ayala-Maze and suture ligation of the left atrial appendage Patent foramen ovale, status post closure Postoperative acute blood loss anemia, expected Sick sinus syndrome, symptomatic bradycardia, status post insertion of Medtronic dual-chamber permanent pacemaker by Dr. Traylor History of hypertension Rheumatoid arthritis Syncope CVA in 2014 with no residual deficits, TIA in 2006 Sjogren's disease Lupus Anemia Legally blind s/p corneal transplants Lifelong non-smoker Family history of premature coronary artery disease with father having open heart in his 40s Plan: Continue to maximize medical therapy with low-dose aspirin, statin, low-dose beta-sharita Continue Cozaar for afterload reduction with hold parameters Encourage incentive spirometry use 10 times every hour while awake. Bronchodila tors per pulmonology. Increase activity, ambulate as tolerated. PT/OT/cardiac rehab following. Will monitor daily labs and chest x-rays. Electrolyte replacement per protocol. Continue IV Lasix twice daily with supplemental potassium Continue home eyedrops GI/DVT prophylaxis Continue to monitor and record strict accurate intake and output. May bladder scan every 6 hours and as needed postvoid residual, if greater than 300 mL PVR may straight cath. Pain control per current medication regimen. Insulin management per internal medicine, patient needs tight blood sugar control to prevent infection. Preoperative hemoglobin A1c 5.9%. Discharge planning in progress, anticipate discharge to home with home care in the next 24 hours More recommendations to follow based on patient's clinical course
[2024-08-06] MEDS: CARDIOPLEGIC SOLN (K+ 16 MEQ/L 1,000 ML with SODIUM BICARB (1 MEQ/ML) 20 ML, LIDOCAINE ... PERFUSION ONE (11:03)
[2024-08-06] MEDS: CALCIUM CHLORIDE 100 MG/ML 10 ML SYRINGE IV ONE (11:03)
[2024-08-06] MEDS: ALBUMIN HUMAN 5% 500 ML IVPB ONE (11:03)
[2024-08-06] MEDS: ALBUMIN HUMAN 25% 50 ML IV ONE (11:03)
[2024-08-06] MEDS: CLEVIDIPINE BUTYRATE 25 MG in EMPTY BAG 1 BAG IV ONE (11:04)
[2024-08-06] MEDS: HEPARIN SODIUM 1,000 UN/ML (10ML VL) IV ONE (11:04)
[2024-08-06] MEDS: ceFAZolin 1,000 MG in SODIUM CHLORIDE 0.9% IRRIGATIO 1,000 ML IRRIGATION ONE (11:04)
[2024-08-06] MEDS: CHLORHEXIDINE GLUCONATE 15 ML CUP MUCOUS MEM ONE (11:04)
[2024-08-06] MEDS: MAGNESIUM SULFATE 16.24 MEQ in EMPTY SYRINGE 1 SYR IV ONE (11:06)
[2024-08-06] MEDS: MANNITOL 25% 12.5 GM/50 ML VIAL IV ONE (11:06)
[2024-08-06] MEDS: NITROGLYCERIN SL TABS 0.4 MG TAB SUBLINGUAL ONE (11:06)
[2024-08-06] MEDS: HEPARIN SODIUM,PORCINE (1 ML) 5,000 UNIT in SODIUM CHLORIDE 0.9% 500 ML 500 ML IV ONE (11:06)
[2024-08-06] MEDS: INSULIN REGULAR 100 UNIT in SODIUM CHLORIDE 0.9% 100 ML IV ONE (11:06)
[2024-08-06] MEDS: NITROGLYCERIN-D5W PMX 50 MG in DEXTROSE/WATER 1 250ML.BAG IV ONE (11:07)
[2024-08-06] MEDS: PHENYLEPHRINE 10 MG/ML VIAL IV ONE (11:07)
[2024-08-06] MEDS: NITROGLYCERIN-D5W PMX 25 MG/250 ML BTL IV ONE (11:07)
[2024-08-06] MEDS: PROTAMINE SULFATE 10 MG/ML 25 ML VIAL IV ONE (11:07)
[2024-08-06] MEDS: propofoL 1,000 MG/100 ML VIAL IV ONE (11:07)
[2024-08-06] MEDS: PHENYLEPHRINE 40 MG in SODIUM CHLORIDE 0.9% 250 ML IV ONE (11:07)
[2024-08-06] MEDS: NOREPINEPHRINE 4 MG in SODIUM CHLORIDE 0.9% 250 ML IV ONE (11:07)
[2024-08-06] MEDS: MUPIROCIN 2% OINT 22 GM TUBE NASAL ONE (11:08)
[2024-08-06] MEDS: TRANEXAMIC ACID 2,000 MG in SODIUM CHLORIDE 0.9% 80 ML IV ONE (11:08)
[2024-08-06] MEDS: SODIUM CHLORIDE 0.9% 1,000 ML IV ONE (11:08)
[2024-08-06] MEDS: PROTAMINE SULFATE 250 MG in EMPTY BAG 1 BAG IV ONE (11:08)
[2024-08-06] MEDS: SODIUM BICARB 8.4% 50 ML SYR (1 MEQ/ML) IV ONE (11:08)
[2024-08-06 11:35] LABS: Glucose,Whole Blood 151 mg/dL (70-110)
--- NOTE | 2024-08-06 14:26 | P.PN ---
Subjective Progress Note Date: 08/06/24 PROGRESS NOTE The patient is a 78-year-old female, followed by Dr. Cardenas who had significant mitral and tricuspid regurgitation. She underwent mitral valve repair with size 28 physio 2 ring and tricuspid valve annuloplasty size 28 with closure of patent foramen ovale and modified Ayala-Maze procedure. Patient has history of atrial fibrillation. She is extubated, sitting up in the chair, appears to be weak but denies any chest discomfort except incisional pain. She has no history of CAD by cardiac catheterization. She is on no vasopressors and she has good urinary output. She has a prior history of TIA. Her left ventricular systolic function was preserved in the past. She is paced 100% at this time August 01 She feels better today, stronger. She continues to be in atrial fibrillation with 100% pacing and slow ventricular response. She is on no vasopressors. She is hemodynamically stable with good urinary output. There is no evidence of ventricular ectopic activity. There is no nausea or vomiting. August 02: The patient feels stronger today she denies any chest discomfort, dizziness or palpitations. She continues to be in atrial fibrillation with very slow ventricular response requiring temporary pacemaker activity. She is on no vasopressors and hemodynamically stable otherwise. Her urinary output has been good. She is using her incentive spirometry. 08/03 patient seen and examined. Patient admits to pain all over. Denies any chest pain or pressure. No significant shortness breath. She has still dependent on her pacemaker with heart rates in the 40s and her pacemaker is weaned. She did state she does not want general anesthesia. 08/04 Patient seen and examined. Patient still admits to generalized pain and weakness however no specific chest pain or pressure. No significant shortness of breath. Remains dependent on the pacemaker with heart rates in the 40s and below 50s when pacemaker stopped. Scheduled for pacemaker today. 08/05 Patient seen and examined. Patient underwent permanent pacemaker placement yesterday from the left subclavian approach. She denies any chest pain or pressure. She did have some shortness of breath. She did have some urinary retention and a Finch catheter was placed however has had minimal urine output despite IV Lasix. She admits she has not been eating or drinking much and is on a fluid restriction. 08/06 Patient seen and examined. Patient has been transferred out of the intensive care unit and seen today on the cardiac stepdown unit. Blood pressure 107/60, heart rate 63, pulse ox 97% on room air. Telemetry is ventricularly paced rhythm. Repeat blood work reveals WBC 13.8, hemoglobin 8.5, BUN 32 and crea tinine 0.92. His sodium was 126, potassium 5.6. Chest x-ray reveals stable cardiomegaly with central vascular congestion and small size bilateral pleural effusions and bibasilar opacities favoring compressive atelectasis. Patient has been maintained on IV Lasix 20 mg twice daily. She did have a bloody nose however not significant and hemostasis achieved. PHYSICAL EXAMINATION: Vitals reviewed LUNGS: Clear to auscultation HEART: Regular rate and rhythm, paced, S1, S2. No S3. Systolic murmur at the base ABDOMEN: Soft, nontender, no organomegaly EXTREMETIES: No edema IMPRESSION: 1. Status post mitral and tricuspid valve repair 2. Atrial fibrillation status post Maze procedure 3. Slow ventricular response requiring temporary pacemaker followed by [employer] dual-chamber permanent pacemaker implantation 08/04. 4. History of pulmonary hypertension 5. Sick sinus syndrome, s/p dual chamber permanent pacemaker 6. Hyponatremia 7. Dyspnea PLAN: Continue current cardiac medications: Eliquis 2.5 mg twice daily, aspirin 81 mg daily, Lipitor, losartan 12.5 mg daily, Lopressor 12.5 mg twice daily Patient is maintained on IV Lasix 20 mg twice daily Continue with incentive spirometry. Further recommendations to follow. Nurse practitioner note has been reviewed, I agree with documented findings and plan of care. Patient was seen and examined. Objective - Vital Signs Vital signs: Vital Signs Temp 98.1 F 08/06/24 11:31 Pulse 63 08/06/24 11:31 Resp 18 08/06/24 11:31 BP 107/60 08/06/24 11:31 Pulse Ox 97 08/06/24 11:31 FiO2 40 07/30/24 18:15 Intake & Output 08/05/24 08/06/24 08/06/24 18:59 06:59 18:59 Intake Total 1384 250 250 Output Total 500 400 400 Balance 884 -150 -150 Weight 64.7 kg Intake: IV 20 10 10 Invasive Line 6 20 10 10 Intake, IV Titration 50 Amount Sodium Chloride 0.9% 1, 50 000 ml @ 50 mls/hr IV . Q20H [facility] Rx#:[id number] Oral 1314 240 240 Output: Urine 500 400 400 Other: Voiding Method Toilet Toilet Toilet # Voids 0 1 0 # Bowel Movements 1 1 1 ABP, PAP, CO, CI - Last Documented Arterial Blood Pressure 112/57 - Labs CBC & Chem 7: 08/06/24 09:19 08/06/24 08:17 Labs: Abnormal Lab Results - Last 24 Hours (Table) 08/05/24 08/05/24 08/06/24 Range/Units 15:44 20:16 06:44 WBC (3.8-10.6) k/uL RBC (3.80-5.40) m/uL Hgb (11.4-16.0) gm/dL Hct (34.0-46.0) % Sodium (137-145) mmol/L Potassium (3.5-5.1) mmol/L Chloride (98-107) mmol/L BUN (7-17) mg/dL Glucose (74-99) mg/dL POC Glucose (mg/dL) 120 H 130 H 113 H (70-110) mg/dL Calcium (8.4-10.2) mg/dL 08/06/24 08/06/24 08/06/24 Range/Units 08:17 09:19 11:33 WBC 13.8 H (3.8-10.6) k/uL RBC 2.73 L (3.80-5.40) m/uL Hgb 8.5 L (11.4-16.0) gm/dL Hct 27.3 L (34.0-46.0) % Sodium 126 L (137-145) mmol/L Potassium 5.6 H (3.5-5.1) mmol/L Chloride 93 L (98-107) mmol/L BUN 32 H (7-17) mg/dL Glucose 119 H (74-99) mg/dL POC Glucose (mg/dL) 151 H (70-110) mg/dL Calcium 8.1 L (8.4-10.2) mg/dL
--- NOTE | 2024-08-06 14:50 | P.PN ---
Subjective Progress Note Date: 08/06/24 Principal diagnosis: POD #7 mitral valve annuloplasty with 26 mm physio 2 ring, tricuspid valve annuloplasty with 26 mm MC 3 band, closure of patent foramen ovale, modified Ayala-Maze procedure with complete left and right sided lesion sets and suture ligation of the base of the left atrial appendage. This is a 78-year-old female patient is being seen in the intensive care unit following cardiac surgery. The patient underwent mitral valve annuloplasty and tricuspid valve annuloplasty and closure of the PFO and modified Ayala-Maze procedure. Following that, the patient was brought in intubated on mechanical ventilator and the patient is currently in the intensive care unit. I saw the patient in the ICU. The patient is on propofol which is running at 20 mcg/kg/min and the patient is calm and comfortable. The patient is on assist- control mode of mechanical ventilation at rate of 12, tidal volume of 400, FiO2 at 100% with a PEEP of 5. Initial blood gas showed a pH of 7.38 with a pCO2 of 42 and pO2 of 429. FiO2 has been dropped down to 50%. The patient is calm and comfortable. Current cardiac rhythm is AV paced at a rate of 80. No pressors for now. The patient received a total of 1 unit of packed RBC, 1 unit of platelets and 2 units of fresh frozen plasma in the operating room. She has 2 mediastinal chest tube and 1 pleural chest tube and the outputs are minimal at this point in time. The chest x-ray that was done postop showed adequate expansion of both lungs. Chest tubes are all in place. The patient does not have any Haworth-Patricia catheter. The blood work shows a white cell count of 4.6, hemoglobin 8.6 and a platelet count of 70. The sodium is at 138, potassium is 4, bicarb is 25, elevated BUN is 11 with a creatinine of 0.5. LFTs are normal. The patient has adequate urine output. Hemodynamically stable. The patient is also afebrile. No other significant events since arrival to the intensive care unit. On 07/31/2024, the patient is being seen for a follow-up. The patient is awake and alert. The patient was extubated yesterday without any major difficulties and the patient currently is on 2 L of oxygen by nasal cannula. She is calm and comfortable. She is hemodynamically stable on no pressors. She is using the incentive spirometer. She is pulling approximately thousand on her I-S. She remains on a pacemaker, DDD, at a rate of 80. Underlying rhythm is sinus bradycardia. Chest tubes are still in place. The patient's mediastinal chest tube has produced approximately 850 cc over the past 24 hours. The left pleural chest tube is produced approximately 180 cc over the past 24 hours. Labs were reviewed. Hemoglobin 7.8, platelet count is at 79 and subcu heparin has been discontinued. HIT panel was ordered. Chest x-ray shows cardiomegaly, tubes are in good location. No diuretics were given. She is awake and alert and communicating. No other significant events overnight. On 08/01/2024, the patient is being seen for a follow-up. The patient is currently on 3 L of oxygen by nasal cannula and the patient is calm and comfortable. No significant respiratory distress. Chest tubes are still in place. A follow-up chest x-ray showed cardiomegaly with tubes being in stable location. The patient remains in normal sinus rhythm. The white cell close at 10 with a hemoglobin 7.5 and a platelet count of 93. BUN is 21 with a creatinine of 0.9 and sodium levels at 138 and a potassium level is at 3.5. Fee ling overall weak and lethargic. He is arousable and able to communicate. Using incentive spirometer. Pulling approximately 8000. The patient remains paced at a rate of 80. Underlying rhythm is atrial fibrillation with a slow rate. She was ordered a unit of packed RBC transfusion by the cardiothoracic team. She will be also given Lasix. Output from the chest tube include a total of 500 mL from mediastinal chest tube and a total of 100 mL from the pleural chest tubes. There is over the past 24 hours. On 08/02/2024, the patient is being seen for a follow-up. The patient is doing well. Sitting up in the chair. She remains DDD paced at rate of 80 and the underlying rhythm is bradycardia, sinus/A-fib. The patient remains hemodynamically stable. The patient is diuresing well with IV Lasix. Fluid balance is +513 over the past 24 hours. The patient continues to to be on treated of oxygen by nasal cannula with a pulse ox of 95%. Following approximately 8000 on the incentive spirometer. The patient is able to ambulate. Received a unit of packed RBC yesterday and hemoglobin is currently at 9.3. She remains on Lasix 20 mg IV every 12 hours. Left-sided chest tube still in place. No evidence of any air leak. No pneumothorax. Output has been in the order of 110 cc over the past 24 hours and recommend removing the left- sided chest tube. No other significant events overnight. Seen today on 08/03/2024, patient remains in the ICU as an overflow. Patient is presently on room air, sitting at the bedside recliner, does not seem to be in any form of distress. Patient is compliant with her incentive spirometry achieving over 750 mL and at x 1000 mL. Patient continues to have DDD paced rhythm heart rate 80 underlying rhythm is showing atrial fibrillation with a rate less than 50. She is hemodynamically stable, she is not requiring any inotropes or any pressors. Cardiothoracic surgery have cleared the patient to be transferred out of the ICU and I will do the same patient is obviously now overflow in the ICU. WBC is 8.5 hemoglobin is 9.7, sodium is a bit low at 127 BUN is 21 creatinine 0.7 chest x-ray is showing evidence of small right-sided pleural effusion and atelectasis patient did receive Lasix today with good response. Seen today on 08/04/2024, patient remains in the ICU as an overflow, on 2 L nasal cannula, not in any distress, chest x-ray continues to show small right-sided pleural effusion and atelectasis remains on Lasix 20 mg twice daily doing well with incentive spirometry, patient is fully paced, may require a permanent pacemaker implantation today by cardiology. Labs were all reviewed, sodium remains low at 127, CBC is relatively normal. Renal profile is normal. Patient was seen today on 08/05/2024, in the ICU as an overflow, but the patient is doing great. Sitting at the bedside recliner, does not seem to be in any distress, ultrasound of the chest was reviewed, not much pleural effusion to consider safe thoracentesis. And marking was not even placed. Patient is relatively asymptomatic, she is on room air, not in any distress. Already ambulating in the hallway with assistance. Chest x-ray showed mostly minimal basilar atelectasis. WBC count is 8.4 hemoglobin 8.4 sodium is drifting down to 126 potassium 4.5 her hyponatremia is most likely related to diuresis. Patient is on Lasix 20 mg twice daily. Seen today on 08/06/2024, patient is doing well, asymptomatic, she is now day #7. Hardly any pulmonary symptoms. WBC count is 13.8 hemoglobin 8.5 sodium remains low at 126 with a potassium of 5.6, that is a combination worrisome for adrenal insufficiency, hence I am recommending a serum cortisol on this patient. Objective - Vital Signs Vital signs: Vital Signs Temp 98.1 F 08/06/24 11:31 Pulse 63 08/06/24 11:31 Resp 18 08/06/24 11:31 BP 107/60 08/06/24 11:31 Pulse Ox 97 08/06/24 11:31 FiO2 40 07/30/24 18:15 Intake & Output 08/05/24 08/06/24 08/06/24 18:59 06:59 18:59 Intake Total 1384 250 250 Output Total 500 400 400 Balance 884 -150 -150 Weight 64.7 kg Intake: IV 20 10 10 Invasive Line 6 20 10 10 Intake, IV Titration 50 Amount Sodium Chloride 0.9% 1, 50 000 ml @ 50 mls/hr IV . Q20H [facility] Rx#:[id number] Oral 1314 240 240 Output: Urine 500 400 400 Other: Voiding Method Toilet Toilet Toilet # Voids 0 1 0 # Bowel Movements 1 1 1 ABP, PAP, CO, CI - Last Documented Arterial Blood Pressure 112/57 - Exam CONSTITUTIONAL: Revealed a 78-year-old female in no distress, on room air HEENT: Neck is supple, no JVD, no lymphadenopathy. RESPIRATORY: Good breath sound bilaterally diminished at the right base CARDIOVASCULAR: Regular rhythm and rate. S1 and S2 present, negative for S3, gallop or murmur. GASTROINTESTINAL: Soft nontender no rebound no guarding INTEGUMENTARY: Skin is warm and dry NEUROLOGIC: Alert oriented x 3 no gross focal deficit MUSKULOSKELETAL: No deformities and no limitation range of motion PSYCHIATRIC: Normal mood affect and no mental status examination - Labs CBC & Chem 7: 08/06/24 09:19 08/06/24 08:17 Labs: Abnormal Lab Results - Last 24 Hours (Table) 08/05/24 08/05/24 08/06/24 Range/Units 15:44 20:16 06:44 WBC (3.8-10.6) k/uL RBC (3.80-5.40) m/uL Hgb (11.4-16.0) gm/dL Hct (34.0-46.0) % Sodium (137-145) mmol/L Potassium (3.5-5.1) mmol/L Chloride (98-107) mmol/L BUN (7-17) mg/dL Glucose (74-99) mg/dL POC Glucose (mg/dL) 120 H 130 H 113 H (70-110) mg/dL Calcium (8.4-10.2) mg/dL 08/06/24 08/06/24 08/06/24 Range/Units 08:17 09:19 11:33 WBC 13.8 H (3.8-10.6) k/uL RBC 2.73 L (3.80-5.40) m/uL Hgb 8.5 L (11.4-16.0) gm/dL Hct 27.3 L (34.0-46.0) % Sodium 126 L (137-145) mmol/L Potassium 5.6 H (3.5-5.1) mmol/L Chloride 93 L (98-107) mmol/L BUN 32 H (7-17) mg/dL Glucose 119 H (74-99) mg/dL POC Glucose (mg/dL) 151 H (70-110) mg/dL Calcium 8.1 L (8.4-10.2) mg/dL Assessment and Plan Assessment: Impression: Postoperative day #7 for you because I have been doing that all the log Mitral valve regurgitation, status post mitral valve annuloplasty with a 26 mm physio 2 ring Severe tricuspid valve regurgitation, status post tricuspid valve annuloplasty with a 26 mm MC 3 band Chronic atrial fibrillation, status post modified Ayala-Maze procedure with complete left and right sided lesion sets and suture ligation of the base of the left atrial appendage Patent foramen ovale, closure of patent foramen ovale History of hypertension Rheumatoid arthritis History of syncope History of CVA in 2014 with no residual deficits Sjogren's disease Eye disorder Lupus Lifetime non-smoker Hypovolemic hyponatremia most likely secondary to diuretics Status post insertion of dual-chamber permanent pacemaker on 08/04/2024 for what seems to be a sick sinus syndrome and symptomatic bradycardia Recommendation: Check serum cortisol level concerned about her hyponatremia and hyperkalemia Continue present supportive care measures Maximize medical therapy Continue GI DVT prophylaxis Continue incentive spirometry Ambulate and will continue to follow Time with Patient: Less than 30
--- NOTE | 2024-08-06 15:23 | P.PN ---
Subjective Progress Note Date: 08/06/24 Seen and examined this morning, sitting up in recliner, complains of neck pain at the pacemaker insertion site, there is no redness of breath Gen: In NAD, non-toxic HEENT: normocephalic, atraumatic, hearing acuity is intant, mucous membranes moist CVS: perfusing all extremities well, no pitting edema, Respiratory: symmetric chest expansion, no accessory muscle use, GI: soft, NTTP, ND, : no suprapubic tenderness, no CVA tenderness MSK/Derm: no rashes, cyanosis Neuro: CN II-XII intact, no motor weakness, Hospital Course: 78-year-old woman with medical history of hypertension, hyperlipidemia, glaucoma, valvular atrial fibrillation with mitral/tricuspid valve regurgitation who presented for mitral valve repair and tricuspid valve annuloplasty as well as PFO closure and modified Ayala-Maze procedure. Medicine was consulted for medical management. Patient was afebrile, 137/64, 96% oxygen saturation on 4 L nasal cannula, pulse rate is 80 with AV paced rhythm. CBC shows hemoglobin of 7.8, platelets of 79. Basic metabolic panel is unremarkable. Magnesium is 2.5. Liver function tests show mild elevation of AST of 94, otherwise unremarkable. Patient's blood sugars are well-controlled and was titrated off of her insulin drip.Due to ongoing hyponatremia and episode of hyperkalemia, cortisol level was ordered, pending. Assessment/plan: Hyperglycemia - ACHS glucose checks and LD-SSI - have not been given due to episodes of hypoglycemia -encourage oral intake -D50 PRN for hypoglycemia - A1c is 5.7%, no need for medications for DM on discharge Hyponatremia -Likely secondary to SIADH in the settings of recent surgery -Monitor BMP, continued on Lasix 20 mg IV twice daily, additional Lasix 20 given today -Agree with fluid restriction 1500 cc Hyperkalemia -Recheck potassium in the morning, kidney function normal -cortisol levels ordered Bloating -simethicone added Valvular A Fib s/p mitral/tricuspid valve repair/annuluplasty, POD 1 Ongoing AV block Thrombocytopenia, improving - management per primary team and cardiology - currently on aspirin 81mg daily, atorvastatin 40mg daily - RAYMUNDO panel negative -RPR following, pending therapy reevaluation -Transfer to [facility] pending bed availability Pt is full code DVT PPx with fondaparinux Objective - Vital Signs Vital signs: Vital Signs Temp 98.1 F 08/06/24 11:31 Pulse 68 08/06/24 15:00 Resp 18 08/06/24 15:00 BP 107/60 08/06/24 11:31 Pulse Ox 97 08/06/24 11:31 FiO2 40 07/30/24 18:15 Intake & Output 08/05/24 08/06/24 08/06/24 18:59 06:59 18:59 Intake Total 1384 250 250 Output Total 500 400 400 Balance 884 -150 -150 Weight 64.7 kg Intake: IV 20 10 10 Invasive Line 6 20 10 10 Intake, IV Titration 50 Amount Sodium Chloride 0.9% 1, 50 000 ml @ 50 mls/hr IV . Q20H [facility] Rx#:[id number] Oral 1314 240 240 Output: Urine 500 400 400 Other: Voiding Method Toilet Toilet Toilet # Voids 0 1 0 # Bowel Movements 1 1 1 ABP, PAP, CO, CI - Last Documented Arterial Blood Pressure 112/57 - Labs CBC & Chem 7: 08/06/24 09:19 08/06/24 08:17 Labs: Abnormal Lab Results - Last 24 Hours (Table) 08/05/24 08/05/24 08/06/24 Range/Units 15:44 20:16 06:44 WBC (3.8-10.6) k/uL RBC (3.80-5.40) m/uL Hgb (11.4-16.0) gm/dL Hct (34.0-46.0) % Sodium (137-145) mmol/L Potassium (3.5-5.1) mmol/L Chloride (98-107) mmol/L BUN (7-17) mg/dL Glucose (74-99) mg/dL POC Glucose (mg/dL) 120 H 130 H 113 H (70-110) mg/dL Calcium (8.4-10.2) mg/dL 08/06/24 08/06/24 08/06/24 Range/Units 08:17 09:19 11:33 WBC 13.8 H (3.8-10.6) k/uL RBC 2.73 L (3.80-5.40) m/uL Hgb 8.5 L (11.4-16.0) gm/dL Hct 27.3 L (34.0-46.0) % Sodium 126 L (137-145) mmol/L Potassium 5.6 H (3.5-5.1) mmol/L Chloride 93 L (98-107) mmol/L BUN 32 H (7-17) mg/dL Glucose 119 H (74-99) mg/dL POC Glucose (mg/dL) 151 H (70-110) mg/dL Calcium 8.1 L (8.4-10.2) mg/dL
[2024-08-06 16:49] LABS: Glucose,Whole Blood 117 mg/dL (70-110)
[2024-08-06 20:21] LABS: Glucose,Whole Blood 124 mg/dL (70-110)
[2024-08-06 21:34] LABS: Appearance,Urine Turbid (Clear); Bacteria,Urine Many /hpf; Bilirubin,Urine Negative (Negative); Blood,Urine Small (Negative); Color,Urine Light Yellow; Glucose,Urine (UA) Negative (Negative); Ketones,Urine Negative (Negative); Leukocyte Esterase,Urine Large (Negative); Nitrite,Urine Positive (Negative); PH, Urine 5.5 (5.0-8.0); Protein,Urine Trace (Negative); RBC,Urine 8 /hpf (0-5); Specific Gravity,Urine 1.016 (1.001-1.035); Squamous Epithelial Cell,Urine 6 /hpf (0-4); Urobilinogen,Urine <2.0 mg/dL (<2.0); WBC,Urine >182 /hpf (0-5)
[2024-08-07 06:16] LABS: Glucose,Whole Blood 113 mg/dL (70-110)
--- NOTE | 2024-08-07 07:05 | XR ---
EXAMINATION TYPE: XR chest 2V DATE OF EXAM: 08/07/2024 6:48 AM COMPARISON: Chest x-ray from one day earlier . CLINICAL INDICATION: Female, 78 years old with history of post open heart, TECHNIQUE: Frontal and lateral views of the chest are obtained. FINDINGS: Persistent cardiomegaly with ectatic and atherosclerotic thoracic aorta and central vascula r congestion. Persistent dual-lead pacemaker. Persistent 2 level cardiac valve surgical change. Persistent Small size bilateral pleural effusions and associated bibasilar opacity are redemonstrated . Scoliosis is noted. IMPRESSION: Stable cardiomegaly with Central vascular congestion and small size bilateral pleural eff usions and bibasilar opacities favoring compressive atelectasis. No significant change from one day e juan. [facility], , 08/07/2024 7:03 AM
[2024-08-07] MEDS: CEPHALEXIN 500 MG CAP PO SCH (08:26)
[2024-08-07 08:32] LABS: Basophils % (A) 0 %; Eosinophils # (A) 0.3 k/uL (0-0.7); Eosinophils % (A) 3 %; HCT 26.4 % (34.0-46.0); HGB 8.6 gm/dL (11.4-16.0); Lymphocytes # (A) 1.1 k/uL (1.0-4.8); Lymphocytes % (A) 9 %; MCHC 32.5 g/dL (31.0-37.0); MCV 98.4 fL (80.0-100.0); Macrocytosis Slight; Monocytes # (A) 0.8 k/uL (0-1.0); Monocytes % (A) 7 %; Neutrophils # (A) 9.3 k/uL (1.3-7.7); Neutrophils % (A) 79 %; Platelet Count 367 k/uL (150-450); RBC 2.68 m/uL (3.80-5.40); RDW 14.9 % (11.5-15.5); WBC 11.9 k/uL (3.8-10.6)
--- NOTE | 2024-08-07 08:56 | P.PN ---
Subjective Progress Note Date: 08/07/24 Principal diagnosis: Moderate mitral regurgitation, severe tricuspid regurgitation, mild aortic valvular insufficiency, chronic atrial fibrillation with marked biatrial dilation, patent foramen ovale. Previous medical history of hypertension, rheumatoid arthritis, syncope, CVA in 2014 with no residual deficits, TIA in 2006, Sjogren's disease, lupus, anemia, legally blind s/p corneal transplants, lifelong non-smoker, family history of premature coronary artery disease with fa cielo having open heart in his 40s POD #8 Mitral valve annuloplasty with 26 mm physio 2 ring, tricuspid valve annuloplasty with 26 mm MC 3 band, closure of patent foramen ovale, modified Ayala-Maze procedure with complete left and right sided lesion sets and suture ligation of the base of the left atrial appendage. Postoperative acute blood loss anemia, expected secondary to cardiopulmonary bypass, hemodilution and history of anemia. Sick sinus syndrome, symptomatic bradycardia POD #3 insertion of Medtronic dual-chamber permanent pacemaker by Dr. Traylor The patient was seen and examined this morning sitting up in recliner on the cardiac stepdown unit in no acute distress. She continues to complain of some pain at her pacemaker insertion site, denies shortness of breath. Currently grisel tricular paced on telemetry, remains on room air with oxygen saturation in the mid 90s, hemodynamically stable. Patient has ambulated with assistance. Labs pending, chest x-ray reviewed. The patient did experience some burning with urination yesterday, urinalysis was sent by internal medicine demonstrating large leukocyte esterase, greater than 182 WBCs, many bacteria, positive nitrates, patient reports she does get frequent urinary tract infections which respond to Keflex. No other new concerns. Objective - Vital Signs Vital signs: Vital Signs Temp 98.7 F 08/07/24 08:32 Pulse 61 08/07/24 08:32 Resp 18 08/07/24 08:32 BP 125/67 08/07/24 08:32 Pulse Ox 98 08/07/24 08:32 FiO2 40 07/30/24 18:15 Intake & Output 08/06/24 08/07/24 08/07/24 18:59 06:59 18:59 Intake Total 620 880 10 Output Total 500 200 Balance 120 680 10 Weight 64.9 kg Intake: IV 20 30 10 0.9 10 Invasive Line 6 20 20 10 Oral 600 850 Output: Urine 500 200 Other: Voiding Method Toilet Toilet Toilet # Voids 0 # Bowel Movements 1 ABP, PAP, CO, CI - Last Documented Arterial Blood Pressure 112/57 - Exam CONSTITUTIONAL: Appears comfortable, cooperative, no acute distress RESPIRATORY: Lungs sounds diminished in the bases bilaterally. Respirations even, nonlabored. Currently on room air with oxygen saturation 96%. Able to achieve 1000 mL on incentive spirometry. Strong cough. CARDIOVASCULAR: S1, S2 present. Regular rate and rhythm, V-paced on telemetry. Sternum stable. Palpable peripheral pulses bilaterally. Bilateral lower extremity edema present. No calf pain or tenderness noted. Heart hugger in place with patient demonstrating appropriate use. Antiembolism stockings, SCDs present. GASTROINTESTINAL: Abdomen soft, nontender, nondistended. Active bowel sounds present 4 quadrants. Tolerating diet. Positive bowel movement x2 08/06 GENITOURINARY: Continues to void, 700 mL in the last 24 hours INTEGUMENTARY: Skin is warm and dry with evidence of good perfusion. Anterior chest incision well approximated. Left anterior chest pacemaker site covered with dry intact dressing NEUROLOGIC: Cranial nerves II through XII intact MUSKULOSKELETAL: Able to move all extremities, strength equal bilaterally, gait normal PSYCHIATRIC: Alert and oriented to person place and time, appropriate affect, intact judgment and insight - Allied health notes Allied health notes reviewed: nursing - Labs CBC & Chem 7: 08/07/24 07:48 08/06/24 08:17 Labs: Abnormal Lab Results - Last 24 Hours (Table) 08/06/24 08/06/24 08/06/24 Range/Units 09:19 11:33 16:46 WBC 13.8 H (3.8-10.6) k/uL RBC 2.73 L (3.80-5.40) m/uL Hgb 8.5 L (11.4-16.0) gm/dL Hct 27.3 L (34.0-46.0) % Neutrophils # (1.3-7.7) k/uL POC Glucose (mg/dL) 151 H 117 H (70-110) mg/dL Urine Appearance (Clear) Urine Protein (Negative) Urine Blood (Negative) Urine Nitrite (Negative) Ur Leukocyte Esterase (Negative) Urine RBC (0-5) /hpf Urine WBC (0-5) /hpf Urine WBC Clumps (None) /hpf Ur Squamous Epith Cells (0-4) /hpf Urine Bacteria (None) /hpf 08/06/24 08/06/24 08/07/24 Range/Units 20:08 21:15 05:57 WBC (3.8-10.6) k/uL RBC (3.80-5.40) m/uL Hgb (11.4-16.0) gm/dL Hct (34.0-46.0) % Neutrophils # (1.3-7.7) k/uL POC Glucose (mg/dL) 124 H 113 H (70-110) mg/dL Urine Appearance Turbid H (Clear) Urine Protein Trace H (Negative) Urine Blood Small H (Negative) Urine Nitrite Positive H (Negative) Ur Leukocyte Esterase Large H (Negative) Urine RBC 8 H (0-5) /hpf Urine WBC >182 H (0-5) /hpf Urine WBC Clumps Many H (None) /hpf Ur Squamous Epith Cells 6 H (0-4) /hpf Urine Bacteria Many H (None) /hpf 08/07/24 Range/Units 07:48 WBC 11.9 H (3.8-10.6) k/uL RBC 2.68 L (3.80-5.40) m/uL Hgb 8.6 L (11.4-16.0) gm/dL Hct 26.4 L (34.0-46.0) % Neutrophils # 9.3 H (1.3-7.7) k/uL POC Glucose (mg/dL) (70-110) mg/dL Urine Appearance (Clear) Urine Protein (Negative) Urine Blood (Negative) Urine Nitrite (Negative) Ur Leukocyte Esterase (Negative) Urine RBC (0-5) /hpf Urine WBC (0-5) /hpf Urine WBC Clumps (None) /hpf Ur Squamous Epith Cells (0-4) /hpf Urine Bacteria (None) /hpf - Imaging and Cardiology Chest x-ray: report reviewed, image reviewed Assessment and Plan Assessment: Moderate mitral regurgitation, status post mitral valve repair Severe tricuspid regurgitation, status post tricuspid valve repair Mild aortic valvular insufficiency Chronic atrial fibrillation with marked biatrial dilation, status post modified Ayala-Maze and suture ligation of the left atrial appendage Patent foramen ovale, status post closure Postoperative acute blood loss anemia, expected Sick sinus syndrome, symptomatic bradycardia, status post insertion of Medtronic dual-chamber permanent pacemaker by Dr. Traylor History of hypertension Rheumatoid arthritis Syncope CVA in 2014 with no residual deficits, TIA in 2006 Sjogren's disease Lupus Anemia Legally blind s/p corneal transplants Lifelong non-smoker Family history of premature coronary artery disease with father having open heart in his 40s Plan: Continue to maximize medical therapy with low-dose aspirin, statin, low-dose beta-sharita Continue Cozaar for afterload reduction with hold parameters Encourage incentive spirometry use 10 times every hour while awake. Bronchodilators per pulmonology. Increase activity, ambulate as tolerated. PT/OT/cardiac rehab following. Will monitor daily labs and chest x-rays. Electrolyte replacement per protocol. Continue IV Lasix twice daily, will transition to oral at discharge Will start oral Keflex Continue home eyedrops GI/DVT prophylaxis Continue to monitor and record strict accurate intake and output. May bladder scan every 6 hours and as needed postvoid residual, if greater than 300 mL PVR may straight cath. Pain control per current medication regimen. Insulin management per internal medicine, patient needs tight blood sugar control to prevent infection. Preoperative hemoglobin A1c 5.9%. Discharge planning in progress, anticipate discharge to home with home care this afternoon More recommendations to follow based on patient's clinical course
[2024-08-07 09:24] LABS: African American GFR (CKD) 66 (>60 ml/min/1.73 sqM); Anion Gap 13 mmol/L; Blood Urea Nitrogen 33 mg/dL (7-17); Calcium 8.5 mg/dL (8.4-10.2); Carbon Dioxide 20 mmol/L (22-30); Chloride 94 mmol/L (98-107); Glucose 111 mg/dL (74-99); Magnesium 1.8 mg/dL (1.6-2.3); Non-African American GFR(CKD) 57 (>60 ml/min/1.73 sqM); Potassium 5.9 mmol/L (3.5-5.1); Sodium 127 mmol/L (137-145)
[2024-08-07] MEDS: SODIUM ZIRCONIUM CYCLOSILICATE 10 GM PACKET PO ONE (10:29)
[2024-08-07 11:54] VITALS: BP 125/69; TEMP 97.6
[2024-08-07 12:59] VITALS: RESP 18
[2024-08-07 13:11] VITALS: PULSE 68
--- NOTE | 2024-08-07 14:03 | P.PN ---
Subjective Progress Note Date: 08/07/24 Seen and examined this morning, sitting up in recliner, complaining of fatigue, chest pain at the site of pacemaker insertion, cough, dysuria Gen: In NAD, non-toxic HEENT: normocephalic, atraumatic, hearing acuity is intant, mucous membranes moist CVS: perfusing all extremities well, no pitting edema, Respiratory: symmetric chest expansion, no accessory muscle use, GI: soft, NTTP, ND, : no suprapubic tenderness, no CVA tenderness MSK/Derm: no rashes, cyanosis Neuro: CN II-XII intact, no motor weakness, Hospital Course: 78-year-old woman with medical history of hypertension, hyperlipidemia, glaucoma, valvular atrial fibrillation with mitral/tricuspid valve regurgitation who presented for mitral valve repair and tricuspid valve annuloplasty as well as PFO closure and modified Ayala-Maze procedure. Medicine was consulted for medical management. Patient was afebrile, 137/64, 96% oxygen saturation on 4 L nasal cannula, pulse rate is 80 with AV paced rhythm. CBC shows hemoglobin of 7.8, platelets of 79. Basic metabolic panel is unremarkable. Magnesium is 2.5. Liver function tests show mild elevation of AST of 94, otherwise unremarkable. Patient's blood sugars are well-controlled and was titrated off of her insulin drip.Due to ongoing hyponatremia and episode of hyperkalemia, cortisol level was ordered, 16.3, no further workup required Assessment/plan: Hyperglycemia - ACHS glucose checks and LD-SSI - have not been given due to episodes of hypoglycemia -encourage oral intake -D50 PRN for hypoglycemia - A1c is 5.7%, no need for medications for DM on discharge Hyponatremia -Likely secondary to SIADH in the settings of recent surgery -Monitor BMP, continued on Lasix 20 mg IV twice daily, additional Lasix 20 given today -Agree with fluid restriction 1500 cc Hyperkalemia -Recheck potassium in the morning came back elevated again, patient received a dose of Lokelma this morning, continues on Lasix. If discharged today, patient will need check BMP in 2-3 days -cortisol levels N UTI -Continue with Keflex 500 twice daily, patient has history of sulfa and penicillin allergy, stated that Keflex previously worked well Bloating -simethicone added Valvular A Fib s/p mitral/tricuspid valve repair/annuluplasty, POD 1 Ongoing AV block Thrombocytopenia, improving - management per primary team and cardiology - currently on aspirin 81mg daily, atorvastatin 40mg daily - RAYMUNDO panel negative -RPR following, pending therapy reevaluation Pt is full code DVT PPx with fondaparinux Objective - Vital Signs Vital signs: Vital Signs Temp 97.6 F 08/07/24 11:53 Pulse 68 08/07/24 13:10 Resp 18 08/07/24 13:10 BP 125/69 08/07/24 11:53 Pulse Ox 96 08/07/24 11:53 FiO2 40 07/30/24 18:15 Intake & Output 08/06/24 08/07/24 08/07/24 18:59 06:59 18:59 Intake Total 620 880 250 Output Total 500 200 400 Balance 120 680 -150 Weight 64.9 kg Intake: IV 20 30 10 0.9 10 Invasive Line 6 20 20 10 Oral 600 850 240 Output: Urine 500 200 400 Other: Voiding Method Toilet Toilet Toilet # Voids 0 1 # Bowel Movements 1 1 ABP, PAP, CO, CI - Last Documented Arterial Blood Pressure 112/57 - Labs CBC & Chem 7: 08/07/24 07:48 08/07/24 13:22 Labs: Abnormal Lab Results - Last 24 Hours (Table) 08/06/24 08/06/24 08/06/24 Range/Units 16:46 20:08 21:15 WBC (3.8-10.6) k/uL RBC (3.80-5.40) m/uL Hgb (11.4-16.0) gm/dL Hct (34.0-46.0) % Neutrophils # (1.3-7.7) k/uL Sodium (137-145) mmol/L Potassium (3.5-5.1) mmol/L Chloride (98-107) mmol/L Carbon Dioxide (22-30) mmol/L BUN (7-17) mg/dL Glucose (74-99) mg/dL POC Glucose (mg/dL) 117 H 124 H (70-110) mg/dL Urine Appearance Turbid H (Clear) Urine Protein Trace H (Negative) Urine Blood Small H (Negative) Urine Nitrite Positive H (Negative) Ur Leukocyte Esterase Large H (Negative) Urine RBC 8 H (0-5) /hpf Urine WBC >182 H (0-5) /hpf Urine WBC Clumps Many H (None) /hpf Ur Squamous Epith Cells 6 H (0-4) /hpf Urine Bacteria Many H (None) /hpf 08/07/24 08/07/24 08/07/24 Range/Units 05:57 07:48 07:48 WBC 11.9 H (3.8-10.6) k/uL RBC 2.68 L (3.80-5.40) m/uL Hgb 8.6 L (11.4-16.0) gm/dL Hct 26.4 L (34.0-46.0) % Neutrophils # 9.3 H (1.3-7.7) k/uL Sodium 127 L (137-145) mmol/L Potassium 5.9 H (3.5-5.1) mmol/L Chloride 94 L (98-107) mmol/L Carbon Dioxide 20 L (22-30) mmol/L BUN 33 H (7-17) mg/dL Glucose 111 H (74-99) mg/dL POC Glucose (mg/dL) 113 H (70-110) mg/dL Urine Appearance (Clear) Urine Protein (Negative) Urine Blood (Negative) Urine Nitrite (Negative) Ur Leukocyte Esterase (Negative) Urine RBC (0-5) /hpf Urine WBC (0-5) /hpf Urine WBC Clumps (None) /hpf Ur Squamous Epith Cells (0-4) /hpf Urine Bacteria (None) /hpf
--- NOTE | 2024-08-07 14:34 | P.DS ---
Providers Date of admission: 07/30/24 05:40 Expected date of discharge: 08/07/24 Attending physician: Jose Alfredo Bey Consults: 07/30/24 13:43 Consult Physician Routine Consulting Provider: Beatriz Salomon Consult Reason/Comments: Annual Giving Director Consult: post cardiac surgery Do you want consulting provider notified?: Yes Consult Physician Routine Consulting Provider: Priya Kennedy Consult Reason/Comments: insulin mgmt; Sury Barbosa patient Do you want consulting provider notified?: Yes Consult Physician Routine Consulting Provider: Laila Burks Consult Reason/Comments: Print Line Operator Consult: post cardiac surgery Do you want consulting provider notified?: Yes 08/04/24 09:51 Consult Physician Routine Consulting Provider: Rafael Duque Consult Reason/Comments: Evaluation for inpatient rehab Do you want consulting provider notified?: Yes Primary care physician: Tani Hutton MD Hospital Course: FINAL DIAGNOSIS: Moderate mitral regurgitation Severe tricuspid regurgitation Mild aortic valvular insufficiency Chronic atrial fibrillation with marked biatrial dilation Patent foramen ovale, status post closure Postoperative acute blood loss anemia, expected Sick sinus syndrome, symptomatic bradycardia History of hypertension Rheumatoid arthritis Syncope CVA in 2014 with no residual deficits, TIA in 2006 Sjogren's disease Lupus Anemia Legally blind s/p corneal transplants Lifelong non-smoker Family history of premature coronary artery disease with father having open heart in his 40s PRINCIPAL PROCEDURE: Mitral valve annuloplasty with 26 mm physio 2 ring Tricuspid valve annuloplasty with 26 mm MC 3 band Closure of patent foramen ovale Modified Ayala-Maze procedure with complete left and right sided lesion sets and suture ligation of the base of the left atrial appendage Insertion of Medtronic dual-chamber permanent pacemaker by Dr. Traylor HISTORY OF PRESENT ILLNESS: This is a 78-year-old female who follows outpatient with nurse practitioner Sury Barbosa for internal medicine and Dr. Cardenas for cardiology. She had a longstanding history of mitral valve prolapse dating back several decades. Over the last 6 to 8 months she had become progressively more fatigued and short of breath, and some days her dyspnea was intolerable. She underwent workup by Dr. Cardenas including echocardiogram revealing moderate mitral regurgitation with fairly central regurgitation as well as fairly torrential tricuspid regurgitation. In addition she had a patent foramen ovale with left to right shunt. She also experienced significant lower extremity edema. The patient was referred to Dr. Bey from cardiothoracic surgery. Multiple treatment options were discussed including MitraClip of both the mitral and tricuspid valves as well as open heart surgery to fix both mitral and tricuspid valves as well as her patent foramen ovale. The usual perioperative course was discussed in detail with the patient and her family, all risks and benefits were explained, all questions were answered, and consent was obtained to proceed with surgery. The patient was scheduled for surgery at the earliest possible date. HOSPITAL COURSE: The patient was brought to the hospital on 07/30/24, taken to the preoperative area, prepared in the usual fashion, and subsequently taken to the operating room where Dr. Bey performed mitral and tricuspid valve annulo plasty along with closure of the patent foramen ovale and modified Ayala-Maze with suture ligation of the left atrial appendage. Upon completion of surgery the patient was transferred to the cardiovascular intensive care unit where she was recovered and monitored hemodynamically. She was extubated, all lines, tubes, and drips were discontinued when appropriate. She did have significant bradycardia and sick sinus syndrome after surgery despite no AV debora blocking agents, she was unable to recover her own intrinsic rhythm and she underwent placement of Medtronic dual-chamber permanent pacemaker by Dr. Traylor. Subsequently she was transferred to [facility] cardiac stepdown unit for further monitoring and rehabilitation. Her oxygen was titrated down, she continued to work with physical and occupational therapy, she was tolerating oral diet, her pain was controlled, and she was ready to be discharged to home with [facility] on postoperative day #8. She received written and verbal instruction regarding her medications, activity restrictions, signs and symptoms requiring physician notification, and follow-up appointments. Patient Condition at Discharge: Stable Plan - Discharge Summary Discharge Rx Participant: Yes New Discharge Prescriptions: New Aspirin 81 mg PO DAILY #30 tab Cephalexin [Keflex] 500 mg PO BID #14 cap Metoprolol Tartrate [Lopressor] 12.5 mg PO BID #60 tab guaiFENesin [Mucinex] 600 mg PO Q12HR tab Sennosides-Docusate Sodium [Senokot-S] 2 each PO HS tab Acetaminophen Tab [Tylenol] 1,000 mg PO Q6HR PRN tab PRN Reason: Fever And/ Or Mild Pain (1-3) Losartan [Cozaar] 12.5 mg PO DAILY@1200 #30 tab Atorvastatin [Lipitor] 40 mg PO DAILY #30 tab Continue valACYclovir HCL [Valtrex] 500 mg PO DAILY Apixaban [Eliquis] 2.5 mg PO BID Cholecalciferol [Vitamin D3 (25 Mcg = 1000 Iu)] 25 mcg PO DAILY Ascorbic Acid [Vitamin C] 500 mg PO DAILY diphenhydrAMINE [Benadryl] 25 mg PO BID PRN PRN Reason: Itching Cetirizine HCl [Zyrtec] 10 mg PO HS prednisoLONE acetate [Pred Mild] 1 drop BOTH EYES TID Timolol [Betimol 0.5% Ophth Soln] 1 drop RIGHT EYE HS Artificial Tears-Hypromellose [Artificial Tear Drops] 2 drops BOTH EYES DIRECTED Sodium Chloride 5% Ophth Oint [Ayleen 128] 1 dose BOTH EYES BID Super 8 Greens 1 dose PO DAILY Collagen/Biotin/Ascorbic Acid [Collagen 1500 Plus C Capsule] 1 each PO DAILY Famotidine [Pepcid] 40 mg PO DAILY Changed Furosemide [Lasix] 40 mg PO DAILY #30 tab Discontinued atenoloL [Tenormin] 25 mg PO BID Potassium Chloride ER [K-Dur 10] 10 meq PO DAILY Losartan [Cozaar] 100 mg PO DAILY amLODIPine BESYLATE 10 mg PO DAILY Discharge Medication List Apixaban [Eliquis] 2.5 mg PO BID 05/06/24 [History] Artificial Tears-Hypromellose [Artificial Tear Drops] 2 drops BOTH EYES DIRECTED 05/06/24 [History] Ascorbic Acid [Vitamin C] 500 mg PO DAILY 05/06/24 [History] Cholecalciferol [Vitamin D3 (25 Mcg = 1000 Iu)] 25 mcg PO DAILY 05/06/24 [History] Collagen/Biotin/Ascorbic Acid [Collagen 1500 Plus C Capsule] 1 each PO DAILY 05/06/24 [History] Sodium Chloride 5% Ophth Oint [Ayleen 128] 1 dose BOTH EYES BID 05/06/24 [History] Super 8 Greens 1 dose PO DAILY 05/06/24 [History] Timolol [Betimol 0.5% Ophth Soln] 1 drop RIGHT EYE HS 05/06/24 [History] prednisoLONE acetate [Pred Mild] 1 drop BOTH EYES TID 05/06/24 [History] valACYclovir HCL [Valtrex] 500 mg PO DAILY 05/06/24 [History] Cetirizine HCl [Zyrtec] 10 mg PO HS 07/14/24 [History] Famotidine [Pepcid] 40 mg PO DAILY 07/14/24 [History] diphenhydrAMINE [Benadryl] 25 mg PO BID PRN 07/14/24 [History] Acetaminophen Tab [Tylenol] 1,000 mg PO Q6HR PRN tab 08/07/24 [Rx] Aspirin 81 mg PO DAILY #30 tab 08/07/24 [Rx] Atorvastatin [Lipitor] 40 mg PO DAILY #30 tab 08/07/24 [Rx] Cephalexin [Keflex] 500 mg PO BID #14 cap 08/07/24 [Rx] Furosemide [Lasix] 40 mg PO DAILY #30 tab 08/07/24 [Rx] Losartan [Cozaar] 12.5 mg PO DAILY@1200 #30 tab 08/07/24 [Rx] Metoprolol Tartrate [Lopressor] 12.5 mg PO BID #60 tab 08/07/24 [Rx] Sennosides-Docusate Sodium [Senokot-S] 2 each PO HS tab 08/07/24 [Rx] guaiFENesin [Mucinex] 600 mg PO Q12HR tab 08/07/24 [Rx] Follow up Appointment(s)/Referral(s): Lianet Meehan NPC [Nurse Practitioner] - 08/11/24 9:30 am (You will be seen in the surgeon's office behind the hospital in [facility], [address] [place] [address] [address]. Office phone number is ) Rehab Marycarmen ,Cardiac [NON-STAFF] - 4 Weeks (You will receive a phone call in approximately 4-6 weeks for evaluation for cardiac rehab) [facility] Barbosa, [facility] [REFERRING] - 08/21/24 10:30 am Antwan Cardenas MD [STAFF PHYSICIAN] - 08/20/24 4:30 pm (Your appointment is at the [place] office) Jose Alfredo Bey MD [STAFF PHYSICIAN] - 09/03/24 2:00 pm [facility] [NON-STAFF] - 1-2 Days (You should be seen by RN the day after discharge, then 2-3 times per week until you start cardiac rehab. PT/OT should visit at least once, may continue to visit if necessary) Beatriz Salomon MD [STAFF PHYSICIAN] - 08/11/24 8:45 am Ambulatory/Diagnostic Orders: Complete Blood Count w/diff [LAB.AMB] Time Frame: 3 Days, Location: None Karri abad Comprehensive Metabolic Panel [LAB.AMB] Time Frame: 3 Days, Location: None Selected Activity/Diet/Wound Care/Special Instructions: DISCHARGE INSTRUCTIONS: 1. No driving for 4 weeks, or until physician gives their ok. 2. The patient should sleep in their own bed, no medical bed needed. 3. Stairs are not an issue. If the bedroom is upstairs, it is advised that the patient go up at night and down in the morning for the first week. Go slowly, using handrail and take 1 step at a time. 4. ABAD hose are to be worn for 30 days post surgery or until physician discont inues. 5. Heart hugger is to be worn 100% of the time until physician discontinues.(except when showering) 6. No lifting, pushing, or pulling more than 10 pounds for 12 weeks. The physician will advise of any restriction changes. 7. The patient is expected to continue the prescribed walking program. 8. Continue pain control per as needed orders. 9. Continue with incentive spirometry and splinting/heart hugger until otherwise directed by the physician. 10. Must shower daily using liquid antibacterial soap 11. Routine sternal incision care. No powders, lotions, ointments on incisions. No dressings are necessary on incisions unless they are draining. Dermabond tape is to remain on sternal incision until surgeon follow-up. 12. Please call surgeon/CALL CENTER REPRESENTATIVE for temp greater than 101 F or purulent drainage from incisions. 13. You should weigh yourself daily, record and bring log with you to follow up appointments. 14. All prescriptions given by surgeon for 30 days. Refills need to be filled through magazine worker/primary care physician. 15. A Red armband has been placed on the patient. It should be worn for 30 days post discharge from surgery and will be removed by the cardiac surgeons. If an ER visit is necessary, please make sure the number on the Red armband is called before going to ER. 16. You have been referred to and are expected to begin Cardiac Rehab in approximately 4-6 weeks. 17. Quitting smoking is the most important step you can take to improve your health. For additional information and assistance to quit smoking, please call the [place] tobacco quit line (3-816-WNIY-NOW/ ) or online: [email or web address] HOME HEALTH SERVICES TO PROVIDE: RN SKILLED HOME CARE SERVICES FOR POST-OP SURGICAL PATIENTS WITH THE FOLLOWING: Coronary Artery Bypass Surgery (CABG), Mitral Valve Replacement/Repair ( MVR), Aortic Valve Replacement/Repair (AVR) RN TO CONTINUE EDUCATION FROM ``ROAD TO A HEALTH HEART PATIENT EDUCATION MANUAL (GIVEN TO PATIENT IN THE HOSPITAL) MEDICATION RECONCILIATION WITH EDUCATION NEEDED ON FIRST HOME VISIT EMPHASIZE IMPORTANCE OF WEARING BREAST SUPPORT/HEART HUGGER ENCOURAGE USE OF INCENTIVE SPIROMETER 10 X EVERY HOUR WHILE AWAKE ENCOURAGE UTILIZATION OF LOWER EXTREMITY COMPRESSION STOCKINGS/ABAD HOSE and ELEVATE LEGS ABOVE LEVEL OF HEART WHILE AT REST. ENCOURAGE AMBULATION 3-5x/day INCREASING TOLERATES, WHILE AVOIDING EXTREMES IN TEMPERATURE FREQUENCY: RN TO OPEN THE PATIENT WITHIN 24 HOURS OF DISCHARGE FROM THE HOSPITAL WITH TELEHEALTH INSTALLED AT [facility], RN TO VISIT 2-3 X A WEEK FOR 4 WEEKS ESTABLISHED BY PATIENT NEEDS. LABORATORY: CBC, CMP TO BE DRAWN ON THE THIRD DAY HOME, (RAN STAT) FAX RESULTS TO [phone]. TELEHEALTH PARAMETERS: WEIGHT: NOTIFY MD OF WEIGHT GAIN OF 2 LBS IN 24 HOURS OR 5 LBS IN ONE WEEK HR: NOTIFY MD OF HR <55 BPM OR HR>100 BPM BP: NOTIFY MD IF BP <90/55 OR BP>140/100 O2 SAT: NOTIFY MD IF PO2<93% ON ROOM AIR SEND TELEHEALTH REPORT TO DELIVERY HELPER AND CARDIOVASCULAR SURGEON THE FIRST WEEK OF CARE AND THEN BI-WEEKLY. PLEASE ADDITIONALLY COMMUNICATE ANY ABNORMALS AND NEW FINDINGS TO THE SURGEONS OFFICE. Discharge Disposition: HOME WITH HOME HEALTH SERVICES
--- NOTE | 2024-08-07 14:39 | P.PN ---
Subjective Progress Note Date: 08/07/24 PROGRESS NOTE The patient is a 78-year-old female, followed by Dr. Cardenas who had significant mitral and tricuspid regurgitation. She underwent mitral valve repair with size 28 physio 2 ring and tricuspid valve annuloplasty size 28 with closure of patent foramen ovale and modified Ayala-Maze procedure. Patient has history of atrial fibrillation. She is extubated, sitting up in the chair, appears to be weak but denies any chest discomfort except incisional pain. She has no history of CAD by cardiac catheterization. She is on no vasopressors and she has good urinary output. She has a prior history of TIA. Her left ventricular systolic function was preserved in the past. She is paced 100% at this time August 01 She feels better today, stronger. She continues to be in atrial fibrillation with 100% pacing and slow ventricular response. She is on no vasopressors. She is hemodynamically stable with good urinary output. There is no evidence of ventricular ectopic activity. There is no nausea or vomiting. August 02: The patient feels stronger today she denies any chest discomfort, dizziness or palpitations. She continues to be in atrial fibrillation with very slow ventricular response requiring temporary pacemaker activity. She is on no vasopressors and hemodynamically stable otherwise. Her urinary output has been good. She is using her incentive spirometry. 08/03 patient seen and examined. Patient admits to pain all over. Denies any chest pain or pressure. No significant shortness breath. She has still dependent on her pacemaker with heart rates in the 40s and her pacemaker is weaned. She did state she does not want general anesthesia. 08/04 Patient seen and examined. Patient still admits to generalized pain and weakness however no specific chest pain or pressure. No significant shortness of breath. Remains dependent on the pacemaker with heart rates in the 40s and below 50s when pacemaker stopped. Scheduled for pacemaker today. 08/05 Patient seen and examined. Patient underwent permanent pacemaker placement yesterday from the left subclavian approach. She denies any chest pain or pressure. She did have some shortness of breath. She did have some urinary retention and a Finch catheter was placed however has had minimal urine output despite IV Lasix. She admits she has not been eating or drinking much and is on a fluid restriction. 08/06 Patient seen and examined. Patient has been transferred out of the intensive care unit and seen today on the cardiac stepdown unit. Blood pressure 107/60, heart rate 63, pulse ox 97% on room air. Telemetry is ventricularly paced rhythm. Repeat blood work reveals WBC 13.8, hemoglobin 8.5, BUN 32 and crea tinine 0.92. His sodium was 126, potassium 5.6. Chest x-ray reveals stable cardiomegaly with central vascular congestion and small size bilateral pleural effusions and bibasilar opacities favoring compressive atelectasis. Patient has been maintained on IV Lasix 20 mg twice daily. 08/07 Patient seen and examined. Patient is complaining of left arm discomfort. Appears to be most likely osteoarthritis. She does appear more fatigued today. Blood pressure 125/69, heart rate 64, pulse ox 96% on room air. Repeat blood work reveals hemoglobin 8.6, hemoglobin 11.9, sodium 127, potassium 4.4, BUN 33 creatinine 0.97. PHYSICAL EXAMINATION: Vitals reviewed LUNGS: Clear to auscultation HEART: Regular rate and rhythm, paced, S1, S2. No S3. Systolic murmur at the base ABDOMEN: Soft, nontender, no organomegaly EXTREMETIES: No edema IMPRESSION: 1. Status post mitral and tricuspid valve repair 2. Atrial fibrillation status post Maze procedure 3. Slow ventricular response requiring temporary pacemaker followed by Medtronic dual-chamber permanent pacemaker implantation 08/04. 4. History of pulmonary hypertension 5. Sick sinus syndrome, s/p dual chamber permanent pacemaker 6. Hyponatremia 7. Dyspnea PLAN: Continue current cardiac medications: Eliquis 2.5 mg twice daily, aspirin 81 mg daily, Lipitor, losartan 12.5 mg daily, Lopressor 12.5 mg twice daily Patient is off IV Lasix Continue with incentive spirometry. Patient is cleared for discharge from cardiology perspective. Nurse practitioner note has been reviewed, I agree with documented findings and plan of care. Patient was seen and examined. Objective - Vital Signs Vital signs: Vital Signs Temp 97.6 F 08/07/24 11:53 Pulse 66 08/07/24 12:59 Resp 18 08/07/24 12:59 BP 125/69 08/07/24 11:53 Pulse Ox 96 08/07/24 11:53 FiO2 40 07/30/24 18:15 Intake & Output 08/06/24 08/07/24 08/07/24 18:59 06:59 18:59 Intake Total 620 880 250 Output Total 500 200 400 Balance 120 680 -150 Weight 64.9 kg Intake: IV 20 30 10 0.9 10 Invasive Line 6 20 20 10 Oral 600 850 240 Output: Urine 500 200 400 Other: Voiding Method Toilet Toilet Toilet # Voids 0 1 # Bowel Movements 1 1 ABP, PAP, CO, CI - Last Documented Arterial Blood Pressure 112/57 - Labs CBC & Chem 7: 08/07/24 07:48 08/07/24 13:22 Labs: Abnormal Lab Results - Last 24 Hours (Table) 08/06/24 08/06/24 08/06/24 Range/Units 16:46 20:08 21:15 WBC (3.8-10.6) k/uL RBC (3.80-5.40) m/uL Hgb (11.4-16.0) gm/dL Hct (34.0-46.0) % Neutrophils # (1.3-7.7) k/uL Sodium (137-145) mmol/L Potassium (3.5-5.1) mmol/L Chloride (98-107) mmol/L Carbon Dioxide (22-30) mmol/L BUN (7-17) mg/dL Glucose (74-99) mg/dL POC Glucose (mg/dL) 117 H 124 H (70-110) mg/dL Urine Appearance Turbid H (Clear) Urine Protein Trace H (Negative) Urine Blood Small H (Negative) Urine Nitrite Positive H (Negative) Ur Leukocyte Esterase Large H (Negative) Urine RBC 8 H (0-5) /hpf Urine WBC >182 H (0-5) /hpf Urine WBC Clumps Many H (None) /hpf Ur Squamous Epith Cells 6 H (0-4) /hpf Urine Bacteria Many H (None) /hpf 08/07/24 08/07/24 08/07/24 Range/Units 05:57 07:48 07:48 WBC 11.9 H (3.8-10.6) k/uL RBC 2.68 L (3.80-5.40) m/uL Hgb 8.6 L (11.4-16.0) gm/dL Hct 26.4 L (34.0-46.0) % Neutrophils # 9.3 H (1.3-7.7) k/uL Sodium 127 L (137-145) mmol/L Potassium 5.9 H (3.5-5.1) mmol/L Chloride 94 L (98-107) mmol/L Carbon Dioxide 20 L (22-30) mmol/L BUN 33 H (7-17) mg/dL Glucose 111 H (74-99) mg/dL POC Glucose (mg/dL) 113 H (70-110) mg/dL Urine Appearance (Clear) Urine Protein (Negative) Urine Blood (Negative) Urine Nitrite (Negative) Ur Leukocyte Esterase (Negative) Urine RBC (0-5) /hpf Urine WBC (0-5) /hpf Urine WBC Clumps (None) /hpf Ur Squamous Epith Cells (0-4) /hpf Urine Bacteria (None) /hpf
--- NOTE | 2024-08-07 16:27 | P.PN ---
Subjective Progress Note Date: 08/07/24 This is a 78-year-old female patient is being seen in the intensive care unit following cardiac surgery. The patient underwent mitral valve annuloplasty and tricuspid valve annuloplasty and closure of the PFO and modified Ayala-Maze procedure. Following that, the patient was brought in intubated on mechanical ventilator and the patient is currently in the intensive care unit. I saw the patient in the ICU. The patient is on propofol which is running at 20 mcg/kg/min and the patient is calm and comfortable. The patient is on assist- control mode of mechanical ventilation at rate of 12, tidal volume of 400, FiO2 at 100% with a PEEP of 5. Initial blood gas showed a pH of 7.38 with a pCO2 of 42 and pO2 of 429. FiO2 has been dropped down to 50%. The patient is calm and comfortable. Current cardiac rhythm is AV paced at a rate of 80. No pressors for now. The patient received a total of 1 unit of packed RBC, 1 unit of platelets and 2 units of fresh frozen plasma in the operating room. She has 2 mediastinal chest tube and 1 pleural chest tube and the outputs are minimal at this point in time. The chest x-ray that was done postop showed adequate expansion of both lungs. Chest tubes are all in place. The patient does not have any Hagaman-Patricia catheter. The blood work shows a white cell count of 4.6, hemoglobin 8.6 and a platelet count of 70. The sodium is at 138, potassium is 4, bicarb is 25, elevated BUN is 11 with a creatinine of 0.5. LFTs are normal. The patient has adequate urine output. Hemodynamically stable. The patient is also afebrile. No other significant events since arrival to the intensive care unit. On 07/31/2024, the patient is being seen for a follow-up. The patient is awake and alert. The patient was extubated yesterday without any major difficulties a nd the patient currently is on 2 L of oxygen by nasal cannula. She is calm and comfortable. She is hemodynamically stable on no pressors. She is using the incentive spirometer. She is pulling approximately thousand on her I-S. She remains on a pacemaker, DDD, at a rate of 80. Underlying rhythm is sinus bradycardia. Chest tubes are still in place. The patient's mediastinal chest tube has produced approximately 850 cc over the past 24 hours. The left pleural chest tube is produced approximately 180 cc over the past 24 hours. Labs were reviewed. Hemoglobin 7.8, platelet count is at 79 and subcu heparin has been discontinued. HIT panel was ordered. Chest x-ray shows cardiomegaly, tubes are in good location. No diuretics were given. She is awake and alert and communicating. No other significant events overnight. On 08/01/2024, the patient is being seen for a follow-up. The patient is currently on 3 L of oxygen by nasal cannula and the patient is calm and comfortable. No significant respiratory distress. Chest tubes are still in place. A follow-up chest x-ray showed cardiomegaly with tubes being in stable location. The patient remains in normal sinus rhythm. The white cell close at 10 with a hemoglobin 7.5 and a platelet count of 93. BUN is 21 with a creatinine of 0.9 and sodium levels at 138 and a potassium level is at 3.5. Feeling overall weak and lethargic. He is arousable and able to communicate. Using incentive spirometer. Pulling approximately 8000. The patient remains paced at a rate of 80. Underlying rhythm is atrial fibrillation with a slow r ate. She was ordered a unit of packed RBC transfusion by the cardiothoracic team. She will be also given Lasix. Output from the chest tube include a total of 500 mL from mediastinal chest tube and a total of 100 mL from the pleural chest tubes. There is over the past 24 hours. On 08/02/2024, the patient is being seen for a follow-up. The patient is doing well. Sitting up in the chair. She remains DDD paced at rate of 80 and the underlying rhythm is bradycardia, sinus/A-fib. The patient remains hemodynamically stable. The patient is diuresing well with IV Lasix. Fluid balance is +513 over the past 24 hours. The patient continues to to be on treated of oxygen by nasal cannula with a pulse ox of 95%. Following approximately 8000 on the incentive spirometer. The patient is able to ambulate. Received a unit of packed RBC yesterday and hemoglobin is currently at 9.3. She remains on Lasix 20 mg IV every 12 hours. Left-sided chest tube still in place. No evidence of any air leak. No pneumothorax. Output has been in the order of 110 cc over the past 24 hours and recommend removing the left- sided chest tube. No other significant events overnight. Seen today on 08/03/2024, patient remains in the ICU as an overflow. Patient is presently on room air, sitting at the bedside recliner, does not seem to be in any form of distress. Patient is compliant with her incentive spirometry achieving over 750 mL and at x 1000 mL. Patient continues to have DDD paced rhythm heart rate 80 underlying rhythm is showing atrial fibrillation with a rate less than 50. She is hemodynamically stable, she is not requiring any inotropes or any pressors. Cardiothoracic surgery have cleared the patient to be transferred out of the ICU and I will do the same patient is obviously now overflow in the ICU. WBC is 8.5 hemoglobin is 9.7, sodium is a bit low at 127 BUN is 21 creatinine 0.7 chest x-ray is showing evidence of small right-sided pleural effusion and atelectasis patient did receive Lasix today with good response. Seen today on 08/04/2024, patient remains in the ICU as an overflow, on 2 L nasal cannula, not in any distress, chest x-ray continues to show small right-sided pl eural effusion and atelectasis remains on Lasix 20 mg twice daily doing well with incentive spirometry, patient is fully paced, may require a permanent pacemaker implantation today by cardiology. Labs were all reviewed, sodium remains low at 127, CBC is relatively normal. Renal profile is normal. Patient was seen today on 08/05/2024, in the ICU as an overflow, but the patient is doing great. Sitting at the bedside recliner, does not seem to be in any distress, ultrasound of the chest was reviewed, not much pleural effusion to consider safe thoracentesis. And marking was not even placed. Patient is relatively asymptomatic, she is on room air, not in any distress. Already ambulating in the hallway with assistance. Chest x-ray showed mostly minimal basilar atelectasis. WBC count is 8.4 hemoglobin 8.4 sodium is drifting down to 126 potassium 4.5 her hyponatremia is most likely related to diuresis. Patient is on Lasix 20 mg twice daily. Seen today on 08/06/2024, patient is doing well, asymptomatic, she is now day #7. Hardly any pulmonary symptoms. WBC count is 13.8 hemoglobin 8.5 sodium remains low at 126 with a potassium of 5.6, that is a combination worrisome for adrenal insufficiency, hence I am recommending a serum cortisol on this patient. The patient is seen today August 07, 2024 in follow-up on the selective care unit. She is postoperative day #8. She is sitting up in a chair at the bedside. Awake and alert in no acute distress. Maintaining good O2 saturation in the 90s on room air. She denies any worsening shortness of breath, cough or congestion. Chest x-ray reveals stable cardiomegaly with central vascular congestion and small bilateral effusions. No significant change. She is working well with the incentive spirometer. He is status post 2 units of packed red blood cells, 2 units of fresh frozen plasma, 1 unit of platelets this admission. Current hemoglobin 8.6. Platelets 367. White count 11.9. Sodium 127. Potassium 4.4. Bicarb 20. BUN 33. Creatinine 0.97. Glucose 111. Objective - Vital Signs Vital signs: Vital Signs Temp 97.6 F 08/07/24 11:53 Pulse 68 08/07/24 13:10 Resp 18 08/07/24 13:10 BP 125/69 08/07/24 11:53 Pulse Ox 96 08/07/24 11:53 FiO2 40 07/30/24 18:15 Intake & Output 08/06/24 08/07/24 08/07/24 18:59 06:59 18:59 Intake Total 620 880 250 Output Total 500 200 400 Balance 120 680 -150 Weight 64.9 kg Intake: IV 20 30 10 0.9 10 Invasive Line 6 20 20 10 Oral 600 850 240 Output: Urine 500 200 400 Other: Voiding Method Toilet Toilet Toilet # Voids 0 1 # Bowel Movements 1 1 ABP, PAP, CO, CI - Last Documented Arterial Blood Pressure 112/57 - Exam GENERAL EXAM: Alert, pleasant 78-year-old female, on room air, up in a chair,, comfortable in no apparent distress. HEAD: Normocephalic. EYES: Normal reaction of pupils, equal size. NOSE: Clear with pink turbinates. THROAT: No erythema or exudates. NECK: No masses, no JVD. CHEST: Sternal dressing dry and in place. Heart hugger in place. LUNGS: Equal air entry with bilateral crackles in the bases. CVS: S1 and S2 normal with no audible murmur, regular rhythm. ABDOMEN: No hepatosplenomegaly, normal bowel sounds, no guarding or rigidity. SPINE: No scoliosis or deformity SKIN: No rashes CENTRAL NERVOUS SYSTEM: No focal deficits, tone is normal in all 4 extremities. EXTREMITIES: There is no peripheral edema. No clubbing, no cyanosis. Peripheral pulses are intact. - Labs CBC & Chem 7: 08/07/24 07:48 08/07/24 13:22 Labs: Abnormal Lab Results - Last 24 Hours (Table) 08/06/24 08/06/24 08/06/24 Range/Units 16:46 20:08 21:15 WBC (3.8-10.6) k/uL RBC (3.80-5.40) m/uL Hgb (11.4-16.0) gm/dL Hct (34.0-46.0) % Neutrophils # (1.3-7.7) k/uL Sodium (137-145) mmol/L Potassium (3.5-5.1) mmol/L Chloride (98-107) mmol/L Carbon Dioxide (22-30) mmol/L BUN (7-17) mg/dL Glucose (74-99) mg/dL POC Glucose (mg/dL) 117 H 124 H (70-110) mg/dL Urine Appearance Turbid H (Clear) Urine Protein Trace H (Negative) Urine Blood Small H (Negative) Urine Nitrite Positive H (Negative) Ur Leukocyte Esterase Large H (Negative) Urine RBC 8 H (0-5) /hpf Urine WBC >182 H (0-5) /hpf Urine WBC Clumps Many H (None) /hpf Ur Squamous Epith Cells 6 H (0-4) /hpf Urine Bacteria Many H (None) /hpf 08/07/24 08/07/24 08/07/24 Range/Units 05:57 07:48 07:48 WBC 11.9 H (3.8-10.6) k/uL RBC 2.68 L (3.80-5.40) m/uL Hgb 8.6 L (11.4-16.0) gm/dL Hct 26.4 L (34.0-46.0) % Neutrophils # 9.3 H (1.3-7.7) k/uL Sodium 127 L (137-145) mmol/L Potassium 5.9 H (3.5-5.1) mmol/L Chloride 94 L (98-107) mmol/L Carbon Dioxide 20 L (22-30) mmol/L BUN 33 H (7-17) mg/dL Glucose 111 H (74-99) mg/dL POC Glucose (mg/dL) 113 H (70-110) mg/dL Urine Appearance (Clear) Urine Protein (Negative) Urine Blood (Negative) Urine Nitrite (Negative) Ur Leukocyte Esterase (Negative) Urine RBC (0-5) /hpf Urine WBC (0-5) /hpf Urine WBC Clumps (None) /hpf Ur Squamous Epith Cells (0-4) /hpf Urine Bacteria (None) /hpf Assessment and Plan Assessment: Postoperative day #8 Mitral valve regurgitation, status post mitral valve annuloplasty with a 26 mm physio 2 ring Severe tricuspid valve regurgitation, status post tricuspid valve annuloplasty with a 26 mm MC 3 band Chronic atrial fibrillation, status post modified Ayala-Maze procedure with complete left and right sided lesion sets and suture ligation of the base of the left atrial appendage Patent foramen ovale, closure of patent foramen ovale History of hypertension Rheumatoid arthritis History of syncope History of CVA in 2014 with no residual deficits Sjogren's disease Eye disorder Lupus Lifetime non-smoker Hypovolemic hyponatremia most likely secondary to diuretics Status post insertion of dual-chamber permanent pacemaker on 08/04/2024 for what seems to be a sick sinus syndrome and symptomatic bradycardia Plan: The patient was seen and evaluated Chest x-ray, labs and medications reviewed Stable and on room air Working with the incentive spirometer Anxious to go home Cleared once cleared by CT services I have personally seen and examined the patient, performed the documentation and the assessment and plan as written. Number of minutes spent on the visit: 10 Dictation was produced using [employer] software. Please excuse any grammatical, word or spelling errors.
== END 2024-08-07 14:42 | disposition home health service (06) | DRG 220 ==
LOC: 2ORMAIN 07-30 05:40 → 2SICU 07-30 11:25 → 3SCARD 08-05 18:54
PROVIDERS: ADMIT Thoracic Surgery (Cardiothoracic Vascular Surgery); ATTEND Thoracic Surgery (Cardiothoracic Vascular Surgery)
DX: I08.3 Combined rheumatic disorders of mitral, aortic and tricuspid valves (principal); D62 Acute posthemorrhagic anemia; E22.2 Syndrome of inappropriate secretion of antidiuretic hormone; I27.20 Pulmonary hypertension, unspecified; I48.92 Unspecified atrial flutter; D69.6 Thrombocytopenia, unspecified; I48.20 Chronic atrial fibrillation, unspecified; E86.1 Hypovolemia; J90 Pleural effusion, not elsewhere classified; J98.11 Atelectasis; N39.0 Urinary tract infection, site not specified; Q21.12 Patent foramen ovale; I49.5 Sick sinus syndrome; M06.9 Rheumatoid arthritis, unspecified; I10 Essential (primary) hypertension; M35.00 Sjogren syndrome, unspecified; I44.30 Unspecified atrioventricular block; T50.2X5A Adverse effect of carbonic-anhydrase inhibitors, benzothiadiazides and other diuretics, initial encounter; R04.0 Epistaxis; E78.5 Hyperlipidemia, unspecified; H40.9 Unspecified glaucoma; E87.5 Hyperkalemia; I49.3 Ventricular premature depolarization; Z94.7 Corneal transplant status; E16.2 Hypoglycemia, unspecified; R26.9 Unspecified abnormalities of gait and mobility; R73.9 Hyperglycemia, unspecified; H54.8 Legal blindness, as defined in USA; K44.9 Diaphragmatic hernia without obstruction or gangrene; G89.18 Other acute postprocedural pain; M54.2 Cervicalgia; D18.09 Hemangioma of other sites; Z79.01 Long term (current) use of anticoagulants; Z79.82 Long term (current) use of aspirin; Z79.899 Other long term (current) drug therapy; Z87.440 Personal history of urinary (tract) infections; Z86.73 Personal history of transient ischemic attack (TIA), and cerebral infarction without residual deficits; Z88.6 Allergy status to analgesic agent; Z88.1 Allergy status to other antibiotic agents; Z88.5 Allergy status to narcotic agent; Z88.0 Allergy status to penicillin; Z88.2 Allergy status to sulfonamides
CPT/HCPCS: 33208; 36430; 71045; 71046; 76604; 80048; 80053; 81001; 82330; 82533; 82805; 83036; 83735; 84132; 85025; 85027; 85610; 85730; 86022; 86850; 86870; 86880; 86891; 86900; 86901; 86902; 86920; 94002; 94640; 94760

== ENCOUNTER → 2024-07-28 | Outpatient (CLI) | payer MEDICARE, BC | END | disposition home or self-care (01) | LOC: LABWHC1 08:05 | PROVIDERS: ATTEND Family Medicine | DX: Z01.818 Encounter for other preprocedural examination (principal); Z53.9 Procedure and treatment not carried out, unspecified reason | CPT/HCPCS: 86850; 86870; 86880; 86900; 86901; 86902; 86920 ==

== ENCOUNTER 2024-08-20 11:16 | Inpatient (IN) | payer MEDICARE, BC ==
[2024-08-20 12:25] LABS: Anisocytosis Slight; Basophils % (A) 0 %; Eosinophils # (A) 0.2 k/uL (0-0.7); Eosinophils % (A) 3 %; HCT 30.2 % (34.0-46.0); HGB 9.3 gm/dL (11.4-16.0); Hypochromasia Moderate; Lymphocytes % (A) 19 %; MCH 31.8 pg (25.0-35.0); MCHC 30.9 g/dL (31.0-37.0); MCV 102.8 fL (80.0-100.0); Macrocytosis Moderate; Mean Platelet Volume 6.7; Monocytes # (A) 0.4 k/uL (0-1.0); Monocytes % (A) 8 %; Neutrophils # (A) 3.5 k/uL (1.3-7.7); Neutrophils % (A) 67 %; Platelet Count 319 k/uL (150-450); RBC 2.94 m/uL (3.80-5.40); RDW 16.8 % (11.5-15.5); WBC 5.2 k/uL (3.8-10.6)
[2024-08-20 12:37] LABS: INR 1.1 (<1.2); Partial Thromboplastin Time 24.5 sec (22.0-30.0)
[2024-08-20 12:55] LABS: Anion Gap 8 mmol/L; Blood Urea Nitrogen 11 mg/dL (7-17); Carbon Dioxide 30 mmol/L (22-30); Chloride 87 mmol/L (98-107); Glucose 99 mg/dL (74-99); Potassium 3.4 mmol/L (3.5-5.1); Sodium 125 mmol/L (137-145)
[2024-08-20 12:56] LABS: ALT 17 U/L (4-34); AST 47 U/L (14-36); African American GFR (CKD) >90 (>60 ml/min/1.73 sqM); Albumin 3.3 g/dL (3.5-5.0); Alkaline Phosphatase 103 U/L (38-126); Calcium 8.4 mg/dL (8.4-10.2); Magnesium 1.7 mg/dL (1.6-2.3); Non-African American GFR(CKD) 88 (>60 ml/min/1.73 sqM); Total Bilirubin 1.1 mg/dL (0.2-1.3); Total Protein 6.7 g/dL (6.3-8.2)
[2024-08-20 13:04] LABS: NT-Pro-B-Type Natriuretic Pept 13200 pg/mL
--- NOTE | 2024-08-20 13:08 | XR ---
EXAMINATION TYPE: XR chest 1V portable DATE OF EXAM: 08/20/2024 COMPARISON: Chest x-ray July 30, 2024 CLINICAL INDICATION: Female, 78 years old with history of dyspnea; TECHNIQUE: Single frontal view of the chest is obtained. FINDINGS: Persistent cardiomegaly with dual lead pacemaker and cardiac valve surgical change along w ith atherosclerotic and ectatic thoracic aorta. Persistent central vascular congestion and small to m oderate sized bilateral pleural effusions. Osseous structures are intact IMPRESSION: Findings consistent with CHF exacerbation/fluid overload state are redemonstrated simila r to most recent prior. [facility], , 08/20/2024 1:05 PM
[2024-08-20] MEDS ORDERED: NALOXONE 0.4 MG/ML 1 ML VIAL IV PRN (13:18)
[2024-08-20] MEDS: hydrALAZINE HCL 20 MG/ML 1 ML VIAL IVP STA (13:35)
--- NOTE | 2024-08-20 13:40 | ED ---
General Adult HPI - General Chief complaint: Recheck/Abnormal Lab/Rx Stated complaint: cardiac Time Seen by Provider: 08/20/24 11:25 Source: patient, EMS, RN notes reviewed, old records reviewed Mode of arrival: EMS Limitations: no limitations - History of Present Illness Initial comments: Patient is a 78-year-old female presents emergency department as a transfer for shortness of breath. Had a recent CABG with Dr. Bey at our facility in July 30. Presented to [facility] earlier this morning with general weakness, as well as worsening shortness of breath for the last few days. Also had pacemaker placed on last admission as well. Was found to be in a volume overload state with an elevated troponin and was transferred here for further care. Patient denies any chest pain at any point but does endorse some dysuria as well as difficulty in breathing. Endorses worsening orthopnea. Denies PND. Endorses lower extremity edema. Denies any significant productive cough but does endorse a mild cough. Presents for further evaluation at this time. Patient also has a history of atrial fibrillation and is on blood th inners. - Related Data Home Medications Medication Instructions Recorded Confirmed Apixaban [Eliquis] 2.5 mg PO BID 05/06/24 08/20/24 Ascorbic Acid [Vitamin C] 500 mg PO DAILY 05/06/24 08/20/24 Cholecalciferol [Vitamin D3 (25 25 mcg PO DAILY 05/06/24 08/20/24 Mcg = 1000 Iu)] Collagen/Biotin/Ascorbic Acid 1 cap PO DAILY 05/06/24 08/20/24 [Collagen 1500 Plus C Capsule] Sodium Chloride 5% Ophth Oint 1 drop BOTH EYES BID 05/06/24 08/20/24 [Ayleen 128] Super 8 Greens 1 dose PO DAILY 05/06/24 08/20/24 Timolol [Betimol 0.5% Ophth Soln] 1 drop RIGHT EYE HS 05/06/24 08/20/24 prednisoLONE acetate [Pred Mild] 1 drop BOTH EYES TID 05/06/24 08/20/24 valACYclovir HCL [Valtrex] 500 mg PO DAILY 05/06/24 08/20/24 Cetirizine HCl [Zyrtec] 10 mg PO HS 07/14/24 08/20/24 Famotidine [Pepcid] 40 mg PO DAILY 07/14/24 08/20/24 diphenhydrAMINE [Benadryl] 25 mg PO BID PRN 07/14/24 08/20/24 Carboxymethylcellulose Sodium 2 drop BOTH EYES Q1H PRN 08/20/24 08/20/24 [Refresh Tears] Sennosides-Docusate Sodium 2 tab PO HS 08/20/24 08/20/24 [Senokot-S] Systane Night Gel 1 drop BOTH EYES HS 08/20/24 08/20/24 Previous Rx's Medication Instructions Recorded Acetaminophen Tab [Tylenol] 1,000 mg PO Q6HR PRN tab 08/07/24 Aspirin 81 mg PO DAILY #30 tab 08/07/24 Atorvastatin [Lipitor] 40 mg PO DAILY #30 tab 08/07/24 Cephalexin [Keflex] 500 mg PO BID #14 cap 08/07/24 Furosemide [Lasix] 40 mg PO DAILY #30 tab 08/07/24 Losartan [Cozaar] 12.5 mg PO DAILY@1200 #30 tab 08/07/24 Metoprolol Tartrate [Lopressor] 12.5 mg PO BID #60 tab 08/07/24 guaiFENesin [Mucinex] 600 mg PO Q12HR tab 08/07/24 oxyCODONE HCL [OxyIR] 10 mg PO Q4H PRN 3 Days #18 tab 08/10/24 Allergies Allergy/AdvReac Type Severity Reaction Status Date / Time Beef Containing Products Allergy Nausea & Verified 08/20/24 13:14 [Beef] Vomiting codeine Allergy Nausea & Verified 08/20/24 13:14 Vomiting erythromycin base Allergy Rash/Hives Verified 08/20/24 13:14 gluten Allergy GI upset Verified 08/20/24 13:14 hydrocodone [From Vicodin] Allergy Nausea & Verified 08/20/24 13:14 Vomiting ibuprofen Allergy Rash/Hives Verified 08/20/24 13:14 meperidine [From Demerol] Allergy Unknown Verified 08/20/24 13:14 morphine Allergy Hallucinati Verified 08/20/24 13:14 ons Penicillins Allergy Rash/Hives Verified 08/20/24 13:14 Pork/Porcine Containing Allergy Nausea & Verified 08/20/24 13:14 Products Vomiting [Pork] Sulfa (Sulfonamide Allergy Rash/Hives Verified 08/20/24 13:14 Antibiotics) tramadol [From Ultram] Allergy Rash/Hives Verified 08/20/24 13:14 aspirin AdvReac Unknown Verified 08/20/24 13:14 hand landscape manager Allergy Rash/Hives Uncoded 07/30/24 06:16 Review of Systems ROS Statement: Those systems with pertinent positive or pertinent negative responses have been documented in the HPI. Review of Systems: CONST: Denies fever EYES: Denies blurry vision ENT: Denies nasal congestion C/V: Denies Chest pain RESP: Denies shortness of breath GI: Denies abdominal pain : Denies dysuria SKIN: Denies rash. MSK: Denies joint pain. NEURO: Denies headache ROS Other: All systems not noted in ROS Statement are negative. 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 states she passed out 04/30/24 after eye examination and long day of travel - estimates LOC 2 minutes, fatigue, weakness, SOB w/exertion, surgery was rescheduled History of Any Multi-Drug Resistant Organisms: None Reported Past Surgical History: Heart Catheterization, Hysterectomy Additional Past Surgical History / Comment(s): Bilat. corneal transplants, rectocele repair Past Anesthesia/Blood Transfusion Reactions: No Reported Reaction Additional Past Anesthesia/Blood Transfusion Reaction / Comment(s): no hx. of transfusion reactions Past Psychological History: No Psychological Hx Reported Smoking Status: Never smoker - Past Family History Father Family Medical History: Coronary Artery Disease (CAD) Additional Family Medical History / Comment(s): CABG 3 times during lifetime, bypass and valve repairs Mother Family Medical History: Hypertension General Exam - General Exam Comments Initial Comments: General: Appears in no acute distress. HEAD: Normal with no signs of head trauma. EYES: PERRLA, EOMI, conjunctiva normal, no discharge. ENT: Hearing grossly intact, normal oropharynx. RESPIRATORY: Mildly coarse breath sounds bilaterally. No significant increased work of breathing. No hypoxia. C/V: Regular rate and rhythm. S1 and S2 auscultated, lower extremity edema bilaterally, peripheral pulses 2+ and intact throughout ABD: Abd is soft, nontender, nondistended EXT: Normal range of motion, no obvious deformity SKIN: No rashes or lesions observed on exposed skin. NEURO: Alert and oriented x 4. Limitations: no limitations Course Vital Signs 08/20/24 08/20/24 11:36 12:57 Temperature 97.6 F Pulse Rate 60 60 Respiratory 18 18 Rate Blood Pressure 192/93 184/92 O2 Sat by Pulse 95 96 Oximetry Medical Decision Making - Medical Decision Making Was pt. sent in by a medical professional or institution (Dr. PA, ACTUARIAL TRAINEE, urgent care, hospital, or fdc...) When possible be specific @ -No Did you speak to anyone other than the patient for history (EMS, parent, family, police, friend...)? What history was obtained from this source @ -No Did you review nursing and triage notes (agree or disagree)? Why? @ -I reviewed and agree with nursing and triage notes Were old charts reviewed (outside hosp., previous admission, EMS record, old EKG, old radiological studies, urgent care reports/EKG's, fdc records)? Report findings @ -Reviewed transfer paperwork which showed chest x-ray reading as pulm vascular congestion as well as elevated troponin at outside facility with different assay. Patient also hypokalemic and hyponatremic. Differential Diagnosis (chest pain, altered mental status, abdominal pain women, abdominal pain men, vaginal bleeding, weakness, fever, dyspnea, syncope, headache, dizziness, GI bleed, back pain, seizure, CVA, palpatations, mental health, musculoskeletal)? @ -Congestive heart failure, electrolyte abnormality, postop complication. This list is not all inclusive. EKG interpreted by me (3pts min.). @ -As above X-rays interpreted by me (1pt min.). @ -Chest x-ray redemonstrates pulmonary vascular congestion. CT interpreted by me (1pt min.). @ -None done U/S interpreted by me (1pt. min.). @ -None done What testing was considered but not performed or refused? (CT, X-rays, U/S, labs)? Why? @ -None What meds were considered but not given or refused? Why? @ -None Did you discuss the management of the patient with other professionals (professionals i.e. , PA, ACTUARIAL TRAINEE, lab, RT, psych nurse, social scientist, land management forester, teacher, examining officer, watch caser)? Give summary @ -Discussed with MLP any story of cardiothoracic surgery who was in agreement plan for medical admission and cardiothoracic sinus consult. She states that she also notified Dr. Sandoval of the patient and cardiology Dr. Sandoval was consulted. I spoke with the admitting provider, Dr. Chaudhry who accepted the admission. Was smoking cessation discussed for >3mins.? @ -No Was critical care preformed (if so, how long)? @ -No Were there social determinants of health that impacted care today? How? (Homelessness, low income, unemployed, alcoholism, drug addiction, transportation, low edu. Level, literacy, decrease access to med. care, longterm, rehab)? @ -No Was there de-escalation of care discussed even if they declined (Discuss DNR or withdrawal of care, Hospice)? DNR status @ -No What co-morbidities impacted this encounter? (DM, HTN, Smoking, COPD, CAD, Cancer, CVA, ARF, Chemo, Hep., AIDS, mental health diagnosis, sleep apnea, morbid obesity)? @ -None Was patient admitted / discharged? Hospital course, mention meds given and route, prescriptions, significant lab abnormalities, going to OR and other pertinent info. @ -Based on patient's presentation and physical exam, I believe she is likely experiencing worsening congestive heart failure. Had recent CABG and pacemaker placement. Currently is resting comfortably at this time. Will repeat labs. She received IV Lasix. Will continue with IV Lasix administration and repeat chest x-ray as well. She was in agreement this plan. She denies chest pain at any point. EKG shows no signs of acute ischemia. Chest x-ray redemonstrates pulmonary vascular congestion. Laboratory studies remarkable for mild hypokalemia which was replenished, hyponatremia and hypochloremia. BNP is elevated to 13,000. Troponin is also elevated to 0.151 but this is likely secondary to numerous cardiac procedures recently as well as volume overload state. Will continue to trend at this time. Patient is anemic to hemoglobin of 9.3 however this does appear to be near the patient's baseline. Update the patient and family. She will be admitted at this time. They were in agreement this plan. Discussed with MLP any story of cardiothoracic surgery who was in agreement plan for medical admission and cardiothoracic sinus consult. She states that she also notified Dr. Sandoval of the patient and cardiology Dr. Sandoval was consulted. I spoke with the admitting provider, Dr. Chaudhry who accepted the admission. Undiagnosed new problem with uncertain prognosis? @ -No Drug Therapy requiring intensive monitoring for toxicity (Heparin, Nitro, Insulin, Cardizem)? @ -No Were any procedures done? @ -No Diagnosis/symptom? @ -CHF, elevated troponin, hypokalemia, hyponatremia Acute, or Chronic, or Acute on Chronic? @ -Acute Uncomplicated (without systemic symptoms) or Complicated (systemic symptoms)? @ -Complicated Side effects of treatment? @ -No Exacerbation, Progression, or Severe Exacerbation? @ -No Poses a threat to life or bodily function? How? (Chest pain, [place], [place], pneumonia, PE, COPD, DKA, ARF, appy, cholecystitis, CVA, Diverticulitis, Homicidal, Suicidal, threat to staff... and all critical care pts) @ -Yes - Lab Data Result diagrams: 08/20/24 12:11 08/20/24 12:11 Lab Results 08/20/24 08/20/24 08/20/24 Range/Units 12:11 12:11 12:11 WBC 5.2 (3.8-10.6) k/uL RBC 2.94 L (3.80-5.40) m/uL Hgb 9.3 L (11.4-16.0) gm/dL Hct 30.2 L (34.0-46.0) % MCV 102.8 H (80.0-100.0) fL MCH 31.8 (25.0-35.0) pg MCHC 30.9 L (31.0-37.0) g/dL RDW 16.8 H (11.5-15.5) % Plt Count 319 (150-450) k/uL MPV 6.7 Neutrophils % 67 % Lymphocytes % 19 % Monocytes % 8 % Eosinophils % 3 % Basophils % 0 % Neutrophils # 3.5 (1.3-7.7) k/uL Lymphocytes # 1.0 (1.0-4.8) k/uL Monocytes # 0.4 (0-1.0) k/uL Eosinophils # 0.2 (0-0.7) k/uL Basophils # 0.0 (0-0.2) k/uL Hypochromasia Moderate Anisocytosis Slight Macrocytosis Moderate PT 12.0 (10.0-12.5) sec INR 1.1 (<1.2) APTT 24.5 (22.0-30.0) sec Sodium 125 L (137-145) mmol/L Potassium 3.4 L (3.5-5.1) mmol/L Chloride 87 L (98-107) mmol/L Carbon Dioxide 30 (22-30) mmol/L Anion Gap 8 mmol/L BUN 11 (7-17) mg/dL Creatinine 0.62 (0.52-1.04) mg/dL Est GFR (CKD-EPI)AfAm >90 (>60 ml/min/1.73 sqM) Est GFR (CKD-EPI)NonAf 88 (>60 ml/min/1.73 sqM) Glucose 99 (74-99) mg/dL Calcium 8.4 (8.4-10.2) mg/dL Magnesium 1.7 (1.6-2.3) mg/dL Total Bilirubin 1.1 (0.2-1.3) mg/dL AST 47 H (14-36) U/L ALT 17 (4-34) U/L Alkaline Phosphatase 103 (38-126) U/L Troponin I (0.000-0.034) ng/mL NT-Pro-B Natriuret Pep 91575 pg/mL Total Protein 6.7 (6.3-8.2) g/dL Albumin 3.3 L (3.5-5.0) g/dL 08/20/24 Range/Units 12:11 WBC (3.8-10.6) k/uL RBC (3.80-5.40) m/uL Hgb (11.4-16.0) gm/dL Hct (34.0-46.0) % MCV (80.0-100.0) fL MCH (25.0-35.0) pg MCHC (31.0-37.0) g/dL RDW (11.5-15.5) % Plt Count (150-450) k/uL MPV Neutrophils % % Lymphocytes % % Monocytes % % Eosinophils % % Basophils % % Neutrophils # (1.3-7.7) k/uL Lymphocytes # (1.0-4.8) k/uL Monocytes # (0-1.0) k/uL Eosinophils # (0-0.7) k/uL Basophils # (0-0.2) k/uL Hypochromasia Anisocytosis Macrocytosis PT (10.0-12.5) sec INR (<1.2) APTT (22.0-30.0) sec Sodium (137-145) mmol/L Potassium (3.5-5.1) mmol/L Chloride (98-107) mmol/L Carbon Dioxide (22-30) mmol/L Anion Gap mmol/L BUN (7-17) mg/dL Creatinine (0.52-1.04) mg/dL Est GFR (CKD-EPI)AfAm (>60 ml/min/1.73 sqM) Est GFR (CKD-EPI)NonAf (>60 ml/min/1.73 sqM) Glucose (74-99) mg/dL Calcium (8.4-10.2) mg/dL Magnesium (1.6-2.3) mg/dL Total Bilirubin (0.2-1.3) mg/dL AST (14-36) U/L ALT (4-34) U/L Alkaline Phosphatase (38-126) U/L Troponin I 0.151 H* (0.000-0.034) ng/mL NT-Pro-B Natriuret Pep pg/mL Total Protein (6.3-8.2) g/dL Albumin (3.5-5.0) g/dL - EKG Data -: EKG Interpreted by Me EKG Comments: 12-lead Electrocardiogram Interpretation Note EKG was reviewed and interpreted by myself. 12-lead ECG performed at 1141 is interpreted by me as revealing paced rhythm at a rate of 59 beats per minute. Indeterminate axis. QRS duration is 166 ms, QTc is 523 ms.. There were no ST or T wave abnormalities to suggest myocardial ischemia or injury. R wave progression across the precordium was satisfactory. By my interpretation this EKG is non-diagnostic for acute ischemia. Disposition Clinical Impression: CHF (congestive heart failure), Hyponatremia, Hypokalemia, Elevated troponin Disposition: ADMITTED IP TO THIS HOSP Condition: Serious Referrals: Eriberto Hutton MD [Primary Care Provider] - 1-2 days Time of Disposition: 13:30
[2024-08-20] MEDS: METOPROLOL TARTRATE 12.5 MG TAB PO SCH (13:52)
[2024-08-20] MEDS: POTASSIUM CHLORIDE ER 20 MEQ TAB.ER PO STA (13:52)
[2024-08-20] MEDS: LOSARTAN 25 MG TAB PO STA (13:52)
[2024-08-20] MEDS ORDERED: ARTIFICIAL TEARS-HYPROMELLOSE DROPS 15 ML BTL BOTH EYES PRN (14:39)
[2024-08-20] MEDS: ACETAMINOPHEN TAB 325 MG TAB PO PRN (14:57)
[2024-08-20 15:32] LABS: Appearance,Urine Cloudy (Clear); Bacteria,Urine Few /hpf; Bilirubin,Urine Negative (Negative); Blood,Urine Trace (Negative); Color,Urine Colorless; Glucose,Urine (UA) Negative (Negative); Ketones,Urine Negative (Negative); Leukocyte Esterase,Urine Large (Negative); Nitrite,Urine Positive (Negative); Protein,Urine Negative (Negative); RBC,Urine 2 /hpf (0-5); Specific Gravity,Urine 1.007 (1.001-1.035); Squamous Epithelial Cell,Urine 4 /hpf (0-4); Urobilinogen,Urine <2.0 mg/dL (<2.0); WBC,Urine >182 /hpf (0-5)
[2024-08-20] MEDS: cefTRIAXone IN SWFI 1,000 MG/10 ML SYRINGE IVP STA (16:35)
[2024-08-20] MEDS: prednisoLONE ACETATE 1% OPHTH DROPS 5 ML BTL BOTH EYES SCH (16:36)
--- NOTE | 2024-08-20 16:39 | P.GSCN ---
History of Present Illness Consult date: 08/20/24 Reason for Consult: Known to our service from recent open heart Requesting physician: Tyrell Wright History of present illness: This is a 78-year-old female who follows outpatient with nurse practitioner Sury Barbosa for internal medicine and Dr. Cardenas for cardiology. She has a previous medical history of moderate mitral regurgitation and severe tricuspid regurgitation status post mitral and tricuspid valve repair along with closure of patent foramen ovale and modified Ayala-Maze on July 30, 2024, chronic atrial fibrillation on Eliquis for anticoagulation, sick sinus syndrome with symptomatic bradycardia status post Medtronic dual-chamber pacemaker, hypertension, rheumatoid arthritis, CVA in 2014 with no residual deficits, TIA in 2006, sjogren's disease, lupus, anemia, legally blind s/p corneal trans plants, lifelong non-smoker, and family history of premature coronary artery disease. She was recently hospitalized for mitral and tricuspid repair by Dr. Bey after several months of progressive fatigue and shortness of breath. She also experienced significant lower extremity edema. She was hospitalized for 8 days and was discharged to home with home care 08/07/24. She has continued to have some pain at her pacemaker site as well as lower extremity. She has continued to have lower extremity edema. She was seen in the surgery office last week followed by a pacemaker check at the cardiology office. She was supposed to be seen by Dr. Cardenas today at [place] however she reported to [facility] with complaints of generalized weakness and worsening shortness of breath as well as inability to urinate. She was felt to be volume overloaded with elevated troponin, expected given recent heart surgery as well as subsequent pacemaker implantation, the patient has no high-grade coronary stenosis. Was transferred to [facility] for evaluation and treatment. In the emergency room EKG demonstrated ventricular paced rhythm. Chest x-ray revealed findings consistent with CHF exacerbation although similar to chest x- ray completed prior to discharge. Lab work revealed hemoglobin 9.3, sodium 125, creatinine 0.62, BNP 13,200. Urinalysis continues to be positive with large leukocyte esterase, greater than 182 WBCs, and positive nitrites. Patient has been on Keflex which is one of the few antibiotics she can tolerate. She was given IV Lasix and Finch catheter was placed with excellent diuresis. She is being admitted with consultation placed to cardiology as well as cardiac surgery. 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 states she passed out 04/30/24 after eye examination and long day of travel - estimates LOC 2 minutes, fatigue, weakness, SOB w/exertion, mitral and tricuspid regurgitation History of Any Multi-Drug Resistant Organisms: None Reported Past Surgical History: Heart Catheterization, Hysterectomy Additional Past Surgical History / Comment(s): Bilat. corneal transplants, rectocele repair; mitral and tricuspid repair 07/30/24; Medtronic permanent pacemaker placement 08/04/24 Past Anesthesia/Blood Transfusion Reactions: No Reported Reaction Additional Past Anesthesia/Blood Transfusion Reaction / Comm: no hx. of transfusion reactions Past Psychological History: No Psychological Hx Reported Smoking Status: Never smoker - Past Family History Father Family Medical History: Coronary Artery Disease (CAD) Additional Family Medical History / Comment(s): CABG 3 times during lifetime, bypass and valve repairs Mother Family Medical History: Hypertension Medications and Allergies Home Medications Medication Instructions Recorded Confirmed Type Apixaban [Eliquis] 2.5 mg PO BID 05/06/24 08/20/24 History Ascorbic Acid [Vitamin C] 500 mg PO DAILY 05/06/24 08/20/24 History Cholecalciferol [Vitamin D3 (25 25 mcg PO DAILY 05/06/24 08/20/24 History Mcg = 1000 Iu)] Collagen/Biotin/Ascorbic Acid 1 cap PO DAILY 05/06/24 08/20/24 History [Collagen 1500 Plus C Capsule] Sodium Chloride 5% Ophth Oint 1 drop BOTH EYES HS 05/06/24 08/20/24 History [Ayleen 128] Super 8 Greens 1 dose PO DAILY 05/06/24 08/20/24 History Timolol [Betimol 0.5% Ophth Soln] 1 drop RIGHT EYE HS 05/06/24 08/20/24 History prednisoLONE acetate [Pred Mild] 1 drop BOTH EYES TID 05/06/24 08/20/24 History valACYclovir HCL [Valtrex] 500 mg PO DAILY 05/06/24 08/20/24 History Cetirizine HCl [Zyrtec] 10 mg PO HS 07/14/24 08/20/24 History Famotidine [Pepcid] 40 mg PO DAILY 07/14/24 08/20/24 History diphenhydrAMINE [Benadryl] 25 mg PO BID PRN 07/14/24 08/20/24 History Acetaminophen Tab [Tylenol] 1,000 mg PO Q6HR PRN tab 08/07/24 08/20/24 Rx Aspirin 81 mg PO DAILY #30 tab 08/07/24 08/20/24 Rx Atorvastatin [Lipitor] 40 mg PO DAILY #30 tab 08/07/24 08/20/24 Rx Cephalexin [Keflex] 500 mg PO BID #14 cap 08/07/24 08/20/24 Rx Furosemide [Lasix] 40 mg PO DAILY #30 tab 08/07/24 08/20/24 Rx Losartan [Cozaar] 12.5 mg PO DAILY@1200 #30 tab 08/07/24 08/20/24 Rx Metoprolol Tartrate [Lopressor] 12.5 mg PO BID #60 tab 08/07/24 08/20/24 Rx guaiFENesin [Mucinex] 600 mg PO Q12HR tab 08/07/24 08/20/24 Rx oxyCODONE HCL [OxyIR] 10 mg PO Q4H PRN 3 Days #18 tab 08/10/24 08/20/24 Rx Carboxymethylcellulose Sodium 2 drop BOTH EYES Q1H PRN 08/20/24 08/20/24 History [Refresh Tears] Sennosides-Docusate Sodium 2 tab PO HS 08/20/24 08/20/24 History [Senokot-S] Systane Night Gel 1 drop BOTH EYES HS 08/20/24 08/20/24 History Allergies Allergy/AdvReac Type Severity Reaction Status Date / Time Beef Containing Products Allergy Nausea & Verified 08/20/24 13:14 [Beef] Vomiting codeine Allergy Nausea & Verified 08/20/24 13:14 Vomiting erythromycin base Allergy Rash/Hives Verified 08/20/24 13:14 gluten Allergy GI upset Verified 08/20/24 13:14 hydrocodone [From Vicodin] Allergy Nausea & Verified 08/20/24 13:14 Vomiting ibuprofen Allergy Rash/Hives Verified 08/20/24 13:14 meperidine [From Demerol] Allergy Unknown Verified 08/20/24 13:14 morphine Allergy Hallucinati Verified 08/20/24 13:14 ons Penicillins Allergy Rash/Hives Verified 08/20/24 13:14 Pork/Porcine Containing Allergy Nausea & Verified 08/20/24 13:14 Products Vomiting [Pork] Sulfa (Sulfonamide Allergy Rash/Hives Verified 08/20/24 13:14 Antibiotics) tramadol [From Ultram] Allergy Rash/Hives Verified 08/20/24 13:14 aspirin AdvReac Unknown Verified 08/20/24 13:14 hand case packer Allergy Rash/Hives Uncoded 07/30/24 06:16 Surgical - Exam Vital Signs Temp Pulse Resp BP Pulse Ox 97.6 F 60 18 192/93 95 08/20/24 11:36 08/20/24 11:36 08/20/24 11:36 08/20/24 11:36 08/20/24 11:36 CONSTITUTIONAL: Awake and alert, appears somewhat comfortable, cooperative, well-developed ENT: Moist mucous membranes without oral lesions present NECK: No masses, no bruits, trachea midline RESPIRATORY: Lungs sounds diminished in the bases. Respirations even, nonlabored. Currently on room air with oxygen saturation 96%. Strong cough CARDIOVASCULAR: S1, S2 present. Regular rate and rhythm, ventricular paced on telemetry. Sternum stable. Palpable peripheral pulses bilaterally. Bilateral lower extremity edema present. No calf pain or tenderness noted GASTROINTESTINAL: Abdomen soft, nontender, nondistended without masses or organomegaly noted. There is no rebound or guarding present. Active bowel sounds present 4 quadrants. GENITOURINARY: Deferred INTEGUMENTARY: Skin is warm and dry. Sternal incision and pacemaker site well approximated, no drainage NEUROLOGIC: Cranial nerves II through XII intact, normal coordination, no obvious motor or sensory deficits, speech is normal MUSKULOSKELETAL: Able to move all extremities, strength equal bilaterally, normal posture PSYCHIATRIC: Alert and oriented to person place and time, appropriate affect, intact judgment and insight Results - Labs 08/20/24 12:11 08/20/24 12:11 Abnormal Lab Results - Last 24 Hours (Table) 08/20/24 08/20/24 08/20/24 Range/Units 12:11 12:11 12:11 RBC 2.94 L (3.80-5.40) m/uL Hgb 9.3 L (11.4-16.0) gm/dL Hct 30.2 L (34.0-46.0) % MCV 102.8 H (80.0-100.0) fL MCHC 30.9 L (31.0-37.0) g/dL RDW 16.8 H (11.5-15.5) % Sodium 125 L (137-145) mmol/L Potassium 3.4 L (3.5-5.1) mmol/L Chloride 87 L (98-107) mmol/L AST 47 H (14-36) U/L Troponin I 0.151 H* (0.000-0.034) ng/mL Albumin 3.3 L (3.5-5.0) g/dL Urine Appearance (Clear) Urine Blood (Negative) Urine Nitrite (Negative) Ur Leukocyte Esterase (Negative) Urine WBC (0-5) /hpf Urine WBC Clumps (None) /hpf Urine Bacteria (None) /hpf 08/20/24 Range/Units 12:11 RBC (3.80-5.40) m/uL Hgb (11.4-16.0) gm/dL Hct (34.0-46.0) % MCV (80.0-100.0) fL MCHC (31.0-37.0) g/dL RDW (11.5-15.5) % Sodium (137-145) mmol/L Potassium (3.5-5.1) mmol/L Chloride (98-107) mmol/L AST (14-36) U/L Troponin I (0.000-0.034) ng/mL Albumin (3.5-5.0) g/dL Urine Appearance Cloudy H (Clear) Urine Blood Trace H (Negative) Urine Nitrite Positive H (Negative) Ur Leukocyte Esterase Large H (Negative) Urine WBC >182 H (0-5) /hpf Urine WBC Clumps Few H (None) /hpf Urine Bacteria Few H (None) /hpf Diabetes panel 08/20/24 Range/Units 12:11 Sodium 125 L (137-145) mmol/L Potassium 3.4 L (3.5-5.1) mmol/L Chloride 87 L (98-107) mmol/L Carbon Dioxide 30 (22-30) mmol/L BUN 11 (7-17) mg/dL Creatinine 0.62 (0.52-1.04) mg/dL Glucose 99 (74-99) mg/dL Calcium 8.4 (8.4-10.2) mg/dL AST 47 H (14-36) U/L ALT 17 (4-34) U/L Alkaline Phosphatase 103 (38-126) U/L Total Protein 6.7 (6.3-8.2) g/dL Albumin 3.3 L (3.5-5.0) g/dL Calcium panel 08/20/24 Range/Units 12:11 Calcium 8.4 (8.4-10.2) mg/dL Albumin 3.3 L (3.5-5.0) g/dL Pituitary panel 08/20/24 Range/Units 12:11 Sodium 125 L (137-145) mmol/L Potassium 3.4 L (3.5-5.1) mmol/L Chloride 87 L (98-107) mmol/L Carbon Dioxide 30 (22-30) mmol/L BUN 11 (7-17) mg/dL Creatinine 0.62 (0.52-1.04) mg/dL Glucose 99 (74-99) mg/dL Calcium 8.4 (8.4-10.2) mg/dL Adrenal panel 08/20/24 Range/Units 12:11 Sodium 125 L (137-145) mmol/L Potassium 3.4 L (3.5-5.1) mmol/L Chloride 87 L (98-107) mmol/L Carbon Dioxide 30 (22-30) mmol/L BUN 11 (7-17) mg/dL Creatinine 0.62 (0.52-1.04) mg/dL Glucose 99 (74-99) mg/dL Calcium 8.4 (8.4-10.2) mg/dL Total Bilirubin 1.1 (0.2-1.3) mg/dL AST 47 H (14-36) U/L ALT 17 (4-34) U/L Alkaline Phosphatase 103 (38-126) U/L Total Protein 6.7 (6.3-8.2) g/dL Albumin 3.3 L (3.5-5.0) g/dL - Imaging Chest x-ray: report reviewed, image reviewed EKG: image reviewed Assessment and Plan Assessment: Acute heart failure, proBNP 13,200 Shortness of breath, lower extremity edema secondary to above Acute urinary retention Urinary tract infection History of moderate mitral regurgitation and severe tricuspid regurgitation status post mitral and tricuspid valve repair along with closure of patent foramen ovale and modified Ayala-Maze on July 30, 2024 Chronic atrial fibrillation on Eliquis for anticoagulation Sick sinus syndrome with symptomatic bradycardia status post Medtronic dual- chamber pacemaker Hypertension Rheumatoid arthritis/Sjogren's disease/lupus CVA in 2014 with no residual deficits, TIA in 2006 Chronic anemia Legally blind s/p corneal transplants Lifelong non-smoker Plan: The patient was seen and examined laying on a cart in the emergency room in no acute distress. Chart/diagnostics reviewed. The case was discussed with Dr. Bey. Agree with IV diuresis. Continue home medications. Increase activity as tolerated. PT/OT consulted. Sternal precautions. Shower daily. Medical management of other comorbidities per internal medicine, cardiology. More recommendations to follow. Thank you for this consult, we will continue to follow along and make further recommendations as appropriate. I have personally seen and examined the patient, performed the documentation and the assessment and plan as written. Number of minutes spent on the visit: 30. TRENA Dominguez
[2024-08-20] MEDS: SENNOSIDES-DOCUSATE SODIUM 1 EACH TAB PO SCH (21:36)
[2024-08-20] MEDS: APIXABAN 2.5 MG TABLET PO SCH (21:37)
[2024-08-20] MEDS: LORATADINE 10 MG TAB PO SCH (21:37)
[2024-08-20] MEDS: FUROSEMIDE 10 MG/ML 4 ML VIAL IV SCH (21:38)
[2024-08-20] MEDS: CEPHALEXIN 500 MG CAP PO SCH (23:04)
[2024-08-20] MEDS: SODIUM CHLORIDE 5% OPHTH OINT 3.5 GM TUBE BOTH EYES SCH (23:07)
[2024-08-20] MEDS: ARTIFICIAL TEARS OINTMENT 3.5 GM TUBE BOTH EYES SCH (23:07)
[2024-08-20] MEDS: TIMOLOL 0.5% OPHTH DROPS 5 ML BTL RIGHT EYE SCH (23:07)
[2024-08-21 05:35] LABS: Glucose,Whole Blood 98 mg/dL (70-110)
--- NOTE | 2024-08-21 05:57 | XR ---
EXAM: XR Chest, 1 View CLINICAL HISTORY: ITS.REASON XR Reason: post cardiac surgery TECHNIQUE: Frontal view of the chest. COMPARISON: X-ray dated 08/20/2024. FINDINGS: Lungs: Opacification of the bilateral lung bases. Pleural space: Bilateral pleural effusions. No pneumothorax. Heart: Moderate to severe enlargement of the cardiac silhouette. Mediastinum: Unremarkable. Normal mediastinal contour. Bones/joints: Unremarkable. No acute fracture. Tubes, lines and devices: Cardiac conduction device overlies the left chest wall with 2 leads overlying the cardiac silhouette. IMPRESSION: Stable chest.
[2024-08-21 07:34] LABS: Anisocytosis Slight; Basophils % (A) 0 %; Eosinophils # (A) 0.2 k/uL (0-0.7); Eosinophils % (A) 5 %; HCT 32.4 % (34.0-46.0); HGB 10.1 gm/dL (11.4-16.0); Hypochromasia Moderate; Lymphocytes % (A) 21 %; MCHC 31.1 g/dL (31.0-37.0); MCV 103.1 fL (80.0-100.0); Macrocytosis Moderate; Mean Platelet Volume 7.1; Monocytes # (A) 0.3 k/uL (0-1.0); Monocytes % (A) 7 %; Neutrophils % (A) 63 %; Platelet Count 296 k/uL (150-450); Poikilocytosis Slight; RBC 3.15 m/uL (3.80-5.40); RDW 17.5 % (11.5-15.5); WBC 4.7 k/uL (3.8-10.6)
[2024-08-21 07:53] LABS: ALT 17 U/L (4-34); AST 47 U/L (14-36); African American GFR (CKD) >90 (>60 ml/min/1.73 sqM); Albumin 3.3 g/dL (3.5-5.0); Alkaline Phosphatase 100 U/L (38-126); Anion Gap 9 mmol/L; Blood Urea Nitrogen 11 mg/dL (7-17); Calcium 8.3 mg/dL (8.4-10.2); Carbon Dioxide 28 mmol/L (22-30); Chloride 90 mmol/L (98-107); Glucose 100 mg/dL (74-99); Magnesium 1.7 mg/dL (1.6-2.3); Non-African American GFR(CKD) >90 (>60 ml/min/1.73 sqM); Potassium 3.8 mmol/L (3.5-5.1); Sodium 127 mmol/L (137-145); Total Protein 6.7 g/dL (6.3-8.2)
[2024-08-21] MEDS: ASPIRIN 81 MG PO SCH (08:46)
[2024-08-21] MEDS: ATORVASTATIN 40 MG TAB PO SCH (08:46)
[2024-08-21] MEDS: ASCORBIC ACID 500 MG TAB PO SCH (08:47)
[2024-08-21] MEDS: CHOLECALCIFEROL 25 MCG (1000 IU) TABLET PO SCH (08:47)
[2024-08-21] MEDS: FAMOTIDINE 20 MG TAB PO SCH (08:47)
[2024-08-21] MEDS ORDERED: NON FORMULARY DRUG (Collagen/Biotin/Ascorbic Acid [Collagen 1500 Plus C Capsule] 1 EACH Ca PO SCH (09:00)
--- NOTE | 2024-08-21 09:51 | P.CRDCN ---
History of Present Illness Consult date: 08/21/24 Reason for Consult (text): CHF and volume overload History of present illness: This is a 78-year-old female patient of Dr. Cardenas with past medical history of mitral and tricuspid regurgitation status post mitral valve repair and tricuspid valve annuloplasty performed on 07/30/2024. Patient had a complicated hospital course requiring extensive hospitalization, status post Medtronic dual-chamber permanent pacemaker implantation on 08/04 and developed atrial fibrillation as well. We have been asked to see the patient for CHF and fluid overload. Patient states that she started feeling achy all over as well as generalized weakness and general did not feel well. She also complains of shortness of breath. She states this morning, she is better than when she presented to the hospital yesterday but not back to her baseline. She denies lower extremity edema. No fevers. Blood pressure 184/93, heart rate 60, pulse ox 99% on 2 L nasal cannula. Patient has been started on IV Lasix 40 mg every 12 hours. Patient is seen today in the emergency center waiting for a bed on the cardiac stepdown unit. -EKG: Electronic ventricularly paced rhythm. -Chest x-ray: Stable. -Laboratory studies: Hemoglobin 10.1, sodium 127, BUN 11, creatinine 0.57. Troponins 0.151, 0.132, 0.132. proBNP 13,200. Urinalysis positive for infection. -Home cardiac medications: Eliquis 2.5 mg twice daily, aspirin 81 mg daily, Lipitor 40 mg daily, Lasix 40 mg daily, losartan 12.5 mg at noon, Lopressor 12.5 mg twice daily. -Cardiac catheterization performed 05/13/2024 revealed mild pulmonary hypertension, normal biventricular filling pressure, mild to moderate CAD. Review Of Systems: At the time of my exam: CONSTITUTIONAL: Denies fever or chills. Reports generalized weakness and bodyaches HEENT: Denies blurred vision, vision changes, or eye pain. Denies hemoptysis CARDIOVASCULAR: Denies chest pain. Denies orthopnea. Denies PND. Denies palpitations RESPIRATORY: Denies shortness of breath. GASTROINTESTINAL: Denies abdominal pain. Denies nausea or vomiting. HEMATOLOGIC: Denies bleeding disorders. GENITOURINARY: Denies any blood in urine. SKIN: Denies puritis. Denies rash. Physical examination: Gen: This is a 78-year-old frail female in no acute respiratory distress. VS: reviewed HEENT: Head is atraumatic, normocephalic. Pupils equal, round. Sclerae is anicteric. NECK: Supple. No JVD. LUNGS: Clear to auscultation. No wheezes or rhonchi. No intercostal retractions. HEART: Regular rate and rhythm. ABDOMEN: Soft No tenderness. EXTREMITIES: No pedal edema. No calf tenderness. NEUROLOGICAL: Patient is awake, alert and oriented x3. Assessment: Complaints of achiness, weakness, shortness of breath Acute diastolic heart failure Uncontrolled hypertension Valvular heart disease with mitral and tricuspid regurgitation status post mitr al valve repair and tricuspid valve annuloplasty 07/30/2024 sick sinus syndrome status post Medtronic dual-chamber pacemaker Chronic atrial fibrillation on Eliquis History of Sjogren's disease Plan: Resume patient's home cardiac medications Increase losartan to 50 mg daily starting this morning Obtain blood culture to rule out bacteremia due to recent valve surgery Obtain 2-D echocardiogram and Doppler study to assess cardiac structure and function Further recommendations to follow based upon clinical course Thank you kindly for this consultation. Nurse practitioner note has been reviewed, I agree with documented findings and plan of care. Patient was seen and examined. 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 states she passed out 04/30/24 after eye examination and long day of travel - estimates LOC 2 minutes, fatigue, weakness, SOB w/exertion, mitral and tricuspid regurgitation History of Any Multi-Drug Resistant Organisms: None Reported Past Surgical History: Heart Catheterization, Hysterectomy Additional Past Surgical History / Comment(s): Bilat. corneal transplants, rectocele repair; mitral and tricuspid repair 07/30/24; Medtronic permanent pacemaker placement 08/04/24 Past Anesthesia/Blood Transfusion Reactions: No Reported Reaction Additional Past Anesthesia/Blood Transfusion Reaction / Comment(s): no hx. of transfusion reactions Past Psychological History: No Psychological Hx Reported Smoking Status: Never smoker - Past Family History Father Family Medical History: Coronary Artery Disease (CAD) Additional Family Medical History / Comment(s): CABG 3 times during lifetime, bypass and valve repairs Mother Family Medical History: Hypertension Medications and Allergies Home Medications Medication Instructions Recorded Confirmed Type Apixaban [Eliquis] 2.5 mg PO BID 05/06/24 08/20/24 History Ascorbic Acid [Vitamin C] 500 mg PO DAILY 05/06/24 08/20/24 History Cholecalciferol [Vitamin D3 (25 25 mcg PO DAILY 05/06/24 08/20/24 History Mcg = 1000 Iu)] Collagen/Biotin/Ascorbic Acid 1 cap PO DAILY 05/06/24 08/20/24 History [Collagen 1500 Plus C Capsule] Sodium Chloride 5% Ophth Oint 1 drop BOTH EYES HS 05/06/24 08/20/24 History [Ayleen 128] Super 8 Greens 1 dose PO DAILY 05/06/24 08/20/24 History Timolol [Betimol 0.5% Ophth Soln] 1 drop RIGHT EYE HS 05/06/24 08/20/24 History prednisoLONE acetate [Pred Mild] 1 drop BOTH EYES TID 05/06/24 08/20/24 History valACYclovir HCL [Valtrex] 500 mg PO DAILY 05/06/24 08/20/24 History Cetirizine HCl [Zyrtec] 10 mg PO HS 07/14/24 08/20/24 History Famotidine [Pepcid] 40 mg PO DAILY 07/14/24 08/20/24 History diphenhydrAMINE [Benadryl] 25 mg PO BID PRN 07/14/24 08/20/24 History Acetaminophen Tab [Tylenol] 1,000 mg PO Q6HR PRN tab 08/07/24 08/20/24 Rx Aspirin 81 mg PO DAILY #30 tab 08/07/24 08/20/24 Rx Atorvastatin [Lipitor] 40 mg PO DAILY #30 tab 08/07/24 08/20/24 Rx Cephalexin [Keflex] 500 mg PO BID #14 cap 08/07/24 08/20/24 Rx Furosemide [Lasix] 40 mg PO DAILY #30 tab 08/07/24 08/20/24 Rx Losartan [Cozaar] 12.5 mg PO DAILY@1200 #30 tab 08/07/24 08/20/24 Rx Metoprolol Tartrate [Lopressor] 12.5 mg PO BID #60 tab 08/07/24 08/20/24 Rx guaiFENesin [Mucinex] 600 mg PO Q12HR tab 08/07/24 08/20/24 Rx oxyCODONE HCL [OxyIR] 10 mg PO Q4H PRN 3 Days #18 tab 08/10/24 08/20/24 Rx Carboxymethylcellulose Sodium 2 drop BOTH EYES Q1H PRN 08/20/24 08/20/24 History [Refresh Tears] Sennosides-Docusate Sodium 2 tab PO HS 08/20/24 08/20/24 History [Senokot-S] Systane Night Gel 1 drop BOTH EYES HS 08/20/24 08/20/24 History Allergies Allergy/AdvReac Type Severity Reaction Status Date / Time Beef Containing Products Allergy Nausea & Verified 08/20/24 13:14 [Beef] Vomiting codeine Allergy Nausea & Verified 08/20/24 13:14 Vomiting erythromycin base Allergy Rash/Hives Verified 08/20/24 13:14 gluten Allergy GI upset Verified 08/20/24 13:14 hydrocodone [From Vicodin] Allergy Nausea & Verified 08/20/24 13:14 Vomiting ibuprofen Allergy Rash/Hives Verified 08/20/24 13:14 meperidine [From Demerol] Allergy Unknown Verified 08/20/24 13:14 morphine Allergy Hallucinati Verified 08/20/24 13:14 ons Penicillins Allergy Rash/Hives Verified 08/20/24 13:14 Pork/Porcine Containing Allergy Nausea & Verified 08/20/24 13:14 Products Vomiting [Pork] Sulfa (Sulfonamide Allergy Rash/Hives Verified 08/20/24 13:14 Antibiotics) tramadol [From Ultram] Allergy Rash/Hives Verified 08/20/24 13:14 aspirin AdvReac Unknown Verified 08/20/24 13:14 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 Rash/Hives Uncoded 07/30/24 06:16 Physical Exam Vitals: Vital Signs Temp Pulse Resp BP Pulse Ox 08/21/24 07:37 60 18 184/93 99 08/21/24 06:31 60 16 191/94 99 08/21/24 05:00 205/103 08/21/24 04:34 60 18 190/90 97 08/20/24 23:09 60 18 187/89 95 08/20/24 19:24 60 17 174/93 96 08/20/24 16:31 61 17 178/86 95 08/20/24 15:01 60 20 169/97 96 08/20/24 13:53 60 16 170/82 96 08/20/24 12:57 60 18 184/92 96 08/20/24 11:36 97.6 F 60 18 192/93 95 Results 08/21/24 07:10 08/21/24 07:10 Cardiac Enzymes 08/20/24 08/20/24 08/20/24 Range/Units 12:11 12:11 15:18 AST 47 H (14-36) U/L Troponin I 0.151 H* 0.132 H* (0.000-0.034) ng/mL 08/20/24 08/21/24 Range/Units 18:41 07:10 AST 47 H (14-36) U/L Troponin I 0.132 H* (0.000-0.034) ng/mL Coagulation 08/20/24 Range/Units 12:11 PT 12.0 (10.0-12.5) sec APTT 24.5 (22.0-30.0) sec CBC 08/20/24 08/21/24 Range/Units 12:11 07:10 WBC 5.2 4.7 (3.8-10.6) k/uL RBC 2.94 L 3.15 L (3.80-5.40) m/uL Hgb 9.3 L 10.1 L (11.4-16.0) gm/dL Hct 30.2 L 32.4 L (34.0-46.0) % Plt Count 319 296 (150-450) k/uL Comprehensive Metabolic Panel 08/20/24 08/21/24 Range/Units 12:11 07:10 Sodium 125 L 127 L (137-145) mmol/L Potassium 3.4 L 3.8 (3.5-5.1) mmol/L Chloride 87 L 90 L (98-107) mmol/L Carbon Dioxide 30 28 (22-30) mmol/L BUN 11 11 (7-17) mg/dL Creatinine 0.62 0.57 (0.52-1.04) mg/dL Glucose 99 100 H (74-99) mg/dL Calcium 8.4 8.3 L (8.4-10.2) mg/dL AST 47 H 47 H (14-36) U/L ALT 17 17 (4-34) U/L Alkaline Phosphatase 103 100 (38-126) U/L Total Protein 6.7 6.7 (6.3-8.2) g/dL Albumin 3.3 L 3.3 L (3.5-5.0) g/dL Current Medications Generic Name Dose Route Start Last Admin Trade Name Freq PRN Reason Stop Dose Admin Acetaminophen 650 mg 08/20/24 13:18 08/21/24 04:30 Acetaminophen Tab 325 Mg Tab PO 650 mg Q6HR PRN Administration Mild Pain or Fever > 100.5 Apixaban 2.5 mg 08/20/24 21:00 08/20/24 21:37 Apixaban 2.5 Mg Tablet PO 2.5 mg BID [facility] Administration Protocol Artificial Tears 2 drops 08/20/24 14:39 Artificial Tears-Hypromellose Drops 15 Ml Btl BOTH EYES Q1H PRN dry eyes Ascorbic Acid 500 mg 08/21/24 09:00 Ascorbic Acid 500 Mg Tab PO DAILY [facility] Aspirin 81 mg 08/21/24 09:00 Aspirin 81 Mg PO DAILY [facility] Atorvastatin Calcium 40 mg 08/21/24 09:00 Atorvastatin 40 Mg Tab PO DAILY [facility] Cephalexin 500 mg 08/20/24 21:00 08/20/24 23:04 Cephalexin 500 Mg Cap PO 09/02/24 21:01 500 mg BID [facility] Administration Protocol Cholecalciferol 25 mcg 08/21/24 09:00 Cholecalciferol 25 Mcg (1000 Iu) Tablet PO DAILY [facility] Diphenhydramine HCl 25 mg 08/20/24 14:39 Diphenhydramine 25 Mg Cap PO BID PRN Itching Famotidine 40 mg 08/21/24 09:00 Famotidine 20 Mg Tab PO DAILY [facility] Furosemide 40 mg 08/20/24 21:00 08/20/24 21:38 Furosemide 10 Mg/Ml 4 Ml Vial IV 40 mg Q12HR [facility] Administration Loratadine 10 mg 08/20/24 21:00 08/20/24 21:37 Loratadine 10 Mg Tab PO 10 mg HS [facility] Administration Losartan Potassium 12.5 mg 08/21/24 12:00 Losartan 25 Mg Tab PO DAILY@1200 [facility] Metoprolol Tartrate 12.5 mg 08/20/24 13:00 08/21/24 05:26 Metoprolol Tartrate 12.5 Mg Tab PO 12.5 mg BID [facility] Administration Multi-Ingred Cream/Lotion/Oil/Oint 1 applic 08/20/24 21:00 08/20/24 23:07 Artificial Tears Ointment 3.5 Gm Tube BOTH EYES 1 applic HS [facility] Administration Naloxone HCl 0.2 mg 08/20/24 13:18 Naloxone 0.4 Mg/Ml 1 Ml Vial IV Q2M PRN Opioid Reversal Prednisolone Acetate 1 drops 08/20/24 16:00 08/21/24 01:01 Prednisolone Acetate 1% Ophth Drops 5 Ml Btl BOTH EYES Not Given TID [facility] Senna/Docusate Sodium 2 each 08/20/24 21:00 08/20/24 21:36 Sennosides-Docusate Sodium 1 Each Tab PO 2 each HS [facility] Administration Sodium Chloride 1 applic 08/20/24 21:00 08/20/24 23:07 Sodium Chloride 5% Ophth Oint 3.5 Gm Tube BOTH EYES 1 applic HS [facility] Administration Timolol Maleate 1 drops 08/20/24 21:00 08/20/24 23:07 Timolol 0.5% Ophth Drops 5 Ml Btl RIGHT EYE 1 drops HS [facility] Administration Valacyclovir HCl 500 mg 08/21/24 09:00 Valacyclovir Hcl 500 Mg Tab PO DAILY [facility] Protocol 08/21/24 07:10 08/21/24 07:10
[2024-08-21] MEDS: valACYclovir HCL 500 MG TAB PO SCH (11:21)
[2024-08-21] MEDS: LOSARTAN 50 MG TAB PO SCH (11:22)
[2024-08-21] MEDS ORDERED: LOSARTAN 25 MG TAB PO SCH (12:00)
--- NOTE | 2024-08-21 12:43 | P.PN ---
Subjective Progress Note Date: 08/21/24 Principal diagnosis: Acute on chronic heart failure with preserved ejection fraction, acute urinary retention, urinary tract infection. History of moderate mitral regurgitation an d severe tricuspid regurgitation status post mitral and tricuspid valve repair along with closure of patent foramen ovale and modified Ayala-Maze on July 30, 2024, chronic atrial fibrillation on Eliquis for anticoagulation, sick sinus syndrome with symptomatic bradycardia status post Medtronic dual-chamber pacemaker, hypertension, rheumatoid arthritis/Sjogren's disease/lupus, CVA in 2014 with no residual deficits, TIA in 2006, chronic anemia, legally blind s/p corneal transplants, lifelong non-smoker The patient was seen and examined sitting up in a recliner still in the ER. Family present. States she feels better than when she came in but still not back to baseline. Remains paced on telemetry, hemodynamically stable although hypertensive, losartin increased by cardiology. Currently on room air with oxygen saturation in the mid 90s. Continues to diurese. CXR, labs reviewed. Objective - Vital Signs Vital signs: Vital Signs Temp 97.6 F 08/20/24 11:36 Pulse 61 08/21/24 11:23 Resp 20 08/21/24 11:23 BP 165/90 08/21/24 11:23 Pulse Ox 95 08/21/24 11:23 FiO2 Intake & Output 08/20/24 08/21/24 08/21/24 18:59 06:59 18:59 Output Total 650 Balance -650 Weight 59.421 kg Output: Urine 650 Uretheral (Finch) 650 - Exam CONSTITUTIONAL: Appears comfortable, cooperative, no acute distress RESPIRATORY: Lungs sounds diminished in the bases bilaterally. Respirations even, nonlabored. Currently on room air with oxygen saturation 95%. Able to achieve 1000 mL on incentive spirometry. Strong cough. CARDIOVASCULAR: S1, S2 present. Regular rate and rhythm, ventricular paced on telemetry. Sternum stable. Palpable peripheral pulses bilaterally. Trace bilateral lower extremity edema present. No calf pain or tenderness noted GASTROINTESTINAL: Abdomen soft, nontender, nondistended. Active bowel sounds present 4 quadrants. Tolerating minimal diet GENITOURINARY: Finch present draining clear, yellow urine. Output not charted except this morning, 650 ml INTEGUMENTARY: Skin is warm and dry with evidence of good perfusion. Anterior chest incision well approximated, pacer site with intact steristrips, no redness/drainage from either incision NEUROLOGIC: Cranial nerves II through XII intact MUSKULOSKELETAL: Able to move all extremities, strength equal bilaterally, gait normal PSYCHIATRIC: Alert and oriented to person place and time, appropriate affect, intact judgment and insight - Allied health notes Allied health notes reviewed: nursing - Labs CBC & Chem 7: 08/21/24 07:10 08/21/24 07:10 Labs: Abnormal Lab Results - Last 24 Hours (Table) 08/20/24 08/20/24 08/20/24 Range/Units 12:11 12:11 12:11 RBC 2.94 L (3.80-5.40) m/uL Hgb 9.3 L (11.4-16.0) gm/dL Hct 30.2 L (34.0-46.0) % MCV 102.8 H (80.0-100.0) fL MCHC 30.9 L (31.0-37.0) g/dL RDW 16.8 H (11.5-15.5) % Sodium 125 L (137-145) mmol/L Potassium 3.4 L (3.5-5.1) mmol/L Chloride 87 L (98-107) mmol/L Glucose (74-99) mg/dL Calcium (8.4-10.2) mg/dL AST 47 H (14-36) U/L Troponin I 0.151 H* (0.000-0.034) ng/mL Albumin 3.3 L (3.5-5.0) g/dL Urine Appearance (Clear) Urine Blood (Negative) Urine Nitrite (Negative) Ur Leukocyte Esterase (Negative) Urine WBC (0-5) /hpf Urine WBC Clumps (None) /hpf Urine Bacteria (None) /hpf 08/20/24 08/20/24 08/20/24 Range/Units 12:11 15:18 18:41 RBC (3.80-5.40) m/uL Hgb (11.4-16.0) gm/dL Hct (34.0-46.0) % MCV (80.0-100.0) fL MCHC (31.0-37.0) g/dL RDW (11.5-15.5) % Sodium (137-145) mmol/L Potassium (3.5-5.1) mmol/L Chloride (98-107) mmol/L Glucose (74-99) mg/dL Calcium (8.4-10.2) mg/dL AST (14-36) U/L Troponin I 0.132 H* 0.132 H* (0.000-0.034) ng/mL Albumin (3.5-5.0) g/dL Urine Appearance Cloudy H (Clear) Urine Blood Trace H (Negative) Urine Nitrite Positive H (Negative) Ur Leukocyte Esterase Large H (Negative) Urine WBC >182 H (0-5) /hpf Urine WBC Clumps Few H (None) /hpf Urine Bacteria Few H (None) /hpf 08/21/24 08/21/24 Range/Units 07:10 07:10 RBC 3.15 L (3.80-5.40) m/uL Hgb 10.1 L (11.4-16.0) gm/dL Hct 32.4 L (34.0-46.0) % MCV 103.1 H (80.0-100.0) fL MCHC (31.0-37.0) g/dL RDW 17.5 H (11.5-15.5) % Sodium 127 L (137-145) mmol/L Potassium (3.5-5.1) mmol/L Chloride 90 L (98-107) mmol/L Glucose 100 H (74-99) mg/dL Calcium 8.3 L (8.4-10.2) mg/dL AST 47 H (14-36) U/L Troponin I (0.000-0.034) ng/mL Albumin 3.3 L (3.5-5.0) g/dL Urine Appearance (Clear) Urine Blood (Negative) Urine Nitrite (Negative) Ur Leukocyte Esterase (Negative) Urine WBC (0-5) /hpf Urine WBC Clumps (None) /hpf Urine Bacteria (None) /hpf - Imaging and Cardiology Chest x-ray: report reviewed, image reviewed Assessment and Plan Assessment: Acute on chronic heart failure with preserved ejection fraction, proBNP 13,200 Shortness of breath, lower extremity edema secondary to above Acute urinary retention Urinary tract infection History of moderate mitral regurgitation and severe tricuspid regurgitation status post mitral and tricuspid valve repair along with closure of patent foramen ovale and modified Ayala-Maze on July 30, 2024 Chronic atrial fibrillation on Eliquis for anticoagulation Sick sinus syndrome with symptomatic bradycardia status post Medtronic dual- chamber pacemaker Hypertension Rheumatoid arthritis/Sjogren's disease/lupus CVA in 2014 with no residual deficits, TIA in 2006 Chronic anemia Legally blind s/p corneal transplants Lifelong non-smoker Plan: Continue to maximize medical therapy with ASA, statin, beta sharita. Continue Eliquis Continue losartan, increased by cardiology Continue to diuresis Increase activity as tolerated, PT/OT consulted Sternal precautions Shower daily Need to record strict accurate I/Os, especially given IV diuresis Will place nahid wright and ABAD joyner back on patient Medical management of other comorbidities per internal medicine, cardiology More recommendations to follow
--- NOTE | 2024-08-21 17:04 | P.HPIM ---
History of Present Illness H&P Date: 08/21/24 Chief Complaint: Generalized weakness 78-year-old female, history of hypertension, atrial fibrillation, coronary artery disease, presents emergency department as a transfer for shortness of breath. Had a recent CABG with Dr. Bey at our facility in July 30. Presented to [facility] earlier this morning with general weakness, as well as worsening shortness of breath for the last few days. Also had pacemaker placed on last admission as well. Was found to be in a volume overload state with an elevated troponin and was transferred here for further care. Patient denies any chest pain at any point but does endorse some dysuria as well as difficulty in breathing. Endorses worsening orthopnea. Denies PND. Endorses lower extremity edema. Denies any significant productive cough but does endorse a mild cough. Presents for further evaluation at this time. Patient also has a history of atrial fibrillation and is on blood thinners. -EKG: Electronic ventricularly paced rhythm. -Chest x-ray: Stable. -Laboratory studies: Hemoglobin 10.1, sodium 127, BUN 11, creatinine 0.57. Troponins 0.151, 0.132, 0.132. proBNP 13,200. Urinalysis positive for i nfection. -Home cardiac medications: Eliquis 2.5 mg twice daily, aspirin 81 mg daily, Lipitor 40 mg daily, Lasix 40 mg daily, losartan 12.5 mg at noon, Lopressor 12.5 mg twice daily. -Cardiac catheterization performed 05/13/2024 revealed mild pulmonary hypertension, normal biventricular filling pressure, mild to moderate CAD. Review of Systems REVIEW OF SYSTEMS: CONSTITUTIONAL: No fever, no malaise, no fatigue. HEENT: No recent visual problems or hearing problems. Denied any sore throat. CARDIOVASCULAR: No chest pain, orthopnea, PND, no palpitations, no syncope. PULMONARY: No shortness of breath, no cough, no hemoptysis. GASTROINTESTINAL: No diarrhea, no nausea, no vomiting, no abdominal pain. NEUROLOGICAL: No headaches, no weakness, no numbness. HEMATOLOGICAL: Denies any bleeding or petechiae. GENITOURINARY: Denies any burning micturition, frequency, or urgency. MUSCULOSKELETAL/RHEUMATOLOGICAL: Denies any joint pain, swelling, or any muscle pain. ENDOCRINE: Denies any polyuria or polydipsia. The rest of the 14-point review of systems is negative. 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 states she passed out 04/30/24 after eye examination and long day of travel - estimates LOC 2 minutes, fatigue, weakness, SOB w/exertion, mitral and tricuspid regurgitation History of Any Multi-Drug Resistant Organisms: None Reported Past Surgical History: Heart Catheterization, Hysterectomy Additional Past Surgical History / Comment(s): Bilat. corneal transplants, rectocele repair; mitral and tricuspid repair 07/30/24; Medtronic permanent pacemaker placement 08/04/24 Past Anesthesia/Blood Transfusion Reactions: No Reported Reaction Additional Past Anesthesia/Blood Transfusion Reaction / Comment(s): no hx. of transfusion reactions Past Psychological History: No Psychological Hx Reported Smoking Status: Never smoker - Past Family History Father Family Medical History: Coronary Artery Disease (CAD) Additional Family Medical History / Comment(s): CABG 3 times during lifetime, bypass and valve repairs Mother Family Medical History: Hypertension Medications and Allergies Home Medications Medication Instructions Recorded Confirmed Type Apixaban [Eliquis] 2.5 mg PO BID 05/06/24 08/20/24 History Ascorbic Acid [Vitamin C] 500 mg PO DAILY 05/06/24 08/20/24 History Cholecalciferol [Vitamin D3 (25 25 mcg PO DAILY 05/06/24 08/20/24 History Mcg = 1000 Iu)] Collagen/Biotin/Ascorbic Acid 1 cap PO DAILY 05/06/24 08/20/24 History [Collagen 1500 Plus C Capsule] Sodium Chloride 5% Ophth Oint 1 drop BOTH EYES HS 05/06/24 08/20/24 History [Ayleen 128] Super 8 Greens 1 dose PO DAILY 05/06/24 08/20/24 History Timolol [Betimol 0.5% Ophth Soln] 1 drop RIGHT EYE HS 05/06/24 08/20/24 History prednisoLONE acetate [Pred Mild] 1 drop BOTH EYES TID 05/06/24 08/20/24 History valACYclovir HCL [Valtrex] 500 mg PO DAILY 05/06/24 08/20/24 History Cetirizine HCl [Zyrtec] 10 mg PO HS 07/14/24 08/20/24 History Famotidine [Pepcid] 40 mg PO DAILY 07/14/24 08/20/24 History diphenhydrAMINE [Benadryl] 25 mg PO BID PRN 07/14/24 08/20/24 History Acetaminophen Tab [Tylenol] 1,000 mg PO Q6HR PRN tab 08/07/24 08/20/24 Rx Aspirin 81 mg PO DAILY #30 tab 08/07/24 08/20/24 Rx Atorvastatin [Lipitor] 40 mg PO DAILY #30 tab 08/07/24 08/20/24 Rx Cephalexin [Keflex] 500 mg PO BID #14 cap 08/07/24 08/20/24 Rx Furosemide [Lasix] 40 mg PO DAILY #30 tab 08/07/24 08/20/24 Rx Losartan [Cozaar] 12.5 mg PO DAILY@1200 #30 tab 08/07/24 08/20/24 Rx Metoprolol Tartrate [Lopressor] 12.5 mg PO BID #60 tab 08/07/24 08/20/24 Rx guaiFENesin [Mucinex] 600 mg PO Q12HR tab 08/07/24 08/20/24 Rx oxyCODONE HCL [OxyIR] 10 mg PO Q4H PRN 3 Days #18 tab 08/10/24 08/20/24 Rx Carboxymethylcellulose Sodium 2 drop BOTH EYES Q1H PRN 08/20/24 08/20/24 History [Refresh Tears] Sennosides-Docusate Sodium 2 tab PO HS 08/20/24 08/20/24 History [Senokot-S] Systane Night Gel 1 drop BOTH EYES HS 08/20/24 08/20/24 History Allergies Allergy/AdvReac Type Severity Reaction Status Date / Time Beef Containing Products Allergy Nausea & Verified 08/20/24 13:14 [Beef] Vomiting codeine Allergy Nausea & Verified 08/20/24 13:14 Vomiting erythromycin base Allergy Rash/Hives Verified 08/20/24 13:14 gluten Allergy GI upset Verified 08/20/24 13:14 hydrocodone [From Vicodin] Allergy Nausea & Verified 08/20/24 13:14 Vomiting ibuprofen Allergy Rash/Hives Verified 08/20/24 13:14 meperidine [From Demerol] Allergy Unknown Verified 08/20/24 13:14 morphine Allergy Hallucinati Verified 08/20/24 13:14 ons Penicillins Allergy Rash/Hives Verified 08/20/24 13:14 Pork/Porcine Containing Allergy Nausea & Verified 08/20/24 13:14 Products Vomiting [Pork] Sulfa (Sulfonamide Allergy Rash/Hives Verified 08/20/24 13:14 Antibiotics) tramadol [From Ultram] Allergy Rash/Hives Verified 08/20/24 13:14 aspirin AdvReac Unknown Verified 08/20/24 13:14 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 Allergy Rash/Hives Uncoded 07/30/24 06:16 Physical Exam Vitals: Vital Signs Pulse Resp BP Pulse Ox 08/21/24 11:23 61 20 165/90 95 08/21/24 10:00 60 18 162/88 99 08/21/24 09:00 60 18 181/99 100 08/21/24 07:37 60 18 184/93 99 08/21/24 06:31 60 16 191/94 99 08/21/24 05:00 205/103 08/21/24 04:34 60 18 190/90 97 08/20/24 23:09 60 18 187/89 95 08/20/24 19:24 60 17 174/93 96 08/20/24 16:31 61 17 178/86 95 08/20/24 15:01 60 20 169/97 96 08/20/24 13:53 60 16 170/82 96 08/20/24 12:57 60 18 184/92 96 Intake and Output 08/20/24 08/21/24 08/21/24 22:59 06:59 14:59 Output Total 650 Balance -650 Output: Urine 650 Uretheral (Finch) 650 General: Appears in no acute distress. HEAD: Normal with no signs of head trauma. EYES: PERRLA, EOMI, conjunctiva normal, no discharge. ENT: Hearing grossly intact, normal oropharynx. RESPIRATORY: Mildly coarse breath sounds bilaterally. No significant increased work of breathing. No hypoxia. C/V: Regular rate and rhythm. S1 and S2 auscultated, lower extremity edema bilaterally, peripheral pulses 2+ and intact throughout ABD: Abd is soft, nontender, nondistended EXT: Normal range of motion, no obvious deformity SKIN: No rashes or lesions observed on exposed skin. NEURO: Alert and oriented x 4. Results CBC & Chem 7: 08/21/24 07:10 08/21/24 07:10 Labs: Abnormal Lab Results - Last 24 Hours (Table) 08/20/24 08/20/24 08/20/24 Range/Units 12:11 12:11 12:11 RBC (3.80-5.40) m/uL Hgb (11.4-16.0) gm/dL Hct (34.0-46.0) % MCV (80.0-100.0) fL RDW (11.5-15.5) % Sodium 125 L (137-145) mmol/L Potassium 3.4 L (3.5-5.1) mmol/L Chloride 87 L (98-107) mmol/L Glucose (74-99) mg/dL Calcium (8.4-10.2) mg/dL AST 47 H (14-36) U/L Troponin I 0.151 H* (0.000-0.034) ng/mL Albumin 3.3 L (3.5-5.0) g/dL Urine Appearance Cloudy H (Clear) Urine Blood Trace H (Negative) Urine Nitrite Positive H (Negative) Ur Leukocyte Esterase Large H (Negative) Urine WBC >182 H (0-5) /hpf Urine WBC Clumps Few H (None) /hpf Urine Bacteria Few H (None) /hpf 08/20/24 08/20/24 08/21/24 Range/Units 15:18 18:41 07:10 RBC 3.15 L (3.80-5.40) m/uL Hgb 10.1 L (11.4-16.0) gm/dL Hct 32.4 L (34.0-46.0) % MCV 103.1 H (80.0-100.0) fL RDW 17.5 H (11.5-15.5) % Sodium (137-145) mmol/L Potassium (3.5-5.1) mmol/L Chloride (98-107) mmol/L Glucose (74-99) mg/dL Calcium (8.4-10.2) mg/dL AST (14-36) U/L Troponin I 0.132 H* 0.132 H* (0.000-0.034) ng/mL Albumin (3.5-5.0) g/dL Urine Appearance (Clear) Urine Blood (Negative) Urine Nitrite (Negative) Ur Leukocyte Esterase (Negative) Urine WBC (0-5) /hpf Urine WBC Clumps (None) /hpf Urine Bacteria (None) /hpf 08/21/24 Range/Units 07:10 RBC (3.80-5.40) m/uL Hgb (11.4-16.0) gm/dL Hct (34.0-46.0) % MCV (80.0-100.0) fL RDW (11.5-15.5) % Sodium 127 L (137-145) mmol/L Potassium (3.5-5.1) mmol/L Chloride 90 L (98-107) mmol/L Glucose 100 H (74-99) mg/dL Calcium 8.3 L (8.4-10.2) mg/dL AST 47 H (14-36) U/L Troponin I (0.000-0.034) ng/mL Albumin 3.3 L (3.5-5.0) g/dL Urine Appearance (Clear) Urine Blood (Negative) Urine Nitrite (Negative) Ur Leukocyte Esterase (Negative) Urine WBC (0-5) /hpf Urine WBC Clumps (None) /hpf Urine Bacteria (None) /hpf Assessment and Plan Assessment: 1. Generalized weakness/recent mitral valve repair and tricuspid valve annuloplasty; patient is status post surgery performed on 07/30/2024 -Records indicate patient had a complicated hospital course requiring extensive hospitalization, status post Medtronic dual-chamber permanent pacemaker implantation and developed atrial fibrillation -Workup completed in ED has been unremarkable; blood cultures have been obtained to rule out bacteremia -Cardiothoracic surgery on board 2. Acute diastolic heart failure; patient has been placed on IV Lasix; cardiology recommending to continue with diuresis; monitor strict OC's, daily weights, low-salt and fluid restricted diet 3. Uncontrolled hypertension; patient has been evaluated by cardiology and recommending to increase losartan to 50 mg daily; continue with metoprolol 12.5 mg twice daily; will continue to monitor blood pressure closely 4. UTI; patient has been placed on IV antibiotics in form of ceftriaxone 1 g IV daily; await final urine and blood culture results for final recommendations on antibiotic therapy 4. 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 Chronic atrial fibrillation; patient is anticoagulated on Eliquis; rate controlled on metoprolol 12.5 mg twice daily 6. Hyperlipidemia; Lipitor 40 mg p.o. nightly DVT prophylaxis; SCD CODE STATUS; full code
[2024-08-22] MEDS: hydrALAZINE HCL 20 MG/ML 1 ML VIAL IVP STA (00:09)
[2024-08-22 09:11] LABS: Anisocytosis Slight; Basophils % (A) 0 %; Eosinophils # (A) 0.2 k/uL (0-0.7); Eosinophils % (A) 5 %; HCT 33.8 % (34.0-46.0); HGB 10.6 gm/dL (11.4-16.0); Hypochromasia Slight; Lymphocytes # (A) 0.9 k/uL (1.0-4.8); Lymphocytes % (A) 24 %; MCH 32.3 pg (25.0-35.0); MCHC 31.4 g/dL (31.0-37.0); MCV 102.9 fL (80.0-100.0); Macrocytosis Moderate; Mean Platelet Volume 7.7; Monocytes # (A) 0.3 k/uL (0-1.0); Monocytes % (A) 9 %; Neutrophils # (A) 2.1 k/uL (1.3-7.7); Neutrophils % (A) 59 %; Platelet Count 255 k/uL (150-450); Poikilocytosis Slight; RBC 3.29 m/uL (3.80-5.40); RDW 17.6 % (11.5-15.5); WBC 3.6 k/uL (3.8-10.6)
[2024-08-22 09:25] LABS: African American GFR (CKD) >90 (>60 ml/min/1.73 sqM); Anion Gap 11 mmol/L; Blood Urea Nitrogen 17 mg/dL (7-17); Calcium 8.7 mg/dL (8.4-10.2); Carbon Dioxide 29 mmol/L (22-30); Chloride 89 mmol/L (98-107); Glucose 130 mg/dL (74-99); Non-African American GFR(CKD) 87 (>60 ml/min/1.73 sqM); Sodium 129 mmol/L (137-145)
--- NOTE | 2024-08-22 09:33 | P.PN ---
Subjective Progress Note Date: 08/22/24 Principal diagnosis: Acute on chronic heart failure with preserved ejection fraction, acute urinary retention, urinary tract infection. History of moderate mitral regurgitation an d severe tricuspid regurgitation status post mitral and tricuspid valve repair along with closure of patent foramen ovale and modified Ayala-Maze on July 30, 2024, chronic atrial fibrillation on Eliquis for anticoagulation, sick sinus syndrome with symptomatic bradycardia status post Medtronic dual-chamber pacemaker, hypertension, rheumatoid arthritis/Sjogren's disease/lupus, CVA in 2014 with no residual deficits, TIA in 2006, chronic anemia, legally blind s/p corneal transplants, lifelong non-smoker The patient was seen and examined sitting up in bed on the cardiac stepdown unit having just gotten in bed after having her shower. present. States she continues to feel better than when she came in but still not back to baseline. Remains paced on telemetry, hemodynamically stable. Currently on room air with oxygen saturation in the mid 90s. Continues to diurese. Objective - Vital Signs Vital signs: Vital Signs Temp 97.9 F 08/22/24 00:42 Pulse 62 08/22/24 04:43 Resp 16 08/22/24 04:43 BP 134/68 08/22/24 04:43 Pulse Ox 96 08/22/24 04:43 FiO2 Intake & Output 08/21/24 08/22/24 08/22/24 18:59 06:59 18:59 Output Total 650 800 Balance -650 -800 Weight 56.3 kg Output: Urine 650 800 Uretheral (Finch) 650 Other: Voiding Method Indwelling Catheter # Bowel Movements 2 - Exam CONSTITUTIONAL: Appears comfortable, cooperative, no acute distress RESPIRATORY: Lungs sounds diminished in the bases bilaterally. Respirations even, nonlabored. Currently on room air with oxygen saturation 96%. Strong cough. CARDIOVASCULAR: S1, S2 present. Regular rate and rhythm, ventricular paced on telemetry. Sternum stable. Palpable peripheral pulses bilaterally. No edema present. No calf pain or tenderness noted GASTROINTESTINAL: Abdomen soft, nontender, nondistended. Active bowel sounds present 4 quadrants. Tolerating diet, states she ate better yesterday GENITOURINARY: Finch present draining clear, yellow urine. Output not charted accurately, 800 ml documented at 3 AM INTEGUMENTARY: Skin is warm and dry with evidence of good perfusion. Anterior chest incision well approximated, pacer site with intact steristrips, no redness/drainage from either incision NEUROLOGIC: Cranial nerves II through XII intact MUSKULOSKELETAL: Able to move all extremities, strength equal bilaterally, gait normal PSYCHIATRIC: Alert and oriented to person place and time, appropriate affect, intact judgment and insight - Allied health notes Allied health notes reviewed: nursing - Labs CBC & Chem 7: 08/22/24 08:24 08/21/24 07:10 Labs: Abnormal Lab Results - Last 24 Hours (Table) 08/22/24 Range/Units 08:24 WBC 3.6 L (3.8-10.6) k/uL RBC 3.29 L (3.80-5.40) m/uL Hgb 10.6 L (11.4-16.0) gm/dL Hct 33.8 L (34.0-46.0) % MCV 102.9 H (80.0-100.0) fL RDW 17.6 H (11.5-15.5) % Lymphocytes # 0.9 L (1.0-4.8) k/uL Assessment and Plan Assessment: Acute on chronic heart failure with preserved ejection fraction, proBNP 13,200 Shortness of breath, lower extremity edema secondary to above Acute urinary retention Urinary tract infection History of moderate mitral regurgitation and severe tricuspid regurgitation status post mitral and tricuspid valve repair along with closure of patent foramen ovale and modified Ayala-Maze on July 30, 2024 Chronic atrial fibrillation on Eliquis for anticoagulation Sick sinus syndrome with symptomatic bradycardia status post Medtronic dual- chamber pacemaker Hypertension Rheumatoid arthritis/Sjogren's disease/lupus CVA in 2014 with no residual deficits, TIA in 2006 Chronic anemia Legally blind s/p corneal transplants Lifelong non-smoker Plan: Continue to maximize medical therapy with ASA, statin, beta sharita. Continue Eliquis Continue losartan Continue to diuresis Increase activity as tolerated, PT/OT consulted Sternal precautions Shower daily Steri-Strips removed from pacer site Need to record strict accurate I/Os, especially given IV diuresis Medical management of other comorbidities per internal medicine, cardiology More recommendations to follow
[2024-08-22 09:39] LABS: Potassium 3.3 mmol/L (3.5-5.1)
--- NOTE | 2024-08-22 11:28 | P.PN ---
Subjective Progress Note Date: 08/22/24 Reason for Consult (text): CHF and volume overload History of present illness: This is a 78-year-old female patient of Dr. Cardenas with past medical history of mitral and tricuspid regurgitation status post mitral valve repair and tricuspid valve annuloplasty performed on 07/30/2024. Patient had a complicated hospital course requiring extensive hospitalization, status post Medtronic dual-chamber permanent pacemaker implantation on 08/04 and developed atrial fibrillation as well. We have been asked to see the patient for CHF and fluid overload. Jessica west states that she started feeling achy all over as well as generalized weakness and general did not feel well. She also complains of shortness of breath. She states this morning, she is better than when she presented to the hospital yesterday but not back to her baseline. She denies lower extremity edema. No fevers.Blood pressure 184/93, heart rate 60, pulse ox 99% on 2 L nasal cannula. Patient has been started on IV Lasix 40 mg every 12 hours. Patient is seen today in the emergency center waiting for a bed on the cardiac stepdown unit. -EKG: Electronic ventricularly paced rhythm. -Chest x-ray: Stable. -Laboratory studies: Hemoglobin 10.1, sodium 127, BUN 11, creatinine 0.57. Troponins 0.151, 0.132, 0.132. proBNP 13,200. Urinalysis positive for infection. -Home cardiac medications: Eliquis 2.5 mg twice daily, aspirin 81 mg daily, Lipitor 40 mg daily, Lasix 40 mg daily, losartan 12.5 mg at noon, Lopressor 12.5 mg twice daily. -Cardiac catheterization performed 05/13/2024 revealed mild pulmonary hypertension, normal biventricular filling pressure, mild to moderate CAD. 08/22 Patient seen and examined. Blood pressure 134/68, heart rate 62, pulse ox 96% on room air. Repeat blood work reveals WBC 3.6, hemoglobin 10.6, potassium 3.3 and has been replaced, sodium 129, creatinine 0.63. Patient has been started on IV antibiotics due to concern for wound infection. Blood culture is status received. Cardiothoracic surgery is following the patient. Physical examination: Gen: This is a 78-year-old frail female in no acute respiratory distress. VS: reviewed HEENT: Head is atraumatic, normocephalic. Pupils equal, round. Sclerae is anicteric. NECK: Supple. No JVD. LUNGS: Clear to auscultation. No wheezes or rhonchi. No intercostal retractions. HEART: Regular rate and rhythm. ABDOMEN: Soft No tenderness. EXTREMITIES: No pedal edema. No calf tenderness. NEUROLOGICAL: Patient is awake, alert and oriented x3. Assessment: Complaints of achiness, weakness, shortness of breath Acute diastolic heart failure Uncontrolled hypertension Valvular heart disease with mitral and tricuspid regurgitation status post mitral valve repair and tricuspid valve annuloplasty 07/30/2024 sick sinus syndrome status post Medtronic dual-chamber pacemaker Chronic atrial fibrillation on Eliquis History of Sjogren's disease Plan: Continue patient's home cardiac medications Continue increased losartan 50 mg daily Continue IV Lasix 40 mg every 12 hours Monitor OC, daily weights, electrolytes and renal status Monitor blood culture to rule out bacteremia due to recent valve surgery Obtain 2D echocardiogram Further recommendations to follow based upon clinical course Thank you kindly for this consultation. Nurse practitioner note has been reviewed, I agree with documented findings and plan of care. Patient was seen and examined. Objective - Vital Signs Vital signs: Vital Signs Temp 97.9 F 08/22/24 00:42 Pulse 62 08/22/24 04:43 Resp 16 08/22/24 04:43 BP 134/68 08/22/24 04:43 Pulse Ox 96 08/22/24 04:43 FiO2 Intake & Output 08/21/24 08/22/24 08/22/24 18:59 06:59 18:59 Intake Total 118 Output Total 650 800 Balance -650 -800 118 Weight 56.3 kg Intake: Oral 118 Output: Urine 650 800 Uretheral (Finch) 650 Other: Voiding Method Indwelling Catheter # Bowel Movements 2 - Labs CBC & Chem 7: 08/22/24 08:24 08/22/24 08:24 Labs: Abnormal Lab Results - Last 24 Hours (Table) 08/22/24 08/22/24 Range/Units 08:24 08:24 WBC 3.6 L (3.8-10.6) k/uL RBC 3.29 L (3.80-5.40) m/uL Hgb 10.6 L (11.4-16.0) gm/dL Hct 33.8 L (34.0-46.0) % MCV 102.9 H (80.0-100.0) fL RDW 17.6 H (11.5-15.5) % Lymphocytes # 0.9 L (1.0-4.8) k/uL Sodium 129 L (137-145) mmol/L Potassium 3.3 L (3.5-5.1) mmol/L Chloride 89 L (98-107) mmol/L Glucose 130 H (74-99) mg/dL
[2024-08-22] MEDS: POTASSIUM BICARBONATE/CIT AC 20 MEQ TABLET.EFF PO ONE (11:40)
[2024-08-22 11:55] LABS: Glucose,Whole Blood 113 mg/dL (70-110)
[2024-08-22 14:27] VITALS: BMI 22.6
--- NOTE | 2024-08-22 14:54 | P.PN ---
Subjective Progress Note Date: 08/22/24 78-year-old female, history of hypertension, atrial fibrillation, coronary artery disease, presents emergency department as a transfer for shortness of breath. Had a recent CABG with Dr. Bey at our facility in July 30. Presented to [facility] earlier this morning with general weakness, as well as worsening shortness of breath for the last few days. Also had pacemaker placed on last admission as well. Was found to be in a volume overload state with an elevated troponin and was transferred here for further care. Patient denies any chest pain at any point but does endorse some dysuria as well as difficulty in breathing. Endorses worsening orthopnea. Denies PND. Endorses lower extremity edema. Denies any significant productive cough but does endorse a mild cough. Presents for further evaluation at this time. Patient also has a history of atrial fibrillation and is on blood thinners. -EKG: Electronic ventricularly paced rhythm. -Chest x-ray: Stable. -Laboratory studies: Hemoglobin 10.1, sodium 127, BUN 11, creatinine 0.57. Troponins 0.151, 0.132, 0.132. proBNP 13,200. Urinalysis positive for infection. -Home cardiac medications: Eliquis 2.5 mg twice daily, aspirin 81 mg daily, Lipitor 40 mg daily, Lasix 40 mg daily, losartan 12.5 mg at noon, Lopressor 12.5 mg twice daily. -Cardiac catheterization performed 05/13/2024 revealed mild pulmonary hypertension, normal biventricular filling pressure, mild to moderate CAD. Objective - Vital Signs Vital signs: Vital Signs Temp 97.9 F 08/22/24 00:42 Pulse 62 08/22/24 04:43 Resp 16 08/22/24 04:43 BP 134/68 08/22/24 04:43 Pulse Ox 96 08/22/24 04:43 FiO2 Intake & Output 08/21/24 08/22/24 08/22/24 18:59 06:59 18:59 Intake Total 118 Output Total 650 800 Balance -650 -800 118 Weight 56.3 kg Intake: Oral 118 Output: Urine 650 800 Uretheral (Finch) 650 Other: Voiding Method Indwelling Catheter # Bowel Movements 2 - Exam General: Appears in no acute distress. HEAD: Normal with no signs of head trauma. EYES: PERRLA, EOMI, conjunctiva normal, no discharge. ENT: Hearing grossly intact, normal oropharynx. RESPIRATORY: Mildly coarse breath sounds bilaterally. No significant increased work of breathing. No hypoxia. C/V: Regular rate and rhythm. S1 and S2 auscultated, lower extremity edema bilaterally, peripheral pulses 2+ and intact throughout ABD: Abd is soft, nontender, nondistended EXT: Normal range of motion, no obvious deformity SKIN: No rashes or lesions observed on exposed skin. NEURO: Alert and oriented x 4. - Labs CBC & Chem 7: 08/22/24 08:24 08/22/24 08:24 Labs: Abnormal Lab Results - Last 24 Hours (Table) 08/22/24 08/22/24 Range/Units 08:24 08:24 WBC 3.6 L (3.8-10.6) k/uL RBC 3.29 L (3.80-5.40) m/uL Hgb 10.6 L (11.4-16.0) gm/dL Hct 33.8 L (34.0-46.0) % MCV 102.9 H (80.0-100.0) fL RDW 17.6 H (11.5-15.5) % Lymphocytes # 0.9 L (1.0-4.8) k/uL Sodium 129 L (137-145) mmol/L Potassium 3.3 L (3.5-5.1) mmol/L Chloride 89 L (98-107) mmol/L Glucose 130 H (74-99) mg/dL Assessment and Plan Assessment: 1. Generalized weakness/recent mitral valve repair and tricuspid valve annuloplasty; patient is status post surgery performed on 07/30/2024 -Records indicate patient had a complicated hospital course requiring extensive hospitalization, status post Medtronic dual-chamber permanent pacemaker implantation and developed atrial fibrillation -Workup completed in ED has been unremarkable; blood cultures have been obtained to rule out bacteremia -Cardiothoracic surgery on board 2. Acute diastolic heart failure; patient has been placed on IV Lasix; cardiology recommending to continue with diuresis; monitor strict OC's, daily weights, low-salt and fluid restricted diet 3. Uncontrolled hypertension; patient has been evaluated by cardiology and recommending to increase losartan to 50 mg daily; continue with metoprolol 12.5 mg twice daily; will continue to monitor blood pressure closely 4. UTI; patient has been placed on IV antibiotics in form of ceftriaxone 1 g IV daily; await final urine and blood culture results for final recommendations on antibiotic therapy 4. 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 Chronic atrial fibrillation; patient is anticoagulated on Eliquis; rate controlled on metoprolol 12.5 mg twice daily 6. Hyperlipidemia; Lipitor 40 mg p.o. nightly DVT prophylaxis; SCD CODE STATUS; full code
[2024-08-22] MEDS: POTASSIUM CHLORIDE ER 20 MEQ TAB.ER PO STA (15:11)
[2024-08-22 16:38] LABS: Glucose,Whole Blood 118 mg/dL (70-110)
[2024-08-22 19:48] LABS: Glucose,Whole Blood 111 mg/dL (70-110)
[2024-08-23 06:19] LABS: Glucose,Whole Blood 127 mg/dL (70-110)
[2024-08-23 07:40] LABS: Anisocytosis Slight; Basophils % (A) 0 %; Eosinophils # (A) 0.2 k/uL (0-0.7); Eosinophils % (A) 4 %; HCT 32.1 % (34.0-46.0); Hypochromasia Moderate; Lymphocytes # (A) 0.8 k/uL (1.0-4.8); Lymphocytes % (A) 20 %; MCH 32.5 pg (25.0-35.0); MCHC 31.1 g/dL (31.0-37.0); MCV 104.3 fL (80.0-100.0); Macrocytosis Moderate; Mean Platelet Volume 7.4; Monocytes # (A) 0.4 k/uL (0-1.0); Monocytes % (A) 9 %; Neutrophils # (A) 2.7 k/uL (1.3-7.7); Neutrophils % (A) 65 %; Platelet Count 261 k/uL (150-450); Poikilocytosis Slight; RBC 3.08 m/uL (3.80-5.40); RDW 17.8 % (11.5-15.5); WBC 4.1 k/uL (3.8-10.6)
[2024-08-23 07:50] LABS: African American GFR (CKD) >90 (>60 ml/min/1.73 sqM); Anion Gap 9 mmol/L; Blood Urea Nitrogen 14 mg/dL (7-17); Calcium 8.3 mg/dL (8.4-10.2); Carbon Dioxide 31 mmol/L (22-30); Chloride 88 mmol/L (98-107); Glucose 105 mg/dL (74-99); Non-African American GFR(CKD) 87 (>60 ml/min/1.73 sqM); Potassium 3.7 mmol/L (3.5-5.1); Sodium 128 mmol/L (137-145)
--- NOTE | 2024-08-23 07:52 | XR ---
EXAMINATION TYPE: XR chest 2V DATE OF EXAM: 08/23/2024 6:34 AM COMPARISON: Multiple radiographs, with the most recent on 08/20/2024 TECHNIQUE: XR chest 2V Frontal and lateral views of the chest. CLINICAL INDICATION:Female, 78 years old with history of Heart failure; FINDINGS: Patient is rotated which limits evaluation. Lungs/Pleura: No evidence of focal consolidation or pneumothorax. Blunting of the costophrenic angles is present consistent with small bilateral pleural effusions. Pulmonary vascularity: Pulmonary vascular congestion. Heart/mediastinum: Cardiomediastinal silhouette is enlarged and stable. Cardiac valve surgical delcid e. Two lead cardiac conduction device overlying the left hemithorax with lead tips projecting over th e right ventricle and right atrium. Musculoskeletal: No acute osseous pathology. IMPRESSION: Slightly improved pulmonary vascular congestion and small bilateral pleural effusions. Cardiomegaly r edemonstrated. Findings suggest CHF exacerbation/volume overload. [facility], , 08/23/2024 7:50 AM
--- NOTE | 2024-08-23 08:41 | P.PN ---
Subjective Progress Note Date: 08/23/24 Principal diagnosis: Acute on chronic heart failure with preserved ejection fraction, acute urinary retention, urinary tract infection. 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 Rankin sitting up at the bedside on the cardiac stepdown unit eating breakfast. States she feels a bit more exhausted today. Requesting to have Finch catheter removed. Remains paced on telemetry, hemodynamically stable. Currently on room air with oxygen saturation in the mid 90s. Objective - Vital Signs Vital signs: Vital Signs Temp 98 F 08/22/24 22:59 Pulse 60 08/23/24 03:26 Resp 16 08/23/24 03:26 BP 150/88 08/23/24 03:26 Pulse Ox 95 08/23/24 03:26 FiO2 Intake & Output 08/22/24 08/23/24 08/23/24 18:59 06:59 18:59 Intake Total 354 Output Total 800 Balance 354 -800 Weight 56.3 kg 55.9 kg Intake: Oral 354 Output: Urine 800 Other: Voiding Method Indwelling Catheter Indwelling Catheter - Exam CONSTITUTIONAL: Appears comfortable, cooperative, no acute distress RESPIRATORY: Lungs sounds diminished in the bases bilaterally. Respirations even, nonlabored. Currently on room air with oxygen saturation 95%. Strong cough. CARDIOVASCULAR: S1, S2 present. Regular rate and rhythm, ventricular paced on telemetry. Sternum stable. Palpable peripheral pulses bilaterally. No edema present. No calf pain or tenderness noted GASTROINTESTINAL: Abdomen soft, nontender, nondistended. Active bowel sounds present 4 quadrants. Tolerating diet. Positive bowel movement x 2 3/15 GENITOURINARY: Finch present draining clear, yellow urine. Output not charted accurately, 800 ml documented at 7 AM INTEGUMENTARY: Skin is warm and dry with evidence of good perfusion. Anterior chest incision well approximated, pacer site without redness/drainage NEUROLOGIC: Cranial nerves II through XII intact MUSKULOSKELETAL: Able to move all extremities, strength equal bilaterally, gait normal PSYCHIATRIC: Alert and oriented to person place and time, appropriate affect, intact judgment and insight - Allied health notes Allied health notes reviewed: nursing - Labs CBC & Chem 7: 08/23/24 07:01 08/23/24 07:01 Labs: Abnormal Lab Results - Last 24 Hours (Table) 08/22/24 08/22/24 08/22/24 Range/Units 08:24 08:24 11:53 WBC 3.6 L (3.8-10.6) k/uL RBC 3.29 L (3.80-5.40) m/uL Hgb 10.6 L (11.4-16.0) gm/dL Hct 33.8 L (34.0-46.0) % MCV 102.9 H (80.0-100.0) fL RDW 17.6 H (11.5-15.5) % Lymphocytes # 0.9 L (1.0-4.8) k/uL Sodium 129 L (137-145) mmol/L Potassium 3.3 L (3.5-5.1) mmol/L Chloride 89 L (98-107) mmol/L Carbon Dioxide (22-30) mmol/L Glucose 130 H (74-99) mg/dL POC Glucose (mg/dL) 113 H (70-110) mg/dL Calcium (8.4-10.2) mg/dL 08/22/24 08/22/24 08/23/24 Range/Units 16:37 19:46 06:14 WBC (3.8-10.6) k/uL RBC (3.80-5.40) m/uL Hgb (11.4-16.0) gm/dL Hct (34.0-46.0) % MCV (80.0-100.0) fL RDW (11.5-15.5) % Lymphocytes # (1.0-4.8) k/uL Sodium (137-145) mmol/L Potassium (3.5-5.1) mmol/L Chloride (98-107) mmol/L Carbon Dioxide (22-30) mmol/L Glucose (74-99) mg/dL POC Glucose (mg/dL) 118 H 111 H 127 H (70-110) mg/dL Calcium (8.4-10.2) mg/dL 08/23/24 08/23/24 Range/Units 07:01 07:01 WBC (3.8-10.6) k/uL RBC 3.08 L (3.80-5.40) m/uL Hgb 10.0 L (11.4-16.0) gm/dL Hct 32.1 L (34.0-46.0) % MCV 104.3 H (80.0-100.0) fL RDW 17.8 H (11.5-15.5) % Lymphocytes # 0.8 L (1.0-4.8) k/uL Sodium 128 L (137-145) mmol/L Potassium (3.5-5.1) mmol/L Chloride 88 L (98-107) mmol/L Carbon Dioxide 31 H (22-30) mmol/L Glucose 105 H (74-99) mg/dL POC Glucose (mg/dL) (70-110) mg/dL Calcium 8.3 L (8.4-10.2) mg/dL Microbiology - Last 24 Hours (Table) 08/21/24 08:27 Blood Culture - Preliminary Blood - Imaging and Cardiology Chest x-ray: report reviewed, image reviewed Assessment and Plan Assessment: Acute on chronic heart failure with preserved ejection fraction, proBNP 13,200 Shortness of breath, lower extremity edema secondary to above Acute urinary retention Urinary tract infection History of moderate mitral regurgitation and severe tricuspid regurgitation status post mitral and tricuspid valve repair along with closure of patent foramen ovale and modified Ayala-Maze on July 30, 2024 Chronic atrial fibrillation on Eliquis for anticoagulation Sick sinus syndrome with symptomatic bradycardia status post Medtronic dual-chamber pacemaker Hypertension Rheumatoid arthritis/Sjogren's disease/lupus CVA in 2014 with no residual deficits, TIA in 2006 Chronic anemia Legally blind s/p corneal transplants Lifelong non-smoker Plan: Continue to maximize medical therapy with ASA, statin, beta sharita. Continue Eliquis Continue losartan Continue to diuresis Increase activity as tolerated, PT/OT consulted Sternal precautions Shower daily Discontinue Finch catheter per patient's request, may bladder scan and straight cath for greater than 300 mL residual Need to record strict accurate I/Os, especially given IV diuresis Antibiotics per internal medicine Echo ordered per cardiology Medical management of other comorbidities per internal medicine, cardiology More recommendations to follow
[2024-08-23 11:50] LABS: Glucose,Whole Blood 123 mg/dL (70-110)
[2024-08-23] MEDS: LOSARTAN 50 MG TAB PO STA (11:55)
--- NOTE | 2024-08-23 12:04 | P.PN ---
Subjective Progress Note Date: 08/23/24 Reason for Consult (text): CHF and volume overload History of present illness: This is a 78-year-old female patient of Dr. Cardenas with past medical history of mitral and tricuspid regurgitation status post mitral valve repair and tricuspid valve annuloplasty performed on 07/30/2024. Patient had a complicated hospital course requiring extensive hospitalization, status post Medtronic dual-chamber permanent pacemaker implantation on 08/04 and developed atrial fibrillation as well. We have been asked to see the patient for CHF and fluid overload. Jessica west states that she started feeling achy all over as well as generalized weakness and general did not feel well. She also complains of shortness of breath. She states this morning, she is better than when she presented to the hospital yesterday but not back to her baseline. She denies lower extremity edema. No fevers.Blood pressure 184/93, heart rate 60, pulse ox 99% on 2 L nasal cannula. Patient has been started on IV Lasix 40 mg every 12 hours. Patient is seen today in the emergency center waiting for a bed on the cardiac stepdown unit. -EKG: Electronic ventricularly paced rhythm. -Chest x-ray: Stable. -Laboratory studies: Hemoglobin 10.1, sodium 127, BUN 11, creatinine 0.57. Troponins 0.151, 0.132, 0.132. proBNP 13,200. Urinalysis positive for infection. -Home cardiac medications: Eliquis 2.5 mg twice daily, aspirin 81 mg daily, Lipitor 40 mg daily, Lasix 40 mg daily, losartan 12.5 mg at noon, Lopressor 12.5 mg twice daily. -Cardiac catheterization performed 05/13/2024 revealed mild pulmonary hypertension, normal biventricular filling pressure, mild to moderate CAD. 08/22 Patient seen and examined. Blood pressure 134/68, heart rate 62, pulse ox 96% on room air. Repeat blood work reveals WBC 3.6, hemoglobin 10.6, potassium 3.3 and has been replaced, sodium 129, creatinine 0.63. Patient has been started on IV antibiotics due to concern for wound infection. Blood culture is status received. Cardiothoracic surgery is following the patient. 08/23 Patient seen and examined. Yesterday losartan was increased to 50 mg daily blood pressure readings have been elevated up to the 170s systolic, heart rate is in the 60s, pulse ox 93% on room air. Repeat blood work reveals hemoglobin 10, sodium 128, BUN 14 creatinine 0.63. Chest x-ray obtained today reveals slightly improved pulmonary vascular congestion and small bilateral pleural effusions. Patient has been maintained on IV Lasix 40 mg every 12 hours. Patient does have a negative fluid balance and weight loss of 3-1/2 kg. Blood culture is no growth after 24 hours. Echocardiogram is pending. Physical examination: Gen: This is a 78-year-old frail female in no acute respiratory distress. VS: reviewed HEENT: Head is atraumatic, normocephalic. Pupils equal, round. Sclerae is anicteric. NECK: Supple. No JVD. LUNGS: Clear to auscultation. No wheezes or rhonchi. No intercostal retractions. HEART: Regular rate and rhythm. ABDOMEN: Soft No tenderness. EXTREMITIES: No pedal edema. No calf tenderness. NEUROLOGICAL: Patient is awake, alert and oriented x3. Assessment: Complaints of achiness, weakness, shortness of breath Acute diastolic heart failure Uncontrolled hypertension Valvular heart disease with mitral and tricuspid regurgitation status post mitral valve repair and tricuspid valve annuloplasty 07/30/2024 Sick sinus syndrome status post Medtronic dual-chamber pacemaker 08/04/24 Chronic atrial fibrillation on Eliquis History of Sjogren's disease Bacteremia ruled out with negative blood culture Plan: Continue patient's home cardiac medications: Eliquis, aspirin, atorvastatin Increase losartan to 100 mg daily Continue IV Lasix 40 mg every 12 hours Monitor OC, daily weights, electrolytes and renal status Monitor blood culture to rule out bacteremia due to recent valve surgery Obtain 2D echocardiogram Further recommendations to follow based upon clinical course Nurse practitioner note has been reviewed, I agree with documented findings and plan of care. Patient was seen and examined. Objective - Vital Signs Vital signs: Vital Signs Temp 98 F 08/22/24 22:59 Pulse 60 08/23/24 09:55 Resp 16 08/23/24 09:55 BP 172/75 08/23/24 08:45 Pulse Ox 95 08/23/24 08:45 FiO2 Intake & Output 08/22/24 08/23/24 08/23/24 18:59 06:59 18:59 Intake Total 354 Output Total 900 Balance 354 -900 Weight 56.3 kg 55.9 kg Intake: Oral 354 Output: Urine 900 Uretheral (Finch) 100 Other: Voiding Method Indwelling Catheter Indwelling Catheter - Labs CBC & Chem 7: 08/23/24 07:01 08/23/24 07:01 Labs: Abnormal Lab Results - Last 24 Hours (Table) 08/22/24 08/22/24 08/22/24 Range/Units 11:53 16:37 19:46 RBC (3.80-5.40) m/uL Hgb (11.4-16.0) gm/dL Hct (34.0-46.0) % MCV (80.0-100.0) fL RDW (11.5-15.5) % Lymphocytes # (1.0-4.8) k/uL Sodium (137-145) mmol/L Chloride (98-107) mmol/L Carbon Dioxide (22-30) mmol/L Glucose (74-99) mg/dL POC Glucose (mg/dL) 113 H 118 H 111 H (70-110) mg/dL Calcium (8.4-10.2) mg/dL 08/23/24 08/23/24 08/23/24 Range/Units 06:14 07:01 07:01 RBC 3.08 L (3.80-5.40) m/uL Hgb 10.0 L (11.4-16.0) gm/dL Hct 32.1 L (34.0-46.0) % MCV 104.3 H (80.0-100.0) fL RDW 17.8 H (11.5-15.5) % Lymphocytes # 0.8 L (1.0-4.8) k/uL Sodium 128 L (137-145) mmol/L Chloride 88 L (98-107) mmol/L Carbon Dioxide 31 H (22-30) mmol/L Glucose 105 H (74-99) mg/dL POC Glucose (mg/dL) 127 H (70-110) mg/dL Calcium 8.3 L (8.4-10.2) mg/dL Microbiology - Last 24 Hours (Table) 08/21/24 08:27 Blood Culture - Preliminary Blood
--- NOTE | 2024-08-23 19:13 | P.PN ---
Subjective Progress Note Date: 08/23/24 78-year-old female, history of hypertension, atrial fibrillation, coronary artery disease, presents emergency department as a transfer for shortness of breath. Had a recent CABG with Dr. Bey at our facility in July 30. Presented to [facility] earlier this morning with general weakness, as well as worsening shortness of breath for the last few days. Also had pacemaker placed on last admission as well. Was found to be in a volume overload state with an elevated troponin and was transferred here for further care. Patient denies any chest pain at any point but does endorse some dysuria as well as difficulty in breathing. Endorses worsening orthopnea. Denies PND. Endorses lower extremity edema. Denies any significant productive cough but does endorse a mild cough. Presents for further evaluation at this time. Patient also has a history of atrial fibrillation and is on blood thinners. -EKG: Electronic ventricularly paced rhythm. -Chest x-ray: Stable. -Laboratory studies: Hemoglobin 10.1, sodium 127, BUN 11, creatinine 0.57. Troponins 0.151, 0.132, 0.132. proBNP 13,200. Urinalysis positive for infection. -Home cardiac medications: Eliquis 2.5 mg twice daily, aspirin 81 mg daily, Lipitor 40 mg daily, Lasix 40 mg daily, losartan 12.5 mg at noon, Lopressor 12.5 mg twice daily. -Cardiac catheterization performed 05/13/2024 revealed mild pulmonary hypertension, normal biventricular filling pressure, mild to moderate CAD. 08/23/2024 Patient seen and examined in room at bedside. Inquiring about her blood work which was discussed with patient and family at bedside Vital signs are reviewed; blood pressure remains elevated -- Repeat blood work reveals hemoglobin 10, sodium 128, BUN 14 creatinine 0.63. Chest x-ray obtained today reveals slightly improved pulmonary vascular congestion and small bilateral pleural effusions. Patient has been maintained on IV Lasix 40 mg every 12 hours. Patient does have a negative fluid balance and weight loss of 3-1/2 kg. Blood culture is no growth after 24 hours. Echocardiogram is pending. -- yesterday losartan was increased to 50 mg daily blood pressure readings have been elevated up to the 170s systolic; cardiology recommending to increase losartan up to 100 mg daily; patient remains on Lasix 40 mg IV every 12 hours -Continue with current IV antibiotics Objective - Vital Signs Vital signs: Vital Signs Temp 98 F 08/22/24 22:59 Pulse 60 08/23/24 09:55 Resp 16 08/23/24 09:55 BP 172/75 08/23/24 08:45 Pulse Ox 95 08/23/24 08:45 FiO2 Intake & Output 08/22/24 08/23/24 08/23/24 18:59 06:59 18:59 Intake Total 354 Output Total 900 Balance 354 -900 Weight 56.3 kg 55.9 kg Intake: Oral 354 Output: Urine 900 Uretheral (Finch) 100 Other: Voiding Method Indwelling Catheter Indwelling Catheter - Exam General: Appears in no acute distress. HEAD: Normal with no signs of head trauma. EYES: PERRLA, EOMI, conjunctiva normal, no discharge. ENT: Hearing grossly intact, normal oropharynx. RESPIRATORY: Mildly coarse breath sounds bilaterally. No significant increased work of breathing. No hypoxia. C/V: Regular rate and rhythm. S1 and S2 auscultated, lower extremity edema bilaterally, peripheral pulses 2+ and intact throughout ABD: Abd is soft, nontender, nondistended EXT: Normal range of motion, no obvious deformity SKIN: No rashes or lesions observed on exposed skin. NEURO: Alert and oriented x 4. - Labs CBC & Chem 7: 08/23/24 07:01 08/23/24 07:01 Labs: Abnormal Lab Results - Last 24 Hours (Table) 08/22/24 08/22/24 08/22/24 Range/Units 11:53 16:37 19:46 RBC (3.80-5.40) m/uL Hgb (11.4-16.0) gm/dL Hct (34.0-46.0) % MCV (80.0-100.0) fL RDW (11.5-15.5) % Lymphocytes # (1.0-4.8) k/uL Sodium (137-145) mmol/L Chloride (98-107) mmol/L Carbon Dioxide (22-30) mmol/L Glucose (74-99) mg/dL POC Glucose (mg/dL) 113 H 118 H 111 H (70-110) mg/dL Calcium (8.4-10.2) mg/dL 08/23/24 08/23/24 08/23/24 Range/Units 06:14 07:01 07:01 RBC 3.08 L (3.80-5.40) m/uL Hgb 10.0 L (11.4-16.0) gm/dL Hct 32.1 L (34.0-46.0) % MCV 104.3 H (80.0-100.0) fL RDW 17.8 H (11.5-15.5) % Lymphocytes # 0.8 L (1.0-4.8) k/uL Sodium 128 L (137-145) mmol/L Chloride 88 L (98-107) mmol/L Carbon Dioxide 31 H (22-30) mmol/L Glucose 105 H (74-99) mg/dL POC Glucose (mg/dL) 127 H (70-110) mg/dL Calcium 8.3 L (8.4-10.2) mg/dL Microbiology - Last 24 Hours (Table) 08/21/24 08:27 Blood Culture - Preliminary Blood Assessment and Plan Assessment: 1. Generalized weakness/recent mitral valve repair and tricuspid valve annuloplasty; patient is status post surgery performed on 07/30/2024 -Records indicate patient had a complicated hospital course requiring extensive hospitalization, status post Medtronic dual-chamber permanent pacemaker implantation and developed atrial fibrillation -Workup completed in ED has been unremarkable; blood cultures have been obtained to rule out bacteremia -Cardiothoracic surgery on board 2. Acute diastolic heart failure; patient has been placed on IV Lasix; ca rdiology recommending to continue with diuresis; monitor strict OC's, daily weights, low-salt and fluid restricted diet 3. Uncontrolled hypertension; patient has been evaluated by cardiology and re commending to increase losartan to 50 mg daily; continue with metoprolol 12.5 mg twice daily; will continue to monitor blood pressure closely 4. UTI; patient has been placed on IV antibiotics in form of ceftriaxone 1 g IV daily; await final urine and blood culture results for final recommendations on antibiotic therapy 4. 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 Chronic atrial fibrillation; patient is anticoagulated on Eliquis; rate controlled on metoprolol 12.5 mg twice daily 6. Hyperlipidemia; Lipitor 40 mg p.o. nightly DVT prophylaxis; SCD CODE STATUS; full code
[2024-08-23] MEDS: METOPROLOL TARTRATE 50 MG TAB PO SCH (20:07)
[2024-08-23] MEDS: hydrALAZINE HCL 20 MG/ML 1 ML VIAL IVP PRN (21:56)
[2024-08-24 05:58] LABS: Anisocytosis Slight; Basophils % (A) 0 %; Eosinophils # (A) 0.3 k/uL (0-0.7); Eosinophils % (A) 8 %; HCT 32.2 % (34.0-46.0); HGB 10.1 gm/dL (11.4-16.0); Hypochromasia Slight; Lymphocytes # (A) 0.8 k/uL (1.0-4.8); Lymphocytes % (A) 22 %; MCH 32.7 pg (25.0-35.0); MCHC 31.5 g/dL (31.0-37.0); MCV 104.1 fL (80.0-100.0); Macrocytosis Moderate; Mean Platelet Volume 7.3; Monocytes # (A) 0.4 k/uL (0-1.0); Monocytes % (A) 9 %; Neutrophils # (A) 2.2 k/uL (1.3-7.7); Neutrophils % (A) 58 %; Platelet Count 238 k/uL (150-450); Poikilocytosis Slight; RBC 3.09 m/uL (3.80-5.40); WBC 3.8 k/uL (3.8-10.6)
[2024-08-24 06:24] LABS: African American GFR (CKD) >90 (>60 ml/min/1.73 sqM); Anion Gap 8 mmol/L; Blood Urea Nitrogen 13 mg/dL (7-17); Calcium 8.3 mg/dL (8.4-10.2); Carbon Dioxide 30 mmol/L (22-30); Chloride 88 mmol/L (98-107); Glucose 103 mg/dL (74-99); Non-African American GFR(CKD) 88 (>60 ml/min/1.73 sqM); Potassium 3.1 mmol/L (3.5-5.1); Sodium 126 mmol/L (137-145)
--- NOTE | 2024-08-24 07:16 | XR ---
EXAMINATION TYPE: XR chest 2V DATE OF EXAM: 08/24/2024 6:24 AM COMPARISON: Chest radiograph from one day prior. CLINICAL INDICATION: Female, 78 years old with history of Heart failure; shortness of breath TECHNIQUE: XR chest 2V Frontal and lateral views of the chest. FINDINGS: Lungs/Pleura: No evidence of focal consolidation or pneumothorax. Blunting of the costophrenic angles is present. Pulmonary vascularity: Pulmonary vascular congestion. Heart/mediastinum: Cardiomediastinal silhouette is enlarged and stable. Post valve repair changes. T wo lead cardiac conduction device overlying the left hemithorax with lead tips projecting over the ri ght ventricle and right atrium. Musculoskeletal: No acute osseous pathology. IMPRESSION: Cardiomegaly, pulmonary vascular congestion and bilateral pleural effusions. Correlate with BNP for c ongestive heart failure. [facility], , 08/24/2024 7:14 AM
--- NOTE | 2024-08-24 08:37 | P.PN ---
Subjective 78-year-old female, history of hypertension, atrial fibrillation, coronary artery disease, presents emergency department as a transfer for shortness of breath. Had a recent CABG with Dr. Bey at our facility in July 30. Presented to [facility] earlier this morning with general weakness, as well as worsening shortness of breath for the last few days. Also had pacemaker placed on last admission as well. Was found to be in a volume overload state with an elevated troponin and was transferred here for further care. Patient denies any chest pain at any point but does endorse some dysuria as well as difficulty in breathing. Endorses worsening orthopnea. Denies PND. Endorses lower extremity edema. Denies any significant productive cough but does endorse a mild cough. Presents for further evaluation at this time. Brittany flores also has a history of atrial fibrillation and is on blood thinners. -EKG: Electronic ventricularly paced rhythm. -Chest x-ray: Stable. -Laboratory studies: Hemoglobin 10.1, sodium 127, BUN 11, creatinine 0.57. Troponins 0.151, 0.132, 0.132. proBNP 13,200. Urinalysis positive for infection. -Home cardiac medications: Eliquis 2.5 mg twice daily, aspirin 81 mg daily, Lipitor 40 mg daily, Lasix 40 mg daily, losartan 12.5 mg at noon, Lopressor 12.5 mg twice daily. -Cardiac catheterization performed 05/13/2024 revealed mild pulmonary hypertension, normal biventricular filling pressure, mild to moderate CAD. 08/23/2024 Patient seen and examined in room at bedside. Inquiring about her blood work which was discussed with patient and family at bedside Vital signs are reviewed; blood pressure remains elevated -- Repeat blood work reveals hemoglobin 10, sodium 128, BUN 14 creatinine 0.63. Chest x-ray obtained today reveals slightly improved pulmonary vascular co ngestion and small bilateral pleural effusions. Patient has been maintained on IV Lasix 40 mg every 12 hours. Patient does have a negative fluid balance and weight loss of 3-1/2 kg. Blood culture is no growth after 24 hours. Echocardiogram is pending. -- yesterday losartan was increased to 50 mg daily blood pressure readings have been elevated up to the 170s systolic; cardiology recommending to increase losartan up to 100 mg daily; patient remains on Lasix 40 mg IV every 12 hours -Continue with current IV antibiotics 08/24 Patient with no chest pain, she still somewhat tachypneic with breathing rate about 20-22 She says her dyspnea is improving as well. No specific GI symptoms. Sodium today 128 down to 126, potassium 3.1 which has been replaced Patient remains on ceftriaxone, home dose of valacyclovir, home dose of Eliquis 2.5 mg Also patient on IV Lasix 40 mg twice daily, losartan increased to 100 mg. Echocardiogram is still pending. Objective - Vital Signs Vital signs: Vital Signs Temp 97.8 F 08/24/24 04:00 Pulse 66 08/24/24 04:00 Resp 17 08/24/24 04:00 BP 156/62 08/24/24 04:00 Pulse Ox 97 08/24/24 04:00 FiO2 Intake & Output 08/23/24 08/24/24 08/24/24 18:59 06:59 18:59 Intake Total 236 Output Total 1600 800 Balance -1364 -800 Weight 60 kg Intake: Oral 236 Output: Urine 1600 800 Uretheral (Finch) 100 Other: Voiding Method Bedside Commode Bedside Commode # Voids 2 - Exam GENERAL: The patient is alert and oriented x3, not in any acute distress. Well developed, well nourished. HEENT: Pupils are round and equally reacting to light. EOMI. No scleral icterus. No conjunctival pallor. Normocephalic, atraumatic. No pharyngeal erythema. No thyromegaly. CARDIOVASCULAR: S1 and S2 present. No murmurs, rubs, or gallops. -PULMONARY: Chest is clear to auscultation, no wheezing , bilateral basal crackles. ABDOMEN: Soft, nontender, nondistended, normoactive bowel sounds. No palpable organomegaly. MUSCULOSKELETAL: No joint swelling or deformity. -EXTREMITIES: No cyanosis, clubbing, or mild bilateral pitting leg edema. NEUROLOGICAL: Gross neurological examination did not reveal any focal deficits. SKIN: No rashes. no petechiae. - Labs CBC & Chem 7: 08/24/24 05:40 08/24/24 05:40 Labs: Abnormal Lab Results - Last 24 Hours (Table) 08/23/24 08/24/24 08/24/24 Range/Units 11:49 05:40 05:40 RBC 3.09 L (3.80-5.40) m/uL Hgb 10.1 L (11.4-16.0) gm/dL Hct 32.2 L (34.0-46.0) % MCV 104.1 H (80.0-100.0) fL RDW 18.0 H (11.5-15.5) % Lymphocytes # 0.8 L (1.0-4.8) k/uL Sodium 126 L (137-145) mmol/L Potassium 3.1 L (3.5-5.1) mmol/L Chloride 88 L (98-107) mmol/L Glucose 103 H (74-99) mg/dL POC Glucose (mg/dL) 123 H (70-110) mg/dL Calcium 8.3 L (8.4-10.2) mg/dL Microbiology - Last 24 Hours (Table) 08/21/24 08:27 Blood Culture - Preliminary Blood Assessment and Plan Assessment: 1. Generalized weakness/recent mitral valve repair and tricuspid valve annuloplasty; patient is status post surgery performed on 07/30/2024 -Records indicate patient had a complicated hospital course requiring extensive hospitalization, status post Medtronic dual-chamber permanent pacemaker implantation and developed atrial fibrillation -Workup completed in ED has been unremarkable; blood cultures have been obtained to rule out bacteremia -Cardiothoracic surgery on board 2. Acute diastolic heart failure; patient has been placed on IV Lasix; cardio logy recommending to continue with diuresis; monitor strict OC's, daily weights, low-salt and fluid restricted diet 3. Uncontrolled hypertension; patient has been evaluated by cardiology and recommending to increase losartan to 50 mg daily; continue with metoprolol 12.5 mg twice daily; will continue to monitor blood pressure closely 4. UTI; patient has been placed on IV antibiotics in form of ceftriaxone 1 g IV daily; await final urine and blood culture results for final recommendations on antibiotic therapy 4. 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 Chronic atrial fibrillation; patient is anticoagulated on Eliquis; rate controlled on metoprolol 12.5 mg twice daily 6. Hyperlipidemia; Lipitor 40 mg p.o. nightly DVT prophylaxis; SCD CODE STATUS; full code
[2024-08-24] MEDS: LOSARTAN 50 MG TAB PO SCH (09:21)
[2024-08-24] MEDS: MAGNESIUM OXIDE 400 MG TAB PO SCH (09:22)
[2024-08-24] MEDS: POTASSIUM CHLORIDE ER 20 MEQ TAB.ER PO STA (09:22)
[2024-08-24] MEDS: carvediloL 12.5 MG TAB PO SCH (09:27)
[2024-08-24] MEDS: POTASSIUM CHLORIDE 10 MEQ in WATER FOR INJECTION 1 100ML.BAG IVPB SCH (11:05)
--- NOTE | 2024-08-24 11:32 | CA ---
Transthoracic Echo Report Name: Rica Estrella Age: 78 Gender: F : 1945 Exam Date: 08/24/2024 07:37 Exam Location: [place] [facility] Ht (in): 62 Wt (lb): 124 Ordering Physician: Lui Chaudhry MD Attending/Referring Phys: Fitting Room Inspector Isabel Garner RDCS Procedure CPT: Indications: LVF Cardiac Hx: MV Repair, TV Annuloplasty, Pacemaker Technical Quality: Fair Contrast 1: Total Dose (mL): Contrast 2: Total Dose (mL): MEASUREMENTS (Male / Female) Normal Values 2D ECHO LV Diastolic Diameter PLAX 4.7 cm 4.2 - 5.9 / 3.9 - 5.3 cm LV Systolic Diameter PLAX 3.0 cm IVS Diastolic Thickness 1.7 cm 0.6 - 1.0 / 0.6 - 0.9 cm LVPW Diastolic Thickness 1.7 cm 0.6 - 1.0 / 0.6 - 0.9 cm LV Relative Wall Thickness 0.7 RV Internal Dim ED PLAX 2.6 cm LVOT Diameter 1.7 cm LA Systolic Diameter LX 6.8 cm 3.0 - 4.0 / 2.7 - 3.8 cm LV Diastolic Volume MOD BP 50.8 cm??? 67 - 155 / 56 - 104 cm??? LV Systolic Volume MOD BP 20.6 cm??? 22 - 58 / 19 - 49 cm??? LV Ejection Fraction MOD BP 59.4 % >= 55 % LV Cardiac Index MOD BP 1149.6 cm???/min???m??? LV Diastolic Volume MOD 4C 46.7 cm??? LV Systolic Volume MOD 4C 20.3 cm??? LV Ejection Fraction MOD 4C 56.5 % LV Cardiac Index MOD 4C 1006.4 cm???/min???m??? LV Diastolic Length 4C 5.8 cm LV Systolic Length 4C 5.1 cm LV Diastolic Volume MOD 2C 50.9 cm??? LV Systolic Volume MOD 2C 20.7 cm??? LV Ejection Fraction MOD 2C 59.3 % LV Cardiac Index MOD 2C 1149.7 cm???/min???m??? LV Diastolic Length 2C 6.3 cm LV Systolic Length 2C 5.2 cm LA Volume 216.7 cm??? 18 - 58 / 22 - 52 cm??? LA Volume Index 137.6 cm???/m??? 16 - 28 cm???/m??? M-MODE Aortic Root Diameter MM 2.9 cm LA Systolic Diameter MM 6.1 cm LA Ao Ratio MM 2.1 AV Cusp Separation MM 2.0 cm DOPPLER AV Peak Velocity 176.1 cm/s AV Peak Gradient 12.4 mmHg AI Peak Velocity 573.9 cm/s AI Peak Gradient 131.8 mmHg AI Pressure Half Time 553.0 ms LVOT Peak Velocity 124.7 cm/s LVOT Peak Gradient 6.2 mmHg LVOT Velocity Time Integral 24.7 cm LVOT Stroke Volume 59.0 cm??? LVOT Stroke Volume Index 37.8 ml/m??? LVOT Cardiac Index 2249.6 cm???/min???m??? AV Area Cont Eq pk 1.7 cm??? MV Peak Velocity 125.4 cm/s MV Peak Gradient 6.3 mmHg MV Mean Velocity 61.7 cm/s MV Mean Gradient 2.2 mmHg MV Velocity Time Integral 19.7 cm MV Area PHT 3.1 cm??? Mitral E Point Velocity 111.3 cm/s Mitral A Point Velocity 2.7 cm/s Mitral E to A Ratio 41.1 MV Deceleration Time 241.2 ms TR Peak Velocity 274.0 cm/s TR Peak Gradient 30.0 mmHg Right Atrial Pressure 20.0 mmHg Pulmonary Artery Systolic Pressu 50.0 mmHg Right Ventricular Systolic Press 50.0 mmHg FINDINGS Left Ventricle Left ventricular ejection fraction is estimated at 50-55 %. Severely increased septal wall thickness. Severely increased posterior wall thickness. Left ventricular cavity size normal. No obvious regional wall motion abnormalities. Moderate concentric LVH Right Ventricle Mild right ventricular dilatation. Moderate pulmonary hypertension. Right Atrium Catheter/pacemaker wire in the right atrial cavity. Severe right atrial dilatation. Left Atrium Severely increased left atrial diameter. Severely increased left atrial volume. Moderately increased left atrial area. Mitral Valve MV Repair, MV Mean PG 2.2mmHg. Moderate eccentric mitral regurgitation. Posteriorly directed mitral regurgitation jet. Aortic Valve Trileaflet aortic valve. No aortic stenosis. Moderate to severe aortic regurgitation. Tricuspid Valve Annuloplasty ring noted in the tricuspid position. Mild tricuspid regurgitation. No tricuspid stenosis. Pulmonic Valve Structurally normal pulmonic valve. Mild pulmonic regurgitation. Pericardium Small pericardial effusion. Left pleural effusion. Aorta Normal size aortic root and proximal ascending aorta. CONCLUSIONS LV size and systolic function is normal with concentric LVH. Mitral valve repair is evident. There is still moderate eccentric mitral regurgitation and moderate to severe aortic regurgitation. Moderate pulmonary hypertension with right-sided pressures in the range of 50 mmHg. Probably small pericardial effusion. Previewed by: Dr. Elizabeth Holbrook MD (Electronically Signed) Final Date: 24 August 2024 11:31
[2024-08-24] MEDS ORDERED: SALINE NASAL GEL 14.1 GM TUBE NASAL PRN (12:00)
--- NOTE | 2024-08-24 12:23 | P.PN ---
Subjective HISTORY OF PRESENT ILLNESS: This is a 78-year-old female patient of Dr. Cardenas with past medical history of mitral and tricuspid regurgitation status post mitral valve repair and tricuspid valve annuloplasty performed on 07/30/2024. Patient had a complicated hospital course requiring extensive hospitalization, status post Medtronic dual-chamber p ermanent pacemaker implantation on 08/04 and developed atrial fibrillation as well. We have been asked to see the patient for CHF and fluid overload. Patient states that she started feeling achy all over as well as generalized weakness and general did not feel well. She also complains of shortness of breath. She states this morning, she is better than when she presented to the hospital yesterday but not back to her baseline. She denies lower extremity edema. No fevers.Blood pressure 184/93, heart rate 60, pulse ox 99% on 2 L nasal cannula. Patient has been started on IV Lasix 40 mg every 12 hours. Patient is seen today in the emergency center waiting for a bed on the cardiac stepdown unit. -EKG: Electronic ventricularly paced rhythm. -Chest x-ray: Stable. -Laboratory studies: Hemoglobin 10.1, sodium 127, BUN 11, creatinine 0.57. Troponins 0.151, 0.132, 0.132. proBNP 13,200. Urinalysis positive for infection. -Home cardiac medications: Eliquis 2.5 mg twice daily, aspirin 81 mg daily, Lipitor 40 mg daily, Lasix 40 mg daily, losartan 12.5 mg at noon, Lopressor 12.5 mg twice daily. -Cardiac catheterization performed 05/13/2024 revealed mild pulmonary hypertension, normal biventricular filling pressure, mild to moderate CAD. 08/22 Patient seen and examined. Blood pressure 134/68, heart rate 62, pulse ox 96% on room air. Repeat blood work reveals WBC 3.6, hemoglobin 10.6, potassium 3.3 and has been replaced, sodium 129, creatinine 0.63. Patient has been started on IV antibiotics due to concern for wound infection. Blood culture is status received. Cardiothoracic surgery is following the patient. 08/23 Patient seen and examined. Yesterday losartan was increased to 50 mg daily blood pressure readings have been elevated up to the 170s systolic, heart rate is in the 60s, pulse ox 93% on room air. Repeat blood work reveals hemoglobin 10, sodium 128, BUN 14 creatinine 0.63. Chest x-ray obtained today reveals slightly improved pulmonary vascular congestion and small bilateral pleural effusions. Patient has been maintained on IV Lasix 40 mg every 12 hours. P atient does have a negative fluid balance and weight loss of 3-1/2 kg. Blood culture is no growth after 24 hours. Echocardiogram is pending. 08/24/2024 Patient examined this morning to bedside. Patient denies chest pain or pressure. She continues to report shortness of breath this morning. Vital signs are stable. Cardiogram completed revealing ejection fraction 50 to 55%, no obvious regional wall motion abnormalities, moderate concentric LVH, mitral valve repair, moderate eccentric mitral regurgitation, posteriorly directed mitral regurgitation jet, moderate to severe aortic regurgitation, and mild tricuspid regurgitation PHYSICAL EXAM: VITAL SIGNS: Reviewed. GENERAL: Well-developed in no acute distress. NECK: Supple. No JVD or thyromegaly LUNGS: Respirations even and unlabored. Lungs essentially clear to auscultation bilaterally. HEART: Irregular rate and rhythm. S1 and S2 heard. EXTREMITIES: Normal range of motion. No clubbing or cyanosis. Peripheral pulses intact. No lower extremity edema ASSESSMENT: Complaints of achiness, weakness, shortness of breath Acute diastolic heart failure Uncontrolled hypertension Valvular heart disease with mitral and tricuspid regurgitation status post mitral valve repair and tricuspid valve annuloplasty 07/30/2024 Sick sinus syndrome status post Medtronic dual-chamber pacemaker 08/04/24 Persistent atrial fibrillation on Eliquis History of Sjogren's disease Bacteremia ruled out with negative blood culture Moderate to severe aortic regurgitation Moderate concentric LVH PLAN: Replace potassium Change beta sharita to Coreg 12.5mg BID. Will increase to 25mg BID tomorrow if BPs remain elevated Add Farxiga 10mg daily starting tomorrow Continue IV Lasix 40mg Q12 hours Daily weights, accurate intake and output, monitoring of kidney function Continue additional cardiac medications including Eliquis, aspirin, atorvastatin, and losartan Further recommendations pending patient course Nurse practitioner note has been reviewed by physician. Signing provider agrees with the documented findings, assessment, and plan of care documented by STAFF GENETIC COUNSELOR as a scribe. Objective - Vital Signs Vital signs: Vital Signs Temp 97.9 F 08/24/24 12:00 Pulse 61 08/24/24 12:00 Resp 20 08/24/24 12:00 BP 135/65 08/24/24 12:00 Pulse Ox 97 08/24/24 12:00 FiO2 Intake & Output 08/23/24 08/24/24 08/24/24 18:59 06:59 18:59 Intake Total 236 Output Total 1600 800 Balance -1364 -800 Weight 60 kg Intake: Oral 236 Output: Urine 1600 800 Uretheral (Finch) 100 Other: Voiding Method Bedside Commode Bedside Commode Bedside Commode # Voids 2 - Labs CBC & Chem 7: 08/24/24 05:40 08/24/24 05:40 Labs: Abnormal Lab Results - Last 24 Hours (Table) 08/24/24 08/24/24 Range/Units 05:40 05:40 RBC 3.09 L (3.80-5.40) m/uL Hgb 10.1 L (11.4-16.0) gm/dL Hct 32.2 L (34.0-46.0) % MCV 104.1 H (80.0-100.0) fL RDW 18.0 H (11.5-15.5) % Lymphocytes # 0.8 L (1.0-4.8) k/uL Sodium 126 L (137-145) mmol/L Potassium 3.1 L (3.5-5.1) mmol/L Chloride 88 L (98-107) mmol/L Glucose 103 H (74-99) mg/dL Calcium 8.3 L (8.4-10.2) mg/dL Microbiology - Last 24 Hours (Table) 08/21/24 08:27 Blood Culture - Preliminary Blood
[2024-08-24] MEDS: OXYMETAZOLINE 0.05% NASL SPRAY 1 SPRAY BOTTLE NASAL SCH (12:37)
--- NOTE | 2024-08-24 12:44 | P.PN ---
Subjective Progress Note Date: 08/24/24 Principal diagnosis: Acute on chronic heart failure with preserved ejection fraction, acute urinary retention, urinary tract infection. History of moderate mitral regurgitation an d severe tricuspid regurgitation status post mitral and tricuspid valve repair along with closure of patent foramen ovale and modified Ayala-Maze on July 30, 2024, chronic atrial fibrillation on Eliquis for anticoagulation, sick sinus syndrome with symptomatic bradycardia status post Medtronic dual-chamber pacemaker, hypertension, rheumatoid arthritis/Sjogren's disease/lupus, CVA in 2014 with no residual deficits, TIA in 2006, chronic anemia, legally blind s/p corneal transplants, lifelong non-smoker. The patient was seen and examined in follow-up today August 24, 2024 at her bedside on the third floor cardiac stepdown unit. She is currently sitting up in bed, is awake, alert, oriented x 3 and is in no acute apparent distress. She has her and 2 other family members present at her bedside. She denies any complaints of pain or shortness of breath at this time, although is comp laining of a nosebleed. She does complain of some generalized weakness as well. She is hemodynamically stable. Oxygen saturations are 97% on room air. Objective - Vital Signs Vital signs: Vital Signs Temp 97.8 F 08/24/24 04:00 Pulse 66 08/24/24 04:00 Resp 17 08/24/24 04:00 BP 156/62 08/24/24 04:00 Pulse Ox 97 08/24/24 04:00 FiO2 Intake & Output 08/23/24 08/24/24 08/24/24 18:59 06:59 18:59 Intake Total 236 Output Total 1600 800 Balance -1364 -800 Weight 60 kg Intake: Oral 236 Output: Urine 1600 800 Uretheral (Finch) 100 Other: Voiding Method Bedside Commode Bedside Commode # Voids 2 - Exam CONSTITUTIONAL: Appears comfortable, cooperative, no acute distress RESPIRATORY: Lungs sounds diminished in the bases bilaterally. Respirations symmetrical, nonlabored. Currently on room air with oxygen saturation 97%. Strong cough. CARDIOVASCULAR: S1, S2 present. Regular rate and rhythm, ventricular paced on telemetry. Sternum stable. Palpable peripheral pulses bilaterally. No edema present. No calf pain or tenderness noted GASTROINTESTINAL: Abdomen soft, nontender, nondistended. Active bowel sounds present 4 quadrants. Tolerating diet. Positive bowel movement x 2 08/22/24. GENITOURINARY: Continues to void. Urine output 600 mL in the last 8 hours. INTEGUMENTARY: Skin is warm and dry with no clubbing or cyanosis is present. Midline sternal chest incision is clean, dry and approximated. Pacemaker incision site is clean, dry and approximated. NEUROLOGIC: Cranial nerves II through XII intact. No focal deficits. MUSKULOSKELETAL: Able to move all extremities, strength equal bilaterally, gait normal. Generalized weakness. PSYCHIATRIC: Alert and oriented to person place and time, appropriate affect, intact judgment and insight. - Allied health notes Allied health notes reviewed: nursing - Labs CBC & Chem 7: 08/24/24 05:40 08/24/24 05:40 Labs: Abnormal Lab Results - Last 24 Hours (Table) 08/23/24 08/24/24 08/24/24 Range/Units 11:49 05:40 05:40 RBC 3.09 L (3.80-5.40) m/uL Hgb 10.1 L (11.4-16.0) gm/dL Hct 32.2 L (34.0-46.0) % MCV 104.1 H (80.0-100.0) fL RDW 18.0 H (11.5-15.5) % Lymphocytes # 0.8 L (1.0-4.8) k/uL Sodium 126 L (137-145) mmol/L Potassium 3.1 L (3.5-5.1) mmol/L Chloride 88 L (98-107) mmol/L Glucose 103 H (74-99) mg/dL POC Glucose (mg/dL) 123 H (70-110) mg/dL Calcium 8.3 L (8.4-10.2) mg/dL Microbiology - Last 24 Hours (Table) 08/21/24 08:27 Blood Culture - Preliminary Blood - Imaging and Cardiology Chest x-ray: report reviewed, image reviewed Assessment and Plan Assessment: Acute on chronic heart failure with preserved ejection fraction, proBNP 13,200 Shortness of breath, lower extremity edema secondary to above Acute urinary retention Urinary tract infection Epistaxis History of moderate mitral regurgitation and severe tricuspid regurgitation status post mitral and tricuspid valve repair along with closure of patent foramen ovale and modified Ayala-Maze on July 30, 2024 Chronic atrial fibrillation on Eliquis for anticoagulation Sick sinus syndrome with symptomatic bradycardia status post Medtronic dual-ch basim pacemaker Hypertension Rheumatoid arthritis/Sjogren's disease/lupus CVA in 2014 with no residual deficits, TIA in 2006 Chronic anemia Legally blind s/p corneal transplants Lifelong non-smoker Plan: Continue to maximize medical therapy with ASA, statin, beta sharita. Continue Eliquis. Continue losartan. Continue to diuresis. Increase activity as tolerated, PT/OT following. Sternal precautions. Continue heart hugger. Shower daily. Continue to record strict and accurate I's and O's, may bladder scan and straight cath for greater than 300 mL residual. Need to record strict accurate I/Os, especially given IV diuresis. Antibiotics per internal medicine. Echo results reviewed. Medical management of other comorbidities per internal medicine, cardiology. ENT has been consulted for epistaxis. More recommendations to follow based on patient's clinical course. Time with Patient: Greater than 30
--- NOTE | 2024-08-25 07:49 | XR ---
EXAMINATION TYPE: XR chest 2V DATE OF EXAM: 08/25/2024 6:31 AM COMPARISON: Chest radiograph from one day prior. CLINICAL INDICATION: Female, 78 years old with history of Postop cardiac surgery; [facility] TECHNIQUE: XR chest 2V Frontal and lateral views of the chest. FINDINGS: Lungs/Pleura: No evidence of focal consolidation or pneumothorax. Blunting of the costophrenic angles is present. Pulmonary vascularity: Pulmonary vascular congestion. Heart/mediastinum: Cardiomediastinal silhouette is enlarged and stable. Post valve repair changes. T wo lead cardiac conduction device overlying the left hemithorax with lead tips projecting over the ri ght ventricle and right atrium. Musculoskeletal: No acute osseous pathology. IMPRESSION: Cardiomegaly, pulmonary vascular congestion and bilateral pleural effusions. Correlate with BNP for c ongestive heart failure. [facility], , 08/25/2024 7:47 AM
[2024-08-25 08:10] LABS: Anisocytosis Slight; Basophils % (A) 0 %; Eosinophils # (A) 0.3 k/uL (0-0.7); Eosinophils % (A) 8 %; HCT 28.6 % (34.0-46.0); HGB 8.8 gm/dL (11.4-16.0); Hypochromasia Moderate; Lymphocytes # (A) 0.9 k/uL (1.0-4.8); Lymphocytes % (A) 29 %; MCH 32.6 pg (25.0-35.0); MCHC 30.8 g/dL (31.0-37.0); MCV 105.9 fL (80.0-100.0); Macrocytosis Marked; Mean Platelet Volume 7.7; Monocytes # (A) 0.3 k/uL (0-1.0); Monocytes % (A) 9 %; Neutrophils # (A) 1.6 k/uL (1.3-7.7); Neutrophils % (A) 52 %; Platelet Count 229 k/uL (150-450); Poikilocytosis Slight; WBC 3.2 k/uL (3.8-10.6)
[2024-08-25 08:24] LABS: African American GFR (CKD) >90 (>60 ml/min/1.73 sqM); Anion Gap 4 mmol/L; Blood Urea Nitrogen 22 mg/dL (7-17); Calcium 8.1 mg/dL (8.4-10.2); Carbon Dioxide 33 mmol/L (22-30); Chloride 89 mmol/L (98-107); Glucose 117 mg/dL (74-99); Non-African American GFR(CKD) 82 (>60 ml/min/1.73 sqM); Potassium 3.7 mmol/L (3.5-5.1); Sodium 126 mmol/L (137-145)
[2024-08-25] MEDS: DAPAGLIFLOZIN PROPANEDIOL 10 MG TABLET PO SCH (08:27)
[2024-08-25] MEDS: FUROSEMIDE 40 MG TAB PO SCH (10:20)
--- NOTE | 2024-08-25 11:53 | P.PN ---
Subjective HISTORY OF PRESENT ILLNESS: This is a 78-year-old female patient of Dr. Cardenas with past medical history of mitral and tricuspid regurgitation status post mitral valve repair and tricuspid valve annuloplasty performed on 07/30/2024. Patient had a complicated hospital course requiring extensive hospitalization, status post Medtronic dual-chamber p ermanent pacemaker implantation on 08/04 and developed atrial fibrillation as well. We have been asked to see the patient for CHF and fluid overload. Patient states that she started feeling achy all over as well as generalized weakness and general did not feel well. She also complains of shortness of breath. She states this morning, she is better than when she presented to the hospital yesterday but not back to her baseline. She denies lower extremity edema. No fevers.Blood pressure 184/93, heart rate 60, pulse ox 99% on 2 L nasal cannula. Patient has been started on IV Lasix 40 mg every 12 hours. Patient is seen today in the emergency center waiting for a bed on the cardiac stepdown unit. -EKG: Electronic ventricularly paced rhythm. -Chest x-ray: Stable. -Laboratory studies: Hemoglobin 10.1, sodium 127, BUN 11, creatinine 0.57. Troponins 0.151, 0.132, 0.132. proBNP 13,200. Urinalysis positive for infection. -Home cardiac medications: Eliquis 2.5 mg twice daily, aspirin 81 mg daily, Lipitor 40 mg daily, Lasix 40 mg daily, losartan 12.5 mg at noon, Lopressor 12.5 mg twice daily. -Cardiac catheterization performed 05/13/2024 revealed mild pulmonary hypertension, normal biventricular filling pressure, mild to moderate CAD. 08/22 Patient seen and examined. Blood pressure 134/68, heart rate 62, pulse ox 96% on room air. Repeat blood work reveals WBC 3.6, hemoglobin 10.6, potassium 3.3 and has been replaced, sodium 129, creatinine 0.63. Patient has been started on IV antibiotics due to concern for wound infection. Blood culture is status received. Cardiothoracic surgery is following the patient. 08/23 Patient seen and examined. Yesterday losartan was increased to 50 mg daily blood pressure readings have been elevated up to the 170s systolic, heart rate is in the 60s, pulse ox 93% on room air. Repeat blood work reveals hemoglobin 10, sodium 128, BUN 14 creatinine 0.63. Chest x-ray obtained today reveals slightly improved pulmonary vascular congestion and small bilateral pleural effusions. Patient has been maintained on IV Lasix 40 mg every 12 hours. P atient does have a negative fluid balance and weight loss of 3-1/2 kg. Blood culture is no growth after 24 hours. Echocardiogram is pending. 08/24/2024 Patient examined this morning to bedside. Patient denies chest pain or pressure. She continues to report shortness of breath this morning. Vital signs are stable. Cardiogram completed revealing ejection fraction 50 to 55%, no obvious regional wall motion abnormalities, moderate concentric LVH, mitral valve repair, moderate eccentric mitral regurgitation, posteriorly directed mitral regurgitation jet, moderate to severe aortic regurgitation, and mild tricuspid regurgitation 08/25/2024 Patient examined this morning at the bedside. Patient currently denies any chest pain or pressure. She denies any shortness of breath. Patient did walk in the hallway this morning with physical therapy. She does report having some shortness of breath with exertion. Vital signs are stable. Sodium low at 126 today. PHYSICAL EXAM: VITAL SIGNS: Reviewed. GENERAL: Well-developed in no acute distress. NECK: Supple. No JVD or thyromegaly LUNGS: Respirations even and unlabored. Lungs essentially clear to auscultation bilaterally. HEART: Regular rate and rhythm. S1 and S2 heard. EXTREMITIES: Normal range of motion. No clubbing or cyanosis. Peripheral pulses intact. 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 Begin oral Lasix 40 mg twice a day Repeat BMP in AM. Continue to monitor sodium. Continue additional cardiac medications including aspirin, atorvastatin, carvedilol, Farxiga, and losartan Further recommendations pending patient course Nurse practitioner note has been reviewed by physician. Signing provider agrees with the documented findings, assessment, and plan of care documented by [employer] as a scribe. Objective - Vital Signs Vital signs: Vital Signs Temp 97.6 F 08/25/24 05:05 Pulse 60 08/25/24 08:00 Resp 16 08/25/24 08:00 BP 117/68 08/25/24 08:00 Pulse Ox 97 08/25/24 08:00 FiO2 Intake & Output 08/24/24 08/25/24 08/25/24 18:59 06:59 18:59 Intake Total 250 Output Total 300 Balance 250 -300 Weight 56.3 kg Intake: Intake, IV Titration 250 Amount Potassium Chloride 10 meq 200 In Water For Injection 1 100ml.bag @ 100 mls/hr IVPB Q1H [facility] Rx#: [id number] cefTRIAXone 1 gm In 50 Sodium Chloride 0.9% 50 ml @ 100 mls/hr IVPB Q24HR PENDING SALE TO [facility] Rx#:[id number] Output: Urine 300 Other: Voiding Method Bedside Commode Bedside Commode Bedside Commode # Voids 200 # Bowel Movements 1 1 - Labs CBC & Chem 7: 08/25/24 07:19 08/25/24 07:19 Labs: Abnormal Lab Results - Last 24 Hours (Table) 08/25/24 08/25/24 08/25/24 Range/Units 07:19 07:19 09:56 WBC 3.2 L (3.8-10.6) k/uL RBC 2.70 L (3.80-5.40) m/uL Hgb 8.8 L (11.4-16.0) gm/dL Hct 28.6 L (34.0-46.0) % MCV 105.9 H (80.0-100.0) fL MCHC 30.8 L (31.0-37.0) g/dL RDW 18.0 H (11.5-15.5) % Macrocytosis Marked A Sodium 126 L (137-145) mmol/L Chloride 89 L (98-107) mmol/L Carbon Dioxide 33 H (22-30) mmol/L BUN 22 H (7-17) mg/dL Glucose 117 H (74-99) mg/dL Calcium 8.1 L (8.4-10.2) mg/dL Stool Occult Blood Positive H (Negative) Microbiology - Last 24 Hours (Table) 08/21/24 08:27 Blood Culture - Preliminary Blood
--- NOTE | 2024-08-25 12:08 | P.PN ---
Subjective Progress Note Date: 08/25/24 Principal diagnosis: Acute on chronic heart failure with preserved ejection fraction, acute urinary retention, urinary tract infection. History of moderate mitral regurgitation an d severe tricuspid regurgitation status post mitral and tricuspid valve repair along with closure of patent foramen ovale and modified Ayala-Maze on July 30, 2024, chronic atrial fibrillation on Eliquis for anticoagulation, sick sinus syndrome with symptomatic bradycardia status post Medtronic dual-chamber pacemaker, hypertension, rheumatoid arthritis/Sjogren's disease/lupus, CVA in 2014 with no residual deficits, TIA in 2006, chronic anemia, legally blind s/p corneal transplants, lifelong non-smoker The patient was seen and examined sitting up in recliner on the cardiac stepdown unit with and present. States she felt good this morning and went for a walk, now feels more exhausted. She did have a nosebleed yesterday, packed her own nose with Kleenex. ENT was consulted. Also had black tarry stool last night, hemoglobin 10.1 yesterday, 8.8 this morning. GI was consulte d. Remains controlled atrial fibrillation on telemetry, hemodynamically stable. Currently on room air with oxygen saturation in the high 90s. Patient is requesting to go back to bed. Objective - Vital Signs Vital signs: Vital Signs Temp 97.6 F 08/25/24 05:05 Pulse 60 08/25/24 08:00 Resp 16 08/25/24 08:00 BP 117/68 08/25/24 08:00 Pulse Ox 97 08/25/24 08:00 FiO2 Intake & Output 08/24/24 08/25/24 08/25/24 18:59 06:59 18:59 Intake Total 250 Output Total 300 Balance 250 -300 Weight 56.3 kg Intake: Intake, IV Titration 250 Amount Potassium Chloride 10 meq 200 In Water For Injection 1 100ml.bag @ 100 mls/hr IVPB Q1H [facility] Rx#: [id number] cefTRIAXone 1 gm In 50 Sodium Chloride 0.9% 50 ml @ 100 mls/hr IVPB Q24HR [facility] Rx#:[id number] Output: Urine 300 Other: Voiding Method Bedside Commode Bedside Commode Bedside Commode # Voids 200 # Bowel Movements 1 1 - Exam CONSTITUTIONAL: Appears comfortable, cooperative, no acute distress RESPIRATORY: Lungs sounds diminished in the bases bilaterally. Respirations even, nonlabored. Currently on room air with oxygen saturation 97%. Strong cough. CARDIOVASCULAR: S1, S2 present. Irregular rate and rhythm, controlled atrial fibrillation on telemetry. Sternum stable. Palpable peripheral pulses bilaterally. No edema present. No calf pain or tenderness noted GASTROINTESTINAL: Abdomen soft, nontender, nondistended. Active bowel sounds present 4 quadrants. Tolerating diet. Positive bowel movement x 2 08/24 GENITOURINARY: Continues to void INTEGUMENTARY: Skin is warm and dry with evidence of good perfusion. Anterior chest incision well approximated, pacer site without redness/drainage NEUROLOGIC: Cranial nerves II through XII intact MUSKULOSKELETAL: Able to move all extremities, strength equal bilaterally, gait normal PSYCHIATRIC: Alert and oriented to person place and time, appropriate affect, intact judgment and insight - Allied health notes Allied health notes reviewed: nursing - Labs CBC & Chem 7: 08/25/24 07:19 08/25/24 07:19 Labs: Abnormal Lab Results - Last 24 Hours (Table) 08/25/24 08/25/24 08/25/24 Range/Units 07:19 07:19 09:56 WBC 3.2 L (3.8-10.6) k/uL RBC 2.70 L (3.80-5.40) m/uL Hgb 8.8 L (11.4-16.0) gm/dL Hct 28.6 L (34.0-46.0) % MCV 105.9 H (80.0-100.0) fL MCHC 30.8 L (31.0-37.0) g/dL RDW 18.0 H (11.5-15.5) % Lymphocytes # 0.9 L (1.0-4.8) k/uL Macrocytosis Marked A Sodium 126 L (137-145) mmol/L Chloride 89 L (98-107) mmol/L Carbon Dioxide 33 H (22-30) mmol/L BUN 22 H (7-17) mg/dL Glucose 117 H (74-99) mg/dL Calcium 8.1 L (8.4-10.2) mg/dL Stool Occult Blood Positive H (Negative) Microbiology - Last 24 Hours (Table) 08/21/24 08:27 Blood Culture - Preliminary Blood - Imaging and Cardiology Chest x-ray: report reviewed, image reviewed Assessment and Plan Assessment: Acute on chronic heart failure with preserved ejection fraction, proBNP 13,200 Shortness of breath, lower extremity edema secondary to above Acute urinary retention Urinary tract infection History of moderate mitral regurgitation and severe tricuspid regurgitation status post mitral and tricuspid valve repair along with closure of patent foramen ovale and modified Ayala-Maze on July 30, 2024 Chronic atrial fibrillation on Eliquis for anticoagulation Sick sinus syndrome with symptomatic bradycardia status post Medtronic dual- chamber pacemaker Hypertension Rheumatoid arthritis/Sjogren's disease/lupus CVA in 2014 with no residual deficits, TIA in 2006 Chronic anemia Legally blind s/p corneal transplants Lifelong non-smoker Plan: Continue to maximize medical therapy with ASA, statin, beta sharita. Eliquis per cardiology Continue losartan Continue to diuresis Increase activity as tolerated, PT/OT following Sternal precautions Shower daily Antibiotics per internal medicine Medical management of other comorbidities per internal medicine, cardiology More recommendations to follow
--- NOTE | 2024-08-25 14:31 | P.PN ---
Subjective Progress Note Date: 08/25/24 78-year-old female, history of hypertension, atrial fibrillation, coronary artery disease, presents emergency department as a transfer for shortness of breath. Had a recent CABG with Dr. Bey at our facility in July 30. Presented to [facility] earlier this morning with general weakness, as well as worsening shortness of breath for the last few days. Also had pacemaker placed on last admission as well. Was found to be in a volume overload state with an elevated troponin and was transferred here for further care. Patient denies any chest pain at any point but does endorse some dysuria as well as difficulty in breathing. Endorses worsening orthopnea. Denies PND. Endorses lower extremity edema. Denies any significant productive cough but does endorse a mild cough. Presents for further evaluation at this time. Patient also has a history of atrial fibrillation and is on blood thinners. -EKG: Electronic ventricularly paced rhythm. -Chest x-ray: Stable. -Laboratory studies: Hemoglobin 10.1, sodium 127, BUN 11, creatinine 0.57. Troponins 0.151, 0.132, 0.132. proBNP 13,200. Urinalysis positive for infection. -Home cardiac medications: Eliquis 2.5 mg twice daily, aspirin 81 mg daily, Lipitor 40 mg daily, Lasix 40 mg daily, losartan 12.5 mg at noon, Lopressor 12.5 mg twice daily. -Cardiac catheterization performed 05/13/2024 revealed mild pulmonary hypertension, normal biventricular filling pressure, mild to moderate CAD. 08/23/2024 Patient seen and examined in room at bedside. Inquiring about her blood work which was discussed with patient and family at bedside Vital signs are reviewed; blood pressure remains elevated -- Repeat blood work reveals hemoglobin 10, sodium 128, BUN 14 creatinine 0.63. Chest x-ray obtained today reveals slightly improved pulmonary vascular congestion and small bilateral pleural effusions. Patient has been maintained on IV Lasix 40 mg every 12 hours. Patient does have a negative fluid balance and weight loss of 3-1/2 kg. Blood culture is no growth after 24 hours. Echocardiogram is pending. -- yesterday losartan was increased to 50 mg daily blood pressure readings have been elevated up to the 170s systolic; cardiology recommending to increase losartan up to 100 mg daily; patient remains on Lasix 40 mg IV every 12 hours -Continue with current IV antibiotics 08/24 Patient with no chest pain, she still somewhat tachypneic with breathing rate about 20-22 She says her dyspnea is improving as well. No specific GI symptoms. Sodium today 128 down to 126, potassium 3.1 which has been replaced Patient remains on ceftriaxone, home dose of valacyclovir, home dose of Eliquis 2.5 mg Also patient on IV Lasix 40 mg twice daily, losartan increased to 100 mg. Echocardiogram is still pending. 08/25. Patient seen and examined Blood work done today showed WBC 3.2, hemoglobin 8.8, platelet count 229, sodium 126, potassium 3.7, BUN 22, creatinine 0.72.. Patient had episode of epistaxis yesterday, currently not bleeding. Patient also had dark stool this morning. FOBT was positive REVIEW OF SYSTEMS: CONSTITUTIONAL: No fever, no malaise,. CARDIOVASCULAR: No chest pain, no palpitations, no syncope. PULMONARY: No shortness of breath, no cough, GASTROINTESTINAL: No diarrhea, no nausea, no vomiting, no abdominal pain. NEUROLOGICAL: No headaches, no weakness, PHYSICAL EXAMINATION: GENERAL: The patient is alert and oriented x3, chronically ill looking HEENT: Pupils are round and equally reacting to light. EOMI. No scleral icterus. No conjunctival pallor. Normocephalic, atraumatic. No pharyngeal erythema. No thyromegaly. CARDIOVASCULAR: S1 and S2 present. No murmurs, rubs, or gallops. PULMONARY: Diminished breath sounds at bases bilaterally, no crackles audible ABDOMEN: Soft, nontender, nondistended, normoactive bowel sounds. No palpable organomegaly. MUSCULOSKELETAL: No joint swelling or deformity. EXTREMITIES: No cyanosis, clubbing, or pedal edema. NEUROLOGICAL: Gross neurological examination did not reveal any focal deficits. SKIN: No rashes. Assessment and plan Acute diastolic heart failure UTI Blood in stool Acute blood loss anemia Epistaxis Uncontrolled hypertension Valvular heart disease with mitral and tricuspid regurgitation status post mitral valve repair and tricuspid valve annuloplasty 07/30/2024 Sick sinus syndrome status post Medtronic dual-chamber pacemaker 08/04/24 Persistent atrial fibrillation on Eliquis History of Sjogren's disease Bacteremia ruled out with negative blood culture Moderate to severe aortic regurgitation Moderate concentric LVH Monitor vital signs Monitor CBC Monitor CMP Continue telemetry monitoring Cetirizine O's, daily weights Continue IV Rocephin Continue aspirin, Lipitor, Coreg Hold Eliquis because of blood in stool Continue Protonix Continue Lasix, switch to oral Lasix 40 mg twice daily Consult GI Cardiology following Cardiac surgery following Labs and medication were reviewed.. Continue same treatment. Continue with symptomatic treatment. Resume home medication. Monitor labs and vitals. DVT and GI prophylaxis. Further recommendations as per clinical course of the patient Dictation was produced using [employer] dictation software. please excuse any grammatical, word or spelling errors. Objective - Vital Signs Vital signs: Vital Signs Temp 97.6 F 08/25/24 05:05 Pulse 67 08/25/24 06:35 Resp 16 08/25/24 05:05 BP 176/83 08/25/24 06:35 Pulse Ox 97 08/25/24 05:05 FiO2 Intake & Output 08/24/24 08/25/24 08/25/24 18:59 06:59 18:59 Intake Total 250 Output Total 300 Balance 250 -300 Weight 56.3 kg Intake: Intake, IV Titration 250 Amount Potassium Chloride 10 meq 200 In Water For Injection 1 100ml.bag @ 100 mls/hr IVPB Q1H [facility] Rx#: [id number] cefTRIAXone 1 gm In 50 Sodium Chloride 0.9% 50 ml @ 100 mls/hr IVPB Q24HR [facility] Rx#:[id number] Output: Urine 300 Other: Voiding Method Bedside Commode Bedside Commode # Voids 200 # Bowel Movements 1 1 - Labs CBC & Chem 7: 08/25/24 07:19 08/25/24 07:19 Labs: Abnormal Lab Results - Last 24 Hours (Table) 08/25/24 08/25/24 Range/Units 07:19 07:19 WBC 3.2 L (3.8-10.6) k/uL RBC 2.70 L (3.80-5.40) m/uL Hgb 8.8 L (11.4-16.0) gm/dL Hct 28.6 L (34.0-46.0) % MCV 105.9 H (80.0-100.0) fL MCHC 30.8 L (31.0-37.0) g/dL RDW 18.0 H (11.5-15.5) % Macrocytosis Marked A Sodium 126 L (137-145) mmol/L Chloride 89 L (98-107) mmol/L Carbon Dioxide 33 H (22-30) mmol/L BUN 22 H (7-17) mg/dL Glucose 117 H (74-99) mg/dL Calcium 8.1 L (8.4-10.2) mg/dL Microbiology - Last 24 Hours (Table) 08/21/24 08:27 Blood Culture - Preliminary Blood
--- NOTE | 2024-08-25 14:37 | P.CONS ---
History of Present Illness - Reason for Consult Consult date: 08/25/24 Positive occult stool, drop in hemoglobin Requesting physician: Lui Chaudhry - Chief Complaint Shortness of breath - History of Present Illness This is a pleasant 78-year-old female who was transferred from outside facility to the emergency department 5 days ago with complaints of shortness of breath. Patient has significant cardiac history. Apparently patient was admitted for fluid volume overload. Patient has history of moderate mitral regurgitation severe tricuspid regurgitation status post mitral and tricuspid cuspid valve repair along with closure of patent earl oval and modified Ayala-Maze on July 30, 2024, chronic atrial fibrillation on Eliquis for anticoagulation, sick sinus syndrome with symptomatic bradycardia status post Medtronic dual- chamber pacemaker, hypertension, rheumatoid arthritis, CVA, TIA, Sjogren's disease, lupus, chronic anemia, and legally blind status post corneal transplants. Cardiology and cardiothoracic surgical team have been following patient. She is anticoagulated with Eliquis 5 mg twice daily. Patient states she had an 8-hour nosebleed yesterday and through the night. This morning nursing is reporting that she had to large dark to black stools. She had a drop in her hemoglobin from 10.1 yesterday to 8.8 this morning. . Occult stool was collected and was positive. GI was consulted for drop in hemoglobin and p ositive occult stool. Patient states that she has a history of bloody noses in the past. She has had to have it cauterized. She denies any abdominal pain, nausea or vomiting. No history of peptic ulcer disease or previous GI bleed. No previous upper endoscopy, last colonoscopy remote. Patient states that she has had some difficulty with swallowing for many many years. States that she just has to have her food chewed up better and small meals. Apparently patient's appetite has also been decreased since her surgery. Review of Systems REVIEW OF SYSTEMS: CARDIOPULMONARY: No chest pain,, shortness of breath and weakness. Gastrointestinal: No abdominal pain. No nausea or vomiting. No hematemesis, coffee-ground emesis. No rectal bleeding, or melena. GENITOURINARY: No dysuria or hematuria. MUSCULOSKELETAL: Reports normal range of motion., Joint pain. SKIN: No rashes. No jaundice. ENDOCRINE: No chills, fevers. No excessive weight gain or loss. No polydipsia or polyuria. PSYCHIATRIC: Unremarkable. NEUROLOGY: No change in mental status. Denies dizziness, headache. ENT: Vision unremarkable. CONSTITUTIONAL: No recent weight loss. No fever, chills, night sweats. 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 states she passed out 04/30/24 after eye examination and long day of travel - estimates LOC 2 minutes, fatigue, weakness, SOB w/exertion, mitral and tricuspid regurgitation History of Any Multi-Drug Resistant Organisms: None Reported Past Surgical History: Heart Catheterization, Hysterectomy Additional Past Surgical History / Comment(s): Bilat. corneal transplants, rectocele repair; mitral and tricuspid repair 07/30/24; Medtronic permanent pacemaker placement 08/04/24 Past Anesthesia/Blood Transfusion Reactions: No Reported Reaction Additional Past Anesthesia/Blood Transfusion Reaction / Comm: no hx. of transfusion reactions Past Psychological History: No Psychological Hx Reported Smoking Status: Never smoker Past Alcohol Use History: None Reported Past Drug Use History: None Reported - Past Family History Father Family Medical History: Coronary Artery Disease (CAD) Additional Family Medical History / Comment(s): CABG 3 times during lifetime, bypass and valve repairs Mother Family Medical History: Hypertension Medications and Allergies Home Medications Medication Instructions Recorded Confirmed Type Apixaban [Eliquis] 2.5 mg PO BID 05/06/24 08/20/24 History Ascorbic Acid [Vitamin C] 500 mg PO DAILY 05/06/24 08/20/24 History Cholecalciferol [Vitamin D3 (25 25 mcg PO DAILY 05/06/24 08/20/24 History Mcg = 1000 Iu)] Collagen/Biotin/Ascorbic Acid 1 cap PO DAILY 05/06/24 08/20/24 History [Collagen 1500 Plus C Capsule] Sodium Chloride 5% Ophth Oint 1 drop BOTH EYES HS 05/06/24 08/20/24 History [Ayleen 128] Super 8 Greens 1 dose PO DAILY 05/06/24 08/20/24 History Timolol [Betimol 0.5% Ophth Soln] 1 drop RIGHT EYE HS 05/06/24 08/20/24 History prednisoLONE acetate [Pred Mild] 1 drop BOTH EYES TID 05/06/24 08/20/24 History valACYclovir HCL [Valtrex] 500 mg PO DAILY 05/06/24 08/20/24 History Cetirizine HCl [Zyrtec] 10 mg PO HS 07/14/24 08/20/24 History Famotidine [Pepcid] 40 mg PO DAILY 07/14/24 08/20/24 History diphenhydrAMINE [Benadryl] 25 mg PO BID PRN 07/14/24 08/20/24 History Acetaminophen Tab [Tylenol] 1,000 mg PO Q6HR PRN tab 08/07/24 08/20/24 Rx Aspirin 81 mg PO DAILY #30 tab 08/07/24 08/20/24 Rx Atorvastatin [Lipitor] 40 mg PO DAILY #30 tab 08/07/24 08/20/24 Rx Cephalexin [Keflex] 500 mg PO BID #14 cap 08/07/24 08/20/24 Rx Furosemide [Lasix] 40 mg PO DAILY #30 tab 08/07/24 08/20/24 Rx Losartan [Cozaar] 12.5 mg PO DAILY@1200 #30 tab 08/07/24 08/20/24 Rx Metoprolol Tartrate [Lopressor] 12.5 mg PO BID #60 tab 08/07/24 08/20/24 Rx guaiFENesin [Mucinex] 600 mg PO Q12HR tab 08/07/24 08/20/24 Rx oxyCODONE HCL [OxyIR] 10 mg PO Q4H PRN 3 Days #18 tab 08/10/24 08/20/24 Rx Carboxymethylcellulose Sodium 2 drop BOTH EYES Q1H PRN 08/20/24 08/20/24 History [Refresh Tears] Sennosides-Docusate Sodium 2 tab PO HS 08/20/24 08/20/24 History [Senokot-S] Systane Night Gel 1 drop BOTH EYES HS 08/20/24 08/20/24 History Allergies Allergy/AdvReac Type Severity Reaction Status Date / Time Beef Containing Products Allergy Nausea & Verified 08/20/24 13:14 [Beef] Vomiting codeine Allergy Nausea & Verified 08/20/24 13:14 Vomiting erythromycin base Allergy Rash/Hives Verified 08/20/24 13:14 gluten Allergy GI upset Verified 08/20/24 13:14 hydrocodone [From Vicodin] Allergy Nausea & Verified 08/20/24 13:14 Vomiting ibuprofen Allergy Rash/Hives Verified 08/20/24 13:14 meperidine [From Demerol] Allergy Unknown Verified 08/20/24 13:14 morphine Allergy Hallucinati Verified 08/20/24 13:14 ons Penicillins Allergy Rash/Hives Verified 08/20/24 13:14 Pork/Porcine Containing Allergy Nausea & Verified 08/20/24 13:14 Products Vomiting [Pork] Sulfa (Sulfonamide Allergy Rash/Hives Verified 08/20/24 13:14 Antibiotics) tramadol [From Ultram] Allergy Rash/Hives Verified 08/20/24 13:14 aspirin AdvReac Unknown Verified 08/20/24 13:14 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 Rash/Hives Uncoded 07/30/24 06:16 Physical Exam Vitals: Vital Signs Temp Pulse Resp BP Pulse Ox 08/25/24 08:00 60 16 117/68 97 08/25/24 06:35 67 176/83 08/25/24 05:05 97.6 F 54 L 16 157/79 97 08/24/24 23:18 97.9 F 60 16 140/73 96 08/24/24 19:54 97.7 F 60 18 130/75 97 08/24/24 15:54 97.7 F 62 20 159/72 97 Intake and Output 08/24/24 08/25/24 08/25/24 22:59 06:59 14:59 Intake Total 250 Output Total 300 Balance 250 -300 Intake: Intake, IV Titration 250 Amount Potassium Chloride 10 meq 200 In Water For Injection 1 100ml.bag @ 100 mls/hr IVPB Q1H [facility] Rx#: [id number] cefTRIAXone 1 gm In 50 Sodium Chloride 0.9% 50 ml @ 100 mls/hr IVPB Q24HR [facility] Rx#:[id number] Output: Urine 300 Other: Voiding Method Bedside Commode Bedside Commode Bedside Commode # Voids 200 # Bowel Movements 1 1 2 Weight 56.3 kg General appearance: The patient is alert, oriented, appears in no acute distress. HET: Head is normocephalic and atraumatic. Conjunctiva pink. Sclera anicteric. Neck: Supple without lymphadenopathy. Trachea midline. Heart: Regular. Lungs: Equal expansion, normal respiratory effort. Abdomen: Soft, nontender, nondistended. Skin: No rashes. No jaundice. Extremities: Normal skin color and turgor. No pedal edema. Neurological: No focal deficits. Alert and oriented x3. Results CBC & Chem 7: 08/25/24 07:19 08/25/24 07:19 Labs: Abnormal Lab Results - Last 24 Hours (Table) 08/25/24 08/25/24 08/25/24 Range/Units 07:19 07:19 09:56 WBC 3.2 L (3.8-10.6) k/uL RBC 2.70 L (3.80-5.40) m/uL Hgb 8.8 L (11.4-16.0) gm/dL Hct 28.6 L (34.0-46.0) % MCV 105.9 H (80.0-100.0) fL MCHC 30.8 L (31.0-37.0) g/dL RDW 18.0 H (11.5-15.5) % Lymphocytes # 0.9 L (1.0-4.8) k/uL Macrocytosis Marked A Sodium 126 L (137-145) mmol/L Chloride 89 L (98-107) mmol/L Carbon Dioxide 33 H (22-30) mmol/L BUN 22 H (7-17) mg/dL Glucose 117 H (74-99) mg/dL Calcium 8.1 L (8.4-10.2) mg/dL Stool Occult Blood Positive H (Negative) Microbiology - Last 24 Hours (Table) 08/21/24 08:27 Blood Culture - Preliminary Blood Assessment and Plan (1) Chronic anemia Narrative/Plan: 78-year-old female with multiple comorbidities significant cardiac history who recently underwent mitral valve and tricuspid valve replacement with form and oval closure who is on anticoagulation and has history of chronic anemia had a drop in hemoglobin from 10-8.8. Patient has likely some acute on chronic anemia secondary to epistaxis. Apparently stool was checked for blood and was positive. Gastroenterology was consulted for drop in hemoglobin. Positive occult stool and black stool likely secondary to significant nosebleed without any other history of GI bleed or symptoms of GI bleed. No plans on endoscopic evaluation, recommend ENT consultation. Current Visit: Yes Status: Acute Code(s): D64.9 - ANEMIA, UNSPECIFIED SNOMED Code(s): 229960992 (2) Coronary artery disease Current Visit: Yes Status: Acute Code(s): I25.10 - ATHSCL HEART DISEASE OF [place] CORONARY ARTERY W/O ANG PCTRS SNOMED Code(s): 74570664 (3) Positive occult stool blood test Current Visit: Yes Status: Acute Code(s): R19.5 - OTHER FECAL ABNORMALITIES SNOMED Code(s): 04044189 (4) Current use of [facility] anticoagulation Current Visit: Yes Status: Acute Code(s): Z79.01 - [facility] (CURRENT) USE OF ANTICOAGULANTS SNOMED Code(s): 421426904 (5) CHF (congestive heart failure) Current Visit: Yes Status: Acute Code(s): I50.9 - HEART FAILURE, UNSPECIFIED SNOMED Code(s): 77184738 (6) Epistaxis Narrative/Plan: Controlled at this time. Patient has had previous epistaxis requiring cautery. ENT consulted. Current Visit: Yes Status: Acute Code(s): R04.0 - EPISTAXIS SNOMED Code(s): 349470386 Plan: 1. Continue symptomatic and supportive care 2. Iron studies and ferritin ordered 3. May give Protonix 40 mg daily for GI prophylaxis 4. Continue to hold anticoagulation until cleared by ENT 5. Positive occult stool or black stool likely secondary to significant epistaxis. No plans on endoscopic evaluation. 6. Agree with ENT consultation Thank you for this consultation, we will continue to follow. Dr. Isabella Mahajan I agree with the dictator's note, documented as a scribe by Ria ALBRECHT .
[2024-08-25] MEDS: PANTOPRAZOLE 40 MG/10 ML VIAL IVP SCH (15:31)
[2024-08-25] MEDS: BACITRACIN ZINC 500 UNIT/GM OINT 28.4 GM TUBE TOPICAL SCH (15:32)
[2024-08-25] MEDS: OXYMETAZOLINE 0.05% NASL SPRAY 1 SPRAY BOTTLE NASAL SCH (15:33)
[2024-08-25 20:02] LABS: % Iron Saturation 16.35 (12.00-45.00)
[2024-08-25] MEDS ORDERED: BACITRACIN ZINC 500 UNIT/GM OINT 28.4 GM TUBE TOPICAL SCH (21:00)
[2024-08-26 06:10] LABS: Anisocytosis Slight; HCT 27.1 % (34.0-46.0); Hypochromasia Moderate; MCH 33.9 pg (25.0-35.0); MCHC 33.3 g/dL (31.0-37.0); MCV 101.6 fL (80.0-100.0); Macrocytosis Moderate; Platelet Count 217 k/uL (150-450); RBC 2.67 m/uL (3.80-5.40); RDW 17.5 % (11.5-15.5); WBC 4.3 k/uL (3.8-10.6)
[2024-08-26 06:17] LABS: ALT 18 U/L (4-34); AST 46 U/L (14-36); African American GFR (CKD) 86 (>60 ml/min/1.73 sqM); Albumin 2.9 g/dL (3.5-5.0); Alkaline Phosphatase 90 U/L (38-126); Anion Gap 5 mmol/L; Blood Urea Nitrogen 20 mg/dL (7-17); Calcium 8.4 mg/dL (8.4-10.2); Carbon Dioxide 33 mmol/L (22-30); Chloride 87 mmol/L (98-107); Glucose 91 mg/dL (74-99); Non-African American GFR(CKD) 74 (>60 ml/min/1.73 sqM); Potassium 3.6 mmol/L (3.5-5.1); Sodium 125 mmol/L (137-145); Total Bilirubin 0.6 mg/dL (0.2-1.3); Total Protein 6.2 g/dL (6.3-8.2)
--- NOTE | 2024-08-26 09:36 | P.PN ---
Subjective Progress Note Date: 08/26/24 Principal diagnosis: Anemia This is a pleasant 78-year-old female who was transferred from outside facility to the emergency department 5 days ago with complaints of shortness of breath. Patient has significant cardiac history. Apparently patient was admitted for fluid volume overload. Patient has history of moderate mitral regurgitation severe tricuspid regurgitation status post mitral and tricuspid cuspid valve repair along with closure of patent earl oval and modified Ayala-Maze on July 30, 2024, chronic atrial fibrillation on Eliquis for anticoagulation, sick sinus syndrome with symptomatic bradycardia status post Medtronic dual- chamber pacemaker, hypertension, rheumatoid arthritis, CVA, TIA, Sjogren's disease, lupus, chronic anemia, and legally blind status post corneal transplants. Cardiology and cardiothoracic surgical team have been following patient. She is anticoagulated with Eliquis 5 mg twice daily. Patient states she had an 8-hour nosebleed yesterday and through the night. This morning nursing is reporting that she had to large dark to black stools. She had a drop in her hemoglobin from 10.1 yesterday to 8.8 this morning. . Occult stool was collected and was positive. GI was consulted for drop in hemoglobin and positive occult stool. Patient states that she has a history of bloody noses in the past. She has had to have it cauterized. She denies any abdominal pain, nausea or vomiting. No history of peptic ulcer disease or previous GI bleed. No previous upper endoscopy, last colonoscopy remote. Patient states that she has had some difficulty with swallowing for many many years. States that she just has to have her food chewed up better and small meals. Apparently patient's appetite has also been decreased since her surgery. 08/26/2024 Patient seen and examined today as a follow-up. She is sitting up in bed and e ating. States she has had no further nosebleeds. She states she was seen by the ENT however no report is available at this time. She states that they had removed her packing and there was no further bleeding Patient states she had a bowel movement last night she believes that it was normal color. Hemoglobin is stable at 9.0, platelet count 217,000. Iron studies completed iron 56 saturation 318 ferritin 549. She continues to deny any rectal bleeding, no abdominal pain, nausea or vomiting. Objective - Vital Signs Vital signs: Vital Signs Temp 97.7 F 08/26/24 04:37 Pulse 61 08/26/24 04:37 Resp 16 08/26/24 04:37 BP 156/74 08/26/24 04:37 Pulse Ox 95 08/26/24 04:37 FiO2 Intake & Output 08/25/24 08/26/24 08/26/24 18:59 06:59 18:59 Output Total 300 300 Balance -300 -300 Weight 56.2 kg Output: Urine 300 300 Other: Voiding Method Bedside Commode Bedside Commode # Voids 1 # Bowel Movements 1 2 - Exam General appearance: The patient is alert, oriented, appears in no acute distress. HET: Head is normocephalic and atraumatic. Conjunctiva pink. Sclera anicteric. Neck: Supple without lymphadenopathy. Abdomen: Soft, nontender, nondistended. Extremities: Normal skin color and turgor. No pedal edema Skin: No rashes, no jaundice Neurological: No focal deficits. Alert and oriented. - Labs CBC & Chem 7: 08/26/24 05:54 08/26/24 05:54 Labs: Abnormal Lab Results - Last 24 Hours (Table) 08/25/24 08/25/24 08/25/24 Range/Units 07:19 07:19 07:19 WBC 3.2 L (3.8-10.6) k/uL RBC 2.70 L (3.80-5.40) m/uL Hgb 8.8 L (11.4-16.0) gm/dL Hct 28.6 L (34.0-46.0) % MCV 105.9 H (80.0-100.0) fL MCHC 30.8 L (31.0-37.0) g/dL RDW 18.0 H (11.5-15.5) % Lymphocytes # 0.9 L (1.0-4.8) k/uL Macrocytosis Marked A Sodium 126 L (137-145) mmol/L Chloride 89 L (98-107) mmol/L Carbon Dioxide 33 H (22-30) mmol/L BUN 22 H (7-17) mg/dL Glucose 117 H (74-99) mg/dL Calcium 8.1 L (8.4-10.2) mg/dL Ferritin 549.0 H (10.0-291.0) ng/mL AST (14-36) U/L Total Protein (6.3-8.2) g/dL Albumin (3.5-5.0) g/dL Stool Occult Blood (Negative) 08/25/24 08/26/24 08/26/24 Range/Units 09:56 05:54 05:54 WBC (3.8-10.6) k/uL RBC 2.67 L (3.80-5.40) m/uL Hgb 9.0 L (11.4-16.0) gm/dL Hct 27.1 L (34.0-46.0) % MCV 101.6 H (80.0-100.0) fL MCHC (31.0-37.0) g/dL RDW 17.5 H (11.5-15.5) % Lymphocytes # (1.0-4.8) k/uL Macrocytosis Sodium 125 L (137-145) mmol/L Chloride 87 L (98-107) mmol/L Carbon Dioxide 33 H (22-30) mmol/L BUN 20 H (7-17) mg/dL Glucose (74-99) mg/dL Calcium (8.4-10.2) mg/dL Ferritin (10.0-291.0) ng/mL AST 46 H (14-36) U/L Total Protein 6.2 L (6.3-8.2) g/dL Albumin 2.9 L (3.5-5.0) g/dL Stool Occult Blood Positive H (Negative) Assessment and Plan (1) Chronic anemia Narrative/Plan: 78-year-old female with multiple comorbidities significant cardiac history who recently underwent mitral valve and tricuspid valve replacement with form and oval closure who is on anticoagulation and has history of chronic anemia had a drop in hemoglobin from 10-8.8. Patient has likely some acute on chronic anemia secondary to epistaxis. Apparently stool was checked for blood and was positive. Gastroenterology was consulted for drop in hemoglobin. Positive occult stool and black stool likely secondary to significant nosebleed without any other history of GI bleed or symptoms of GI bleed. No plans on endoscopic evaluation, recommend ENT consultation. Current Visit: Yes Status: Acute Code(s): D64.9 - ANEMIA, UNSPECIFIED SNOMED Code(s): 259945794 (2) Epistaxis Narrative/Plan: Controlled at this time. Patient has had previous epistaxis requiring cautery. ENT on consultation. No further nosebleeds at this time. Current Visit: Yes Status: Acute Code(s): R04.0 - EPISTAXIS SNOMED Code(s): 560328827 (3) Coronary artery disease Current Visit: Yes Status: Acute Code(s): I25.10 - ATHSCL HEART DISEASE OF [place] CORONARY ARTERY W/O ANG PCTRS SNOMED Code(s): 01847752 (4) Positive occult stool blood test Current Visit: Yes Status: Acute Code(s): R19.5 - OTHER FECAL ABNORMALITIES SNOMED Code(s): 76763032 (5) Current use of half-way anticoagulation Current Visit: Yes Status: Acute Code(s): Z79.01 - [facility] (CURRENT) USE OF ANTICOAGULANTS SNOMED Code(s): 917177043 (6) CHF (congestive heart failure) Current Visit: Yes Status: Acute Code(s): I50.9 - HEART FAILURE, UNSPECIFIED SNOMED Code(s): 76036599 Plan: 1. Continue symptomatic and supportive care 2. From a GI standpoint May resume anticoagulation however clear with ENT 3. May give Protonix 40 mg daily for GI prophylaxis 4. Positive occult stool or black stool likely secondary to significant epistaxis. No plans on endoscopic evaluation. 5. Continue with recommendations from multiple consultants Thank you for this consultation, we will sign off at this time. Please do not hesitate to call us back if needed. Dr. Isabella Mahajan I agree with the dictator's note, documented as a scribe by Ria Portillo.
[2024-08-26] MEDS: POTASSIUM BICARBONATE/CIT AC 20 MEQ TABLET.EFF PO ONE (11:14)
--- NOTE | 2024-08-26 11:51 | P.NPCON ---
History of Present Illness - Reason for Consult hyponatremia - History of Present Illness Patient is a 78-year-old female with history of CHF and valvular heart disease status post mitral and tricuspid valve repair and closure of patent foramina well on 07/30/2024. Patient states that she has had low sodium levels for many years and usually takes a pinch of salt when she is feeling weak. Serum sodium was 125 on admission and increased to 129 2 days later, subsequently it has decreased and is 125 today. Patient has been maintained on IV Lasix and was switched to oral Lasix yesterday. EF is 50 to 55% Patient reports not voiding much over the last 2 to 3 days. Blood pressure has not been low 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 states she passed out 04/30/24 after eye examination and long day of travel - estimates LOC 2 minutes, fatigue, weakness, SOB w/exertion, mitral and tricuspid regurgitation History of Any Multi-Drug Resistant Organisms: None Reported Past Surgical History: Heart Catheterization, Hysterectomy Additional Past Surgical History / Comment(s): Bilat. corneal transplants, rectocele repair; mitral and tricuspid repair 07/30/24; Medtronic permanent pa cemaker placement 08/04/24 Past Anesthesia/Blood Transfusion Reactions: No Reported Reaction Additional Past Anesthesia/Blood Transfusion Reaction / Comment(s): no hx. of transfusion reactions Past Psychological History: No Psychological Hx Reported Smoking Status: Never smoker Past Alcohol Use History: None Reported Past Drug Use History: None Reported - Past Family History Father Family Medical History: Coronary Artery Disease (CAD) Additional Family Medical History / Comment(s): CABG 3 times during lifetime, bypass and valve repairs Mother Family Medical History: Hypertension Medications and Allergies Home Medications Medication Instructions Recorded Confirmed Type Apixaban [Eliquis] 2.5 mg PO BID 05/06/24 08/20/24 History Ascorbic Acid [Vitamin C] 500 mg PO DAILY 05/06/24 08/20/24 History Cholecalciferol [Vitamin D3 (25 25 mcg PO DAILY 05/06/24 08/20/24 History Mcg = 1000 Iu)] Collagen/Biotin/Ascorbic Acid 1 cap PO DAILY 05/06/24 08/20/24 History [Collagen 1500 Plus C Capsule] Sodium Chloride 5% Ophth Oint 1 drop BOTH EYES HS 05/06/24 08/20/24 History [Ayleen 128] Super 8 Greens 1 dose PO DAILY 05/06/24 08/20/24 History Timolol [Betimol 0.5% Ophth Soln] 1 drop RIGHT EYE HS 05/06/24 08/20/24 History prednisoLONE acetate [Pred Mild] 1 drop BOTH EYES TID 05/06/24 08/20/24 History valACYclovir HCL [Valtrex] 500 mg PO DAILY 05/06/24 08/20/24 History Cetirizine HCl [Zyrtec] 10 mg PO HS 07/14/24 08/20/24 History Famotidine [Pepcid] 40 mg PO DAILY 07/14/24 08/20/24 History diphenhydrAMINE [Benadryl] 25 mg PO BID PRN 07/14/24 08/20/24 History Acetaminophen Tab [Tylenol] 1,000 mg PO Q6HR PRN tab 08/07/24 08/20/24 Rx Aspirin 81 mg PO DAILY #30 tab 08/07/24 08/20/24 Rx Atorvastatin [Lipitor] 40 mg PO DAILY #30 tab 08/07/24 08/20/24 Rx Cephalexin [Keflex] 500 mg PO BID #14 cap 08/07/24 08/20/24 Rx Furosemide [Lasix] 40 mg PO DAILY #30 tab 08/07/24 08/20/24 Rx Losartan [Cozaar] 12.5 mg PO DAILY@1200 #30 tab 08/07/24 08/20/24 Rx Metoprolol Tartrate [Lopressor] 12.5 mg PO BID #60 tab 08/07/24 08/20/24 Rx guaiFENesin [Mucinex] 600 mg PO Q12HR tab 08/07/24 08/20/24 Rx oxyCODONE HCL [OxyIR] 10 mg PO Q4H PRN 3 Days #18 tab 08/10/24 08/20/24 Rx Carboxymethylcellulose Sodium 2 drop BOTH EYES Q1H PRN 08/20/24 08/20/24 History [Refresh Tears] Sennosides-Docusate Sodium 2 tab PO HS 08/20/24 08/20/24 History [Senokot-S] Systane Night Gel 1 drop BOTH EYES HS 08/20/24 08/20/24 History Allergies Allergy/AdvReac Type Severity Reaction Status Date / Time Beef Containing Products Allergy Nausea & Verified 08/20/24 13:14 [Beef] Vomiting codeine Allergy Nausea & Verified 08/20/24 13:14 Vomiting erythromycin base Allergy Rash/Hives Verified 08/20/24 13:14 gluten Allergy GI upset Verified 08/20/24 13:14 hydrocodone [From Vicodin] Allergy Nausea & Verified 08/20/24 13:14 Vomiting ibuprofen Allergy Rash/Hives Verified 08/20/24 13:14 meperidine [From Demerol] Allergy Unknown Verified 08/20/24 13:14 morphine Allergy Hallucinati Verified 08/20/24 13:14 ons Penicillins Allergy Rash/Hives Verified 08/20/24 13:14 Pork/Porcine Containing Allergy Nausea & Verified 08/20/24 13:14 Products Vomiting [Pork] Sulfa (Sulfonamide Allergy Rash/Hives Verified 08/20/24 13:14 Antibiotics) tramadol [From Ultram] Allergy Rash/Hives Verified 08/20/24 13:14 aspirin AdvReac Unknown Verified 08/20/24 13:14 hand lamination spinner Allergy Rash/Hives Uncoded 07/30/24 06:16 Physical Exam Vitals: Vital Signs Temp Pulse Resp BP Pulse Ox 08/26/24 11:18 73 16 148/71 100 08/26/24 08:00 62 16 97/60 94 L 08/26/24 04:37 97.7 F 61 16 156/74 95 08/25/24 23:33 97.6 F 63 16 146/67 98 08/25/24 20:03 98.3 F 60 16 131/76 97 08/25/24 16:00 69 16 135/64 97 08/25/24 14:00 60 16 08/25/24 12:00 60 16 114/60 97 Intake and Output 08/25/24 08/26/24 08/26/24 22:59 06:59 14:59 Intake Total 118 Output Total 300 Balance -300 118 Intake: Oral 118 Output: Urine 300 Other: Voiding Method Bedside Commode Bedside Commode Bedside Commode # Voids 1 # Bowel Movements 1 2 Weight 56.2 kg Patient is comfortable awake not in acute distress Examination of the heart S1 and S2 Examination of the lungs bilateral breath sounds are heard with decreased breath sounds at the bases Abdomen is soft nontender Examination of lower extremities shows edema 1+ bilaterally CORE FINISHER exam grossly intact Results - Lab Results Most recent lab results Calcium 8.4 mg/dL (8.4-10.2) 08/26/24 05:54 Magnesium 1.7 mg/dL (1.6-2.3) 08/21/24 07:10 08/26/24 05:54 08/26/24 05:54 Assessment and Plan Assessment: 1. Hyponatremia, hypervolemic, not improving with diuresis. Check urine osmolality and urine sodium. Patient has a chronic history of hyponatremia. Rule out urine retention. 2. Status post mitral and tricuspid valve repair with closure of foramen ovale on 07/30/2024 3. Volume overload 4. Diastolic CHF 5. Pyuria, maintained on antibiotics, no urine culture noted Plan: Continue to diurese patient, changed back to IV Lasix Add urea If no improvement in serum sodium patient will be given Samsca Check urine osmolality and urine sodium Maintain salt and fluid restriction Patient is advised to increase pro oral protein intake Thank you for the consultation. We will continue to follow the patient with you during her hospitalization.
--- NOTE | 2024-08-26 12:37 | P.PN ---
Subjective Progress Note Date: 08/26/24 78-year-old female, history of hypertension, atrial fibrillation, coronary artery disease, presents emergency department as a transfer for shortness of breath. Had a recent CABG with Dr. Bey at our facility in July 30. Presented to [facility] earlier this morning with general weakness, as well as worsening shortness of breath for the last few days. Also had pacemaker placed on last admission as well. Was found to be in a volume overload state with an elevated troponin and was transferred here for further care. Patient denies any chest pain at any point but does endorse some dysuria as well as difficulty in breathing. Endorses worsening orthopnea. Denies PND. Endorses lower extremity edema. Denies any significant productive cough but does endorse a mild cough. Presents for further evaluation at this time. Patient also has a history of atrial fibrillation and is on blood thinners. -EKG: Electronic ventricularly paced rhythm. -Chest x-ray: Stable. -Laboratory studies: Hemoglobin 10.1, sodium 127, BUN 11, creatinine 0.57. Troponins 0.151, 0.132, 0.132. proBNP 13,200. Urinalysis positive for infection. -Home cardiac medications: Eliquis 2.5 mg twice daily, aspirin 81 mg daily, Lipitor 40 mg daily, Lasix 40 mg daily, losartan 12.5 mg at noon, Lopressor 12.5 mg twice daily. -Cardiac catheterization performed 05/13/2024 revealed mild pulmonary hypertension, normal biventricular filling pressure, mild to moderate CAD. 08/23/2024 Patient seen and examined in room at bedside. Inquiring about her blood work which was discussed with patient and family at bedside Vital signs are reviewed; blood pressure remains elevated -- Repeat blood work reveals hemoglobin 10, sodium 128, BUN 14 creatinine 0.63. Chest x-ray obtained today reveals slightly improved pulmonary vascular congestion and small bilateral pleural effusions. Patient has been maintained on IV Lasix 40 mg every 12 hours. Patient does have a negative fluid balance and weight loss of 3-1/2 kg. Blood culture is no growth after 24 hours. Echocardiogram is pending. -- yesterday losartan was increased to 50 mg daily blood pressure readings have been elevated up to the 170s systolic; cardiology recommending to increase losartan up to 100 mg daily; patient remains on Lasix 40 mg IV every 12 hours -Continue with current IV antibiotics 08/24 Patient with no chest pain, she still somewhat tachypneic with breathing rate about 20-22 She says her dyspnea is improving as well. No specific GI symptoms. Sodium today 128 down to 126, potassium 3.1 which has been replaced Patient remains on ceftriaxone, home dose of valacyclovir, home dose of Eliquis 2.5 mg Also patient on IV Lasix 40 mg twice daily, losartan increased to 100 mg. Echocardiogram is still pending. 08/25. Patient seen and examined Blood work done today showed WBC 3.2, hemoglobin 8.8, platelet count 229, sodium 126, potassium 3.7, BUN 22, creatinine 0.72.. Patient had episode of epistaxis yesterday, currently not bleeding. Patient also had dark stool this morning. FOBT was positive 08/26. Patient seen and examined. Blood work done this morning showed WBC 4.3, hemoglobin 9, platelet count 217, sodium 125, potassium 3.6, BUN 20, creatinine 0.78. No further episodes of epistaxis. Patient had an episode of dark stool this morning. Hemoglobin is stable. REVIEW OF SYSTEMS: CONSTITUTIONAL: No fever, no malaise,. CARDIOVASCULAR: No chest pain, no palpitations, no syncope. PULMONARY: No shortness of breath, no cough, GASTROINTESTINAL: No diarrhea, no nausea, no vomiting, no abdominal pain. NEUROLOGICAL: No headaches, no weakness, PHYSICAL EXAMINATION: GENERAL: The patient is alert and oriented x3, chronically ill looking HEENT: Pupils are round and equally reacting to light. EOMI. No scleral icterus. No conjunctival pallor. Normocephalic, atraumatic. No pharyngeal erythema. No thyromegaly. CARDIOVASCULAR: S1 and S2 present. No murmurs, rubs, or gallops. PULMONARY: Diminished breath sounds at bases bilaterally, no crackles audible ABDOMEN: Soft, nontender, nondistended, normoactive bowel sounds. No palpable organomegaly. MUSCULOSKELETAL: No joint swelling or deformity. EXTREMITIES: No cyanosis, clubbing, or pedal edema. NEUROLOGICAL: Gross neurological examination did not reveal any focal deficits. SKIN: No rashes. Assessment and plan Acute diastolic heart failure UTI Blood in stool Acute blood loss anemia Epistaxis Uncontrolled hypertension Valvular heart disease with mitral and tricuspid regurgitation status post mitral valve repair and tricuspid valve annuloplasty 07/30/2024 Sick sinus syndrome status post Medtronic dual-chamber pacemaker 08/04/24 Persistent atrial fibrillation on Eliquis History of Sjogren's disease Bacteremia ruled out with negative blood culture Moderate to severe aortic regurgitation Moderate concentric LVH Monitor vital signs Monitor CBC Monitor CMP Continue telemetry monitoring Strict I's O's, daily weights Continue IV Rocephin Continue aspirin, Lipitor, Coreg Continue Protonix Continue Lasix 40 mg twice daily GI following, not planning any endoscopy intervention, continue Protonix Cardiology following Cardiac surgery following Labs and medication were reviewed.. Continue same treatment. Continue with symptomatic treatment. Resume home medication. Monitor labs and vitals. DVT and GI prophylaxis. Further recommendations as per clinical course of the patient Dictation was produced using [employer] dictation software. please excuse any grammatical, word or spelling errors. Objective - Vital Signs Vital signs: Vital Signs Temp 97.7 F 08/26/24 04:37 Pulse 61 08/26/24 04:37 Resp 16 08/26/24 04:37 BP 156/74 08/26/24 04:37 Pulse Ox 95 08/26/24 04:37 FiO2 Intake & Output 08/25/24 08/26/24 08/26/24 18:59 06:59 18:59 Output Total 300 300 Balance -300 -300 Weight 56.2 kg Output: Urine 300 300 Other: Voiding Method Bedside Commode Bedside Commode # Voids 1 # Bowel Movements 1 2 - Labs CBC & Chem 7: 08/26/24 05:54 08/26/24 05:54 Labs: Abnormal Lab Results - Last 24 Hours (Table) 08/25/24 08/25/24 08/25/24 Range/Units 07:19 07:19 09:56 RBC (3.80-5.40) m/uL Hgb (11.4-16.0) gm/dL Hct (34.0-46.0) % MCV (80.0-100.0) fL RDW (11.5-15.5) % Lymphocytes # 0.9 L (1.0-4.8) k/uL Sodium (137-145) mmol/L Chloride (98-107) mmol/L Carbon Dioxide (22-30) mmol/L BUN (7-17) mg/dL Ferritin 549.0 H (10.0-291.0) ng/mL AST (14-36) U/L Total Protein (6.3-8.2) g/dL Albumin (3.5-5.0) g/dL Stool Occult Blood Positive H (Negative) 08/26/24 08/26/24 Range/Units 05:54 05:54 RBC 2.67 L (3.80-5.40) m/uL Hgb 9.0 L (11.4-16.0) gm/dL Hct 27.1 L (34.0-46.0) % MCV 101.6 H (80.0-100.0) fL RDW 17.5 H (11.5-15.5) % Lymphocytes # (1.0-4.8) k/uL Sodium 125 L (137-145) mmol/L Chloride 87 L (98-107) mmol/L Carbon Dioxide 33 H (22-30) mmol/L BUN 20 H (7-17) mg/dL Ferritin (10.0-291.0) ng/mL AST 46 H (14-36) U/L Total Protein 6.2 L (6.3-8.2) g/dL Albumin 2.9 L (3.5-5.0) g/dL Stool Occult Blood (Negative)
[2024-08-26 12:50] LABS: Anisocytosis Slight; Basophils % (A) 0 %; Eosinophils # (A) 0.3 k/uL (0-0.7); Eosinophils % (A) 5 %; HCT 29.2 % (34.0-46.0); HGB 9.4 gm/dL (11.4-16.0); Hypochromasia Marked; Lymphocytes # (A) 1.2 k/uL (1.0-4.8); Lymphocytes % (A) 21 %; MCH 33.7 pg (25.0-35.0); MCHC 32.3 g/dL (31.0-37.0); MCV 104.2 fL (80.0-100.0); Macrocytosis Moderate; Mean Platelet Volume 7.1; Monocytes # (A) 0.6 k/uL (0-1.0); Monocytes % (A) 10 %; Neutrophils # (A) 3.5 k/uL (1.3-7.7); Neutrophils % (A) 61 %; Platelet Count 227 k/uL (150-450); RDW 17.6 % (11.5-15.5); WBC 5.7 k/uL (3.8-10.6)
--- NOTE | 2024-08-26 13:20 | P.PN ---
Subjective HISTORY OF PRESENT ILLNESS: This is a 78-year-old female patient of Dr. Cardenas with past medical history of mitral and tricuspid regurgitation status post mitral valve repair and tricuspid valve annuloplasty performed on 07/30/2024. Patient had a complicated hospital course requiring extensive hospitalization, status post Medtronic dual-chamber p ermanent pacemaker implantation on 08/04 and developed atrial fibrillation as well. We have been asked to see the patient for CHF and fluid overload. Patient states that she started feeling achy all over as well as generalized weakness and general did not feel well. She also complains of shortness of breath. She states this morning, she is better than when she presented to the hospital yesterday but not back to her baseline. She denies lower extremity edema. No fevers.Blood pressure 184/93, heart rate 60, pulse ox 99% on 2 L nasal cannula. Patient has been started on IV Lasix 40 mg every 12 hours. Patient is seen today in the emergency center waiting for a bed on the cardiac stepdown unit. -EKG: Electronic ventricularly paced rhythm. -Chest x-ray: Stable. -Laboratory studies: Hemoglobin 10.1, sodium 127, BUN 11, creatinine 0.57. Troponins 0.151, 0.132, 0.132. proBNP 13,200. Urinalysis positive for infection. -Home cardiac medications: Eliquis 2.5 mg twice daily, aspirin 81 mg daily, Lipitor 40 mg daily, Lasix 40 mg daily, losartan 12.5 mg at noon, Lopressor 12.5 mg twice daily. -Cardiac catheterization performed 05/13/2024 revealed mild pulmonary hypertension, normal biventricular filling pressure, mild to moderate CAD. 08/22 Patient seen and examined. Blood pressure 134/68, heart rate 62, pulse ox 96% on room air. Repeat blood work reveals WBC 3.6, hemoglobin 10.6, potassium 3.3 and has been replaced, sodium 129, creatinine 0.63. Patient has been started on IV antibiotics due to concern for wound infection. Blood culture is status received. Cardiothoracic surgery is following the patient. 08/23 Patient seen and examined. Yesterday losartan was increased to 50 mg daily blood pressure readings have been elevated up to the 170s systolic, heart rate is in the 60s, pulse ox 93% on room air. Repeat blood work reveals hemoglobin 10, sodium 128, BUN 14 creatinine 0.63. Chest x-ray obtained today reveals slightly improved pulmonary vascular congestion and small bilateral pleural effusions. Patient has been maintained on IV Lasix 40 mg every 12 hours. P atient does have a negative fluid balance and weight loss of 3-1/2 kg. Blood culture is no growth after 24 hours. Echocardiogram is pending. 08/24/2024 Patient examined this morning to bedside. Patient denies chest pain or pressure. She continues to report shortness of breath this morning. Vital signs are stable. Cardiogram completed revealing ejection fraction 50 to 55%, no obvious regional wall motion abnormalities, moderate concentric LVH, mitral valve repair, moderate eccentric mitral regurgitation, posteriorly directed mitral regurgitation jet, moderate to severe aortic regurgitation, and mild tricuspid regurgitation 08/25/2024 Patient examined this morning at the bedside. Patient currently denies any chest pain or pressure. She denies any shortness of breath. Patient did walk in the hallway this morning with physical therapy. She does report having some shortness of breath with exertion. Vital signs are stable. Sodium low at 126 today. 08/26/2024 Patient examined this morning at the bedside. Patient currently denies chest pain or pressure. She denies shortness of breath. Vital signs are stable. Sodium today 125. PHYSICAL EXAM: VITAL SIGNS: Reviewed. GENERAL: Well-developed in no acute distress. NECK: Supple. No JVD or thyromegaly LUNGS: Respirations even and unlabored. Lungs essentially clear to auscultation bilaterally. HEART: Regular rate and rhythm. S1 and S2 heard. EXTREMITIES: Normal range of motion. No clubbing or cyanosis. Peripheral pulses intact. 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 Patient switched back to IV Lasix. Continue to monitor sodium levels. Continue additional cardiac medications including Eliquis, aspirin, atorvastatin, carvedilol, Farxiga, and losartan Further recommendations pending patient course Nurse practitioner note has been reviewed by physician. Signing provider agrees with the documented findings, assessment, and plan of care documented by CAMP BOSS as a scribe. Objective - Vital Signs Vital signs: Vital Signs Temp 97.7 F 08/26/24 04:37 Pulse 73 08/26/24 11:18 Resp 16 08/26/24 11:18 BP 148/71 08/26/24 11:18 Pulse Ox 100 08/26/24 11:18 FiO2 Intake & Output 08/25/24 08/26/24 08/26/24 18:59 06:59 18:59 Intake Total 118 Output Total 300 300 Balance -300 -300 118 Weight 56.2 kg Intake: Oral 118 Output: Urine 300 300 Other: Voiding Method Bedside Commode Bedside Commode Bedside Commode # Voids 1 # Bowel Movements 1 2 - Labs CBC & Chem 7: 08/26/24 12:37 08/26/24 05:54 Labs: Abnormal Lab Results - Last 24 Hours (Table) 08/25/24 08/26/24 08/26/24 Range/Units 07:19 05:54 05:54 RBC 2.67 L (3.80-5.40) m/uL Hgb 9.0 L (11.4-16.0) gm/dL Hct 27.1 L (34.0-46.0) % MCV 101.6 H (80.0-100.0) fL RDW 17.5 H (11.5-15.5) % Sodium 125 L (137-145) mmol/L Chloride 87 L (98-107) mmol/L Carbon Dioxide 33 H (22-30) mmol/L BUN 20 H (7-17) mg/dL Ferritin 549.0 H (10.0-291.0) ng/mL AST 46 H (14-36) U/L Total Protein 6.2 L (6.3-8.2) g/dL Albumin 2.9 L (3.5-5.0) g/dL 08/26/24 Range/Units 12:37 RBC 2.80 L (3.80-5.40) m/uL Hgb 9.4 L (11.4-16.0) gm/dL Hct 29.2 L (34.0-46.0) % MCV 104.2 H (80.0-100.0) fL RDW 17.6 H (11.5-15.5) % Sodium (137-145) mmol/L Chloride (98-107) mmol/L Carbon Dioxide (22-30) mmol/L BUN (7-17) mg/dL Ferritin (10.0-291.0) ng/mL AST (14-36) U/L Total Protein (6.3-8.2) g/dL Albumin (3.5-5.0) g/dL Microbiology - Last 24 Hours (Table) 08/21/24 08:27 Blood Culture - Final Blood
[2024-08-26] MEDS: UREA 15 GM POWD.PACK PO SCH (14:19)
[2024-08-26] MEDS: FUROSEMIDE 10 MG/ML 10 ML VIAL IV SCH (14:22)
[2024-08-26] MEDS ORDERED: ZINC OXIDE PASTE (Z-GUARD) 1 APPLIC TOPICAL PRN (16:24)
--- NOTE | 2024-08-27 02:53 | CONS ---
CONSULTATION REASON FOR THE CONSULTATION: Left epistaxis. HISTORY OF PRESENT ILLNESS: The patient is a very pleasant 78-year-old female, who was admitted to the hospital via the emergency room for evaluation/treatment of shortness of breath, congestive heart failure, and electrolyte imbalance. While in the hospital, the patient developed a nosebleed on 08/24/2024. She was currently on blood thinners, Eliquis, and aspirin. I was contacted by the nursing staff for consultation. At that time, I advised him to start spraying 3 puffs of Afrin nasal spray in the left nostril 3 times daily until I see her the next day. At the time that I saw the patient, she had not had any further nosebleeds as of 08/25/2024. I advised the nurse to continue with the Afrin nasal spray twice daily because they stated the patient had some hypertensive episodes. The patient does not have a history of having previous nosebleeds at home. I advised to avoid use any type of saline sprays intranasally because these will actually dry the nose and worse with make the nosebleeds recur. ALLERGIES: Reveals that the patient has allergies to ibuprofen, Demerol, morphine, penicillin, sulfa, tramadol, and some hand tuyere fitter. CURRENT HOME MEDICATIONS: Include, 1. Eliquis. 2. Vitamin C. 3. Timolol eye drops. 4. Valtrex. 5. Zyrtec. 6. Pepcid. 7. Metoprolol. 8. Losartan. 9. Orient p.r.n. 10.Lipitor. REVIEW OF SYSTEMS: CARDIOVASCULAR: Positive for hypertension, ASHD. GASTROINTESTINAL: Positive for GERD. METABOLIC/ENDOCRINE: Positive for hypercholesterolemia. MUSCULOSKELETAL: Positive for osteoarthritis. HEENT: No macular degeneration. Special senses are positive for glaucoma. Remainder of review of systems is essentially unremarkable. OBJECTIVE: HEENT: The patient is normocephalic. Tympanic membranes are normal. Middle ear spaces are free of any fluid or infection. Pupils are equal, round, and reactive to light and accommodation. Extraocular movements within normal limits. Intranasal examination reveals that there has been some bleeding from the left naris. Intranasal examination reveals that there is a recent bleeding site in the midportion of the septum anteriorly and slightly posteriorly. There is a nice clot/scab over this area and is not actively bleeding. Examination of the posterior pharynx does not reveal any bleeding down the posterior pharyngeal wall. The remainder of the head and neck exam is unremarkable. CHEST/CARDIOVASCULAR: Both lung ayala are clear. The patient is in regular sinus rhythm. ABDOMEN: There is no evidence of masses, megaly, or tenderness. The abdomen is soft. The remainder of physical exam is unremarkable. ASSESSMENT: Left anterior-posterior epistaxis. PLAN: Advised the nursing staff to continue with the Afrin nasal spray 2 or 3 puffs in the left nostril only twice daily until the time that the patient is discharged. At the time she is discharged, the spray can be discontinued. In addition to this, we are going to have the nursing staff place Bactroban, a dab in the each nostril 2 to 3 times daily until the patient is discharged. I advised the patient against blowing her nose while she is in the hospital and once she is discharged, if she has to blow her nose, she should do so gently and avoid pinching her nostrils together. Furthermore, it would be a good idea for her if she have to sneeze, she should do so with her mouth open. I would like to take this opportunity to thank you for allowing me to assist you in the care of your patient. If I could be of any further assistance, please feel free to contact my office. I will sign off on this patient at this time. MMODL / IJN: [id number] / MARIO
[2024-08-27 07:18] LABS: Anisocytosis Slight; HCT 30.3 % (34.0-46.0); HGB 9.5 gm/dL (11.4-16.0); Hypochromasia Slight; MCH 32.7 pg (25.0-35.0); MCHC 31.2 g/dL (31.0-37.0); MCV 104.7 fL (80.0-100.0); Macrocytosis Marked; Mean Platelet Volume 7.5; Platelet Count 224 k/uL (150-450); RBC 2.89 m/uL (3.80-5.40); RDW 17.9 % (11.5-15.5); WBC 3.6 k/uL (3.8-10.6)
--- NOTE | 2024-08-27 07:24 | XR ---
EXAMINATION TYPE: XR chest 1V portable DATE OF EXAM: 08/27/2024 6:51 AM COMPARISON: Chest radiographs from 08/25/2024 CLINICAL INDICATION: Female, 78 years old with history of heart failure; TECHNIQUE: XR chest 1V portable Frontal view of the chest. FINDINGS: Lungs/Pleura: No evidence of focal consolidation or pneumothorax. Blunting of the costophrenic angles is present. Pulmonary vascularity: Pulmonary vascular congestion. Heart/mediastinum: Cardiomediastinal silhouette is enlarged and stable. Post valve repair changes. T wo lead cardiac conduction device overlying the left hemithorax with lead tips projecting over the ri ght ventricle and right atrium. Musculoskeletal: No acute osseous pathology. IMPRESSION: Cardiomegaly, pulmonary vascular congestion and bilateral pleural effusions. Correlate with BNP for c ongestive heart failure. [facility] Debbie Lin, , 08/27/2024 7:22 AM
[2024-08-27 07:55] LABS: African American GFR (CKD) >90 (>60 ml/min/1.73 sqM); Anion Gap 8 mmol/L; Blood Urea Nitrogen 34 mg/dL (7-17); Calcium 8.4 mg/dL (8.4-10.2); Carbon Dioxide 33 mmol/L (22-30); Chloride 87 mmol/L (98-107); Glucose 90 mg/dL (74-99); Non-African American GFR(CKD) 81 (>60 ml/min/1.73 sqM); Potassium 3.6 mmol/L (3.5-5.1); Sodium 128 mmol/L (137-145)
[2024-08-27] MEDS: FUROSEMIDE 10 MG/ML 10 ML VIAL IV SCH (08:59)
--- NOTE | 2024-08-27 11:42 | P.PN ---
Subjective HISTORY OF PRESENT ILLNESS: This is a 78-year-old female patient of Dr. Cardenas with past medical history of mitral and tricuspid regurgitation status post mitral valve repair and tricuspid valve annuloplasty performed on 07/30/2024. Patient had a complicated hospital course requiring extensive hospitalization, status post Medtronic dual-chamber p ermanent pacemaker implantation on 08/04 and developed atrial fibrillation as well. We have been asked to see the patient for CHF and fluid overload. Patient states that she started feeling achy all over as well as generalized weakness and general did not feel well. She also complains of shortness of breath. She states this morning, she is better than when she presented to the hospital yesterday but not back to her baseline. She denies lower extremity edema. No fevers.Blood pressure 184/93, heart rate 60, pulse ox 99% on 2 L nasal cannula. Patient has been started on IV Lasix 40 mg every 12 hours. Patient is seen today in the emergency center waiting for a bed on the cardiac stepdown unit. -EKG: Electronic ventricularly paced rhythm. -Chest x-ray: Stable. -Laboratory studies: Hemoglobin 10.1, sodium 127, BUN 11, creatinine 0.57. Troponins 0.151, 0.132, 0.132. proBNP 13,200. Urinalysis positive for infection. -Home cardiac medications: Eliquis 2.5 mg twice daily, aspirin 81 mg daily, Lipitor 40 mg daily, Lasix 40 mg daily, losartan 12.5 mg at noon, Lopressor 12.5 mg twice daily. -Cardiac catheterization performed 05/13/2024 revealed mild pulmonary hypertension, normal biventricular filling pressure, mild to moderate CAD. 08/22 Patient seen and examined. Blood pressure 134/68, heart rate 62, pulse ox 96% on room air. Repeat blood work reveals WBC 3.6, hemoglobin 10.6, potassium 3.3 and has been replaced, sodium 129, creatinine 0.63. Patient has been started on IV antibiotics due to concern for wound infection. Blood culture is status received. Cardiothoracic surgery is following the patient. 08/23 Patient seen and examined. Yesterday losartan was increased to 50 mg daily blood pressure readings have been elevated up to the 170s systolic, heart rate is in the 60s, pulse ox 93% on room air. Repeat blood work reveals hemoglobin 10, sodium 128, BUN 14 creatinine 0.63. Chest x-ray obtained today reveals slightly improved pulmonary vascular congestion and small bilateral pleural effusions. Patient has been maintained on IV Lasix 40 mg every 12 hours. P atient does have a negative fluid balance and weight loss of 3-1/2 kg. Blood culture is no growth after 24 hours. Echocardiogram is pending. 08/24/2024 Patient examined this morning to bedside. Patient denies chest pain or pressure. She continues to report shortness of breath this morning. Vital signs are stable. Cardiogram completed revealing ejection fraction 50 to 55%, no obvious regional wall motion abnormalities, moderate concentric LVH, mitral valve repair, moderate eccentric mitral regurgitation, posteriorly directed mitral regurgitation jet, moderate to severe aortic regurgitation, and mild tricuspid regurgitation 08/25/2024 Patient examined this morning at the bedside. Patient currently denies any chest pain or pressure. She denies any shortness of breath. Patient did walk in the hallway this morning with physical therapy. She does report having some shortness of breath with exertion. Vital signs are stable. Sodium low at 126 today. 08/26/2024 Patient examined this morning at the bedside. Patient currently denies chest pain or pressure. She denies shortness of breath. Vital signs are stable. Sodium today 125. 08/27/2024 Patient examined this morning at the bedside. Patient currently denies chest pain or pressure. She denies shortness of breath. Vital signs are stable. Sodium today 128. Patient remains on IV Lasix per nephrology. PHYSICAL EXAM: VITAL SIGNS: Reviewed. GENERAL: Well-developed in no acute distress. NECK: Supple. No JVD or thyromegaly LUNGS: Respirations even and unlabored. Lungs essentially clear to auscultation bilaterally. HEART: Regular rate and rhythm. S1 and S2 heard. EXTREMITIES: Normal range of motion. No clubbing or cyanosis. Peripheral pulses intact. 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 Continue IV Lasix per nephrology. Continue to monitor sodium levels. Continue additional cardiac medications including Eliquis, aspirin, atorvastatin, carvedilol, Farxiga, and losartan Further recommendations pending patient course Nurse practitioner note has been reviewed by physician. Signing provider agrees with the documented findings, assessment, and plan of care documented by POWER WASHER as a scribe. Objective - Vital Signs Vital signs: Vital Signs Temp 98.0 F 08/27/24 08:55 Pulse 60 08/27/24 08:55 Resp 18 08/27/24 08:55 BP 145/65 08/27/24 08:55 Pulse Ox 98 08/27/24 08:55 FiO2 Intake & Output 08/26/24 08/27/24 08/27/24 18:59 06:59 18:59 Intake Total 236 59 Output Total 500 1200 Balance -264 -1200 59 Weight 60.5 kg Intake: Oral 236 59 Output: Urine 500 1200 Other: Voiding Method Bedside Commode Bedside Commode - Labs CBC & Chem 7: 08/27/24 06:52 08/27/24 06:52 Labs: Abnormal Lab Results - Last 24 Hours (Table) 08/26/24 08/26/24 08/27/24 Range/Units 12:37 21:25 06:52 WBC 3.6 L (3.8-10.6) k/uL RBC 2.80 L 2.89 L (3.80-5.40) m/uL Hgb 9.4 L 9.5 L (11.4-16.0) gm/dL Hct 29.2 L 30.3 L (34.0-46.0) % MCV 104.2 H 104.7 H (80.0-100.0) fL RDW 17.6 H 17.9 H (11.5-15.5) % Macrocytosis Marked A Sodium (137-145) mmol/L Chloride (98-107) mmol/L Carbon Dioxide (22-30) mmol/L BUN (7-17) mg/dL Urine Osmolality 272 L (400-1100) mOsm/kg 08/27/24 Range/Units 06:52 WBC (3.8-10.6) k/uL RBC (3.80-5.40) m/uL Hgb (11.4-16.0) gm/dL Hct (34.0-46.0) % MCV (80.0-100.0) fL RDW (11.5-15.5) % Macrocytosis Sodium 128 L (137-145) mmol/L Chloride 87 L (98-107) mmol/L Carbon Dioxide 33 H (22-30) mmol/L BUN 34 H (7-17) mg/dL Urine Osmolality (400-1100) mOsm/kg Microbiology - Last 24 Hours (Table) 08/21/24 08:27 Blood Culture - Final Blood
--- NOTE | 2024-08-27 13:36 | P.PN ---
Subjective Progress Note Date: 08/27/24 78-year-old female, history of hypertension, atrial fibrillation, coronary artery disease, presents emergency department as a transfer for shortness of breath. Had a recent CABG with Dr. Bey at our facility in July 30. Presented to [facility] earlier this morning with general weakness, as well as worsening shortness of breath for the last few days. Also had pacemaker placed on last admission as well. Was found to be in a volume overload state with an elevated troponin and was transferred here for further care. Patient denies any chest pain at any point but does endorse some dysuria as well as difficulty in breathing. Endorses worsening orthopnea. Denies PND. Endorses lower extremity edema. Denies any significant productive cough but does endorse a mild cough. Presents for further evaluation at this time. Patient also has a history of atrial fibrillation and is on blood thinners. -EKG: Electronic ventricularly paced rhythm. -Chest x-ray: Stable. -Laboratory studies: Hemoglobin 10.1, sodium 127, BUN 11, creatinine 0.57. Troponins 0.151, 0.132, 0.132. proBNP 13,200. Urinalysis positive for infection. -Home cardiac medications: Eliquis 2.5 mg twice daily, aspirin 81 mg daily, Lipitor 40 mg daily, Lasix 40 mg daily, losartan 12.5 mg at noon, Lopressor 12.5 mg twice daily. -Cardiac catheterization performed 05/13/2024 revealed mild pulmonary hypertension, normal biventricular filling pressure, mild to moderate CAD. 08/23/2024 Patient seen and examined in room at bedside. Inquiring about her blood work which was discussed with patient and family at bedside Vital signs are reviewed; blood pressure remains elevated -- Repeat blood work reveals hemoglobin 10, sodium 128, BUN 14 creatinine 0.63. Chest x-ray obtained today reveals slightly improved pulmonary vascular congestion and small bilateral pleural effusions. Patient has been maintained on IV Lasix 40 mg every 12 hours. Patient does have a negative fluid balance and weight loss of 3-1/2 kg. Blood culture is no growth after 24 hours. Echocardiogram is pending. -- yesterday losartan was increased to 50 mg daily blood pressure readings have been elevated up to the 170s systolic; cardiology recommending to increase losartan up to 100 mg daily; patient remains on Lasix 40 mg IV every 12 hours -Continue with current IV antibiotics 08/24 Patient with no chest pain, she still somewhat tachypneic with breathing rate about 20-22 She says her dyspnea is improving as well. No specific GI symptoms. Sodium today 128 down to 126, potassium 3.1 which has been replaced Patient remains on ceftriaxone, home dose of valacyclovir, home dose of Eliquis 2.5 mg Also patient on IV Lasix 40 mg twice daily, losartan increased to 100 mg. Echocardiogram is still pending. 08/25. Patient seen and examined Blood work done today showed WBC 3.2, hemoglobin 8.8, platelet count 229, sodium 126, potassium 3.7, BUN 22, creatinine 0.72.. Patient had episode of epistaxis yesterday, currently not bleeding. Patient also had dark stool this morning. FOBT was positive 08/26. Patient seen and examined. Blood work done this morning showed WBC 4.3, hemoglobin 9, platelet count 217, sodium 125, potassium 3.6, BUN 20, creatinine 0.78. No further episodes of epistaxis. Patient had an episode of dark stool this morning. Hemoglobin is stable. 08/27. Patient seen and examined. States she feels much better compared to yesterday. No further episodes of epistaxis. No complaint of blood in the stools. Hemoglobin is stable REVIEW OF SYSTEMS: CONSTITUTIONAL: No fever, no malaise,. CARDIOVASCULAR: No chest pain, no palpitations, no syncope. PULMONARY: No shortness of breath, no cough, GASTROINTESTINAL: No diarrhea, no nausea, no vomiting, no abdominal pain. NEUROLOGICAL: No headaches, no weakness, PHYSICAL EXAMINATION: GENERAL: The patient is alert and oriented x3, chronically ill looking HEENT: Pupils are round and equally reacting to light. EOMI. No scleral icterus. No conjunctival pallor. Normocephalic, atraumatic. No pharyngeal erythema. No thyromegaly. CARDIOVASCULAR: S1 and S2 present. No murmurs, rubs, or gallops. PULMONARY: Diminished breath sounds at bases bilaterally, no crackles audible ABDOMEN: Soft, nontender, nondistended, normoactive bowel sounds. No palpable organomegaly. MUSCULOSKELETAL: No joint swelling or deformity. EXTREMITIES: No cyanosis, clubbing, or pedal edema. NEUROLOGICAL: Gross neurological examination did not reveal any focal deficits. SKIN: No rashes. Assessment and plan Acute diastolic heart failure UTI Blood in stool Acute blood loss anemia Epistaxis Uncontrolled hypertension Valvular heart disease with mitral and tricuspid regurgitation status post mitral valve repair and tricuspid valve annuloplasty 07/30/2024 Sick sinus syndrome status post Medtronic dual-chamber pacemaker 08/04/24 Persistent atrial fibrillation on Eliquis History of Sjogren's disease Bacteremia ruled out with negative blood culture Moderate to severe aortic regurgitation Moderate concentric LVH Monitor vital signs Monitor CBC Monitor CMP Continue telemetry monitoring Strict I's O's, daily weights Completed course of IV Rocephin Continue aspirin, Lipitor, Coreg Continue Protonix Continue Lasix 40 mg twice daily GI following, not planning any endoscopy intervention, continue Protonix Cardiology following Cardiac surgery following Labs and medication were reviewed.. Continue same treatment. Continue with symptomatic treatment. Resume home medication. Monitor labs and vitals. DVT and GI prophylaxis. Further recommendations as per clinical course of the patient Dictation was produced using 1[employer] dictation software. please excuse any grammatical, word or spelling errors. Objective - Vital Signs Vital signs: Vital Signs Temp 97.9 F 08/27/24 12:23 Pulse 60 08/27/24 12:23 Resp 16 08/27/24 12:23 BP 132/62 08/27/24 12:23 Pulse Ox 98 08/27/24 08:55 FiO2 Intake & Output 08/26/24 08/27/24 08/27/24 18:59 06:59 18:59 Intake Total 236 59 Output Total 500 1200 Balance -264 -1200 59 Weight 60.5 kg Intake: Oral 236 59 Output: Urine 500 1200 Other: Voiding Method Bedside Commode Bedside Commode - Labs CBC & Chem 7: 08/27/24 06:52 08/27/24 06:52 Labs: Abnormal Lab Results - Last 24 Hours (Table) 08/26/24 08/27/24 08/27/24 Range/Units 21:25 06:52 06:52 WBC 3.6 L (3.8-10.6) k/uL RBC 2.89 L (3.80-5.40) m/uL Hgb 9.5 L (11.4-16.0) gm/dL Hct 30.3 L (34.0-46.0) % MCV 104.7 H (80.0-100.0) fL RDW 17.9 H (11.5-15.5) % Macrocytosis Marked A Sodium 128 L (137-145) mmol/L Chloride 87 L (98-107) mmol/L Carbon Dioxide 33 H (22-30) mmol/L BUN 34 H (7-17) mg/dL Urine Osmolality 272 L (400-1100) mOsm/kg Microbiology - Last 24 Hours (Table) 08/21/24 08:27 Blood Culture - Final Blood
[2024-08-27] MEDS: POTASSIUM CHLORIDE ER 20 MEQ TAB.ER PO SCH (15:10)
--- NOTE | 2024-08-27 15:17 | P.PN ---
Subjective Progress Note Date: 08/27/24 Principal diagnosis: Anemia This is a pleasant 78-year-old female who was transferred from outside facility to the emergency department 5 days ago with complaints of shortness of breath. Patient has significant cardiac history. Apparently patient was admitted for fluid volume overload. Patient has history of moderate mitral regurgitation severe tricuspid regurgitation status post mitral and tricuspid cuspid valve repair along with closure of patent earl oval and modified Ayala-Maze on July 30, 2024, chronic atrial fibrillation on Eliquis for anticoagulation, sick sinus syndrome with symptomatic bradycardia status post Medtronic dual- chamber pacemaker, hypertension, rheumatoid arthritis, CVA, TIA, Sjogren's disease, lupus, chronic anemia, and legally blind status post corneal transplants. Cardiology and cardiothoracic surgical team have been following patient. She is anticoagulated with Eliquis 5 mg twice daily. Patient states she had an 8-hour nosebleed yesterday and through the night. This morning nursing is reporting that she had to large dark to black stools. She had a drop in her hemoglobin from 10.1 yesterday to 8.8 this morning. . Occult stool was collected and was positive. GI was consulted for drop in hemoglobin and positive occult stool. Patient states that she has a history of bloody noses in the past. She has had to have it cauterized. She denies any abdominal pain, nausea or vomiting. No history of peptic ulcer disease or previous GI bleed. No previous upper endoscopy, last colonoscopy remote. Patient states that she has had some difficulty with swallowing for many many years. States that she just has to have her food chewed up better and small meals. Apparently patient's appetite has also been decreased since her surgery. 08/26/2024 Patient seen and examined today as a follow-up. She is sitting up in bed and e ating. States she has had no further nosebleeds. She states she was seen by the ENT however no report is available at this time. She states that they had removed her packing and there was no further bleeding Patient states she had a bowel movement last night she believes that it was normal color. Hemoglobin is stable at 9.0, platelet count 217,000. Iron studies completed iron 56 saturation 318 ferritin 549. She continues to deny any rectal bleeding, no abdominal pain, nausea or vomiting. 08/27/2024 Patient seen and examined today as a follow-up. Reportedly had a dark stool yesterday but he has been lightening up. She denies any abdominal pain nausea or vomiting. No further nosebleed. Was seen by Dr. Veronica with ENT. Hemoglobin 9.5, continues to improve. Objective - Vital Signs Vital signs: Vital Signs Temp 97.9 F 08/26/24 20:31 Pulse 56 L 08/27/24 03:11 Resp 16 08/27/24 03:11 BP 175/85 08/27/24 06:40 Pulse Ox 97 08/27/24 03:11 FiO2 Intake & Output 08/26/24 08/27/24 08/27/24 18:59 06:59 18:59 Intake Total 236 Output Total 500 1200 Balance -264 -1200 Weight 60.5 kg Intake: Oral 236 Output: Urine 500 1200 Other: Voiding Method Bedside Commode Bedside Commode - Exam General appearance: The patient is alert, oriented, appears in no acute distress. HET: Head is normocephalic and atraumatic. Conjunctiva pink. Sclera anicteric. Neck: Supple without lymphadenopathy. Abdomen: Soft, nontender, nondistended. Extremities: Normal skin color and turgor. No pedal edema Skin: No rashes, no jaundice Neurological: No focal deficits. Alert and oriented. - Labs CBC & Chem 7: 08/27/24 06:52 08/27/24 06:52 Labs: Abnormal Lab Results - Last 24 Hours (Table) 08/26/24 08/26/24 08/27/24 Range/Units 12:37 21:25 06:52 WBC 3.6 L (3.8-10.6) k/uL RBC 2.80 L 2.89 L (3.80-5.40) m/uL Hgb 9.4 L 9.5 L (11.4-16.0) gm/dL Hct 29.2 L 30.3 L (34.0-46.0) % MCV 104.2 H 104.7 H (80.0-100.0) fL RDW 17.6 H 17.9 H (11.5-15.5) % Macrocytosis Marked A Sodium (137-145) mmol/L Chloride (98-107) mmol/L Carbon Dioxide (22-30) mmol/L BUN (7-17) mg/dL Urine Osmolality 272 L (400-1100) mOsm/kg 08/27/24 Range/Units 06:52 WBC (3.8-10.6) k/uL RBC (3.80-5.40) m/uL Hgb (11.4-16.0) gm/dL Hct (34.0-46.0) % MCV (80.0-100.0) fL RDW (11.5-15.5) % Macrocytosis Sodium 128 L (137-145) mmol/L Chloride 87 L (98-107) mmol/L Carbon Dioxide 33 H (22-30) mmol/L BUN 34 H (7-17) mg/dL Urine Osmolality (400-1100) mOsm/kg Microbiology - Last 24 Hours (Table) 08/21/24 08:27 Blood Culture - Final Blood Assessment and Plan (1) Chronic anemia Narrative/Plan: 78-year-old female with multiple comorbidities significant cardiac history who recently underwent mitral valve and tricuspid valve replacement with form and oval closure who is on anticoagulation and has history of chronic anemia had a drop in hemoglobin from 10-8.8. Patient has likely some acute on chronic anemia secondary to epistaxis. Apparently stool was checked for blood and was positive. Gastroenterology was consulted for drop in hemoglobin. Positive occult stool and black stool likely secondary to significant nosebleed without any other history of GI bleed or symptoms of GI bleed. No plans on endoscopic evaluation, recommend ENT consultation. Current Visit: Yes Status: Acute Code(s): D64.9 - ANEMIA, UNSPECIFIED SNOMED Code(s): 615305682 (2) Epistaxis Narrative/Plan: Controlled at this time. Patient has had previous epistaxis requiring cautery. ENT on consultation. No further nosebleeds at this time. Current Visit: Yes Status: Acute Code(s): R04.0 - EPISTAXIS SNOMED Code(s): 112436472 (3) Coronary artery disease Current Visit: Yes Status: Acute Code(s): I25.10 - ATHSCL HEART DISEASE OF [place] CORONARY ARTERY W/O ANG PCTRS SNOMED Code(s): 01099713 (4) Positive occult stool blood test Current Visit: Yes Status: Acute Code(s): R19.5 - OTHER FECAL ABNORMALITIES SNOMED Code(s): 65036786 (5) Current use of usp anticoagulation Current Visit: Yes Status: Acute Code(s): Z79.01 - [facility] (CURRENT) USE OF ANTICOAGULANTS SNOMED Code(s): 403639776 (6) CHF (congestive heart failure) Current Visit: Yes Status: Acute Code(s): I50.9 - HEART FAILURE, UNSPECIFIED SNOMED Code(s): 67454821 Plan: 1. Continue symptomatic and supportive care 2. From a GI standpoint May resume anticoagulation however clear with ENT 3. May give Protonix 40 mg daily for GI prophylaxis 4. Positive occult stool or black stool likely secondary to significant epistaxis. No plans on endoscopic evaluation. 5. Continue with recommendations from multiple consultants Thank you for this consultation, we will sign off at this time. Please do not hesitate to call us back if needed. Dr. Isabella Mahajan I agree with the dictator's note, documented as a scribe by Ria Portillo.
--- NOTE | 2024-08-27 15:42 | P.PN ---
Subjective Progress Note Date: 08/27/24 Principal diagnosis: Acute on chronic heart failure with preserved ejection fraction, acute urinary retention, urinary tract infection. History of moderate mitral regurgitation an d severe tricuspid regurgitation status post mitral and tricuspid valve repair along with closure of patent foramen ovale and modified Ayala-Maze on July 30, 2024, chronic atrial fibrillation on Eliquis for anticoagulation, sick sinus syndrome with symptomatic bradycardia status post Medtronic dual-chamber pacemaker, hypertension, rheumatoid arthritis/Sjogren's disease/lupus, CVA in 2014 with no residual deficits, TIA in 2006, chronic anemia, legally blind s/p corneal transplants, lifelong non-smoker The patient was seen lying in bed on the cardiac stepdown unit with present. Very exhausted today. No further nosebleeds. Ventricular paced on telemetry this morning. Currently on room air with oxygen saturation in the high 90s. Being diuresed by nephrology. Objective - Vital Signs Vital signs: Vital Signs Temp 98.1 F 08/27/24 15:07 Pulse 60 08/27/24 15:07 Resp 16 08/27/24 15:07 BP 130/60 08/27/24 15:07 Pulse Ox 98 08/27/24 15:07 FiO2 Intake & Output 08/26/24 08/27/24 08/27/24 18:59 06:59 18:59 Intake Total 236 59 Output Total 500 1200 Balance -264 -1200 59 Weight 60.5 kg Intake: Oral 236 59 Output: Urine 500 1200 Other: Voiding Method Bedside Commode Bedside Commode Toilet - Exam CONSTITUTIONAL: Appears comfortable, cooperative, no acute distress RESPIRATORY: Lungs sounds diminished in the bases bilaterally. Respirations even, nonlabored. Currently on room air with oxygen saturation 98%. Strong cough. CARDIOVASCULAR: S1, S2 present. Regular rate and rhythm, V-paced on telemetry on telemetry. Sternum stable. Palpable peripheral pulses bilaterally. No edema present. No calf pain or tenderness noted GASTROINTESTINAL: Abdomen soft, nontender, nondistended. Active bowel sounds present 4 quadrants. Tolerating diet. Positive bowel movement x 2 08/26 GENITOURINARY: Continues to void INTEGUMENTARY: Skin is warm and dry with evidence of good perfusion. Anterior chest incision well approximated, pacer site without redness/drainage NEUROLOGIC: Cranial nerves II through XII intact MUSKULOSKELETAL: Able to move all extremities, strength equal bilaterally, gait normal PSYCHIATRIC: Oriented to person place and time, appropriate affect, intact judgment and insight - Allied health notes Allied health notes reviewed: nursing - Labs CBC & Chem 7: 08/27/24 06:52 08/27/24 06:52 Labs: Abnormal Lab Results - Last 24 Hours (Table) 08/26/24 08/27/24 08/27/24 Range/Units 21:25 06:52 06:52 WBC 3.6 L (3.8-10.6) k/uL RBC 2.89 L (3.80-5.40) m/uL Hgb 9.5 L (11.4-16.0) gm/dL Hct 30.3 L (34.0-46.0) % MCV 104.7 H (80.0-100.0) fL RDW 17.9 H (11.5-15.5) % Macrocytosis Marked A Sodium 128 L (137-145) mmol/L Chloride 87 L (98-107) mmol/L Carbon Dioxide 33 H (22-30) mmol/L BUN 34 H (7-17) mg/dL Urine Osmolality 272 L (400-1100) mOsm/kg Microbiology - Last 24 Hours (Table) 08/21/24 08:27 Blood Culture - Final Blood - Imaging and Cardiology Chest x-ray: report reviewed, image reviewed Assessment and Plan Assessment: Acute on chronic heart failure with preserved ejection fraction, proBNP 13,200 Shortness of breath, lower extremity edema secondary to above Acute urinary retention Urinary tract infection History of moderate mitral regurgitation and severe tricuspid regurgitation status post mitral and tricuspid valve repair along with closure of patent foramen ovale and modified Ayala-Maze on July 30, 2024 Chronic atrial fibrillation on Eliquis for anticoagulation Sick sinus syndrome with symptomatic bradycardia status post Medtronic dual- chamber pacemaker Hypertension Rheumatoid arthritis/Sjogren's disease/lupus CVA in 2014 with no residual deficits, TIA in 2006 Chronic anemia Legally blind s/p corneal transplants Lifelong non-smoker Plan: Continue to maximize medical therapy with ASA, statin, beta sharita. Eliquis per cardiology Continue losartan Continue to diuresis per nephrology Increase activity as tolerated, PT/OT following Sternal precautions Shower daily Antibiotics per internal medicine Medical management of other comorbidities per internal medicine, cardiology No further recommendations from cardiothoracic surgery standpoint, management per cardiology, nephrology, internal medicine Will continue to follow while hospitalized although likely will not write daily notes as we are not changing any of her management Patient can be discharged from our standpoint when okay with all other services. She does have a scheduled follow-up with Dr. Bey on September 03 at 2 PM, this appointment was placed on discharge plan.
--- NOTE | 2024-08-27 17:06 | P.PN ---
Subjective Patient is seen for follow-up for hyponatremia. Serum sodium has improved with diuresis. Overall feels better. Sodium is 128 today. Objective - Vital Signs Vital signs: Vital Signs Temp 98.1 F 08/27/24 15:07 Pulse 60 08/27/24 15:07 Resp 16 08/27/24 15:07 BP 130/60 08/27/24 15:07 Pulse Ox 98 08/27/24 15:07 FiO2 Intake & Output 08/26/24 08/27/24 08/27/24 18:59 06:59 18:59 Intake Total 236 59 Output Total 500 1200 Balance -264 -1200 59 Weight 60.5 kg Intake: Oral 236 59 Output: Urine 500 1200 Other: Voiding Method Bedside Commode Bedside Commode Toilet - Exam Patient is awake, comfortable, no acute distress Examination of the heart S1 and S2 Examination of the lungs bilateral breath sounds are heard Abdomen is soft nontender Examination of lower extremity shows edema 1+ bilaterally BRIM MOLDER exam grossly intact - Labs CBC & Chem 7: 08/27/24 06:52 08/27/24 06:52 Labs: Abnormal Lab Results - Last 24 Hours (Table) 08/26/24 08/27/24 08/27/24 Range/Units 21:25 06:52 06:52 WBC 3.6 L (3.8-10.6) k/uL RBC 2.89 L (3.80-5.40) m/uL Hgb 9.5 L (11.4-16.0) gm/dL Hct 30.3 L (34.0-46.0) % MCV 104.7 H (80.0-100.0) fL RDW 17.9 H (11.5-15.5) % Macrocytosis Marked A Sodium 128 L (137-145) mmol/L Chloride 87 L (98-107) mmol/L Carbon Dioxide 33 H (22-30) mmol/L BUN 34 H (7-17) mg/dL Urine Osmolality 272 L (400-1100) mOsm/kg Assessment and Plan Assessment: 1. Hyponatremia, hypervolemic, improved with increased diuresis. Urine osmolality 272 and urine sodium of 60. Patient has a chronic history of hyponatremia. 2. Status post mitral and tricuspid valve repair with closure of foramen ovale on 07/30/2024 3. Volume overload 4. Diastolic CHF 5. Pyuria, maintained on antibiotics, no urine culture noted Plan: Continue current dose of Lasix Continue with urea Maintain salt and fluid restriction Patient is advised to increase oral protein intake Repeat labs in a.m.
[2024-08-28 09:54] LABS: Anisocytosis Slight; Basophils % (A) 0 %; Eosinophils # (A) 0.1 k/uL (0-0.7); Eosinophils % (A) 4 %; HCT 29.8 % (34.0-46.0); HGB 9.5 gm/dL (11.4-16.0); Hypochromasia Marked; Lymphocytes % (A) 25 %; MCH 33.6 pg (25.0-35.0); MCHC 31.9 g/dL (31.0-37.0); MCV 105.3 fL (80.0-100.0); Macrocytosis Marked; Monocytes # (A) 0.3 k/uL (0-1.0); Monocytes % (A) 9 %; Neutrophils # (A) 2.3 k/uL (1.3-7.7); Neutrophils % (A) 59 %; Platelet Count 209 k/uL (150-450); RBC 2.83 m/uL (3.80-5.40); RDW 17.5 % (11.5-15.5); WBC 3.9 k/uL (3.8-10.6)
[2024-08-28 10:13] LABS: African American GFR (CKD) 86 (>60 ml/min/1.73 sqM); Anion Gap 6 mmol/L; Blood Urea Nitrogen 39 mg/dL (7-17); Calcium 8.5 mg/dL (8.4-10.2); Carbon Dioxide 32 mmol/L (22-30); Chloride 91 mmol/L (98-107); Glucose 116 mg/dL (74-99); Non-African American GFR(CKD) 74 (>60 ml/min/1.73 sqM); Potassium 3.8 mmol/L (3.5-5.1); Sodium 129 mmol/L (137-145)
--- NOTE | 2024-08-28 13:03 | P.PN ---
Subjective Progress Note Date: 08/28/24 78-year-old female, history of hypertension, atrial fibrillation, coronary artery disease, presents emergency department as a transfer for shortness of breath. Had a recent CABG with Dr. Bey at our facility in July 30. Presented to [facility] earlier this morning with general weakness, as well as worsening shortness of breath for the last few days. Also had pacemaker placed on last admission as well. Was found to be in a volume overload state with an elevated troponin and was transferred here for further care. Patient denies any chest pain at any point but does endorse some dysuria as well as difficulty in breathing. Endorses worsening orthopnea. Denies PND. Endorses lower extremity edema. Denies any significant productive cough but does endorse a mild cough. Presents for further evaluation at this time. Patient also has a history of atrial fibrillation and is on blood thinners. -EKG: Electronic ventricularly paced rhythm. -Chest x-ray: Stable. -Laboratory studies: Hemoglobin 10.1, sodium 127, BUN 11, creatinine 0.57. Troponins 0.151, 0.132, 0.132. proBNP 13,200. Urinalysis positive for infection. -Home cardiac medications: Eliquis 2.5 mg twice daily, aspirin 81 mg daily, Lipitor 40 mg daily, Lasix 40 mg daily, losartan 12.5 mg at noon, Lopressor 12.5 mg twice daily. -Cardiac catheterization performed 05/13/2024 revealed mild pulmonary hypertension, normal biventricular filling pressure, mild to moderate CAD. 08/23/2024 Patient seen and examined in room at bedside. Inquiring about her blood work which was discussed with patient and family at bedside Vital signs are reviewed; blood pressure remains elevated -- Repeat blood work reveals hemoglobin 10, sodium 128, BUN 14 creatinine 0.63. Chest x-ray obtained today reveals slightly improved pulmonary vascular congestion and small bilateral pleural effusions. Patient has been maintained on IV Lasix 40 mg every 12 hours. Patient does have a negative fluid balance and weight loss of 3-1/2 kg. Blood culture is no growth after 24 hours. Echocardiogram is pending. -- yesterday losartan was increased to 50 mg daily blood pressure readings have been elevated up to the 170s systolic; cardiology recommending to increase losartan up to 100 mg daily; patient remains on Lasix 40 mg IV every 12 hours -Continue with current IV antibiotics 08/24 Patient with no chest pain, she still somewhat tachypneic with breathing rate about 20-22 She says her dyspnea is improving as well. No specific GI symptoms. Sodium today 128 down to 126, potassium 3.1 which has been replaced Patient remains on ceftriaxone, home dose of valacyclovir, home dose of Eliquis 2.5 mg Also patient on IV Lasix 40 mg twice daily, losartan increased to 100 mg. Echocardiogram is still pending. 08/25. Patient seen and examined Blood work done today showed WBC 3.2, hemoglobin 8.8, platelet count 229, sodium 126, potassium 3.7, BUN 22, creatinine 0.72.. Patient had episode of epistaxis yesterday, currently not bleeding. Patient also had dark stool this morning. FOBT was positive 08/26. Patient seen and examined. Blood work done this morning showed WBC 4.3, hemoglobin 9, platelet count 217, sodium 125, potassium 3.6, BUN 20, creatinine 0.78. No further episodes of epistaxis. Patient had an episode of dark stool this morning. Hemoglobin is stable. 08/27. Patient seen and examined. States she feels much better compared to yesterday. No further episodes of epistaxis. No complaint of blood in the stools. Hemoglobin is stable 08/28. Patient seen and examined. Blood work done this morning showed WBC 3.9, hemoglobin 9.5, sodium 129, potassium 3.8, BUN 39, creatinine 0.78, glucose 116 states breathing is improved not. Denies any swelling of lower extremities.. Denies lethargy or weakness REVIEW OF SYSTEMS: CONSTITUTIONAL: No fever, no malaise,. CARDIOVASCULAR: No chest pain, no palpitations, no syncope. PULMONARY: As mentioned above GASTROINTESTINAL: No diarrhea, no nausea, no vomiting, no abdominal pain. NEUROLOGICAL: No headaches, no weakness, PHYSICAL EXAMINATION: GENERAL: The patient is alert and oriented x3, chronically ill looking HEENT: Pupils are round and equally reacting to light. EOMI. No scleral icterus. No conjunctival pallor. Normocephalic, atraumatic. No pharyngeal erythema. No thyromegaly. CARDIOVASCULAR: S1 and S2 present. No murmurs, rubs, or gallops. PULMONARY: Diminished breath sounds at bases bilaterally, no crackles audible ABDOMEN: Soft, nontender, nondistended, normoactive bowel sounds. No palpable organomegaly. MUSCULOSKELETAL: No joint swelling or deformity. EXTREMITIES: No cyanosis, clubbing, or pedal edema. NEUROLOGICAL: Gross neurological examination did not reveal any focal deficits. SKIN: No rashes. Assessment and plan Acute diastolic heart failure UTI Blood in stool Acute blood loss anemia Epistaxis Uncontrolled hypertension Valvular heart disease with mitral and tricuspid regurgitation status post mitral valve repair and tricuspid valve annuloplasty 07/30/2024 Sick sinus syndrome status post Medtronic dual-chamber pacemaker 08/04/24 Persistent atrial fibrillation on Eliquis History of Sjogren's disease Bacteremia ruled out with negative blood culture Moderate to severe aortic regurgitation Moderate concentric LVH Monitor vital signs Monitor CBC Monitor CMP Continue telemetry monitoring Strict I's O's, daily weights Completed course of IV Rocephin Continue aspirin, Lipitor, Coreg Continue Protonix Continue Lasix IV 60 mg twice a day GI following, not planning any endoscopy intervention, continue Protonix Cardiology following Cardiac surgery following Nephrology following, recommended IV diuresis and continuation of oral urea Labs and medication were reviewed.. Continue same treatment. Continue with symptomatic treatment. Resume home medication. Monitor labs and vitals. DVT and GI prophylaxis. Further recommendations as per clinical course of the patient Dictation was produced using [employer] dictation software. please excuse any grammatical, word or spelling errors. Objective - Vital Signs Vital signs: Vital Signs Temp 98.2 F 08/28/24 12:00 Pulse 63 08/28/24 12:00 Resp 18 08/28/24 12:00 BP 128/82 08/28/24 12:00 Pulse Ox 100 08/28/24 12:00 FiO2 Intake & Output 08/27/24 08/28/24 08/28/24 18:59 06:59 18:59 Intake Total 59 120 Balance 59 120 Weight 56.5 kg Intake: Oral 59 120 Other: Voiding Method Toilet Toilet # Voids 1 # Bowel Movements 1 - Labs CBC & Chem 7: 08/28/24 09:47 08/28/24 09:47 Labs: Abnormal Lab Results - Last 24 Hours (Table) 08/28/24 08/28/24 Range/Units 09:47 09:47 RBC 2.83 L (3.80-5.40) m/uL Hgb 9.5 L (11.4-16.0) gm/dL Hct 29.8 L (34.0-46.0) % MCV 105.3 H (80.0-100.0) fL RDW 17.5 H (11.5-15.5) % Macrocytosis Marked A Sodium 129 L (137-145) mmol/L Chloride 91 L (98-107) mmol/L Carbon Dioxide 32 H (22-30) mmol/L BUN 39 H (7-17) mg/dL Glucose 116 H (74-99) mg/dL
--- NOTE | 2024-08-28 13:06 | P.PN ---
Subjective HISTORY OF PRESENT ILLNESS: This is a 78-year-old female patient of Dr. Cardenas with past medical history of mitral and tricuspid regurgitation status post mitral valve repair and tricuspid valve annuloplasty performed on 07/30/2024. Patient had a complicated hospital course requiring extensive hospitalization, status post Medtronic dual-chamber p ermanent pacemaker implantation on 08/04 and developed atrial fibrillation as well. We have been asked to see the patient for CHF and fluid overload. Patient states that she started feeling achy all over as well as generalized weakness and general did not feel well. She also complains of shortness of breath. She states this morning, she is better than when she presented to the hospital yesterday but not back to her baseline. She denies lower extremity edema. No fevers.Blood pressure 184/93, heart rate 60, pulse ox 99% on 2 L nasal cannula. Patient has been started on IV Lasix 40 mg every 12 hours. Patient is seen today in the emergency center waiting for a bed on the cardiac stepdown unit. -EKG: Electronic ventricularly paced rhythm. -Chest x-ray: Stable. -Laboratory studies: Hemoglobin 10.1, sodium 127, BUN 11, creatinine 0.57. Troponins 0.151, 0.132, 0.132. proBNP 13,200. Urinalysis positive for infection. -Home cardiac medications: Eliquis 2.5 mg twice daily, aspirin 81 mg daily, Lipitor 40 mg daily, Lasix 40 mg daily, losartan 12.5 mg at noon, Lopressor 12.5 mg twice daily. -Cardiac catheterization performed 05/13/2024 revealed mild pulmonary hypertension, normal biventricular filling pressure, mild to moderate CAD. 08/22 Patient seen and examined. Blood pressure 134/68, heart rate 62, pulse ox 96% on room air. Repeat blood work reveals WBC 3.6, hemoglobin 10.6, potassium 3.3 and has been replaced, sodium 129, creatinine 0.63. Patient has been started on IV antibiotics due to concern for wound infection. Blood culture is status received. Cardiothoracic surgery is following the patient. 08/23 Patient seen and examined. Yesterday losartan was increased to 50 mg daily blood pressure readings have been elevated up to the 170s systolic, heart rate is in the 60s, pulse ox 93% on room air. Repeat blood work reveals hemoglobin 10, sodium 128, BUN 14 creatinine 0.63. Chest x-ray obtained today reveals slightly improved pulmonary vascular congestion and small bilateral pleural effusions. Patient has been maintained on IV Lasix 40 mg every 12 hours. P atient does have a negative fluid balance and weight loss of 3-1/2 kg. Blood culture is no growth after 24 hours. Echocardiogram is pending. 08/24/2024 Patient examined this morning to bedside. Patient denies chest pain or pressure. She continues to report shortness of breath this morning. Vital signs are stable. Cardiogram completed revealing ejection fraction 50 to 55%, no obvious regional wall motion abnormalities, moderate concentric LVH, mitral valve repair, moderate eccentric mitral regurgitation, posteriorly directed mitral regurgitation jet, moderate to severe aortic regurgitation, and mild tricuspid regurgitation 08/25/2024 Patient examined this morning at the bedside. Patient currently denies any chest pain or pressure. She denies any shortness of breath. Patient did walk in the hallway this morning with physical therapy. She does report having some shortness of breath with exertion. Vital signs are stable. Sodium low at 126 today. 08/26/2024 Patient examined this morning at the bedside. Patient currently denies chest pain or pressure. She denies shortness of breath. Vital signs are stable. Sodium today 125. 08/27/2024 Patient examined this morning at the bedside. Patient currently denies chest pain or pressure. She denies shortness of breath. Vital signs are stable. Sodium today 128. Patient remains on IV Lasix per nephrology. 08/28/2024 Patient examined this morning at the bedside. Patient currently denies chest pain or pressure. She denies shortness of breath. Vital signs are stable. Sodium today 129. Patient remains on IV Lasix per nephrology. PHYSICAL EXAM: VITAL SIGNS: Reviewed. GENERAL: Well-developed in no acute distress. NECK: Supple. No JVD or thyromegaly LUNGS: Respirations even and unlabored. Lungs essentially clear to auscultation bilaterally. HEART: Regular rate and rhythm. S1 and S2 heard. EXTREMITIES: Normal range of motion. No clubbing or cyanosis. Peripheral pulses intact. 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 Continue IV Lasix per nephrology. Continue to monitor sodium levels. Continue additional cardiac medications including Eliquis, aspirin, atorvastatin, carvedilol, Farxiga, and losartan No further inpatient recommendations from a cardiac standpoint We will sign off. Please reconsult if needed Nurse practitioner note has been reviewed by physician. Signing provider agrees with the documented findings, assessment, and plan of care documented by MACHINE ETCHER as a scribe. Objective - Vital Signs Vital signs: Vital Signs Temp 98.2 F 08/28/24 12:00 Pulse 63 08/28/24 12:00 Resp 18 08/28/24 12:00 BP 128/82 08/28/24 12:00 Pulse Ox 100 08/28/24 12:00 FiO2 Intake & Output 08/27/24 08/28/24 08/28/24 18:59 06:59 18:59 Intake Total 59 120 Balance 59 120 Weight 56.5 kg Intake: Oral 59 120 Other: Voiding Method Toilet Toilet # Voids 1 # Bowel Movements 1 - Labs CBC & Chem 7: 08/28/24 09:47 08/28/24 09:47 Labs: Abnormal Lab Results - Last 24 Hours (Table) 08/28/24 08/28/24 Range/Units 09:47 09:47 RBC 2.83 L (3.80-5.40) m/uL Hgb 9.5 L (11.4-16.0) gm/dL Hct 29.8 L (34.0-46.0) % MCV 105.3 H (80.0-100.0) fL RDW 17.5 H (11.5-15.5) % Macrocytosis Marked A Sodium 129 L (137-145) mmol/L Chloride 91 L (98-107) mmol/L Carbon Dioxide 32 H (22-30) mmol/L BUN 39 H (7-17) mg/dL Glucose 116 H (74-99) mg/dL
--- NOTE | 2024-08-28 19:00 | P.PN ---
Subjective Patient is seen for follow-up for hyponatremia. Serum sodium has improved with diuresis. Overall feels better. Sodium is 129 today. Objective - Vital Signs Vital signs: Vital Signs Temp 98.2 F 08/28/24 12:00 Pulse 60 08/28/24 16:00 Resp 16 08/28/24 16:00 BP 160/87 08/28/24 16:00 Pulse Ox 99 08/28/24 16:00 FiO2 Intake & Output 08/27/24 08/28/24 08/28/24 18:59 06:59 18:59 Intake Total 59 120 Balance 59 120 Weight 56.5 kg Intake: Oral 59 120 Other: Voiding Method Toilet Toilet # Voids 1 # Bowel Movements 1 - Exam Patient is awake, comfortable, no acute distress Examination of the heart S1 and S2 Examination of the lungs bilateral breath sounds are heard Abdomen is soft nontender Examination of lower extremity shows edema 1+ bilaterally SPACE CONTROLLER exam grossly intact - Labs CBC & Chem 7: 08/28/24 09:47 08/28/24 09:47 Labs: Abnormal Lab Results - Last 24 Hours (Table) 08/28/24 08/28/24 Range/Units 09:47 09:47 RBC 2.83 L (3.80-5.40) m/uL Hgb 9.5 L (11.4-16.0) gm/dL Hct 29.8 L (34.0-46.0) % MCV 105.3 H (80.0-100.0) fL RDW 17.5 H (11.5-15.5) % Macrocytosis Marked A Sodium 129 L (137-145) mmol/L Chloride 91 L (98-107) mmol/L Carbon Dioxide 32 H (22-30) mmol/L BUN 39 H (7-17) mg/dL Glucose 116 H (74-99) mg/dL Assessment and Plan Assessment: 1. Hyponatremia, hypervolemic, improved with increased diuresis. Urine osmolality 272 and urine sodium of 60. Patient has a chronic history of hyponatremia. 2. Status post mitral and tricuspid valve repair with closure of foramen ovale on 07/30/2024 3. Volume overload 4. Diastolic CHF 5. Pyuria, maintained on antibiotics, no urine culture noted Plan: Continue current dose of Lasix Continue with urea Maintain salt and fluid restriction Patient is advised to increase oral protein intake Repeat labs in a.m.
[2024-08-29 10:14] LABS: Anisocytosis Slight; HCT 30.3 % (34.0-46.0); HGB 9.9 gm/dL (11.4-16.0); Hypochromasia Marked; MCH 33.6 pg (25.0-35.0); MCHC 32.6 g/dL (31.0-37.0); MCV 103.1 fL (80.0-100.0); Macrocytosis Moderate; Mean Platelet Volume 7.2; Platelet Count 210 k/uL (150-450); RBC 2.94 m/uL (3.80-5.40); RDW 17.4 % (11.5-15.5); WBC 4.2 k/uL (3.8-10.6)
[2024-08-29 10:26] LABS: African American GFR (CKD) 81 (>60 ml/min/1.73 sqM); Anion Gap 8 mmol/L; Blood Urea Nitrogen 52 mg/dL (7-17); Calcium 8.7 mg/dL (8.4-10.2); Carbon Dioxide 31 mmol/L (22-30); Chloride 92 mmol/L (98-107); Glucose 114 mg/dL (74-99); Non-African American GFR(CKD) 70 (>60 ml/min/1.73 sqM); Potassium 3.7 mmol/L (3.5-5.1); Sodium 131 mmol/L (137-145)
--- NOTE | 2024-08-29 11:26 | P.PN ---
Subjective 78-year-old female, history of hypertension, atrial fibrillation, coronary artery disease, presents emergency department as a transfer for shortness of breath. Had a recent CABG with Dr. Bey at our facility in July 30. Presented to [facility] earlier this morning with general weakness, as well as worsening shortness of breath for the last few days. Also had pacemaker placed on last admission as well. Was found to be in a volume overload state with an elevated troponin and was transferred here for further care. Patient denies any chest pain at any point but does endorse some dysuria as well as difficulty in breathing. Endorses worsening orthopnea. Denies PND. Endorses lower extremity edema. Denies any significant productive cough but does endorse a mild cough. Presents for further evaluation at this time. Brittany flores also has a history of atrial fibrillation and is on blood thinners. -EKG: Electronic ventricularly paced rhythm. -Chest x-ray: Stable. -Laboratory studies: Hemoglobin 10.1, sodium 127, BUN 11, creatinine 0.57. Troponins 0.151, 0.132, 0.132. proBNP 13,200. Urinalysis positive for infection. -Home cardiac medications: Eliquis 2.5 mg twice daily, aspirin 81 mg daily, Lipitor 40 mg daily, Lasix 40 mg daily, losartan 12.5 mg at noon, Lopressor 12.5 mg twice daily. -Cardiac catheterization performed 05/13/2024 revealed mild pulmonary hypertension, normal biventricular filling pressure, mild to moderate CAD. 08/23/2024 Patient seen and examined in room at bedside. Inquiring about her blood work which was discussed with patient and family at bedside Vital signs are reviewed; blood pressure remains elevated -- Repeat blood work reveals hemoglobin 10, sodium 128, BUN 14 creatinine 0.63. Chest x-ray obtained today reveals slightly improved pulmonary vascular co ngestion and small bilateral pleural effusions. Patient has been maintained on IV Lasix 40 mg every 12 hours. Patient does have a negative fluid balance and weight loss of 3-1/2 kg. Blood culture is no growth after 24 hours. Echocardiogram is pending. -- yesterday losartan was increased to 50 mg daily blood pressure readings have been elevated up to the 170s systolic; cardiology recommending to increase losartan up to 100 mg daily; patient remains on Lasix 40 mg IV every 12 hours -Continue with current IV antibiotics 08/24 Patient with no chest pain, she still somewhat tachypneic with breathing rate about 20-22 She says her dyspnea is improving as well. No specific GI symptoms. Sodium today 128 down to 126, potassium 3.1 which has been replaced Patient remains on ceftriaxone, home dose of valacyclovir, home dose of Eliquis 2.5 mg Also patient on IV Lasix 40 mg twice daily, losartan increased to 100 mg. Echocardiogram is still pending. 08/25. Patient seen and examined Blood work done today showed WBC 3.2, hemoglobin 8.8, platelet count 229, sodium 126, potassium 3.7, BUN 22, creatinine 0.72.. Patient had episode of epistaxis yesterday, currently not bleeding. Patient also had dark stool this morning. FOBT was positive 08/26. Patient seen and examined. Blood work done this morning showed WBC 4.3, hemoglobin 9, platelet count 217, sodium 125, potassium 3.6, BUN 20, creatinine 0.78. No further episodes of epistaxis. Patient had an episode of dark stool this morning. Hemoglobin is stable. 08/27. Patient seen and examined. States she feels much better compared to yesterday. No further episodes of epistaxis. No complaint of blood in the sto ols. Hemoglobin is stable 08/28. Patient seen and examined. Blood work done this morning showed WBC 3.9, hemoglobin 9.5, sodium 129, potassium 3.8, BUN 39, creatinine 0.78, glucose 116 states breathing is improved not. Denies any swelling of lower extremities.. 08/29 Patient was doing well this morning with no chest pain or dyspnea, she was fully awake. Patient wanted to go home. She is currently on IV Lasix 60 mg twice a day as well as oral urea. Patient's sodium yesterday was 129 improved today to 131. Also patient currently off IV antibiotic kept only on valacyclovir which is her home medication. Patient also on Eliquis 2.5 mg and aspirin 81 mg Today patient stated that she has blood in the stool, I looked into the toilet with the nurse and there was some redness in the stool, stool looks soft no diarrhea. Although patient states that she has came to the hospital she has loose stool. No abdominal pain. Hemoglobin checked it is stable at 9.9. Patient evaluated by GI service previously. At that time she had epistaxis and had a positive occult blood secondary to epistaxis. However no more nosebleed. No GI team available in this facility during this weekend Since patient on aspirin and Eliquis and she has this ongoing problem of blood in the stool. Although hemoglobin stable will going to consult general surgery team and hold any discharge for now. Case discussed with the patient and family member at bedside and they agreeable Her going to increase Protonix daily to twice daily Review of systems CONSTITUTIONAL: No fever, no malaise, no fatigue. n. Normoactive bowel sounds. NEUROLOGICAL: No headaches, no weakness, no numbness. HEMATOLOGICAL: Denies any bleeding or petechiae. GENITOURINARY: Denies any burning micturition, frequency, or urgency. MUSCULOSKELETAL/RHEUMATOLOGICAL: Denies any joint pain, swelling, or any muscle pain. ENDOCRINE: Denies any polyuria or polydipsia. Active Medications Generic Name Dose Route Start Last Admin Trade Name Freq PRN Reason Stop Dose Admin Acetaminophen 650 mg 08/20/24 13:18 08/26/24 01:21 Acetaminophen Tab 325 Mg Tab PO 650 mg Q6HR PRN Administration Mild Pain or Fever > 100.5 Apixaban 2.5 mg 08/20/24 21:00 08/29/24 09:15 Apixaban 2.5 Mg Tablet PO 2.5 mg BID SHEILA Administration Protocol Artificial Tears 2 drops 08/20/24 14:39 Artificial Tears-Hypromellose Drops 15 Ml Btl BOTH EYES Q1H PRN dry eyes Ascorbic Acid 500 mg 08/21/24 09:00 08/29/24 09:14 Ascorbic Acid 500 Mg Tab PO 500 mg DAILY SHEILA Administration Aspirin 81 mg 08/21/24 09:00 08/29/24 09:14 Aspirin 81 Mg PO 81 mg DAILY SHEILA Administration Atorvastatin Calcium 40 mg 08/21/24 09:00 08/29/24 09:15 Atorvastatin 40 Mg Tab PO 40 mg DAILY SHEILA Administration Bacitracin 1 applic 08/25/24 15:00 08/29/24 09:18 Bacitracin Zinc 500 Unit/Gm Oint 28.4 Gm Tube TOPICAL 1 applic BID SHEILA Administration Protocol Carvedilol 12.5 mg 08/24/24 09:15 08/29/24 06:21 Carvedilol 12.5 Mg Tab PO 12.5 mg BID-W/MEALS SHEILA Administration Cholecalciferol 25 mcg 08/21/24 09:00 08/29/24 09:14 Cholecalciferol 25 Mcg (1000 Iu) Tablet PO 25 mcg DAILY SHEILA Administration Dapagliflozin 10 mg 08/25/24 09:00 08/29/24 09:14 Dapagliflozin Propanediol 10 Mg Tablet PO 10 mg DAILY SHEILA Administration Diphenhydramine HCl 25 mg 08/20/24 14:39 Diphenhydramine 25 Mg Cap PO BID PRN Itching Furosemide 60 mg 08/27/24 09:00 08/29/24 09:17 Furosemide 10 Mg/Ml 10 Ml Vial IV 60 mg BID SHEILA Administration Loratadine 10 mg 08/20/24 21:00 08/28/24 20:01 Loratadine 10 Mg Tab PO 10 mg HS SHEILA Administration Losartan Potassium 100 mg 08/24/24 09:00 08/29/24 09:14 Losartan 50 Mg Tab PO 100 mg DAILY SHEILA Administration Multi-Ingred Cream/Lotion/Oil/Oint 1 applic 08/20/24 21:00 08/28/24 20:02 Artificial Tears Ointment 3.5 Gm Tube BOTH EYES 1 applic HS SHEILA Administration Naloxone HCl 0.2 mg 08/20/24 13:18 Naloxone 0.4 Mg/Ml 1 Ml Vial IV Q2M PRN Opioid Reversal Oxymetazoline HCl 3 spray 08/25/24 15:00 08/29/24 09:16 Oxymetazoline 0.05% Nasl [place] 1 [place] Bottle NASAL 3 spray BID SHEILA Administration Pantoprazole Sodium 40 mg 08/25/24 14:30 08/29/24 09:18 Pantoprazole 40 Mg/10 Ml Vial IVP 40 mg DAILY SHEILA Administration Petrolatum 1 applic 08/26/24 16:24 Zinc Oxide Paste (Z-Guard) 1 Applic TOPICAL BID PRN Wound Healing Potassium Chloride 40 meq 08/27/24 14:45 08/29/24 09:14 Potassium Chloride Er 20 Meq Tab.Er PO 40 meq DAILY SHEILA Administration Prednisolone Acetate 1 drops 08/20/24 16:00 08/29/24 09:17 Prednisolone Acetate 1% Ophth Drops 5 Ml Btl BOTH EYES 1 drops TID SHEILA Administration Senna/Docusate Sodium 2 each 08/20/24 21:00 08/28/24 20:02 Sennosides-Docusate Sodium 1 Each Tab PO Not Given HS SHEILA Sodium Chloride 1 applic 08/20/24 21:00 08/28/24 20:02 Sodium Chloride 5% Ophth Oint 3.5 Gm Tube BOTH EYES Not Given HS SHEILA Sodium Chloride 1 applic 08/24/24 12:00 Saline Nasal Gel 14.1 Gm Tube NASAL Q4HR PRN Dry Nasal Passages Timolol Maleate 1 drops 08/20/24 21:00 08/28/24 20:02 Timolol 0.5% Ophth Drops 5 Ml Btl RIGHT EYE 1 drops HS SHEILA Administration Urea 15 gm 08/26/24 12:00 08/29/24 09:17 Urea 15 Gm Powd.Pack PO 15 gm BID SHEILA Administration Valacyclovir HCl 500 mg 08/21/24 09:00 08/29/24 09:14 Valacyclovir Hcl 500 Mg Tab PO 500 mg DAILY SHEILA Administration Protocol Objective - Vital Signs Vital signs: Vital Signs Temp 97.6 F 08/29/24 09:05 Pulse 60 08/29/24 09:05 Resp 17 08/29/24 09:05 BP 133/79 08/29/24 09:05 Pulse Ox 97 08/29/24 09:05 FiO2 Intake & Output 08/28/24 08/29/24 08/29/24 18:59 06:59 18:59 Intake Total 120 10 Output Total 1000 Balance 120 -1000 10 Weight 52.7 kg Intake: IV 10 Invasive Line 2 10 Oral 120 Output: Urine 1000 Other: Voiding Method Toilet Toilet # Voids 1 # Bowel Movements 1 - Exam -GENERAL: The patient is alert and oriented x3, not in any acute distress. Well developed, well nourished. thin built. HEENT: Pupils are round and equally reacting to light. EOMI. No scleral icterus. No conjunctival pallor. Normocephalic, atraumatic. No pharyngeal erythema. No thyromegaly. CARDIOVASCULAR: S1 and S2 present. No murmurs, rubs, or gallops. -PULMONARY: Chest is clear to auscultation, no wheezing , no crepitation ABDOMEN: Soft, nontender, nondistended, normoactive bowel sounds. No palpable organomegaly. MUSCULOSKELETAL: No joint swelling or deformity. -EXTREMITIES: No cyanosis, clubbing, or mild bilateral pitting leg edema. NEUROLOGICAL: Gross neurological examination did not reveal any focal deficits. SKIN: No rashes. no petechiae. - Labs CBC & Chem 7: 08/29/24 09:50 08/29/24 09:50 Labs: Abnormal Lab Results - Last 24 Hours (Table) 08/29/24 08/29/24 Range/Units 09:50 09:50 RBC 2.94 L (3.80-5.40) m/uL Hgb 9.9 L (11.4-16.0) gm/dL Hct 30.3 L (34.0-46.0) % MCV 103.1 H (80.0-100.0) fL RDW 17.4 H (11.5-15.5) % Sodium 131 L (137-145) mmol/L Chloride 92 L (98-107) mmol/L Carbon Dioxide 31 H (22-30) mmol/L BUN 52 H (7-17) mg/dL Glucose 114 H (74-99) mg/dL Assessment and Plan Assessment: 1. Generalized weakness/recent mitral valve repair and tricuspid valve annuloplasty; patient is status post surgery performed on 07/30/2024 -Records indicate patient had a complicated hospital course requiring extensive hospitalization, status post [employer]tronic dual-chamber permanent pacemaker implantation and developed atrial fibrillation -Workup completed in ED has been unremarkable; blood cultures have been obtained to rule out bacteremia -Cardiothoracic surgery on board -PT/OT recommended home health care 2. Acute diastolic heart failure; patient has been placed on IV Lasix; cardiology recommending to continue with diuresis; monitor strict OC's, daily weights, low-salt and fluid restricted diet 3. Uncontrolled hypertension; patient has been evaluated by cardiology and recommending to increase losartan to 50 mg daily; continue with metoprolol 12.5 mg twice daily; will continue to monitor blood pressure closely 4. UTI; patient has been placed on IV antibiotics in form of ceftriaxone 1 g IV daily; await final urine and blood culture results for final recommendations on antibiotic therapy 4. 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 Chronic atrial fibrillation; patient is anticoagulated on Eliquis; rate controlled on metoprolol 12.5 mg twice daily 6. Hyperlipidemia; Lipitor 40 mg p.o. nightly 7., On Eliquis blood in his stool Initially thought secondary epistaxis but currently happening without nosebleed. Patient also on Eliquis and aspirin. Will going to consult surgery team DVT prophylaxis; SCD GI prophylaxis: Protonix CODE STATUS; full code
--- NOTE | 2024-08-29 11:35 | P.PN ---
Subjective Patient is seen for follow-up for hyponatremia. Serum sodium has improved with diuresis. Overall feels better. Sodium improved to 131 today Overall feels well and wants to go home. No complaints of shortness of breath. Objective - Vital Signs Vital signs: Vital Signs Temp 97.6 F 08/29/24 09:05 Pulse 60 08/29/24 09:05 Resp 17 08/29/24 09:05 BP 133/79 08/29/24 09:05 Pulse Ox 97 08/29/24 09:05 FiO2 Intake & Output 08/28/24 08/29/24 08/29/24 18:59 06:59 18:59 Intake Total 120 10 Output Total 1000 Balance 120 -1000 10 Weight 52.7 kg Intake: IV 10 Invasive Line 2 10 Oral 120 Output: Urine 1000 Other: Voiding Method Toilet Toilet # Voids 1 # Bowel Movements 1 - Exam Patient is awake, comfortable, no acute distress Examination of the heart S1 and S2 Examination of the lungs bilateral breath sounds are heard Abdomen is soft nontender Examination of lower extremity shows edema trace bilaterally [employer] exam grossly intact - Labs CBC & Chem 7: 08/29/24 09:50 08/29/24 09:50 Labs: Abnormal Lab Results - Last 24 Hours (Table) 08/29/24 08/29/24 Range/Units 09:50 09:50 RBC 2.94 L (3.80-5.40) m/uL Hgb 9.9 L (11.4-16.0) gm/dL Hct 30.3 L (34.0-46.0) % MCV 103.1 H (80.0-100.0) fL RDW 17.4 H (11.5-15.5) % Sodium 131 L (137-145) mmol/L Chloride 92 L (98-107) mmol/L Carbon Dioxide 31 H (22-30) mmol/L BUN 52 H (7-17) mg/dL Glucose 114 H (74-99) mg/dL Assessment and Plan Assessment: 1. Hyponatremia, hypervolemic, improved with increased diuresis. Urine os molality 272 and urine sodium of 60. Patient has a chronic history of hyponatremia. 2. Status post mitral and tricuspid valve repair with closure of foramen ovale on 07/30/2024 3. Volume overload 4. Diastolic CHF 5. Pyuria, maintained on antibiotics, no urine culture noted Plan: Can switch to oral Lasix. Patient was taking 40 mg daily at home. I will maintain her on 60 oral twice daily for about 2 days, then switch to 40 mg twice daily Discontinue urea Maintain salt and fluid restriction Patient is advised to increase oral protein intake Repeat labs in a.m.
[2024-08-29] MEDS: FUROSEMIDE 20 MG TAB PO SCH (16:11)
[2024-08-29] MEDS: PANTOPRAZOLE 40 MG/10 ML VIAL IVP SCH (20:27)
[2024-08-30 07:09] LABS: Anisocytosis Slight; Basophils % (A) 0 %; Eosinophils # (A) 0.1 k/uL (0-0.7); Eosinophils % (A) 4 %; HCT 28.2 % (34.0-46.0); HGB 8.8 gm/dL (11.4-16.0); Hypochromasia Slight; Lymphocytes # (A) 1.1 k/uL (1.0-4.8); Lymphocytes % (A) 29 %; MCH 33.1 pg (25.0-35.0); MCHC 31.1 g/dL (31.0-37.0); MCV 106.4 fL (80.0-100.0); Macrocytosis Marked; Mean Platelet Volume 7.6; Monocytes # (A) 0.3 k/uL (0-1.0); Monocytes % (A) 8 %; Neutrophils # (A) 2.2 k/uL (1.3-7.7); Neutrophils % (A) 56 %; Platelet Count 227 k/uL (150-450); RBC 2.65 m/uL (3.80-5.40); WBC 3.9 k/uL (3.8-10.6)
--- NOTE | 2024-08-30 09:58 | P.PN ---
Subjective 78-year-old female, history of hypertension, atrial fibrillation, coronary artery disease, presents emergency department as a transfer for shortness of breath. Had a recent CABG with Dr. Bey at our facility in July 30. Presented to [facility] earlier this morning with general weakness, as well as worsening shortness of breath for the last few days. Also had pacemaker placed on last admission as well. Was found to be in a volume overload state with an elevated troponin and was transferred here for further care. Patient denies any chest pain at any point but does endorse some dysuria as well as difficulty in breathing. Endorses worsening orthopnea. Denies PND. Endorses lower extremity edema. Denies any significant productive cough but does endorse a mild cough. Presents for further evaluation at this time. Brittany flores also has a history of atrial fibrillation and is on blood thinners. -EKG: Electronic ventricularly paced rhythm. -Chest x-ray: Stable. -Laboratory studies: Hemoglobin 10.1, sodium 127, BUN 11, creatinine 0.57. Troponins 0.151, 0.132, 0.132. proBNP 13,200. Urinalysis positive for infection. -Home cardiac medications: Eliquis 2.5 mg twice daily, aspirin 81 mg daily, Lipitor 40 mg daily, Lasix 40 mg daily, losartan 12.5 mg at noon, Lopressor 12.5 mg twice daily. -Cardiac catheterization performed 05/13/2024 revealed mild pulmonary hypertension, normal biventricular filling pressure, mild to moderate CAD. 08/23/2024 Patient seen and examined in room at bedside. Inquiring about her blood work which was discussed with patient and family at bedside Vital signs are reviewed; blood pressure remains elevated -- Repeat blood work reveals hemoglobin 10, sodium 128, BUN 14 creatinine 0.63. Chest x-ray obtained today reveals slightly improved pulmonary vascular co ngestion and small bilateral pleural effusions. Patient has been maintained on IV Lasix 40 mg every 12 hours. Patient does have a negative fluid balance and weight loss of 3-1/2 kg. Blood culture is no growth after 24 hours. Echocardiogram is pending. -- yesterday losartan was increased to 50 mg daily blood pressure readings have been elevated up to the 170s systolic; cardiology recommending to increase losartan up to 100 mg daily; patient remains on Lasix 40 mg IV every 12 hours -Continue with current IV antibiotics 08/24 Patient with no chest pain, she still somewhat tachypneic with breathing rate about 20-22 She says her dyspnea is improving as well. No specific GI symptoms. Sodium today 128 down to 126, potassium 3.1 which has been replaced Patient remains on ceftriaxone, home dose of valacyclovir, home dose of Eliquis 2.5 mg Also patient on IV Lasix 40 mg twice daily, losartan increased to 100 mg. Echocardiogram is still pending. 08/25. Patient seen and examined Blood work done today showed WBC 3.2, hemoglobin 8.8, platelet count 229, sodium 126, potassium 3.7, BUN 22, creatinine 0.72.. Patient had episode of epistaxis yesterday, currently not bleeding. Patient also had dark stool this morning. FOBT was positive 08/26. Patient seen and examined. Blood work done this morning showed WBC 4.3, hemoglobin 9, platelet count 217, sodium 125, potassium 3.6, BUN 20, creatinine 0.78. No further episodes of epistaxis. Patient had an episode of dark stool this morning. Hemoglobin is stable. 08/27. Patient seen and examined. States she feels much better compared to yesterday. No further episodes of epistaxis. No complaint of blood in the sto ols. Hemoglobin is stable 08/28. Patient seen and examined. Blood work done this morning showed WBC 3.9, hemoglobin 9.5, sodium 129, potassium 3.8, BUN 39, creatinine 0.78, glucose 116 states breathing is improved not. Denies any swelling of lower extremities.. 08/29 Patient was doing well this morning with no chest pain or dyspnea, she was fully awake. Patient wanted to go home. She is currently on IV Lasix 60 mg twice a day as well as oral urea. Patient's sodium yesterday was 129 improved today to 131. Also patient currently off IV antibiotic kept only on valacyclovir which is her home medication. Patient also on Eliquis 2.5 mg and aspirin 81 mg Today patient stated that she has blood in the stool, I looked into the toilet with the nurse and there was some redness in the stool, stool looks soft no diarrhea. Although patient states that she has came to the hospital she has loose stool. No abdominal pain. Hemoglobin checked it is stable at 9.9. Patient evaluated by GI service previously. At that time she had epistaxis and had a positive occult blood secondary to epistaxis. However no more nosebleed. No GI team available in this facility during this weekend Since patient on aspirin and Eliquis and she has this ongoing problem of blood in the stool. Although hemoglobin stable will going to consult general surgery team and hold any discharge for now. Case discussed with the patient and family member at bedside and they agreeable Her going to increase Protonix daily to twice daily 08/30 Patient continued to have a bloody bowel movement, hemoglobin dropped to 8.8. Eliquis dose was held this morning Surgery team consulted. No abdominal pain. Patient remains on oral Lasix and sodium improving. Will check hemoglobin tonight as well Review of systems CONSTITUTIONAL: No fever, no malaise, no fatigue. n. Normoactive bowel sounds. NEUROLOGICAL: No headaches, no weakness, no numbness. HEMATOLOGICAL: Denies any bleeding or petechiae. GENITOURINARY: Denies any burning micturition, frequency, or urgency. MUSCULOSKELETAL/RHEUMATOLOGICAL: Denies any joint pain, swelling, or any muscle pain. ENDOCRINE: Denies any polyuria or polydipsia. Active Medications Generic Name Dose Route Start Last Admin Trade Name Freq PRN Reason Stop Dose Admin Acetaminophen 650 mg 08/20/24 13:18 08/26/24 01:21 Acetaminophen Tab 325 Mg Tab PO 650 mg Q6HR PRN Administration Mild Pain or Fever > 100.5 Apixaban 2.5 mg 08/20/24 21:00 08/29/24 20:27 Apixaban 2.5 Mg Tablet PO 2.5 mg BID SHEILA Administration Protocol Artificial Tears 2 drops 08/20/24 14:39 Artificial Tears-Hypromellose Drops 15 Ml Btl BOTH EYES Q1H PRN dry eyes Ascorbic Acid 500 mg 08/21/24 09:00 08/30/24 07:52 Ascorbic Acid 500 Mg Tab PO 500 mg DAILY SHEILA Administration Aspirin 81 mg 08/21/24 09:00 08/29/24 09:14 Aspirin 81 Mg PO 81 mg DAILY SHEILA Administration Atorvastatin Calcium 40 mg 08/21/24 09:00 08/30/24 07:52 Atorvastatin 40 Mg Tab PO 40 mg DAILY SHEILA Administration Bacitracin 1 applic 08/25/24 15:00 08/30/24 07:54 Bacitracin Zinc 500 Unit/Gm Oint 28.4 Gm Tube TOPICAL 1 applic BID SHEILA Administration Protocol Carvedilol 12.5 mg 08/24/24 09:15 08/30/24 06:26 Carvedilol 12.5 Mg Tab PO 12.5 mg BID-W/MEALS SHEILA Administration Cholecalciferol 25 mcg 08/21/24 09:00 08/30/24 07:52 Cholecalciferol 25 Mcg (1000 Iu) Tablet PO 25 mcg DAILY SHEILA Administration Dapagliflozin 10 mg 08/25/24 09:00 08/30/24 07:51 Dapagliflozin Propanediol 10 Mg Tablet PO 10 mg DAILY SHEILA Administration Diphenhydramine HCl 25 mg 08/20/24 14:39 Diphenhydramine 25 Mg Cap PO BID PRN Itching Ferrous Sulfate 325 mg 08/30/24 09:45 Ferrous Sulfate 325 Mg Tab PO BID-W/MEALS SHEILA Furosemide 60 mg 08/29/24 16:00 08/30/24 07:51 Furosemide 20 Mg Tab PO 08/31/24 16:01 60 mg BID@0900,1600 SHEILA Administration Furosemide 40 mg 09/01/24 09:00 Furosemide 40 Mg Tab PO BID@0900,1600 [facility] Loratadine 10 mg 08/20/24 21:00 08/29/24 20:27 Loratadine 10 Mg Tab PO 10 mg HS SHEILA Administration Losartan Potassium 100 mg 08/24/24 09:00 08/30/24 07:52 Losartan 50 Mg Tab PO 100 mg DAILY SHEILA Administration Multi-Ingred Cream/Lotion/Oil/Oint 1 applic 08/20/24 21:00 08/29/24 20:28 Artificial Tears Ointment 3.5 Gm Tube BOTH EYES 1 applic HS SHEILA Administration Naloxone HCl 0.2 mg 08/20/24 13:18 Naloxone 0.4 Mg/Ml 1 Ml Vial IV Q2M PRN Opioid Reversal Oxymetazoline HCl 3 spray 08/25/24 15:00 08/30/24 07:54 Oxymetazoline 0.05% Nasl Charlotte 1 [place] Bottle NASAL 3 spray BID SHEILA Administration Pantoprazole Sodium 40 mg 08/29/24 21:00 08/30/24 07:54 Pantoprazole 40 Mg/10 Ml Vial IVP 40 mg BID SHEILA Administration Petrolatum 1 applic 08/26/24 16:24 Zinc Oxide Paste (Z-Guard) 1 Applic TOPICAL BID PRN [facility] Potassium Chloride 40 meq 08/27/24 14:45 08/30/24 07:51 Potassium Chloride Er 20 Meq Tab.Er PO 40 meq DAILY SHEILA Administration Prednisolone Acetate 1 drops 08/20/24 16:00 08/30/24 07:53 Prednisolone Acetate 1% Ophth Drops 5 Ml Btl BOTH EYES 1 drops TID SHEILA Administration Senna/Docusate Sodium 2 each 08/20/24 21:00 08/29/24 20:28 Sennosides-Docusate Sodium 1 Each Tab PO Not Given HS SHEILA Sodium Chloride 1 applic 08/20/24 21:00 08/29/24 20:28 Sodium Chloride 5% Ophth Oint 3.5 Gm Tube BOTH EYES Not Given HS SHEILA Sodium Chloride 1 applic 08/24/24 12:00 Saline Nasal Gel 14.1 Gm Tube NASAL Q4HR PRN Dry Nasal Passages Timolol Maleate 1 drops 08/20/24 21:00 08/29/24 20:28 Timolol 0.5% Ophth Drops 5 Ml Btl RIGHT EYE 1 drops HS HSEILA Administration Urea 15 gm 08/26/24 12:00 08/30/24 07:53 Urea 15 Gm Powd.Pack PO 15 gm BID SHEILA Administration Valacyclovir HCl 500 mg 08/21/24 09:00 08/30/24 07:53 Valacyclovir Hcl 500 Mg Tab PO 500 mg DAILY SHEILA Administration Protocol Objective - Vital Signs Vital signs: Vital Signs Temp 98.1 F 08/29/24 20:20 Pulse 68 08/30/24 04:40 Resp 17 08/30/24 04:40 BP 165/78 08/30/24 04:40 Pulse Ox 98 08/30/24 04:40 FiO2 Intake & Output 08/29/24 08/30/24 08/30/24 18:59 06:59 18:59 Intake Total 20 20 Balance 20 20 Weight 52.3 kg Intake: IV 20 20 Invasive Line 2 20 20 Other: Voiding Method Toilet Toilet # Voids 3 1 # Bowel Movements 3 1 - Exam -GENERAL: The patient is alert and oriented x3, not in any acute distress. Well developed, well nourished. thin built. HEENT: Pupils are round and equally reacting to light. EOMI. No scleral icterus. No conjunctival pallor. Normocephalic, atraumatic. No pharyngeal erythema. No thyromegaly. CARDIOVASCULAR: S1 and S2 present. No murmurs, rubs, or gallops. -PULMONARY: Chest is clear to auscultation, no wheezing , no crepitation ABDOMEN: Soft, nontender, nondistended, normoactive bowel sounds. No palpable organomegaly. MUSCULOSKELETAL: No joint swelling or deformity. -EXTREMITIES: No cyanosis, clubbing, or mild bilateral pitting leg edema. NEUROLOGICAL: Gross neurological examination did not reveal any focal deficits. SKIN: No rashes. no petechiae. - Labs CBC & Chem 7: 08/30/24 06:43 08/29/24 09:50 Labs: Abnormal Lab Results - Last 24 Hours (Table) 08/29/24 08/29/24 08/30/24 Range/Units 09:50 09:50 06:43 RBC 2.94 L 2.65 L (3.80-5.40) m/uL Hgb 9.9 L 8.8 L (11.4-16.0) gm/dL Hct 30.3 L 28.2 L (34.0-46.0) % MCV 103.1 H 106.4 H (80.0-100.0) fL RDW 17.4 H 18.0 H (11.5-15.5) % Macrocytosis Marked A Sodium 131 L (137-145) mmol/L Chloride 92 L (98-107) mmol/L Carbon Dioxide 31 H (22-30) mmol/L BUN 52 H (7-17) mg/dL Glucose 114 H (74-99) mg/dL Assessment and Plan Assessment: 1. Generalized weakness/recent mitral valve repair and tricuspid valve annuloplasty; patient is status post surgery performed on 07/30/2024 -Records indicate patient had a complicated hospital course requiring extensive hospitalization, status post Medtronic dual-chamber permanent pacemaker implantation and developed atrial fibrillation -Workup completed in ED has been unremarkable; blood cultures have been obtained to rule out bacteremia -Cardiothoracic surgery on board -PT/OT recommended home health care 2. Acute diastolic heart failure; patient has been placed on IV Lasix; cardiology recommending to continue with diuresis; monitor strict OC's, daily weights, low-salt and fluid restricted diet 3. Uncontrolled hypertension; patient has been evaluated by cardiology and recommending to increase losartan to 50 mg daily; continue with metoprolol 12.5 mg twice daily; will continue to monitor blood pressure closely 4. UTI; patient has been placed on IV antibiotics in form of ceftriaxone 1 g IV daily; await final urine and blood culture results for final recommendations on antibiotic therapy 4. 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 Chronic atrial fibrillation; patient is anticoagulated on Eliquis; rate controlled on metoprolol 12.5 mg twice daily 6. Hyperlipidemia; Lipitor 40 mg p.o. nightly 7., On Eliquis blood in his stool Initially thought secondary epistaxis but currently happening without nosebleed. Patient also on Eliquis and aspirin. Will going to consult surgery team DVT prophylaxis; SCD GI prophylaxis: Protonix CODE STATUS; full code
--- NOTE | 2024-08-30 11:39 | P.PN ---
Subjective Patient is seen for follow-up for hyponatremia. Serum sodium has improved with diuresis. Patient was scheduled for discharge yesterday however she developed fresh bleeding per rectum and hemoglobin today is down to 8.8. No complaints of shortness of breath. Objective - Vital Signs Vital signs: Vital Signs Temp 98.1 F 08/30/24 07:50 Pulse 61 08/30/24 07:50 Resp 17 08/30/24 07:50 BP 118/73 08/30/24 07:50 Pulse Ox 97 08/30/24 07:50 FiO2 Intake & Output 08/29/24 08/30/24 08/30/24 18:59 06:59 18:59 Intake Total 20 20 10 Balance 20 20 10 Weight 52.3 kg Intake: IV 20 20 10 Invasive Line 2 20 20 10 Other: Voiding Method Toilet Toilet Toilet # Voids 3 1 # Bowel Movements 3 1 - Exam Patient is awake, comfortable, no acute distress Examination of the heart S1 and S2 Examination of the lungs bilateral breath sounds are heard Abdomen is soft nontender Examination of lower extremity shows edema trace bilaterally SET UP TECHNICIAN exam grossly intact - Labs CBC & Chem 7: 08/30/24 06:43 08/29/24 09:50 Labs: Abnormal Lab Results - Last 24 Hours (Table) 08/30/24 Range/Units 06:43 RBC 2.65 L (3.80-5.40) m/uL Hgb 8.8 L (11.4-16.0) gm/dL Hct 28.2 L (34.0-46.0) % MCV 106.4 H (80.0-100.0) fL RDW 18.0 H (11.5-15.5) % Macrocytosis Marked A Assessment and Plan Assessment: 1. Hyponatremia, hypervolemic, improved with increased diuresis. Urine osmolality 272 and urine sodium of 60. Patient has a chronic history of hyponatremia. 2. Status post mitral and tricuspid valve repair with closure of foramen ovale on 07/30/2024 3. Volume overload 4. Diastolic CHF 5. Pyuria, maintained on antibiotics, no urine culture noted 6. GI bleed, surgery on consult Plan: Continue Lasix, decrease dose Discontinue urea Maintain salt and fluid restriction Patient is advised to increase oral protein intake Repeat labs in a.m.
[2024-08-30] MEDS: FERROUS SULFATE 325 MG TAB PO SCH (11:57)
--- NOTE | 2024-08-30 12:31 | P.GSCN ---
History of Present Illness Consult date: 08/30/24 Reason for Consult: GI bleeding History of present illness: This is a pleasant 78-year-old female who was transferred from outside facility to the emergency department 5 days ago with complaints of shortness of breath. Patient has significant cardiac history. Apparently patient was admitted for fluid volume overload. Patient has history of moderate mitral regurgitation severe tricuspid regurgitation status post mitral and tricuspid cuspid valve repair along with closure of patent earl oval and modified Ayala-Maze on July 30, 2024, chronic atrial fibrillation on Eliquis for anticoagulation, sick sinus syndrome with symptomatic bradycardia status post Medtronic dual- chamber pacemaker, hypertension, rheumatoid arthritis, CVA, TIA, Sjogren's disease, lupus, chronic anemia, and legally blind status post corneal transplants. Cardiology and cardiothoracic surgical team have been following patient. She is anticoagulated with Eliquis 5 mg twice daily. Patient states she had an 8-hour nosebleed yesterday and through the night. This morning nursing is reporting that she had to large dark to black stools. Occult stool was collected and was positive. She denies any abdominal pain, nausea or vomiting. No history of peptic ulcer disease or previous GI bleed. No previous upper endoscopy, last colonoscopy remote. General surgery was consulted for continued bleeding. 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 states she passed out 04/30/24 after eye examination and long day of travel - estimates LOC 2 minutes, fatigue, weakness, SOB w/exertion, mitral and tricuspid regurgitation History of Any Multi-Drug Resistant Organisms: None Reported Past Surgical History: Heart Catheterization, Hysterectomy Additional Past Surgical History / Comment(s): Bilat. corneal transplants, rectocele repair; mitral and tricuspid repair 07/30/24; Medtronic permanent pacemaker placement 08/04/24 Past Anesthesia/Blood Transfusion Reactions: No Reported Reaction Additional Past Anesthesia/Blood Transfusion Reaction / Comm: no hx. of transfusion reactions Past Psychological History: No Psychological Hx Reported Smoking Status: Never smoker Past Alcohol Use History: None Reported Past Drug Use History: None Reported - Past Family History Father Family Medical History: Coronary Artery Disease (CAD) Additional Family Medical History / Comment(s): CABG 3 times during lifetime, bypass and valve repairs Mother Family Medical History: Hypertension Medications and Allergies Home Medications Medication Instructions Recorded Confirmed Type Apixaban [Eliquis] 2.5 mg PO BID 05/06/24 08/20/24 History Ascorbic Acid [Vitamin C] 500 mg PO DAILY 05/06/24 08/20/24 History Cholecalciferol [Vitamin D3 (25 25 mcg PO DAILY 05/06/24 08/20/24 History Mcg = 1000 Iu)] Collagen/Biotin/Ascorbic Acid 1 cap PO DAILY 05/06/24 08/20/24 History [Collagen 1500 Plus C Capsule] Sodium Chloride 5% Ophth Oint 1 drop BOTH EYES HS 05/06/24 08/20/24 History [Ayleen 128] Super 8 Greens 1 dose PO DAILY 05/06/24 08/20/24 History Timolol [Betimol 0.5% Ophth Soln] 1 drop RIGHT EYE HS 05/06/24 08/20/24 History prednisoLONE acetate [Pred Mild] 1 drop BOTH EYES TID 05/06/24 08/20/24 History valACYclovir HCL [Valtrex] 500 mg PO DAILY 05/06/24 08/20/24 History Cetirizine HCl [Zyrtec] 10 mg PO HS 07/14/24 08/20/24 History Famotidine [Pepcid] 40 mg PO DAILY 07/14/24 08/20/24 History diphenhydrAMINE [Benadryl] 25 mg PO BID PRN 07/14/24 08/20/24 History Acetaminophen Tab [Tylenol] 1,000 mg PO Q6HR PRN tab 08/07/24 08/20/24 Rx Aspirin 81 mg PO DAILY #30 tab 08/07/24 08/20/24 Rx Atorvastatin [Lipitor] 40 mg PO DAILY #30 tab 08/07/24 08/20/24 Rx Furosemide [Lasix] 40 mg PO DAILY #30 tab 08/07/24 08/20/24 Rx guaiFENesin [Mucinex] 600 mg PO Q12HR tab 08/07/24 08/20/24 Rx Carboxymethylcellulose Sodium 2 drop BOTH EYES Q1H PRN 08/20/24 08/20/24 History [Refresh Tears] Sennosides-Docusate Sodium 2 tab PO HS 08/20/24 08/20/24 History [Senokot-S] Systane Night Gel 1 drop BOTH EYES HS 08/20/24 08/20/24 History Losartan [Cozaar] 100 mg PO DAILY #60 tab 08/29/24 Rx carvediloL [Coreg*] 12.5 mg PO BID-W/MEALS #60 tab 08/29/24 Rx Allergies Allergy/AdvReac Type Severity Reaction Status Date / Time Beef Containing Products Allergy Nausea & Verified 08/20/24 13:14 [Beef] Vomiting codeine Allergy Nausea & Verified 08/20/24 13:14 Vomiting erythromycin base Allergy Rash/Hives Verified 08/20/24 13:14 gluten Allergy GI upset Verified 08/20/24 13:14 hydrocodone [From Vicodin] Allergy Nausea & Verified 08/20/24 13:14 Vomiting ibuprofen Allergy Rash/Hives Verified 08/20/24 13:14 meperidine [From Demerol] Allergy Unknown Verified 08/20/24 13:14 morphine Allergy Hallucinati Verified 08/20/24 13:14 ons Penicillins Allergy Rash/Hives Verified 08/20/24 13:14 Pork/Porcine Containing Allergy Nausea & Verified 08/20/24 13:14 Products Vomiting [Pork] Sulfa (Sulfonamide Allergy Rash/Hives Verified 08/20/24 13:14 Antibiotics) tramadol [From Ultram] Allergy Rash/Hives Verified 08/20/24 13:14 aspirin AdvReac Unknown Verified 08/20/24 13:14 hand account administrator Allergy Rash/Hives Uncoded 07/30/24 06:16 Surgical - Exam Osteopathic Statement: *. No significant issues noted on an osteopathic structural exam other than those noted in the History and Physical/Consult. Vital Signs Temp Pulse Resp BP Pulse Ox 97.6 F 60 18 192/93 95 08/20/24 11:36 08/20/24 11:36 08/20/24 11:36 08/20/24 11:36 08/20/24 11:36 gen: nad cv: rrr pul: non labored breathing abd: soft, non distended,non tender to palpation, no guarding or rebound tenderness Results - Labs 08/30/24 06:43 08/29/24 09:50 Abnormal Lab Results - Last 24 Hours (Table) 08/30/24 Range/Units 06:43 RBC 2.65 L (3.80-5.40) m/uL Hgb 8.8 L (11.4-16.0) gm/dL Hct 28.2 L (34.0-46.0) % MCV 106.4 H (80.0-100.0) fL RDW 18.0 H (11.5-15.5) % Macrocytosis Marked A Assessment and Plan Assessment: 78 yo female w/ continuing GI bleeding hx of blood thinners -regular diet today, clear diet this evening -clear liquid diet and start golytely prep Thursday 08/31 -colonscopy on saturday Time with Patient: Less than 30
[2024-08-30 19:55] LABS: Anisocytosis Slight; HCT 24.8 % (34.0-46.0); HGB 7.9 gm/dL (11.4-16.0); Hypochromasia Marked; MCH 33.2 pg (25.0-35.0); MCHC 32.1 g/dL (31.0-37.0); MCV 103.5 fL (80.0-100.0); Macrocytosis Moderate; Mean Platelet Volume 7.6; Platelet Count 218 k/uL (150-450); RBC 2.39 m/uL (3.80-5.40); RDW 17.4 % (11.5-15.5); WBC 4.4 k/uL (3.8-10.6)
[2024-08-30] MEDS: diphenhydrAMINE 25 MG CAP PO PRN (20:20)
[2024-08-31 05:30] LABS: Anisocytosis Slight; Basophils % (A) 0 %; Eosinophils # (A) 0.2 k/uL (0-0.7); Eosinophils % (A) 4 %; HCT 28.3 % (34.0-46.0); Hypochromasia Marked; Lymphocytes # (A) 1.4 k/uL (1.0-4.8); Lymphocytes % (A) 30 %; MCH 34.1 pg (25.0-35.0); MCHC 31.7 g/dL (31.0-37.0); MCV 107.9 fL (80.0-100.0); Macrocytosis Marked; Mean Platelet Volume 7.7; Monocytes # (A) 0.4 k/uL (0-1.0); Monocytes % (A) 7 %; Neutrophils # (A) 2.6 k/uL (1.3-7.7); Neutrophils % (A) 56 %; Platelet Count 226 k/uL (150-450); RBC 2.62 m/uL (3.80-5.40); RDW 17.8 % (11.5-15.5); WBC 4.7 k/uL (3.8-10.6)
[2024-08-31 05:42] LABS: African American GFR (CKD) 61 (>60 ml/min/1.73 sqM); Anion Gap 9 mmol/L; Blood Urea Nitrogen 47 mg/dL (7-17); Carbon Dioxide 30 mmol/L (22-30); Chloride 94 mmol/L (98-107); Glucose 92 mg/dL (74-99); Non-African American GFR(CKD) 53 (>60 ml/min/1.73 sqM); Potassium 4.8 mmol/L (3.5-5.1); Sodium 133 mmol/L (137-145)
[2024-08-31] MEDS: FUROSEMIDE 40 MG TAB PO SCH (08:38)
[2024-08-31] MEDS: SODIUM CHLORIDE 0.9% 1,000 ML IV SCH (10:18)
[2024-08-31] MEDS: PEG 3350 (236 GM/BTL) + LYTES 4,000 ML BOTTLE PO ONE (10:18)
--- NOTE | 2024-08-31 10:39 | P.PN ---
Subjective 78-year-old female, history of hypertension, atrial fibrillation, coronary artery disease, presents emergency department as a transfer for shortness of breath. Had a recent CABG with Dr. Bey at our facility in July 30. Presented to [facility] earlier this morning with general weakness, as well as worsening shortness of breath for the last few days. Also had pacemaker placed on last admission as well. Was found to be in a volume overload state with an elevated troponin and was transferred here for further care. Patient denies any chest pain at any point but does endorse some dysuria as well as difficulty in breathing. Endorses worsening orthopnea. Denies PND. Endorses lower extremity edema. Denies any significant productive cough but does endorse a mild cough. Presents for further evaluation at this time. Brittany flores also has a history of atrial fibrillation and is on blood thinners. -EKG: Electronic ventricularly paced rhythm. -Chest x-ray: Stable. -Laboratory studies: Hemoglobin 10.1, sodium 127, BUN 11, creatinine 0.57. Troponins 0.151, 0.132, 0.132. proBNP 13,200. Urinalysis positive for infection. -Home cardiac medications: Eliquis 2.5 mg twice daily, aspirin 81 mg daily, Lipitor 40 mg daily, Lasix 40 mg daily, losartan 12.5 mg at noon, Lopressor 12.5 mg twice daily. -Cardiac catheterization performed 05/13/2024 revealed mild pulmonary hypertension, normal biventricular filling pressure, mild to moderate CAD. 08/23/2024 Patient seen and examined in room at bedside. Inquiring about her blood work which was discussed with patient and family at bedside Vital signs are reviewed; blood pressure remains elevated -- Repeat blood work reveals hemoglobin 10, sodium 128, BUN 14 creatinine 0.63. Chest x-ray obtained today reveals slightly improved pulmonary vascular co ngestion and small bilateral pleural effusions. Patient has been maintained on IV Lasix 40 mg every 12 hours. Patient does have a negative fluid balance and weight loss of 3-1/2 kg. Blood culture is no growth after 24 hours. Echocardiogram is pending. -- yesterday losartan was increased to 50 mg daily blood pressure readings have been elevated up to the 170s systolic; cardiology recommending to increase losartan up to 100 mg daily; patient remains on Lasix 40 mg IV every 12 hours -Continue with current IV antibiotics 08/24 Patient with no chest pain, she still somewhat tachypneic with breathing rate about 20-22 She says her dyspnea is improving as well. No specific GI symptoms. Sodium today 128 down to 126, potassium 3.1 which has been replaced Patient remains on ceftriaxone, home dose of valacyclovir, home dose of Eliquis 2.5 mg Also patient on IV Lasix 40 mg twice daily, losartan increased to 100 mg. Echocardiogram is still pending. 08/25. Patient seen and examined Blood work done today showed WBC 3.2, hemoglobin 8.8, platelet count 229, sodium 126, potassium 3.7, BUN 22, creatinine 0.72.. Patient had episode of epistaxis yesterday, currently not bleeding. Patient also had dark stool this morning. FOBT was positive 08/26. Patient seen and examined. Blood work done this morning showed WBC 4.3, hemoglobin 9, platelet count 217, sodium 125, potassium 3.6, BUN 20, creatinine 0.78. No further episodes of epistaxis. Patient had an episode of dark stool this morning. Hemoglobin is stable. 08/27. Patient seen and examined. States she feels much better compared to yesterday. No further episodes of epistaxis. No complaint of blood in the sto ols. Hemoglobin is stable 08/28. Patient seen and examined. Blood work done this morning showed WBC 3.9, hemoglobin 9.5, sodium 129, potassium 3.8, BUN 39, creatinine 0.78, glucose 116 states breathing is improved not. Denies any swelling of lower extremities.. 08/29 Patient was doing well this morning with no chest pain or dyspnea, she was fully awake. Patient wanted to go home. She is currently on IV Lasix 60 mg twice a day as well as oral urea. Patient's sodium yesterday was 129 improved today to 131. Also patient currently off IV antibiotic kept only on valacyclovir which is her home medication. Patient also on Eliquis 2.5 mg and aspirin 81 mg Today patient stated that she has blood in the stool, I looked into the toilet with the nurse and there was some redness in the stool, stool looks soft no diarrhea. Although patient states that she has came to the hospital she has loose stool. No abdominal pain. Hemoglobin checked it is stable at 9.9. Patient evaluated by GI service previously. At that time she had epistaxis and had a positive occult blood secondary to epistaxis. However no more nosebleed. No GI team available in this facility during this weekend Since patient on aspirin and Eliquis and she has this ongoing problem of blood in the stool. Although hemoglobin stable will going to consult general surgery team and hold any discharge for now. Case discussed with the patient and family member at bedside and they agreeable Her going to increase Protonix daily to twice daily 08/30 Patient continued to have a bloody bowel movement, hemoglobin dropped to 8.8. Eliquis dose was held this morning Surgery team consulted. No abdominal pain. Patient remains on oral Lasix and sodium improving. Will check hemoglobin tonight as well 08/31 Patient awake alert, lethargic Patient still has 1 large bloody bowel movement this morning Blood pressure stable Hemoglobin 9.0. Patient was started on iron pills. Patient started on normal saline 75 mL/h for she is getting preparation for colonoscopy tomorrow. Will be n.p.o. after midnight Continued on oral Lasix. Sodium continued to improve 133 today Objective - Vital Signs Vital signs: Vital Signs Temp 98.1 F 08/31/24 08:30 Pulse 60 08/31/24 08:30 Resp 14 08/31/24 08:30 BP 121/69 08/31/24 08:30 Pulse Ox 96 08/31/24 08:30 FiO2 Intake & Output 08/30/24 08/31/24 08/31/24 18:59 06:59 18:59 Intake Total 260 250 Balance 260 250 Weight 53 kg Intake: IV 20 10 Invasive Line 2 20 10 Oral 240 240 Other: Voiding Method Toilet Toilet # Voids 1 1 # Bowel Movements 1 - Exam -GENERAL: The patient is alert and oriented x3, not in any acute distress. Well developed, well nourished. thin built. HEENT: Pupils are round and equally reacting to light. EOMI. No scleral icterus. No conjunctival pallor. Normocephalic, atraumatic. No pharyngeal erythema. No thyromegaly. CARDIOVASCULAR: S1 and S2 present. No murmurs, rubs, or gallops. -PULMONARY: Chest is clear to auscultation, no wheezing , no crepitation ABDOMEN: Soft, nontender, nondistended, normoactive bowel sounds. No palpable organomegaly. MUSCULOSKELETAL: No joint swelling or deformity. -EXTREMITIES: No cyanosis, clubbing, or mild bilateral pitting leg edema. NEUROLOGICAL: Gross neurological examination did not reveal any focal deficits. SKIN: No rashes. no petechiae. - Labs CBC & Chem 7: 08/31/24 04:29 08/31/24 04:29 Labs: Abnormal Lab Results - Last 24 Hours (Table) 08/30/24 08/31/24 08/31/24 Range/Units 19:37 04:29 04:29 RBC 2.39 L 2.62 L (3.80-5.40) m/uL Hgb 7.9 L 9.0 L (11.4-16.0) gm/dL Hct 24.8 L 28.3 L (34.0-46.0) % MCV 103.5 H 107.9 H (80.0-100.0) fL RDW 17.4 H 17.8 H (11.5-15.5) % Macrocytosis Marked A Sodium 133 L (137-145) mmol/L Chloride 94 L (98-107) mmol/L BUN 47 H (7-17) mg/dL Assessment and Plan Assessment: 1. Generalized weakness/recent mitral valve repair and tricuspid valve annuloplasty; patient is status post surgery performed on 07/30/2024 -Records indicate patient had a complicated hospital course requiring extensive hospitalization, status post [employer]onic dual-chamber permanent pacemaker implantation and developed atrial fibrillation -Workup completed in ED has been unremarkable; blood cultures have been obtained to rule out bacteremia -Cardiothoracic surgery on board -PT/OT recommended home health care 2. Acute diastolic heart failure; patient has been placed on IV Lasix; cardiology recommending to continue with diuresis; monitor strict OC's, daily weights, low-salt and fluid restricted diet 3. Uncontrolled hypertension; patient has been evaluated by cardiology and recommending to increase losartan to 50 mg daily; continue with metoprolol 12.5 mg twice daily; will continue to monitor blood pressure closely 4. UTI; patient has been placed on IV antibiotics in form of ceftriaxone 1 g IV daily; await final urine and blood culture results for final recommendations on antibiotic therapy 4. 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 Chronic atrial fibrillation; patient is anticoagulated on Eliquis; rate controlled on metoprolol 12.5 mg twice daily 6. Hyperlipidemia; Lipitor 40 mg p.o. nightly 7., On Eliquis blood in his stool Initially thought secondary epistaxis but currently happening without nosebleed. Patient also on Eliquis and aspirin. Will going to consult surgery team. Plan for colonoscopy on 09/01 DVT prophylaxis; SCD GI prophylaxis: Protonix CODE STATUS; full code
--- NOTE | 2024-08-31 10:42 | P.PN ---
Subjective Patient is seen in follow-up for hyponatremia. Sodium level 133. On Lasix. Started and started on normal saline at 75 cc an hour last night due to low blood pressure. Colonoscopy pending. Vital signs are stable. General: No acute distress. HEENT: Head exam is unremarkable. LUNGS: No audible rhonchi or wheezes. HEART: Rate and Rhythm are regular. ABDOMEN: Nontender. EXTREMITITES: No Edema. Objective - Vital Signs Vital signs: Vital Signs Temp 98.1 F 08/31/24 08:30 Pulse 60 08/31/24 08:30 Resp 14 08/31/24 08:30 BP 121/69 08/31/24 08:30 Pulse Ox 96 08/31/24 08:30 FiO2 Intake & Output 08/30/24 08/31/24 08/31/24 18:59 06:59 18:59 Intake Total 260 250 Balance 260 250 Weight 53 kg Intake: IV 20 10 Invasive Line 2 20 10 Oral 240 240 Other: Voiding Method Toilet Toilet # Voids 1 1 # Bowel Movements 1 - Labs CBC & Chem 7: 08/31/24 04:29 08/31/24 04:29 Labs: Abnormal Lab Results - Last 24 Hours (Table) 08/30/24 08/31/24 08/31/24 Range/Units 19:37 04:29 04:29 RBC 2.39 L 2.62 L (3.80-5.40) m/uL Hgb 7.9 L 9.0 L (11.4-16.0) gm/dL Hct 24.8 L 28.3 L (34.0-46.0) % MCV 103.5 H 107.9 H (80.0-100.0) fL RDW 17.4 H 17.8 H (11.5-15.5) % Macrocytosis Marked A Sodium 133 L (137-145) mmol/L Chloride 94 L (98-107) mmol/L BUN 47 H (7-17) mg/dL Assessment and Plan Plan: Assessment: 1. Acute on chronic hyponatremia. Was hypervolemic. Status post diuresis. Sodium level 133. Urine sodium 60 and urine osmolality 272. 2. Volume overload. Improved with diuresis. 3. Anemia. Concern for GI bleed. Colonoscopy pending. 4. Acute on chronic diastolic CHF with moderate to severe aortic regurgitation and moderate pulmonary hypertension. Plan: Dose of Lasix decreased from 60 to 40 mg twice daily. Maintain for now. Maintain Farxiga. Decrease IV fluids and resume at midnight as scheduled for colonoscopy tomorrow. Avoid nephrotoxins.
--- NOTE | 2024-08-31 10:52 | P.PN ---
Subjective Progress Note Date: 08/31/24 SURGICAL PROGRESS NOTE CHIEF COMPLAINT: GI bleed HISTORY OF PRESENT ILLNESS: Patient lying in bed comfortably. Denies any abdominal pain. She has had no further bleeding. Vital stable. Hgb 7.9 up to 9.0 PHYSICAL EXAM: VITAL SIGNS: Reviewed. GENERAL: Well-developed in no acute distress. ABDOMEN: Soft. Nondistended. Nontender. No rebound or guarding NEUROLOGIC: Alert and oriented. Cranial nerves II through XII grossly intact. ASSESSMENT: 1. Acute GI bleed 2. Anemia 3. Status post mitral and tricuspid valve repair with closure of patent foramen ovale July 2024 4. Nosebleed now resolved PLAN: -Patient scheduled for EGD and colonoscopy tomorrow with Dr. Nair -Clear liquid diet today -Start GoLytely bowel prep -N.p.o. after midnight -Start IV fluids normal saline at 75 mL/h -Continue to monitor for any signs or symptoms of bleeding -Continue to monitor hemoglobin -Continue PPI Physician Mold Stamper note has been reviewed by physician. Signing provider agrees with the documented findings, assessment, and plan of care. Objective - Vital Signs Vital signs: Vital Signs Temp 98.1 F 08/31/24 08:30 Pulse 60 08/31/24 08:30 Resp 14 08/31/24 08:30 BP 121/69 08/31/24 08:30 Pulse Ox 96 08/31/24 08:30 FiO2 Intake & Output 08/30/24 08/31/24 08/31/24 18:59 06:59 18:59 Intake Total 260 250 Balance 260 250 Weight 53 kg Intake: IV 20 10 Invasive Line 2 20 10 Oral 240 240 Other: Voiding Method Toilet Toilet # Voids 1 1 # Bowel Movements 1 - Labs CBC & Chem 7: 08/31/24 04:29 08/31/24 04:29 Labs: Abnormal Lab Results - Last 24 Hours (Table) 08/30/24 08/31/24 08/31/24 Range/Units 19:37 04:29 04:29 RBC 2.39 L 2.62 L (3.80-5.40) m/uL Hgb 7.9 L 9.0 L (11.4-16.0) gm/dL Hct 24.8 L 28.3 L (34.0-46.0) % MCV 103.5 H 107.9 H (80.0-100.0) fL RDW 17.4 H 17.8 H (11.5-15.5) % Macrocytosis Marked A Sodium 133 L (137-145) mmol/L Chloride 94 L (98-107) mmol/L BUN 47 H (7-17) mg/dL
[2024-08-31 13:28] LABS: Anisocytosis Slight; HCT 27.9 % (34.0-46.0); HGB 8.6 gm/dL (11.4-16.0); Hypochromasia Marked; MCH 33.2 pg (25.0-35.0); MCHC 30.9 g/dL (31.0-37.0); MCV 107.8 fL (80.0-100.0); Macrocytosis Marked; Mean Platelet Volume 7.6; Platelet Count 222 k/uL (150-450); RBC 2.59 m/uL (3.80-5.40); RDW 17.7 % (11.5-15.5); WBC 4.6 k/uL (3.8-10.6)
[2024-09-01 07:57] LABS: African American GFR (CKD) 83 (>60 ml/min/1.73 sqM); Anion Gap 7 mmol/L; Anisocytosis Slight; Blood Urea Nitrogen 25 mg/dL (7-17); Calcium 8.2 mg/dL (8.4-10.2); Carbon Dioxide 27 mmol/L (22-30); Chloride 100 mmol/L (98-107); Glucose 90 mg/dL (74-99); HCT 24.5 % (34.0-46.0); HGB 7.6 gm/dL (11.4-16.0); Hypochromasia Marked; MCH 32.5 pg (25.0-35.0); MCHC 30.9 g/dL (31.0-37.0); Macrocytosis Marked; Mean Platelet Volume 7.2; Non-African American GFR(CKD) 72 (>60 ml/min/1.73 sqM); Platelet Count 215 k/uL (150-450); Potassium 3.9 mmol/L (3.5-5.1); RBC 2.33 m/uL (3.80-5.40); RDW 17.3 % (11.5-15.5); Sodium 134 mmol/L (137-145); WBC 4.6 k/uL (3.8-10.6)
--- NOTE | 2024-09-01 08:59 | P.PN ---
Subjective 78-year-old female, history of hypertension, atrial fibrillation, coronary artery disease, presents emergency department as a transfer for shortness of breath. Had a recent CABG with Dr. Bey at our facility in July 30. Presented to [facility] earlier this morning with general weakness, as well as worsening shortness of breath for the last few days. Also had pacemaker placed on last admission as well. Was found to be in a volume overload state with an elevated troponin and was transferred here for further care. Patient denies any chest pain at any point but does endorse some dysuria as well as difficulty in breathing. Endorses worsening orthopnea. Denies PND. Endorses lower extremity edema. Denies any significant productive cough but does endorse a mild cough. Presents for further evaluation at this time. Brittany flores also has a history of atrial fibrillation and is on blood thinners. -EKG: Electronic ventricularly paced rhythm. -Chest x-ray: Stable. -Laboratory studies: Hemoglobin 10.1, sodium 127, BUN 11, creatinine 0.57. Troponins 0.151, 0.132, 0.132. proBNP 13,200. Urinalysis positive for infection. -Home cardiac medications: Eliquis 2.5 mg twice daily, aspirin 81 mg daily, Lipitor 40 mg daily, Lasix 40 mg daily, losartan 12.5 mg at noon, Lopressor 12.5 mg twice daily. -Cardiac catheterization performed 05/13/2024 revealed mild pulmonary hypertension, normal biventricular filling pressure, mild to moderate CAD. 08/23/2024 Patient seen and examined in room at bedside. Inquiring about her blood work which was discussed with patient and family at bedside Vital signs are reviewed; blood pressure remains elevated -- Repeat blood work reveals hemoglobin 10, sodium 128, BUN 14 creatinine 0.63. Chest x-ray obtained today reveals slightly improved pulmonary vascular co ngestion and small bilateral pleural effusions. Patient has been maintained on IV Lasix 40 mg every 12 hours. Patient does have a negative fluid balance and weight loss of 3-1/2 kg. Blood culture is no growth after 24 hours. Echocardiogram is pending. -- yesterday losartan was increased to 50 mg daily blood pressure readings have been elevated up to the 170s systolic; cardiology recommending to increase losartan up to 100 mg daily; patient remains on Lasix 40 mg IV every 12 hours -Continue with current IV antibiotics 08/24 Patient with no chest pain, she still somewhat tachypneic with breathing rate about 20-22 She says her dyspnea is improving as well. No specific GI symptoms. Sodium today 128 down to 126, potassium 3.1 which has been replaced Patient remains on ceftriaxone, home dose of valacyclovir, home dose of Eliquis 2.5 mg Also patient on IV Lasix 40 mg twice daily, losartan increased to 100 mg. Echocardiogram is still pending. 08/25. Patient seen and examined Blood work done today showed WBC 3.2, hemoglobin 8.8, platelet count 229, sodium 126, potassium 3.7, BUN 22, creatinine 0.72.. Patient had episode of epistaxis yesterday, currently not bleeding. Patient also had dark stool this morning. FOBT was positive 08/26. Patient seen and examined. Blood work done this morning showed WBC 4.3, hemoglobin 9, platelet count 217, sodium 125, potassium 3.6, BUN 20, creatinine 0.78. No further episodes of epistaxis. Patient had an episode of dark stool this morning. Hemoglobin is stable. 08/27. Patient seen and examined. States she feels much better compared to yesterday. No further episodes of epistaxis. No complaint of blood in the sto ols. Hemoglobin is stable 08/28. Patient seen and examined. Blood work done this morning showed WBC 3.9, hemoglobin 9.5, sodium 129, potassium 3.8, BUN 39, creatinine 0.78, glucose 116 states breathing is improved not. Denies any swelling of lower extremities.. 08/29 Patient was doing well this morning with no chest pain or dyspnea, she was fully awake. Patient wanted to go home. She is currently on IV Lasix 60 mg twice a day as well as oral urea. Patient's sodium yesterday was 129 improved today to 131. Also patient currently off IV antibiotic kept only on valacyclovir which is her home medication. Patient also on Eliquis 2.5 mg and aspirin 81 mg Today patient stated that she has blood in the stool, I looked into the toilet with the nurse and there was some redness in the stool, stool looks soft no diarrhea. Although patient states that she has came to the hospital she has loose stool. No abdominal pain. Hemoglobin checked it is stable at 9.9. Patient evaluated by GI service previously. At that time she had epistaxis and had a positive occult blood secondary to epistaxis. However no more nosebleed. No GI team available in this facility during this weekend Since patient on aspirin and Eliquis and she has this ongoing problem of blood in the stool. Although hemoglobin stable will going to consult general surgery team and hold any discharge for now. Case discussed with the patient and family member at bedside and they agreeable Her going to increase Protonix daily to twice daily 08/30 Patient continued to have a bloody bowel movement, hemoglobin dropped to 8.8. Eliquis dose was held this morning Surgery team consulted. No abdominal pain. Patient remains on oral Lasix and sodium improving. Will check hemoglobin tonight as well 08/31 Patient awake alert, lethargic Patient still has 1 large bloody bowel movement this morning Blood pressure stable Hemoglobin 9.0. Patient was started on iron pills. Patient started on normal saline 75 mL/h for she is getting preparation for colonoscopy tomorrow. Will be n.p.o. after midnight Continued on oral Lasix. Sodium continued to improve 133 today 09/01 Patient had preparation for colonoscopy overnight. Patient tells me she still have blood in her bowel movement. Also complaining from mild epigastric pain and tenderness No chest pain dyspnea or dizziness. No other new complaint. Blood pressure and heart rate stable Hemoglobin from today is pending. Creatinine 1.3 and sodium is improving also 134 Aspirin and Eliquis remain on hold From medical perspective there is no contraindication to proceed with the procedure Review of systems CONSTITUTIONAL: No fever, no malaise, no fatigue. oactive bowel sounds. NEUROLOGICAL: No headaches, no weakness, no numbness. HEMATOLOGICAL: Denies any bleeding or petechiae. GENITOURINARY: Denies any burning micturition, frequency, or urgency. MUSCULOSKELETAL/RHEUMATOLOGICAL: Denies any joint pain, swelling, or any muscle pain. ENDOCRINE: Denies any polyuria or polydipsia. Active Medications Generic Name Dose Route Start Last Admin Trade Name Freq PRN Reason Stop Dose Admin Acetaminophen 650 mg 08/20/24 13:18 08/30/24 14:00 Acetaminophen Tab 325 Mg Tab PO 650 mg Q6HR PRN Administration Mild Pain or Fever > 100.5 Artificial Tears 2 drops 08/20/24 14:39 Artificial Tears-Hypromellose Drops 15 Ml Btl BOTH EYES Q1H PRN dry eyes Ascorbic Acid 500 mg 08/21/24 09:00 09/01/24 08:49 Ascorbic Acid 500 Mg Tab PO Not Given DAILY [facility] Aspirin 81 mg 08/21/24 09:00 09/01/24 08:49 Aspirin 81 Mg PO Not Given DAILY [facility] Atorvastatin Calcium 40 mg 08/21/24 09:00 09/01/24 08:48 Atorvastatin 40 Mg Tab PO 40 mg DAILY [facility] Administration Bacitracin 1 applic 08/25/24 15:00 09/01/24 08:51 Bacitracin Zinc 500 Unit/Gm Oint 28.4 Gm Tube TOPICAL 1 applic BID [facility] Administration Protocol Carvedilol 12.5 mg 08/24/24 09:15 09/01/24 06:02 Carvedilol 12.5 Mg Tab PO Not Given BID-W/MEALS [facility] Cholecalciferol 25 mcg 08/21/24 09:00 09/01/24 08:50 Cholecalciferol 25 Mcg (1000 Iu) Tablet PO Not Given DAILY [facility] Dapagliflozin 10 mg 08/25/24 09:00 09/01/24 08:48 Dapagliflozin Propanediol 10 Mg Tablet PO 10 mg DAILY [facility] Administration Diphenhydramine HCl 25 mg 08/20/24 14:39 08/31/24 21:17 Diphenhydramine 25 Mg Cap PO 25 mg BID PRN Administration Itching Ferrous Sulfate 325 mg 08/30/24 09:45 09/01/24 06:03 Ferrous Sulfate 325 Mg Tab PO Not Given BID-W/MEALS [facility] Furosemide 40 mg 08/31/24 09:00 09/01/24 08:47 Furosemide 40 Mg Tab PO 40 mg BID@0900,1600 [facility] Administration Sodium Chloride 1,000 mls @ 75 mls/hr 08/31/24 08:45 09/01/24 01:40 Saline 0.9% IV Not Given .[id number] [facility] Loratadine 10 mg 08/20/24 21:00 08/31/24 21:18 Loratadine 10 Mg Tab PO Not Given HS [facility] Losartan Potassium 100 mg 08/24/24 09:00 09/01/24 08:47 Losartan 50 Mg Tab PO 100 mg DAILY [facility] Administration Multi-Ingred Cream/Lotion/Oil/Oint 1 applic 08/20/24 21:00 08/31/24 21:18 Artificial Tears Ointment 3.5 Gm Tube BOTH EYES 1 applic HS [facility] Administration Naloxone HCl 0.2 mg 08/20/24 13:18 Naloxone 0.4 Mg/Ml 1 Ml Vial IV Q2M PRN Opioid Reversal Oxymetazoline HCl 3 spray 08/25/24 15:00 09/01/24 08:51 Oxymetazoline 0.05% Nasl Nahma 1 Nahma Bottle NASAL 3 spray BID [facility] Administration Pantoprazole Sodium 40 mg 08/29/24 21:00 09/01/24 08:47 Pantoprazole 40 Mg/10 Ml Vial IVP 40 mg BID [facility] Administration Petrolatum 1 applic 08/26/24 16:24 Zinc Oxide Paste (Z-Guard) 1 Applic TOPICAL BID PRN [facility] Potassium Chloride 40 meq 08/27/24 14:45 09/01/24 08:47 Potassium Chloride Er 20 Meq Tab.Er PO 40 meq DAILY [facility] Administration Prednisolone Acetate 1 drops 08/20/24 16:00 09/01/24 08:50 Prednisolone Acetate 1% Ophth Drops 5 Ml Btl BOTH EYES 1 drops TID [facility] Administration Senna/Docusate Sodium 2 each 08/20/24 21:00 08/31/24 21:13 Sennosides-Docusate Sodium 1 Each Tab PO Not Given HS [facility] Sodium Chloride 1 applic 08/20/24 21:00 08/31/24 21:18 Sodium Chloride 5% Ophth Oint 3.5 Gm Tube BOTH EYES Not Given HS [facility] Sodium Chloride 1 applic 08/24/24 12:00 Saline Nasal Gel 14.1 Gm Tube NASAL Q4HR PRN Dry Nasal Passages Timolol Maleate 1 drops 08/20/24 21:00 08/31/24 21:17 Timolol 0.5% Ophth Drops 5 Ml Btl RIGHT EYE 1 drops HS [facility] Administration Valacyclovir HCl 500 mg 08/21/24 09:00 09/01/24 08:50 Valacyclovir Hcl 500 Mg Tab PO Not Given DAILY [facility] Protocol Objective - Vital Signs Vital signs: Vital Signs Temp 97.6 F 09/01/24 03:25 Pulse 60 09/01/24 03:25 Resp 18 09/01/24 03:25 BP 131/64 09/01/24 03:25 Pulse Ox 97 09/01/24 03:25 FiO2 Intake & Output 08/31/24 09/01/24 09/01/24 18:59 06:59 18:59 Weight 52.7 kg Other: Voiding Method Toilet Toilet # Bowel Movements 3 - Exam -GENERAL: The patient is alert and oriented x3, not in any acute distress. Well developed, well nourished. thin built. HEENT: Pupils are round and equally reacting to light. EOMI. No scleral icterus. No conjunctival pallor. Normocephalic, atraumatic. No pharyngeal erythema. No thyromegaly. CARDIOVASCULAR: S1 and S2 present. No murmurs, rubs, or gallops. -PULMONARY: Chest is clear to auscultation, no wheezing , no crepitation ABDOMEN: Soft, nontender, nondistended, normoactive bowel sounds. No palpable organomegaly. MUSCULOSKELETAL: No joint swelling or deformity. -EXTREMITIES: No cyanosis, clubbing, or mild bilateral pitting leg edema. NEUROLOGICAL: Gross neurological examination did not reveal any focal deficits. SKIN: No rashes. no petechiae. - Labs CBC & Chem 7: 08/31/24 12:54 09/01/24 07:27 Labs: Abnormal Lab Results - Last 24 Hours (Table) 08/31/24 09/01/24 Range/Units 12:54 07:27 RBC 2.59 L (3.80-5.40) m/uL Hgb 8.6 L (11.4-16.0) gm/dL Hct 27.9 L (34.0-46.0) % MCV 107.8 H (80.0-100.0) fL MCHC 30.9 L (31.0-37.0) g/dL RDW 17.7 H (11.5-15.5) % Macrocytosis Marked A Sodium 134 L (137-145) mmol/L BUN 25 H (7-17) mg/dL Calcium 8.2 L (8.4-10.2) mg/dL Assessment and Plan Assessment: 1. Generalized weakness/recent mitral valve repair and tricuspid valve annuloplasty; patient is status post surgery performed on 07/30/2024 -Records indicate patient had a complicated hospital course requiring extensive hospitalization, status post Medtronic dual-chamber permanent pacemaker implantation and developed atrial fibrillation -Workup completed in ED has been unremarkable; blood cultures have been obtained to rule out bacteremia -Cardiothoracic surgery on board -PT/OT recommended home health care 2. Acute diastolic heart failure; patient has been placed on IV Lasix; cardiology recommending to continue with diuresis; monitor strict OC's, daily weights, low-salt and fluid restricted diet 3. Uncontrolled hypertension; patient has been evaluated by cardiology and recommending to increase losartan to 50 mg daily; continue with metoprolol 12.5 mg twice daily; will continue to monitor blood pressure closely 4. UTI; patient has been placed on IV antibiotics in form of ceftriaxone 1 g IV daily; await final urine and blood culture results for final recommendations on antibiotic therapy 4. 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 Chronic atrial fibrillation; patient is anticoagulated on Eliquis; rate controlled on metoprolol 12.5 mg twice daily 6. Hyperlipidemia; Lipitor 40 mg p.o. nightly 7., On Eliquis blood in his stool Initially thought secondary epistaxis but currently happening without nosebleed. Patient also on Eliquis and aspirin. W ill going to consult surgery team. Plan for colonoscopy and EGD on 09/01 DVT prophylaxis; SCD GI prophylaxis: Protonix CODE STATUS; full code
[2024-09-01] MEDS ORDERED: FUROSEMIDE 40 MG TAB PO SCH (09:00)
--- NOTE | 2024-09-01 10:22 | P.PN ---
Subjective Patient is seen in follow-up for hyponatremia. Sodium level 134. On Lasix. On IV fluids. Colonoscopy today. States she had blood in stool overnight. Vital signs are stable. General: No acute distress. HEENT: Head exam is unremarkable. LUNGS: No audible rhonchi or wheezes. HEART: Rate and Rhythm are regular. ABDOMEN: Nontender. EXTREMITITES: No Edema. Objective - Vital Signs Vital signs: Vital Signs Temp 98.1 F 09/01/24 08:45 Pulse 61 09/01/24 08:45 Resp 17 09/01/24 08:45 BP 163/73 09/01/24 08:45 Pulse Ox 97 09/01/24 08:45 FiO2 Intake & Output 08/31/24 09/01/24 09/01/24 18:59 06:59 18:59 Weight 52.7 kg Other: Voiding Method Toilet Toilet Toilet # Bowel Movements 3 - Labs CBC & Chem 7: 09/01/24 07:27 09/01/24 07:27 Labs: Abnormal Lab Results - Last 24 Hours (Table) 08/31/24 09/01/24 09/01/24 Range/Units 12:54 07:27 07:27 RBC 2.59 L 2.33 L (3.80-5.40) m/uL Hgb 8.6 L 7.6 L (11.4-16.0) gm/dL Hct 27.9 L 24.5 L (34.0-46.0) % MCV 107.8 H 105.0 H (80.0-100.0) fL MCHC 30.9 L 30.9 L (31.0-37.0) g/dL RDW 17.7 H 17.3 H (11.5-15.5) % Macrocytosis Marked A Marked A Sodium 134 L (137-145) mmol/L BUN 25 H (7-17) mg/dL Calcium 8.2 L (8.4-10.2) mg/dL Assessment and Plan Plan: Assessment: 1. Acute on chronic hyponatremia. Was hypervolemic. Status post diuresis. Sodium level 134. Urine sodium 60 and urine osmolality 272. 2. Volume overload. Improved with diuresis. 3. Anemia. Concern for GI bleed. Colonoscopy today. 4. Acute on chronic diastolic CHF with moderate to severe aortic regurgitation and moderate pulmonary hypertension. Plan: Maintain Lasix. Maintain Farxiga. Hep-Lock IV fluids once able to tolerate oral intake after colonoscopy. Avoid nephrotoxins.
[2024-09-01] MEDS ORDERED: PROPOFOL 10 MG/ML 20 ML VIAL IV ONE (12:59)
[2024-09-01] MEDS: IV FLUID CONTINUATION 1,000 ML IV ONE ×2 (13:02→13:26)
[2024-09-01] MEDS: SODIUM CHLORIDE 0.9% 500 ML 500 ML IV ONE ×2 (13:26→13:44)
[2024-09-02] MEDS: OCTREOTIDE 500 MCG in SODIUM CHLORIDE 0.9% 250 ML IV SCH (04:51)
[2024-09-02 07:34] LABS: African American GFR (CKD) 77 (>60 ml/min/1.73 sqM); Anion Gap 6 mmol/L; Blood Urea Nitrogen 19 mg/dL (7-17); Calcium 8.4 mg/dL (8.4-10.2); Carbon Dioxide 26 mmol/L (22-30); Chloride 101 mmol/L (98-107); Glucose 93 mg/dL (74-99); Magnesium 1.9 mg/dL (1.6-2.3); Non-African American GFR(CKD) 66 (>60 ml/min/1.73 sqM); Potassium 3.9 mmol/L (3.5-5.1); Sodium 133 mmol/L (137-145)
[2024-09-02 08:04] LABS: Anisocytosis Slight; Basophils % (A) 0 %; Eosinophils # (A) 0.1 k/uL (0-0.7); Eosinophils % (A) 2 %; HCT 25.6 % (34.0-46.0); Hypochromasia Moderate; Lymphocytes # (A) 1.2 k/uL (1.0-4.8); Lymphocytes % (A) 27 %; MCH 33.5 pg (25.0-35.0); MCHC 31.2 g/dL (31.0-37.0); MCV 107.4 fL (80.0-100.0); Macrocytosis Marked; Mean Platelet Volume 7.9; Monocytes # (A) 0.4 k/uL (0-1.0); Monocytes % (A) 9 %; Neutrophils # (A) 2.6 k/uL (1.3-7.7); Neutrophils % (A) 60 %; Platelet Count 205 k/uL (150-450); RBC 2.39 m/uL (3.80-5.40); RDW 17.7 % (11.5-15.5); WBC 4.3 k/uL (3.8-10.6)
--- NOTE | 2024-09-02 09:59 | P.PN ---
Subjective Patient is seen in follow-up for hyponatremia. Sodium level 133. On Lasix. Off IV fluids now. Had colonoscopy yesterday. Vital signs are stable. General: No acute distress. HEENT: Head exam is unremarkable. LUNGS: No audible rhonchi or wheezes. HEART: Rate and Rhythm are regular. ABDOMEN: Nontender. EXTREMITITES: No Edema. Objective - Vital Signs Vital signs: Vital Signs Temp 98.0 F 09/02/24 08:15 Pulse 66 09/02/24 08:15 Resp 16 09/02/24 08:15 BP 114/71 09/02/24 09:27 Pulse Ox 96 09/02/24 08:15 FiO2 Intake & Output 09/01/24 09/02/24 09/02/24 18:59 06:59 18:59 Intake Total 200 Balance 200 Weight 51.8 kg Intake: IV 200 Other: Voiding Method Toilet Toilet Toilet # Voids 2 # Bowel Movements 2 0 - Labs CBC & Chem 7: 09/02/24 06:39 09/02/24 06:39 Labs: Abnormal Lab Results - Last 24 Hours (Table) 09/02/24 09/02/24 Range/Units 06:39 06:39 RBC 2.39 L (3.80-5.40) m/uL Hgb 8.0 L (11.4-16.0) gm/dL Hct 25.6 L (34.0-46.0) % MCV 107.4 H (80.0-100.0) fL RDW 17.7 H (11.5-15.5) % Macrocytosis Marked A Sodium 133 L (137-145) mmol/L BUN 19 H (7-17) mg/dL Assessment and Plan Plan: Assessment: 1. Acute on chronic hyponatremia. Was hypervolemic. Status post diuresis. Sodium level 133. Urine sodium 60 and urine osmolality 272. 2. Volume overload. Improved with diuresis. 3. Anemia. Concern for GI bleed. Colonoscopy September 01, 2024. 4. Acute on chronic diastolic CHF with moderate to severe aortic regurgitation and moderate pulmonary hypertension. Plan: Encouraged oral intake. Maintain Lasix. Maintain Farxiga. Now off IV fluids. Avoid nephrotoxins.
--- NOTE | 2024-09-02 11:13 | P.PN ---
Subjective Progress Note Date: 09/02/24 SURGICAL PROGRESS NOTE CHIEF COMPLAINT: GI bleed HISTORY OF PRESENT ILLNESS: Patient status post EGD and colonoscopy that reported 3 gastric ulcers and diverticulosis. There is old blood through the colon. Patient lying in bed comfortably. Denies any abdominal pain. Patient did pass bloody bowel movement today. She denies any nausea or vomiting. Hemoglobin is up from 7.6-8. Vital stable. Medicine service has started on octreotide. PHYSICAL EXAM: VITAL SIGNS: Reviewed. GENERAL: Well-developed in no acute distress. ABDOMEN: Soft. Nondistended. Nontender. No rebound or guarding NEUROLOGIC: Alert and oriented. Cranial nerves II through XII grossly intact. ASSESSMENT: 1. Acute GI bleed likely secondary to gastric ulcers 2. Anemia 3. Status post mitral and tricuspid valve repair with closure of patent foramen ovale July 2024 PLAN: -Continue IV Protonix 40 mg twice daily -Continue with soft diet -Continue to monitor hemoglobin -Continue to monitor for any further signs or symptoms of bleeding Physician [employer] note has been reviewed by physician. Signing provider agrees with the documented findings, assessment, and plan of care. Objective - Vital Signs Vital signs: Vital Signs Temp 98.0 F 09/02/24 08:15 Pulse 66 09/02/24 08:15 Resp 16 09/02/24 08:15 BP 114/71 09/02/24 09:27 Pulse Ox 96 09/02/24 08:15 FiO2 Intake & Output 09/01/24 09/02/24 09/02/24 18:59 06:59 18:59 Intake Total 200 Balance 200 Weight 51.8 kg Intake: IV 200 Other: Voiding Method Toilet Toilet Toilet # Voids 2 # Bowel Movements 2 0 - Labs CBC & Chem 7: 09/02/24 06:39 09/02/24 06:39 Labs: Abnormal Lab Results - Last 24 Hours (Table) 09/02/24 09/02/24 Range/Units 06:39 06:39 RBC 2.39 L (3.80-5.40) m/uL Hgb 8.0 L (11.4-16.0) gm/dL Hct 25.6 L (34.0-46.0) % MCV 107.4 H (80.0-100.0) fL RDW 17.7 H (11.5-15.5) % Macrocytosis Marked A Sodium 133 L (137-145) mmol/L BUN 19 H (7-17) mg/dL Assessment and Plan Assessment: discussed w/ primary ok for discharge hold anticoagulation old blood seen with endoscopy patient requesting to go home Time with Patient: Less than 30
[2024-09-02 11:31] VITALS: TEMP 98.4
[2024-09-02 16:12] VITALS: BP 143/65; PULSE 62; RESP 18
--- NOTE | 2024-09-02 17:29 | P.DS ---
Providers Date of admission: 08/20/24 13:19 Attending physician: Lui Chaudhry MD Consults: 08/20/24 11:36 Consult Physician Routine Consulting Provider: Jose Alfredo Bey Consult Reason/Comments: recent CABG, KIRTI Do you want consulting provider notified?: Yes 08/24/24 11:59 Consult Physician Routine Consulting Provider: Adebayo Michelle Consult Reason/Comments: nose bleed Do you want consulting provider notified?: Yes 08/26/24 09:53 Consult Physician Routine Consulting Provider: Lilliam Rogers Consult Reason/Comments: Hyponatremia Do you want consulting provider notified?: Yes 08/29/24 11:12 Consult Physician Routine Consulting Provider: Aman Nair Consult Reason/Comments: blood in stool continues, hx +occult 08/25 Do you want consulting provider notified?: Yes Primary care physician: Eriberto Hutton MD Hospital Course: Diagnoses: 1. Generalized weakness/recent mitral valve repair and tricuspid valve annuloplasty; patient is status post surgery performed on 07/30/2024,, status post Medtronic dual-chamber permanent pacemaker implantation and developed atrial fibrillation 2. Acute GI bleed likely secondary to gastric ulcers x 3 with no active bleeding, per EGD on 08/2524 2. Acute diastolic heart failure; patient is euvolemic upon discharge 3. Iron deficiency anemia secondary to gastric ulcer, hemoglobin improved upon discharge. Eliquis and aspirin were held upon discharge as well 4. Uncontrolled hypertension; blood pressure controlled upon discharge 4. Valvular heart disease with mitral and tricuspid regurgitation status post mitral valve repair and tricuspid valve annuloplasty 07/30/2024 5. Chronic atrial fibrillation; patient is anticoagulated on Eliquis; which is held upon discharge for bloody bowel movements 6. Hyperlipidemia 7. UTI; finished treatment currently asymptomatic 8. sick sinus syndrome status post Medtronic dual-chamber pacemaker Hospital course: 78-year-old female, history of hypertension, atrial fibrillation, coronary artery disease, presents emergency department as a transfer for shortness of breath. Had a recent CABG with Dr. Bey at our facility in July 30. Presented to [facility] with general weakness, as well as worsening shortness of breath for the last few days. Also had pacemaker placed on last admission as well. Was found to be in a volume overload state with an elevated troponin and was transferred here for further care. Patient denies any chest pain at any point but does endorse some dysuria as well as difficulty in breathing. Patient was found to have acute urinary tract infection and CHF exacerbation she was treated with ceftriaxone and IV Lasix and showed interval improvement. Also evaluated by GI team for anemia and thought secondary epistaxis. Patient seen by several consultants including sales and retail management recruiter, GI cardiothoracic surgery sales and retail management recruiter and want ad receiver. Patient showed interval improvement however close to her discharge patient was noticed to have a bloody bowel movement while she is on Eliquis and aspirin. Her bloody bowel movement persist therefore we consulted general surgery as GI service saw the patient last week were not available this week in this facility. Her Eliquis and aspirin were put on hold. Hemoglobin remained relatively stable. She underwent EGD/colonoscopy with general surgery team yesterday on 09/01 showing 3 gastric ulcers with no active bleeding but there was a blood in the colon most likely from source as per my discussion with Dr. Nair yesterday. This morning patient feels much better. Her hemoglobin improved 7.6 up to 8.0. Last night and this morning she was still have mild bloody bowel movement. I discussed the case with general surgery team who recommended to defer anticoagulation and antiplatelet management to cardiology team. I discussed the case with Dr. Sandoval and he recommended to hold it for about a week. When I talked to the patient she told me she does not want to take her Eliquis and aspirin anymore. Risk and benefit explained for her. Will still advise the patient to resume her aspirin and Eliquis in 1 week if her bleeding stops and hemoglobin remained stable. Cardiothoracic surgery team also notified and recommended to follow-up with recommendation made by sales and retail management recruiter. I discussed the case with Dr. Nair who agreed the patient is cleared for discharge. Given the fact that we are going t o hold her Eliquis and aspirin for about 1 week and that she has an appointment with her PCP tomorrow Patient agrees to follow-up with her PCP SUPERCHARGER MECHANIC Tarsha Barbosa I called her PCP office but her PCP was not available today and she will be back tomorrow. I left a callback number to contact me tomorrow morning. Also left a message with the staff member Lala to keep holding her blood thinners x 1 week and she currently did not of this. On the day of discharge patient denies chest pain or dyspnea, no abdominal pain, no vomiting or diarrhea. No urinary complaint, no other new complaint and she agrees to go home. Physical therapy recommended home health care and patient agreeable. Patient agrees to go home today Patient will be discharged on Protonix twice daily Patient was cleared for discharge by all consulting including sales and retail management recruiter and general surgery team Problems and management plan were discussed with the patient and he verbalized understanding and acceptance Patient was found stable and can be discharged home in guarded prognosis however he needs follow-up as an outpatient. Patient was instructed to follow up with PCP within one week and patient agrees Was instructed to follow-up with Dr. Sandoval in 1 week, staff called Dr. Sandoval office who informed they will contact the patient for appointment Patient also was instructed to follow-up with Dr. Bey in 3 to 4 weeks. She was instructed to follow-up with the general surgeon Dr. Nair in 1 to 2 weeks after discharge and she agrees. Patient was directed to follow-up with grinder set up operator external Dr. Calabrese in 1 week and she agrees Physical exam Gen: patient is a AAOx3, no distress CVS: S1-S2, RRR, no murmur Lungs: B/L CTA, no wheezing Abdomen: soft, no distention, no tenderness, positive bowel sounds Extremity: no leg edema or induration Time spent more than 35 minutes Patient Condition at Discharge: Serious Plan - Discharge Summary Discharge Rx Participant: No New Discharge Prescriptions: New carvediloL [Coreg*] 12.5 mg PO BID-W/MEALS #60 tab Losartan [Cozaar] 100 mg PO DAILY #60 tab Ferrous Sulfate [Iron (65 MG Elemental)] 325 mg PO BID-W/MEALS #60 tab Pantoprazole Sodium [Protonix] 40 mg PO BID #60 tab Continue valACYclovir HCL [Valtrex] 500 mg PO DAILY Cholecalciferol [Vitamin D3 (25 Mcg = 1000 Iu)] 25 mcg PO DAILY Ascorbic Acid [Vitamin C] 500 mg PO DAILY diphenhydrAMINE [Benadryl] 25 mg PO BID PRN PRN Reason: Itching Cetirizine HCl [Zyrtec] 10 mg PO HS guaiFENesin [Mucinex] 600 mg PO Q12HR tab Acetaminophen Tab [Tylenol] 1,000 mg PO Q6HR PRN tab PRN Reason: Fever And/ Or Mild Pain (1-3) Sennosides-Docusate Sodium [Senokot-S] 2 tab PO HS prednisoLONE acetate [Pred Mild] 1 drop BOTH EYES TID Timolol [Betimol 0.5% Ophth Soln] 1 drop RIGHT EYE HS Sodium Chloride 5% Ophth Oint [Ayleen 128] 1 drop BOTH EYES HS Super 8 Greens 1 dose PO DAILY Collagen/Biotin/Ascorbic Acid [Collagen 1500 Plus C Capsule] 1 cap PO DAILY Famotidine [Pepcid] 40 mg PO DAILY Atorvastatin [Lipitor] 40 mg PO DAILY #30 tab Carboxymethylcellulose Sodium [Refresh Tears] 2 drop BOTH EYES Q1H PRN PRN Reason: dry eyes Systane Night Gel 1 drop BOTH EYES HS Discontinued Apixaban [Eliquis] 2.5 mg PO BID Aspirin 81 mg PO DAILY #30 tab Cephalexin [Keflex] 500 mg PO BID #14 cap Metoprolol Tartrate [Lopressor] 12.5 mg PO BID #60 tab Losartan [Cozaar] 12.5 mg PO DAILY@1200 #30 tab oxyCODONE HCL [OxyIR] 10 mg PO Q4H PRN 3 Days #18 tab PRN Reason: Pain No Action Furosemide [Lasix] 40 mg PO DAILY #30 tab Discharge Medication List Ascorbic Acid [Vitamin C] 500 mg PO DAILY 05/06/24 [History] Cholecalciferol [Vitamin D3 (25 Mcg = 1000 Iu)] 25 mcg PO DAILY 05/06/24 [History] Collagen/Biotin/Ascorbic Acid [Collagen 1500 Plus C Capsule] 1 cap PO DAILY 05/06/24 [History] Sodium Chloride 5% Ophth Oint [Ayleen 128] 1 drop BOTH EYES HS 05/06/24 [History] Super 8 Greens 1 dose PO DAILY 05/06/24 [History] Timolol [Betimol 0.5% Ophth Soln] 1 drop RIGHT EYE HS 05/06/24 [History] prednisoLONE acetate [Pred Mild] 1 drop BOTH EYES TID 05/06/24 [History] valACYclovir HCL [Valtrex] 500 mg PO DAILY 05/06/24 [History] Cetirizine HCl [Zyrtec] 10 mg PO HS 07/14/24 [History] Famotidine [Pepcid] 40 mg PO DAILY 07/14/24 [History] diphenhydrAMINE [Benadryl] 25 mg PO BID PRN 07/14/24 [History] Acetaminophen Tab [Tylenol] 1,000 mg PO Q6HR PRN tab 08/07/24 [Rx] Atorvastatin [Lipitor] 40 mg PO DAILY #30 tab 08/07/24 [Rx] Furosemide [Lasix] 40 mg PO DAILY #30 tab 08/07/24 [Rx] guaiFENesin [Mucinex] 600 mg PO Q12HR tab 08/07/24 [Rx] Carboxymethylcellulose Sodium [Refresh Tears] 2 drop BOTH EYES Q1H PRN 08/20/24 [History] Sennosides-Docusate Sodium [Senokot-S] 2 tab PO HS 08/20/24 [History] Systane Night Gel 1 drop BOTH EYES HS 08/20/24 [History] Losartan [Cozaar] 100 mg PO DAILY #60 tab 08/29/24 [Rx] carvediloL [Coreg*] 12.5 mg PO BID-W/MEALS #60 tab 08/29/24 [Rx] Ferrous Sulfate [Iron (65 MG Elemental)] 325 mg PO BID-W/MEALS #60 tab 09/02/24 [Rx] Pantoprazole Sodium [Protonix] 40 mg PO BID #60 tab 09/02/24 [Rx] Follow up Appointment(s)/Referral(s): Rehab [facility],Cardiac [NON-STAFF] - 4 Weeks (You will receive a phone call in approximately 4-6 weeks for evaluation for cardiac rehab) Sury Barbosa, [facility] [REFERRING] - 09/03/24 10:30 am Antwan Cardenas MD [STAFF PHYSICIAN] - 1 Week (Someone from [facility] will call patient with a follow up appointment per [facility] staff.) Jose Alfredo Bey MD [STAFF PHYSICIAN] - 10/08/24 2:00 pm Aman Nair DO [Doctor of Osteopathic Medicine] - 2 Weeks (the surgeon who did the scope for you, please follow up the biopsy results ) [facility] [NON-STAFF] - 1 Week Beatriz Salomon MD [STAFF PHYSICIAN] - 1 Week Patient Instructions/Handouts: Heart Failure (DC), Gastrointestinal Bleeding (DC), Colonoscopy (DC) Activity/Diet/Wound Care/Special Instructions: DISCHARGE INSTRUCTIONS: 1. No driving for 4 weeks, or until physician gives their ok. 2. The patient should sleep in their own bed, no medical bed needed. 3. Stairs are not an issue. If the bedroom is upstairs, it is advised that the patient go up at night and down in the morning for the first week. Go slowly, using handrail and take 1 step at a time. 4. ABAD hose are to be worn for 30 days post surgery or until physician discontinues. 5. Heart hugger is to be worn 100% of the time until physician discontinues.(except when showering) 6. No lifting, pushing, or pulling more than 10 pounds for 12 weeks. The physician will advise of any restriction changes. 7. The patient is expected to continue the prescribed walking program. 8. Continue pain control per as needed orders. 9. Continue with incentive spirometry and splinting/heart hugger until otherwise directed by the physician. 10. Must shower daily using liquid antibacterial soap 11. Routine sternal incision care. No powders, lotions, ointments on incisions. No dressings are necessary on incisions unless they are draining. Dermabond tape is to remain on sternal incision until surgeon follow-up. 12. Please call surgeon/SUPERCHARGER MECHANIC for temp greater than 101 F or purulent drainage from incisions. 13. You should weigh yourself daily, record and bring log with you to follow up appointments. 14. All prescriptions given by surgeon for 30 days. Refills need to be filled through sales and retail management recruiter/primary care physician. 15. A Red armband has been placed on the patient. It should be worn for 30 days post discharge from surgery and will be removed by the cardiac surgeons. If an ER visit is necessary, please make sure the number on the Red armband is called before going to ER. 16. You have been referred to and are expected to begin Cardiac Rehab in approximately 4-6 weeks. 17. Quitting smoking is the most important step you can take to improve your health. For additional information and assistance to quit smoking, please call the [place] tobacco quit line (5-608-PCED-NOW/ ) or online: [email or web address].gov/[email or web address]/yhcd-do-jqxzxyt/[email or web address]/tobacco/how-to-qu it-tobacco HOME HEALTH SERVICES TO PROVIDE: RN SKILLED HOME CARE SERVICES FOR POST-OP SURGICAL PATIENTS WITH THE FOLLOWING: Coronary Artery Bypass Surgery (CABG), Mitral Valve Replacement/Repair ( MVR), Aortic Valve Replacement/Repair (AVR) RN TO CONTINUE EDUCATION FROM ``ROAD TO A HEALTH HEART PATIENT EDUCATION MANUAL (GIVEN TO PATIENT IN THE HOSPITAL) MEDICATION RECONCILIATION WITH EDUCATION NEEDED ON FIRST HOME VISIT EMPHASIZE IMPORTANCE OF WEARING BREAST SUPPORT/HEART HUGGER ENCOURAGE USE OF INCENTIVE SPIROMETER 10 X EVERY HOUR WHILE AWAKE ENCOURAGE UTILIZATION OF LOWER EXTREMITY COMPRESSION STOCKINGS/ABAD HOSE and ELEVATE LEGS ABOVE LEVEL OF HEART WHILE AT REST. ENCOURAGE AMBULATION 3-5x/day INCREASING TOLERATES, WHILE AVOIDING EXTREMES IN TEMPERATURE FREQUENCY: RN TO OPEN THE PATIENT WITHIN 24 HOURS OF DISCHARGE FROM THE HOSPITAL WITH TELEHEALTH INSTALLED AT [facility] [place], RN TO VISIT 2-3 X A WEEK FOR 4 WEEKS ESTABLISHED BY PATIENT NEEDS. LABORATORY: CBC, CMP TO BE DRAWN ON THE THIRD DAY HOME, (RAN STAT) FAX RESULTS TO [phone]. TELEHEALTH PARAMETERS: WEIGHT: NOTIFY MD OF WEIGHT GAIN OF 2 LBS IN 24 HOURS OR 5 LBS IN ONE WEEK HR: NOTIFY MD OF HR <55 BPM OR HR>100 BPM BP: NOTIFY MD IF BP <90/55 OR BP>140/100 O2 SAT: NOTIFY MD IF PO2<93% ON ROOM AIR SEND TELEHEALTH REPORT TO PRESS TECHNICIAN AND CARDIOVASCULAR SURGEON THE FIRST WEEK OF CARE AND THEN BI-WEEKLY. PLEASE ADDITIONALLY COMMUNICATE ANY ABNORMALS AND NEW FINDINGS TO THE SURGEONS OFFICE. hold your eliquis and aspirin 81 mgfor one week and talk to your doctor (primary care doctor and sales and retail management recruiter ) in one week to check if you can start taking eliquis and/or aspirin 81 again however if your bloody bowel movements stop (i.e no more blood in stool then can resume your aspirin before 1 week ) follow up with your cardiothoracic surgeon in 10 days if possible If you develop any symptoms like chest pain shortness of breath more bleeding or fever or any other symptom then call 911 come to emergency room We recommend to check your blood test including hemoglobin and other blood test in 2 days with your doctor Discharge Disposition: HOME WITH HOME HEALTH SERVICES
--- NOTE | 2024-09-03 23:41 | P.OP ---
Date of Procedure: 09/01/24 Preoperative Diagnosis: gi bleed Postoperative Diagnosis: upper gi bleed 2/2 ulcers Procedure(s) Performed: egd/colonoscopy Anesthesia: GLENA Surgeon: Aman Nair Pathology: other (antrum) Condition: stable Disposition: PACU Indications for Procedure: gi bleed Operative Findings: gastric ulcers non bleeding old blood in the colon Description of Procedure: Patient was brought to the operating suite where a timeout was performed and everyone agreed with the information for side. The patient was placed in the left lateral decubitus position and adult size Olympus scope was used to traverse the mouth esophagus stomach to the second portion of the duodenum mild duodenitis I encountered 3 ulcers that are nonbleeding but evidence of previous bleed the scope was retroflexed and no hiatal hernia was observed the scope was then retracted out of the esophagus and mouth intact and then I turned my attention to the colonoscopy portion immediately encountered all clots in the anus and rectum and the scope was advanced to the cecum. The scope was ret racted looking at the mucosa in a circumferential fashion and there was blood throughout the colon and no obvious signs of active bleeding. There were old clots found in the cecum ascending colon transverse descending and sigmoid there was some diverticulosis observed. The scope was retracted out of the anus intact the patient tolerated procedure well and was then transported to the PACU in stable condition
== END 2024-09-02 16:24 | disposition home health service (06) | DRG 291 ==
LOC: EC 11:16 → 1SOBS 13:19 → 3SCARD 21:33
PROVIDERS: ADMIT Internal Medicine; ATTEND Internal Medicine
PROC: 05HB33Z Insertion of Infusion Device into Right Basilic Vein, Percutaneous Approach (ICD-10-PCS; 2024-08-31)
PROC: 0DB68ZX Excision of Stomach, Via Natural or Artificial Opening Endoscopic, Diagnostic (ICD-10-PCS; principal; 2024-09-01 12:30)
PROC: 0DJD8ZZ Inspection of Lower Intestinal Tract, Via Natural or Artificial Opening Endoscopic (ICD-10-PCS; principal; 2024-09-01 12:30)
DX: I11.0 Hypertensive heart disease with heart failure (principal); I50.33 Acute on chronic diastolic (congestive) heart failure; K25.0 Acute gastric ulcer with hemorrhage; D62 Acute posthemorrhagic anemia; E87.1 Hypo-osmolality and hyponatremia; I27.20 Pulmonary hypertension, unspecified; I48.19 Other persistent atrial fibrillation; R13.10 Dysphagia, unspecified; Z94.7 Corneal transplant status; M06.9 Rheumatoid arthritis, unspecified; Z95.2 Presence of prosthetic heart valve; D50.9 Iron deficiency anemia, unspecified; N39.0 Urinary tract infection, site not specified; I49.5 Sick sinus syndrome; Z79.01 Long term (current) use of anticoagulants; M35.00 Sjogren syndrome, unspecified; E78.00 Pure hypercholesterolemia, unspecified; E87.6 Hypokalemia; I35.8 Other nonrheumatic aortic valve disorders; H54.8 Legal blindness, as defined in USA; I25.10 Atherosclerotic heart disease of native coronary artery without angina pectoris; R04.0 Epistaxis; H04.123 Dry eye syndrome of bilateral lacrimal glands; H40.9 Unspecified glaucoma; Z95.1 Presence of aortocoronary bypass graft; Z79.82 Long term (current) use of aspirin; Z79.899 Other long term (current) drug therapy; Z95.0 Presence of cardiac pacemaker; Z86.73 Personal history of transient ischemic attack (TIA), and cerebral infarction without residual deficits; Z88.5 Allergy status to narcotic agent; Z88.0 Allergy status to penicillin; Z88.1 Allergy status to other antibiotic agents; Z88.6 Allergy status to analgesic agent; Z88.2 Allergy status to sulfonamides
CPT/HCPCS: 36415; 43239; 45378; 51702; 71045; 71046; 80048; 80053; 81001; 82272; 82728; 83540; 83550; 83605; 83735; 83880; 83935; 84300; 84484; 85025; 85027; 85610; 85730; 87040; 88305; 93005; 93306; 94760; 96365; 96366; 96375; 96376; 99285